=== PATIENT | male | born 1950 | race Caucasian/White ===

== ENCOUNTER 2016-09-10 09:52 | Inpatient (IN) | payer OTHER, MEDICARE ==
[~2016-09-10] VITALS: Ht 162.6 cm; Wt 51.9 kg
[~2016-09-10 09:52] MED LIST: ALBU0.086 NEB; COMBAER INH; COZA100T PO; FOLI1 PO; HYDR-2768 PO; HYDR-3580 PO; LISI-363 PO; LORA0.5T PO; MVI PO; SPIRCAP INH; SYMB160A INH; THIA100T PO
[2016-09-10 09:55] VITALS: BP 160/90; PULSE 80; RESP 16; TEMP 98.2; O2SAT 97
[2016-09-10 10:54] LABS: ANION GAP 6 MEQ/L (5-15); AST (GOT) 28 U/L (15-37); AUTOMATED NEUTROPHIL # 6.5 TH/MM3 (1.8-7.7); BASOPHIL # 0.1 TH/MM3 (0-0.2); BASOPHIL % 0.6 % (0.0-2.0); BICARBONATE 28.8 MEQ/L (21.0-32.0); BLOOD UREA NITROGEN 10 MG/DL (7-18); CHLORIDE 94 MEQ/L (98-107); EOSINOPHIL % 0.4 % (0.0-4.0); GLOMERULAR FILTRATION RATE 97 ML/MIN (>89); HEMATOCRIT 37.1 % (39.0-51.0); HEMO FLAGS DIFF FINAL; LYMPH % 19.2 % (9.0-44.0); LYMPHOCYTE # 1.8 TH/MM3 (1.0-4.8); MEAN CELL VOLUME 101.3 FL (80.0-100.0); MEAN CORPUSCULAR HEMOGLOBIN 36.3 PG (27.0-34.0); MEAN CORPUSCULAR HGB CONC 35.8 % (32.0-36.0); NEUT % 67.8 % (16.0-70.0); PLATELET COUNT 313 TH/MM3 (150-450); POTASSIUM 4.2 MEQ/L (3.5-5.1); RED BLOOD COUNT 3.66 MIL/MM3 (4.50-5.90); RED CELL DISTRIBUTION WIDTH 13.2 % (11.6-17.2); SODIUM (NA) 129 MEQ/L (136-145); WHITE BLOOD COUNT 9.6 TH/MM3 (4.0-11.0)
[2016-09-10 10:57] LABS: ALKALINE PHOSPHATASE 82 U/L (45-117); ALT (GPT) 34 U/L (12-78)
[2016-09-10 11:02] LABS: APTT (PATIENT) 27.2 SEC (24.3-30.1); PROTHROMBIN TIME - PATIENT 10.5 SEC (9.8-11.6)
--- NOTE | 2016-09-10 11:16 | RADRPT ---
EXAM DATE/TIME: 09/10/2016 10:38 [facility] COMPARISON: CT BRAIN W/O CONTRAST, December 15, 2014, 13:35. INDICATIONS : Trauma. Fell last night. Loss of consciousness. RADIATION DOSE: 39.51 CTDIvol (mGy) MEDICAL HISTORY : Cardiovascular disease. Hypertension. SURGICAL HISTORY : Lobectomy. ENCOUNTER: Initial ACUITY: 1 day PAIN SCALE: 0/10 LOCATION: cranial TECHNIQUE: Multiple contiguous axial images were obtained of the head. Using automated exposure control and adj ustment of the mA and/or kV according to patient size, radiation dose was kept as low as reasonably a chievable to obtain optimal diagnostic quality images. FINDINGS: CEREBRUM: The ventricles are normal for age. No evidence of midline shift, mass lesion, hemorrhage or acute in farction. No extra-axial fluid collections are seen. POSTERIOR FOSSA: The cerebellum and brainstem are intact. The 4th ventricle is midline. The cerebellopontine angle i s unremarkable. EXTRACRANIAL: The visualized portion of the orbits is intact. SKULL: The calvaria is intact. No evidence of skull fracture. CONCLUSION: No acute disease. Fer Mckeon MD FACR on September 10, 2016 at 11:14 Board Certified Radiologist. This report was verified electronically.
--- NOTE | 2016-09-10 11:29 | RADRPT ---
EXAM DATE/TIME: 09/10/2016 11:07 [facility] COMPARISON: No previous studies available for comparison. INDICATIONS : Fall - right hip pain. MEDICAL HISTORY : None. SURGICAL HISTORY : None. ENCOUNTER: Initial ACUITY: 2 days PAIN SCORE: 10/10 LOCATION: Right pelvis FINDINGS: 3 views of the right hip reveal acute nondisplaced subcapital femoral neck fracture on the right. Clu ster arthritis is seen involving the hips bilaterally. Osteopenia noted. Anchoring devices from prior ventral hernia repair are noted. CONCLUSION: Acute nondisplaced subcapital femoral neck fracture on the right. Henry Lopez Jr., MD on September 10, 2016 at 11:24 Board Certified Radiologist. This report was verified electronically.
[2016-09-10] MEDS ORDERED: chlordiazePOXIDE 25 MG CAP PO PRN (11:45)
[2016-09-10] MEDS ORDERED: LORazepam 2 MG TAB PO PRN ×2 (11:45→12:30)
[2016-09-10] MEDS ORDERED: LORazepam 2 MG/ML VIAL IV PUSH PRN ×8 (11:45→12:30)
[2016-09-10] MEDS ORDERED: MORPHINE SULFATE 4 MG/ML INJ IV PUSH ONE (11:45)
[2016-09-10] MEDS ORDERED: FLUMAZENIL 0.5 MG/5 ML VIAL IV PUSH PRN ×2 (11:45→12:30)
[2016-09-10] MEDS ORDERED: LORazepam 1 MG TAB PO PRN ×2 (11:45→12:30)
[2016-09-10] MEDS ORDERED: SODIUM CHLORIDE 0.9% FLUSH 5 ML FLUSH FLUSH PRN (12:30)
[2016-09-10] MEDS ORDERED: ACETAMINOPHEN 325 MG TAB PO PRN ×2 (12:30)
[2016-09-10] MEDS ORDERED: NALOXONE HCL 0.4 MG/ML AMP IV PRN (12:30)
[2016-09-10] MEDS ORDERED: ONDANSETRON HCL 4 MG/2 ML VIAL IVP PRN (12:30)
--- NOTE | 2016-09-10 12:30 | HHI.HP ---
[facility] Service [facility] Primary Care Physician Jin Pike MD Admission Diagnosis femoral neck fracture Diagnoses: (1) Fracture of femoral neck, right (2) HTN (hypertension) (3) Hyponatremia (4) Alcohol abuse (5) COPD (chronic obstructive pulmonary disease) Chief Complaint: Right hip pain Travel History International Travel<30 Days: No Contact w/Intl Traveler <30 Da: No Traveled to Known Affected Are: No History of Present Illness 65 year-old male with a history of hypertension, COPD, alcohol abuse was brought to the ED for evaluation of right hip pain status post mechanical fall after a syncopal episodes which occurred last night around 11 AM however patient did not seek immediate medical attention. Reports pain 10 out of 10 in intensity without any radiation and unable to put any weight on it. Patient denies any head trauma. There is no GI bleed Review of Systems Other 12 systems reviewed and are negative except for the ones mentioned in the history of present illness Past Family Social History Past Medical History Anxiety COPD Ongoing tobaccoism Hypertension Allergic rhinitis Previous cardiac catheterizations in 2003 2012 normal. Past Surgical History Hiatal hernia repair Cataract surgery Coronary angiograms Right lobectomy Reported Medications See EMR Allergies: Coded Allergies: Zosyn (Verified Allergy, Severe, Swelling, 12/10/15) RT EYE NOTED BLANCHING *MDRO Multi-Drug Resistant Organism (Verified Adverse Reaction, Unknown, ) MRSA Sputum 11/29/2014 and Blood 12/01/2014 Family History Father coronary artery disease age 76. Mother Alzheimer's complications at age 87. Sister with diabetes. Social History Positive prior alcohol abuse. One pack per day tobacco since age 9. Denies substance abuse. Physical Exam Vital Signs Vital Signs Date Time Temp Pulse Resp B/P Pulse Ox O2 Delivery O2 Flow Rate FiO2 09/10/16 09:58 17 97 Room Air 09/10/16 09:55 98.2 80 16 160/90 97 Physical Exam GENERAL: This is a well-nourished, well-developed patient, in no apparent distress. SKIN: No rashes, ecchymoses or lesions. Cool and dry. HEAD: Atraumatic. Normocephalic. No temporal or scalp tenderness. EYES: Pupils equal round and reactive. Extraocular motions intact. No scleral icterus. No injection or drainage. ENT: Nose without bleeding, purulent drainage or septal hematoma. Throat without erythema, tonsillar hypertrophy or exudate. Uvula midline. Airway patent. NECK: Trachea midline. No JVD or lymphadenopathy. Supple, nontender, no meningeal signs. CARDIOVASCULAR: Regular rate and rhythm without murmurs, gallops, or rubs. RESPIRATORY: Clear to auscultation. Breath sounds equal bilaterally. No wheezes , rales, or rhonchi. GASTROINTESTINAL: Abdomen soft, non-tender, nondistended. No hepato-splenomegaly , or palpable masses. No guarding. MUSCULOSKELETAL: Extremities without clubbing, cyanosis, or edema. Right lower extremity tender to palpation at the hip joint with limited range of motion NEUROLOGICAL: Awake and alert. Cranial nerves II through XII intact. Motor and sensory grossly within normal limits. Five out of 5 muscle strength in all muscle groups. Normal speech. Laboratory Laboratory Tests Test 09/10/16 10:00 White Blood Count 9.6 Red Blood Count 3.66 Hemoglobin 13.3 Hematocrit 37.1 Mean Corpuscular Volume 101.3 Mean Corpuscular Hemoglobin 36.3 Mean Corpuscular Hemoglobin 35.8 Concent Red Cell Distribution Width 13.2 Platelet Count 313 Mean Platelet Volume 7.4 Neutrophils (%) (Auto) 67.8 Lymphocytes (%) (Auto) 19.2 Monocytes (%) (Auto) 12.0 Eosinophils (%) (Auto) 0.4 Basophils (%) (Auto) 0.6 Neutrophils # (Auto) 6.5 Lymphocytes # (Auto) 1.8 Monocytes # (Auto) 1.1 Eosinophils # (Auto) 0.0 Basophils # (Auto) 0.1 CBC Comment DIFF FINAL Differential Comment Prothrombin Time 10.5 Prothromb Time International 1.0 Ratio Activated Partial 27.2 Thromboplast Time Sodium Level 129 Potassium Level 4.2 Chloride Level 94 Carbon Dioxide Level 28.8 Anion Gap 6 Blood Urea Nitrogen 10 Creatinine 0.80 Estimat Glomerular Filtration 97 Rate Random Glucose 111 Calcium Level 8.9 Total Bilirubin 1.0 Aspartate Amino Transf 28 (AST/SGOT) Alanine Aminotransferase 34 (ALT/SGPT) Alkaline Phosphatase 82 Total Protein 6.9 Albumin 3.7 Result Diagram: 09/10/16 1000 09/10/16 1000 Imaging Last Impressions Hip and Pelvis X-Ray 09/10/16 0000 Signed Impressions: Service Date/Time: Saturday, September 10, 2016 11:07 - CONCLUSION: Acute nondisplaced subcapital femoral neck fracture on the right. Henry Lopez Jr., MD Head CT 09/10/16 0000 Signed Impressions: Service Date/Time: Saturday, September 10, 2016 10:38 - CONCLUSION: No acute disease. Fer Mckeon MD FACR Assessment and Plan Problem List: (1) Fracture of femoral neck, right ICD Code: S72.001A Status: Acute (2) Hyponatremia ICD Code: E87.1 Status: Acute Assessment and Plan 65 yrs old female with Femoral right neck fracture: S/p mechanical Fall; hip and pelvic x-ray fracture noted and reviewed by me with finding of Acute nondisplaced subcapital femoral neck fracture on the right. Consult orthopedic surgery, keep nothing by mouth for possible ORIF, pain management accordingly. DVT postprocedure per orthopedic surgery, PT consult postprocedure. Place Hernandez traction. History of alcohol abuse: Chronic, start rally pack, CIWA per protocol, Librium when necessary for DTs Hypokalemia:2/2 Beer Potomania; gentle IV fluid hydration History of COPD: No current exacerbation, resume outpatient medications, DuoNeb when necessary Hypertension: Resume outpatient medications DVT prophylaxis: Per orthopedic surgery postprocedure Code Status Full code Discussed Condition With Patient, , ED physician Physician Certification 2 Midnight Certification Type: Admission for Inpatient Services Order for Inpatient Services The services are ordered in accordance with Medicare regulations or non- Medicare payer requirements, as applicable. In the case of services not specified as inpatient-only, they are appropriately provided as inpatient services in accordance with the 2-midnight benchmark. Estimated LOS (days): 2 days is the estimated time the patient will need to remain in the hospital, assuming treatment plan goals are met and no additional complications. Post-Hospital Plan: Not yet determined Luis Rice MD Sep 10, 2016 12:30
[2016-09-10] MEDS: SODIUM CHLOR 0.9% 1000 ML INJ 1,000 ML IV SCH (13:01)
--- NOTE | 2016-09-10 13:11 | PD ---
HPI Chief Complaint: Fall Time Seen by Provider: 09:59 Travel History International Travel<30 days: No Contact w/Intl Traveler<30days: No Traveled to known affect area: No History of Present Illness HPI This is a 65-year-old male who presents to the emergency department having had an episode last night where he says he passed out around midnight he says he didn't feel it coming didn't feel lightheaded or dizzy but subsequently found himself on the floor. He says he immediately woke up once he fell to the floor. He had severe right hip pain, constant, limiting his ability to walk. He's been getting around using 2 canes. He does drink alcohol on a daily basis. He is not sure if he hit his head last night. PFSH Past Medical History Autoimmune Disease: No Anxiety: No Depression: Yes (past few days due to current health status) Heart Rhythm Problems: No Cancer: No Cardiac Catheterization: Yes (2003) Cardiovascular Problems: Yes (HTN) High Cholesterol: No Chemotherapy: No Congestive Heart Failure: No COPD: Yes Diabetes: No Diminished Hearing: No Endocrine: No Genitourinary: No Hypertension: Yes Immune Disorder: No Medical other: Yes Musculoskeletal: Yes Neurologic: No Psychiatric: No Reproductive: No Respiratory: Yes (COPD) Myocardial Infarction: Yes Radiation Therapy: No Sickle Cell Disease: No Sleep Apnea: Yes (only sleeps for 20 minutes at a time each night) Past Surgical History Abdominal Surgery: Yes (double hernia done at [facility]) Cardiac Surgery: Yes (two heart catheterizations - both negative) Coronary Artery Bypass Graft: No Ear Surgery: No Endocrine Surgery: No Eye Surgery: Yes (cataracts removed from both eyes) Genitourinary Surgery: No Gynecologic Surgery: No Oral Surgery: Yes (partial plate in lower front) Thoracic Surgery: Yes (right double lobectomy 2014) Other Surgery: Yes Social History Alcohol Use: Yes (DAILY 3 BEERS) Tobacco Use: Yes (1 PPD) Substance Use: No Allergies-Medications (Allergen,Severity, Reaction): Coded Allergies: Zosyn (Verified Allergy, Severe, Swelling, 12/10/15) RT EYE NOTED BLANCHING *MDRO Multi-Drug Resistant Organism (Verified Adverse Reaction, Unknown, ) MRSA Sputum 11/29/2014 and Blood 12/01/2014 Reported Meds & Prescriptions Reported Meds & Active Scripts Active Theragran (Multivitamins) 1 Tab Tab 1 Tab PO DAILY 30 Days Folate 1 Mg Tab (Folic Acid) 1 Mg Tab 1 Mg PO DAILY 30 Days Vitamin B1 (Thiamine HCl) 100 Mg Tab 100 Mg PO DAILY 30 Days Reported Spiriva Handihaler (Tiotropium Irving) 18 Mcg Cap 1 Puff INH DAILY DO NOT SWALLOW CAPSULES Symbicort (Budesonide/Formoterol Fumarate) 160 Mcg/4.5 Mcg Aer 2 Puff INH BID * SHAKE WELL BEFORE USE * Lorazepam 0.5 Mg Tab 0.5 Mg PO BID Hydrocodone/Acetaminophen 7.5 mg/325 mg 1 Tab 1 Tab PO TID Lisinopril 20 mg (Lisinopril) 20 Mg Tab 10 Mg PO DAILY Cozaar (Losartan Potassium) 100 Mg Tab 100 Mg PO DAILY Hctz (Hydrochlorothiazide) 25 Mg Tab 25 Mg PO DAILY Proventil Ud 0.083% (2.5 Mg/3 Ml) (Albuterol Sulfate) 2.5 Mg/3 Ml Inha 1 Ampule NEB Q6 PRN Combivent (Albuterol/Ipratropium) 14.7 Gm Aer 2 Puff INH Q4HPRN FOR WHEEZING Review of Systems Except as stated in HPI: all other systems reviewed are Neg Physical Exam Narrative GENERAL:Well appearing, no acute distress SKIN: Ecchymoses on the upper and lower extremities at different stages of healing. Telangiectasias on the face and upper chest HEAD: Atraumatic. Normocephalic. EYES: Pupils equal and round. No injection or drainage. ENT: Moist mucous membranes NECK: Trachea midline. CARDIOVASCULAR: Regular rate and rhythm. No murmur appreciated. 2+ bilateral DP pulses. RESPIRATORY: Clear to auscultation. Breath sounds equal bilaterally. GASTROINTESTINAL: Abdomen soft, non-tender, nondistended. MUSCULOSKELETAL: Severe pain in the right hip with any movement. NEUROLOGICAL: Awake and alert. No obvious cranial nerve deficits. Moving all extremities. PSYCHIATRIC: Appropriate mood and affect; insight and judgment normal. Data Data Last Documented VS Vital Signs Date Time Temp Pulse Resp B/P Pulse Ox O2 Delivery O2 Flow Rate FiO2 09/10/16 09:58 17 97 Room Air 09/10/16 09:55 98.2 80 160/90 Orders Complete Blood Count With Diff (09/10/16 10:14) Comprehensive Metabolic Panel (09/10/16 10:14) ^ Insert Iv (09/10/16 10:14) Hip, Uni(Ap&Lat) W Ap Pelvis (09/10/16 ) Prothrombin Time / Inr (Pt) (09/10/16 10:22) Act Partial Throm Time (Ptt) (09/10/16 10:22) Ct Brain W/O Iv Contrast(Rout) (09/10/16 ) Electrocardiogram (09/10/16 ) Morphine Inj (Morphine Inj) (09/10/16 11:45) Alcohol Withdrawal Asmt-Ciwa ONCE (09/10/16 11:45) Flumazenil Inj (Romazicon Inj) (09/10/16 11:45) Lorazepam (Ativan) (09/10/16 11:45) Lorazepam Inj (Ativan Inj) (09/10/16 11:45) Lorazepam (Ativan) (09/10/16 11:45) Lorazepam Inj (Ativan Inj) (09/10/16 11:45) Lorazepam Inj (Ativan Inj) (09/10/16 11:45) Lorazepam Inj (Ativan Inj) (09/10/16 11:45) Chlordiazepoxide (Librium) (09/10/16 11:45) Admit Order (Ed Use Only) (09/10/16 12:02) Labs Laboratory Tests Test 09/10/16 10:00 White Blood Count 9.6 TH/MM3 Red Blood Count 3.66 MIL/MM3 Hemoglobin 13.3 GM/DL Hematocrit 37.1 % Mean Corpuscular Volume 101.3 FL Mean Corpuscular Hemoglobin 36.3 PG Mean Corpuscular Hemoglobin 35.8 % Concent Red Cell Distribution Width 13.2 % Platelet Count 313 TH/MM3 Mean Platelet Volume 7.4 FL Neutrophils (%) (Auto) 67.8 % Lymphocytes (%) (Auto) 19.2 % Monocytes (%) (Auto) 12.0 % Eosinophils (%) (Auto) 0.4 % Basophils (%) (Auto) 0.6 % Neutrophils # (Auto) 6.5 TH/MM3 Lymphocytes # (Auto) 1.8 TH/MM3 Monocytes # (Auto) 1.1 TH/MM3 Eosinophils # (Auto) 0.0 TH/MM3 Basophils # (Auto) 0.1 TH/MM3 CBC Comment DIFF FINAL Differential Comment Prothrombin Time 10.5 SEC Prothromb Time International 1.0 RATIO Ratio Activated Partial 27.2 SEC Thromboplast Time Sodium Level 129 MEQ/L Potassium Level 4.2 MEQ/L Chloride Level 94 MEQ/L Carbon Dioxide Level 28.8 MEQ/L Anion Gap 6 MEQ/L Blood Urea Nitrogen 10 MG/DL Creatinine 0.80 MG/DL Estimat Glomerular Filtration 97 ML/MIN Rate Random Glucose 111 MG/DL Calcium Level 8.9 MG/DL Total Bilirubin 1.0 MG/DL Aspartate Amino Transf 28 U/L (AST/SGOT) Alanine Aminotransferase 34 U/L (ALT/SGPT) Alkaline Phosphatase 82 U/L Total Protein 6.9 GM/DL Albumin 3.7 GM/DL [facility] Medical Decision Making Medical Screen Exam Complete: Yes Emergency Medical Condition: Yes Interpretation(s) Afebrile, no tachycardia, hypertensive Macrocytosis Mild hyponatremia Coags are normal Last 24 hours Impressions Hip and Pelvis X-Ray 09/10/16 0000 Signed Impressions: Service Date/Time: Saturday, September 10, 2016 11:07 - CONCLUSION: Acute nondisplaced subcapital femoral neck fracture on the right. Henry Lopez Jr., MD Head CT 09/10/16 0000 Signed Impressions: Service Date/Time: Saturday, September 10, 2016 10:38 - CONCLUSION: No acute disease. Fer Mckeon MD FACR Differential Diagnosis Femur fracture, pubic ramus fracture, hip sprain, contusion Narrative Course This is a 65-year-old male who presents to the emergency department having had syncope and a fall last evening. He was placed on a monitor and an IV was established. CT of the head was reassuring with no evidence of intracranial hemorrhage. Labs demonstrated some hyponatremia and a macrocytosis consistent with the patient's history of chronic alcohol use. X-ray of the hip demonstrates a subcapital femoral neck fracture. Patient will be admitted for surgical intervention. Physician Communication Physician Communication Discussed with Dr. Rice Diagnosis Primary Impression: Fracture of femoral neck, right Qualified Code: S72.001A - Closed fracture of neck of right femur, initial encounter Admitting Information Admitting Physician Requests: Admit Katrina Palomino MD Sep 10, 2016 13:11
[2016-09-10] MEDS ORDERED: ATOR10TA15 PO (13:25)
[2016-09-10] MEDS ORDERED: HYDR-3534 PO (13:25)
[2016-09-10] MEDS ORDERED: LORA-373 PO (13:25)
[2016-09-10] MEDS ORDERED: SYMB160A INH (13:25)
[2016-09-10] MEDS ORDERED: CITA20TA4 PO (13:25)
[2016-09-10] MEDS ORDERED: HYDR25TA5 PO (13:25)
[2016-09-10] MEDS ORDERED: SPIRCAP INH (13:25)
[2016-09-10 14:00] VITALS: BP 140/74; PULSE 68; RESP 18; TEMP 98.2; O2SAT 96
[2016-09-10 16:02] VITALS: BP 148/75; PULSE 74; RESP 19; TEMP 99.5; O2SAT 95
[2016-09-10] MEDS: MORPHINE SULFATE 4 MG/ML INJ IV PRN ×2 (17:36→21:44)
[2016-09-10 19:16] VITALS: BP 129/83; PULSE 75; RESP 17; TEMP 98.7; O2SAT 94
[2016-09-10] MEDS: RESP: ALBUTEROL 2.5 MG/IPRATROPIUM 0.5 MG NEB (PRN) NEB (19:33)
[2016-09-10] MEDS: LORazepam 0.5 MG TAB PO SCH (21:44)
[2016-09-10] MEDS: SODIUM CHLORIDE 0.9% FLUSH 5 ML FLUSH FLUSH SCH (21:44)
[2016-09-10] MEDS: ATORVASTATIN 10 MG TAB PO SCH (21:44)
[2016-09-10] MEDS: BUDESONIDE-FORMOTEROL 160/4.5 MCG INHALER INH SCH (22:37)
--- NOTE | 2016-09-10 23:05 | EKG ---
Date Performed: 09/10/2016 Time Performed: 14:20:45 PTAGE: 65 years EKG: Sinus rhythm POSSIBLE LEFT ATRIAL ENLARGEMENT BORDERLINE ECG PREVIOUS TRACING : 11/28/2014 09.06 Compared to the previous tracing, previously tachycardic wi th ST changes DOCTOR: Chris Santizo Interpretating Date/Time 09/10/2016 23:03:52
[2016-09-11] VITALS: BP 130/77; PULSE 79; RESP 16; TEMP 98; O2SAT 94
[2016-09-11 00:31] LABS: BLOOD, URINE NEG (NEG); GLUCOSE,URINE NEG (NEG); KETONE, URINE 10 mg/dL (NEG); MUCUS URINE FEW /lpf (OCC); NITRITE,URINE NEG (NEG); PH, URINE 6.5 (5.0-8.5); URINE COLOR YELLOW (YELLW/STRAW)
[2016-09-11 00:32] LABS: COMMENT (UR) CULT NOT INDICATED; CULTURE IF INDICATED CULT NOT INDICATED
[2016-09-11] MEDS: RESP: ALBUTEROL 2.5 MG/IPRATROPIUM 0.5 MG NEB (PRN) NEB ×2 (00:34→22:04)
[2016-09-11] MEDS: SODIUM CHLOR 0.9% 1000 ML INJ 1,000 ML IV SCH ×2 (01:26→17:06)
[2016-09-11] MEDS: MORPHINE SULFATE 4 MG/ML INJ IV PRN ×2 (02:35→07:26)
[2016-09-11] MEDS ORDERED: INSULIN HUMAN REGULAR 1,000 UNITS/10 ML VIAL SQ PRN (02:45)
[2016-09-11] MEDS: LACTATED RINGER'S 1000 ML IV SCH (02:45)
[2016-09-11] MEDS: SODIUM CHLORID 0.9% 500 ML IV SCH ×2 (02:45→19:25)
[2016-09-11] MEDS ORDERED: METOPROLOL TARTRATE 25 MG TAB PO PRN (02:45)
[2016-09-11 04:00] VITALS: BP 126/75; PULSE 72; RESP 17; TEMP 98; O2SAT 93
[2016-09-11 07:09] LABS: AUTOMATED NEUTROPHIL # 5.1 TH/MM3 (1.8-7.7); BASOPHIL # 0.1 TH/MM3 (0-0.2); EOSINOPHIL # 0.1 TH/MM3 (0-0.4); EOSINOPHIL % 1.1 % (0.0-4.0); HEMATOCRIT 33.5 % (39.0-51.0); HEMO FLAGS DIFF FINAL; LYMPH % 26.5 % (9.0-44.0); LYMPHOCYTE # 2.3 TH/MM3 (1.0-4.8); MEAN CELL VOLUME 101.4 FL (80.0-100.0); MEAN CORPUSCULAR HEMOGLOBIN 35.5 PG (27.0-34.0); NEUT % 59.4 % (16.0-70.0); PLATELET COUNT 271 TH/MM3 (150-450); RED CELL DISTRIBUTION WIDTH 13.1 % (11.6-17.2); WHITE BLOOD COUNT 8.6 TH/MM3 (4.0-11.0)
[2016-09-11] MEDS: CITALOPRAM HYDROBROMIDE 20 MG TAB PO SCH (07:25)
[2016-09-11] MEDS: HYDROCHLOROTHIAZIDE 25 MG TAB PO SCH (07:25)
[2016-09-11] MEDS: BUDESONIDE-FORMOTEROL 160/4.5 MCG INHALER INH SCH ×2 (07:25→20:46)
[2016-09-11] MEDS: LORazepam 0.5 MG TAB PO SCH ×2 (07:25→20:46)
[2016-09-11] MEDS: SODIUM CHLORIDE 0.9% FLUSH 5 ML FLUSH FLUSH SCH (07:26)
[2016-09-11] MEDS: FOLIC ACID 1 MG TAB PO SCH (07:26)
[2016-09-11] MEDS: TIOTROPIUM BROMIDE 18 MCG INH INH SCH (07:26)
[2016-09-11] MEDS: MULTIVITAMINS/MINERALS THERAPEUTIC TAB PO SCH (07:27)
[2016-09-11] MEDS: THIAMINE HCL 100 MG TAB PO SCH (07:27)
[2016-09-11 08:04] LABS: ALKALINE PHOSPHATASE 68 U/L (45-117); ALT (GPT) 26 U/L (12-78); ANION GAP 7 MEQ/L (5-15); AST (GOT) 19 U/L (15-37); BICARBONATE 29.4 MEQ/L (21.0-32.0); BLOOD UREA NITROGEN 8 MG/DL (7-18); CHLORIDE 95 MEQ/L (98-107); GLOMERULAR FILTRATION RATE 110 ML/MIN (>89); POTASSIUM 4.1 MEQ/L (3.5-5.1); SODIUM (NA) 131 MEQ/L (136-145); TOTAL BILIRUBIN ADULT 0.9 MG/DL (0.2-1.0)
[2016-09-11 08:36] VITALS: BP 125/84; PULSE 86; RESP 16; TEMP 97.8; O2SAT 95
[2016-09-11] MEDS ORDERED: ePHEDrine/NS 25 MG/5 ML SYR IV ONE (12:00)
[2016-09-11] MEDS ORDERED: ONDANSETRON HCL 4 MG/2 ML VIAL IV PUSH ONE (12:00)
[2016-09-11] MEDS ORDERED: LACTATED RINGER'S 1000 ML INJ 1,000 ML IV ONE (12:00)
[2016-09-11] MEDS ORDERED: PROPOFOL 200 MG/20 ML AMP IV ONE (12:00)
[2016-09-11 12:15] VITALS: BP 160/83; PULSE 72; RESP 16; TEMP 98.1; O2SAT 95
[2016-09-11] MEDS ORDERED: methylPREDNISolone SOD SUCC 125 MG/2 ML VIAL ONE (12:37)
[2016-09-11] MEDS ORDERED: MIDAZOLAM HCL 2 MG/2 ML VIAL ONE (12:37)
[2016-09-11] MEDS ORDERED: MORPHINE SULFATE 4 MG/ML INJ ONE (12:37)
--- NOTE | 2016-09-11 14:44 | HHI.PR ---
Subjective Remarks Follow-up Femoral right neck fracture 09/11/16-patient seen and examined, currently nothing by mouth and plan for open reduction internal fixation by orthopedic surgery Objective Vitals Vital Signs Date Time Temp Pulse Resp B/P Pulse Ox O2 Delivery O2 Flow Rate FiO2 09/11/16 12:15 98.1 72 16 160/83 95 09/11/16 08:36 97.8 86 16 125/84 95 09/11/16 07:31 16 09/11/16 04:00 98.0 72 17 126/75 93 09/11/16 00:00 98.0 79 16 130/77 94 09/10/16 19:16 98.7 75 17 129/83 94 09/10/16 16:02 99.5 74 19 148/75 95 I/O 09/10/16 09/10/16 09/10/16 09/11/16 09/11/16 09/11/16 07:00 15:00 23:00 07:00 15:00 23:00 Intake Total 240 ml 0 ml Output Total 300 ml Balance 240 ml -300 ml Intake Oral 240 ml 0 ml Output Urine Total 300 ml # Voids 1 2 # Bowel Movements 0 0 Result Diagram: 09/11/1629 09/11/16628 Objective Remarks GENERAL: NAD SKIN: Warm and dry. HEAD: Normocephalic. EYES: No scleral icterus. No injection or drainage. NECK: Supple, trachea midline. No JVD or lymphadenopathy. CARDIOVASCULAR: Regular rate and rhythm without murmurs, gallops, or rubs. RESPIRATORY: Breath sounds equal bilaterally. No accessory muscle use. GASTROINTESTINAL: Abdomen soft, non-tender, nondistended. MUSCULOSKELETAL: No cyanosis, or edema. right LLE limited ROM BACK: Nontender without obvious deformity. No CVA tenderness. A/P Problem List: (1) Fracture of femoral neck, right ICD Code: S72.001A Status: Acute (2) HTN (hypertension) ICD Code: I10 Status: Chronic (3) Hyponatremia ICD Code: E87.1 Status: Acute (4) Alcohol abuse ICD Code: F10.10 Status: Acute (5) COPD (chronic obstructive pulmonary disease) ICD Code: J44.9 Status: Acute Assessment and Plan 65 yrs old female with Femoral right neck fracture: S/p mechanical Fall; hip and pelvic x-ray fracture noted and reviewed by me with finding of Acute nondisplaced subcapital femoral neck fracture on the right. Appreciate input from Orthopedic surgery and plan for ORIF today 09/11/16, pain management accordingly. DVT postprocedure per orthopedic surgery, PT consult postprocedure. Place Hernandez traction. History of alcohol abuse: Chronic, on rally pack, CIWA per protocol, Librium when necessary for DTs Hypokalemia:2/2 Beer Potomania; continue IV fluid hydration History of COPD: No current exacerbation, continue outpatient medications, DuoNeb when necessary Hypertension: Continue outpatient medications DVT prophylaxis: Per orthopedic surgery postprocedure Problem Qualifiers (1) Fracture of femoral neck, right: Qualified Code: S72.001A - Closed fracture of neck of right femur, initial encounter Luis Rice MD Sep 11, 2016 14:44
[2016-09-11] MEDS ORDERED: GENTAMICIN SULFATE 80 MG/2 ML VIAL ONE (15:13)
[2016-09-11] MEDS ORDERED: ceFAZolin 2 GM PREMIX 50 ML ONE (15:29)
--- NOTE | 2016-09-11 16:27 | PD.OP ---
cc: Krishna Saleh MD Operative Report Date of Surgery: Sep 11, 2016 Preoperative Diagnosis: Right femoral neck fracture, subcapital, impacted Postoperative Diagnosis: Same Procedure: Open treatment internal fixation right femoral neck fracture with multiple screws Anesthesia: Gen. Surgeon: Krishna Saleh Rail Detector Car Operator(s): MARIANNE Escobar Operation and Findings: EBL: 50 cc INDICATION: Patient is a 65-year-old male who sustained the above fracture a day and a half ago. He presented to the emergency room yesterday and was found to have evidence of a subcapital femoral neck fracture. He presents for surgical treatment NOTE: Miah Escobar PA-C was present for the entire surgical procedure as my museum assistant. In my medical opinion her skill and care was necessary for proper management of this patient PROCEDURE: The patient was brought to the operating room and anesthetized in the supine position. He was placed on the fracture table with the right leg held extended. The opposite leg was in the well leg burton. The hip fracture was reduced anatomically. The hip and leg was scrubbed with alcohol followed by Hibiclens followed by ChloraPrep. A timeout was done and antibiotics were given within 1 hour time window. A longitudinal incision was made over the lateral aspect of the hip. This is carried down through skin and subcutaneous tissue. The fascia was opened longitudinally. Deep retractors allowed good visualization. Multiple guide pins were placed across the proximal femur across the neck of the femur. These were placed within the proper position in a parallel fashion into the femoral head. Overall alignment was satisfactory. Reduction was near anatomic. Each pin was measured and then the outer cortex drilled. Proper length 7.3mm Synthes screws were advanced across the cannulated device and into the femoral head. Each screw had good position. Intraoperative x-rays were obtained. Alignment was satisfactory. No complication was noted. The wound was irrigated copiously. Hemostasis was controlled. The fascia was closed with interrupted Vicryl suture, subcutaneous tissue 2-0 Vicryl suture, skin with running intradermal 3-0 Vicryl followed by Steri-Strips and benzoin. A sterile dressing was applied The patient was awakened and taken to the recovery room in satisfactory condition. FINDINGS: There was evidence of an impacted valgus femoral neck fracture. Final fixation was very satisfactory. 4 screws were utilized. Krishna Saleh MD Sep 11, 2016 16:27
[2016-09-11] MEDS ORDERED: ENOX40P SQ (16:29)
[2016-09-11] MEDS ORDERED: MISCELLANEOUS NURSING INFORMATION XX PRN (16:30)
[2016-09-11] MEDS ORDERED: Post-op Orders (for Pharmacy) MISC XX ONE (16:30)
[2016-09-11] MEDS ORDERED: ACETAMINOPHEN/HYDROcodone 325 MG/7.5 MG TAB PO PRN (16:30)
[2016-09-11] MEDS ORDERED: MISCELLANEOUS PHARMACY INFORMATION XX ONE (16:30)
[2016-09-11] MEDS ORDERED: SODIUM CHLORIDE 0.9% FLUSH 5 ML FLUSH IVF PRN (16:30)
[2016-09-11] MEDS ORDERED: ALUMINUM/MAGNESIUM/SIMETH 30 ML CUP PO PRN (16:30)
[2016-09-11] MEDS ORDERED: ONDANSETRON HCL 4 MG/2 ML VIAL IVP PRN (16:30)
[2016-09-11] MEDS ORDERED: TEMAZEPAM 15 MG CAP PO PRN (16:30)
--- NOTE | 2016-09-11 16:42 | MB ---
cc: CARIDAD PLASENCIA DATE OF CONSULTATION 09/11/16 REASON FOR CONSULTATION Fracture of the right hip. HISTORY OF PRESENT ILLNESS This patient is a 65-year-old white male. The patient has a known history of hypertension, COPD, alcohol abuse. The patient apparently fell the night before sustaining an injury to his right hip. He came in around 11 o'clock walking on a cane and having pain in the region of his right hip. X-rays showed evidence of an impacted right femoral neck fracture. I have been asked to see him in consultation regarding the same. PAST MEDICAL HISTORY 1. Anxiety, 2. COPD, 3. Tobacco abuse, 4. Hypertension, 5. Rhinitis, 6. History of cardiac catheterization in 2003 abd 2011 which apparently were normal. PAST SURGICAL HISTORY 1. Hiatal hernia, 2. Cataract surgery, 3. Coronary angiogram, 4. Right lobectomy. MEDICATIONS See EMR ALLERGIES ZOSYN FAMILY HISTORY Father and age 76 from coronary artery disease, mother without Alzheimer's disease at age 87, sister with diabetes. SOCIAL HISTORY Positive for alcohol abuse, one pack of cigarettes per day since very young age. He denies substance abuse. PHYSICAL EXAMINATION GENERAL: Alert, cooperative white male appearing at or older than his stated age. HEENT: Normocephalic, atraumatic. Pupils equal, round, reactive to light and accommodation. Extraocular motions intact. NECK: Supple. CHEST: Clear. HEART: Regular rate rhythm. ABDOMEN: Soft, nontender, normoactive bowel sounds. MUSCULOSKELETAL: Right hip pain with range of motion. Slight external rotation of the right leg is seen. Dorsalis pedis 1+. Sensation is normal. IMAGING STUDIES X-rays reviewed and radiologist reports shows evidence of an impacted right femoral neck fracture, subcapital. IMPRESSION Right femoral neck fracture. PLAN Open treatment fixation, multiple screws right hip. CONSENT The risks of surgery including infection, bleeding, loss of motion, continued pain, need for further surgery, neurologic vascular injury. The patient understands these issues and wishes to press on with surgery as outlined above. Caridad Plasencia MD [facility] [place]/ /4:25 PM /4:31 PM
[2016-09-11] MEDS ORDERED: DO NOT ADM ANY ANTICOAGULANT DRUGS XX PRN (17:00)
[2016-09-11] MEDS ORDERED: fentaNYL CITRATE 250 MCG/5 ML AMP ONE (17:03)
[2016-09-11] MEDS ORDERED: *MEPERIDINE 25 MG INJ VIAL PERIprocedural Use ONLY ONE (17:03)
--- NOTE | 2016-09-11 17:09 | RADRPT ---
EXAM DATE/TIME: 09/11/2016 16:20 [facility] COMPARISON: HIP RIGHT (AP&LAT 2/3VWS) W AP PELVIS, September 10, 2016, 11:07. INDICATIONS : ORIF Right Hip. MEDICAL HISTORY : Cardiovascular disease. Hypertension. SURGICAL HISTORY : Lobectomy. ENCOUNTER: Initial ACUITY: 1 day PAIN SCORE: Non-responsive. LOCATION: Right Hip. FINDINGS: 2 images recorded digitally in the operating room using C-arm during placement of 4 screws across the proximal femoral trochanter and head. The configuration of the femoral neck fracture is similar to prior.. CONCLUSION: Intraoperative images. Henry Hanna MD on September 11, 2016 at 17:06 Board Certified Radiologist. This report was verified electronically.
[2016-09-11] MEDS: LACTATED RINGER'S 1000 ML INJ 1,000 ML IV SCH (17:10)
[2016-09-11] MEDS ORDERED: *morphine SULFATE 8 MG/ML PERIprocedure ONLY ONE (17:11)
[2016-09-11] MEDS: ACETAMINOPHEN/HYDROcodone 325 MG/7.5 MG TAB PO PRN ×2 (18:18→22:11)
[2016-09-11 20:00] VITALS: BP 108/57; PULSE 81; RESP 20; TEMP 95.6; O2SAT 97
[2016-09-11] MEDS: SODIUM CHLORIDE 0.9% FLUSH 5 ML FLUSH IVF SCH (20:46)
[2016-09-11] MEDS: ATORVASTATIN 10 MG TAB PO SCH (20:46)
[2016-09-11] MEDS: MAGNESIUM HYDROXIDE SUSP 30 ML CUP PO SCH (20:46)
[2016-09-11] MEDS: SENNOSIDES 8.6 MG TAB PO SCH (20:47)
[2016-09-11] MEDS: MORPHINE SULFATE 8 MG/ML INJ IM PRN (21:01)
[2016-09-11 22:09] VITALS: O2SAT 94
[2016-09-12] VITALS (9 sets, daily range): BP systolic 96–142; BP diastolic 54–79; PULSE 81–95; RESP 16–20; TEMP 97.2–98.3; O2SAT 18–97
[2016-09-12] MEDS: LACTATED RINGER'S 1000 ML IV SCH ×2 (00:22→22:56)
[2016-09-12] MEDS: RESP: ALBUTEROL 2.5 MG/IPRATROPIUM 0.5 MG NEB (PRN) NEB ×2 (01:04→20:40)
[2016-09-12] MEDS: MORPHINE SULFATE 8 MG/ML INJ IM PRN (02:18)
[2016-09-12] MEDS: ACETAMINOPHEN/HYDROcodone 325 MG/7.5 MG TAB PO PRN ×5 (04:49→21:54)
[2016-09-12] MEDS: ENOXAPARIN SODIUM 30 MG/0.3 ML SYRINGE SQ SCH (04:49)
[2016-09-12] MEDS: LACTATED RINGER'S 1000 ML INJ 1,000 ML IV SCH ×3 (04:50→22:56)
[2016-09-12 05:19] LABS: HEMATOCRIT 30.7 % (39.0-51.0); REVIEW FLAG FINAL
--- NOTE | 2016-09-12 07:50 | PD.ORT.PN ---
Subjective Subjective Remarks No complaints. Lying in bed. Once to go home as soon as possible Objective Vitals Vital Signs Date Time Temp Pulse Resp B/P Pulse Ox O2 Delivery O2 Flow Rate FiO2 09/12/16 04:00 97.4 87 16 137/79 93 09/12/16 01:06 93 Nasal Cannula 2.00 09/12/16 00:00 98.0 83 18 96/54 93 09/11/16 22:09 94 Nasal Cannula 21 09/11/16 20:00 95.6 81 20 108/57 97 09/11/16 17:30 97.8 70 16 144/85 96 Nasal Cannula 2 09/11/16 17:15 68 15 145/89 95 Nasal Cannula 2 09/11/16 17:00 66 15 146/90 98 Nasal Cannula 3 09/11/16 16:45 64 15 148/82 100 Nasal Cannula 4 09/11/16 16:42 98.3 60 14 144/76 99 Nasal Cannula 4 09/11/16 12:15 98.1 72 16 160/83 95 09/11/16 08:36 97.8 86 16 125/84 95 I/O 09/11/16 09/11/16 09/11/16 09/12/16 09/12/16 09/12/16 07:00 15:00 23:00 07:00 15:00 23:00 Intake Total 0 ml 0 ml 1700 ml 480 ml Output Total 300 ml 50 ml 1000 ml Balance -300 ml 0 ml 1650 ml -520 ml Intake Oral 0 ml 0 ml 600 ml 480 ml IV Total 100 ml Other 1000 ml Output Urine Total 300 ml 1000 ml Estimated Blood Loss 50 ml # Voids 4 4 # Bowel Movements 0 0 0 Result Diagram: 09/12/16 0504 09/11/16 0629 Objective Remarks Bandages to right hip with minimal drainage. No abnormal swelling. No calf tenderness. Negative Homans sign. Neurovascular normal distally are Bandage over right elbow from abrasion Assessment & Plan Ortho Post Op Day #: 1 Problem List: Assessment and Plan Right femoral neck fracture, subcapital, impacted. ORIF right hip, multiple screws: POD #1. PLAN: Toe-touch weightbearing Xarelto for 25 days [place] as needed for pain Home versus SNF, per medical decision. No dressing change Stable to orthopedic discharge, probably Thursday or Thursday if has to go to SNF Krishna Saleh MD Sep 12, 2016 07:50
[2016-09-12] MEDS ORDERED: HYDR-3580 PO (07:53)
[2016-09-12] MEDS: MAGNESIUM HYDROXIDE SUSP 30 ML CUP PO SCH ×2 (07:57→19:55)
[2016-09-12] MEDS: THIAMINE HCL 100 MG TAB PO SCH (07:58)
[2016-09-12] MEDS: HYDROCHLOROTHIAZIDE 25 MG TAB PO SCH (07:58)
[2016-09-12] MEDS: MULTIVITAMINS/MINERALS THERAPEUTIC TAB PO SCH (07:58)
[2016-09-12] MEDS: LORazepam 0.5 MG TAB PO SCH ×2 (07:58→19:55)
[2016-09-12] MEDS: FOLIC ACID 1 MG TAB PO SCH (07:58)
[2016-09-12] MEDS: chlordiazePOXIDE 25 MG CAP PO PRN ×2 (07:58→19:55)
[2016-09-12] MEDS: CITALOPRAM HYDROBROMIDE 20 MG TAB PO SCH (07:58)
[2016-09-12] MEDS: BUDESONIDE-FORMOTEROL 160/4.5 MCG INHALER INH SCH ×2 (07:59→19:55)
[2016-09-12] MEDS: TIOTROPIUM BROMIDE 18 MCG INH INH SCH (08:00)
[2016-09-12] MEDS: SODIUM CHLOR 0.9% 1000 ML INJ 1,000 ML IV SCH ×2 (08:01→21:42)
[2016-09-12] MEDS: SODIUM CHLORIDE 0.9% FLUSH 5 ML FLUSH IVF SCH ×2 (09:00→19:56)
--- NOTE | 2016-09-12 09:40 | HHI.PR ---
Subjective Remarks Follow-up Femoral right neck fracture 09/11/16-patient seen and examined, currently nothing by mouth and plan for open reduction internal fixation by orthopedic surgery 09/12/16-patient seen and examined, has open reduction internal fixation right hip yesterday. No acute event overnight. Currently requesting more narcotics. Patient states, would like discharge to rehabilitation possible tomorrow Objective Vitals Vital Signs Date Time Temp Pulse Resp B/P Pulse Ox O2 Delivery O2 Flow Rate FiO2 09/12/16 08:10 97.4 93 18 142/79 18 09/12/16 04:00 97.4 87 16 137/79 93 09/12/16 01:06 93 Nasal Cannula 2.00 09/12/16 00:00 98.0 83 18 96/54 93 09/11/16 22:09 94 Nasal Cannula 21 09/11/16 20:00 95.6 81 20 108/57 97 09/11/16 17:30 97.8 70 16 144/85 96 Nasal Cannula 2 09/11/16 17:15 68 15 145/89 95 Nasal Cannula 2 09/11/16 17:00 66 15 146/90 98 Nasal Cannula 3 09/11/16 16:45 64 15 148/82 100 Nasal Cannula 4 09/11/16 16:42 98.3 60 14 144/76 99 Nasal Cannula 4 09/11/16 12:15 98.1 72 16 160/83 95 I/O 09/11/16 09/11/16 09/11/16 09/12/16 09/12/16 09/12/16 07:00 15:00 23:00 07:00 15:00 23:00 Intake Total 0 ml 0 ml 1700 ml 480 ml Output Total 300 ml 50 ml 1000 ml Balance -300 ml 0 ml 1650 ml -520 ml Intake Oral 0 ml 0 ml 600 ml 480 ml IV Total 100 ml Other 1000 ml Output Urine Total 300 ml 1000 ml Estimated Blood Loss 50 ml # Voids 4 4 # Bowel Movements 0 0 0 Result Diagram: 09/12/16 0504 09/11/16 0629 Objective Remarks GENERAL: NAD and sitting at the bedside SKIN: Warm and dry. HEAD: Normocephalic. EYES: No scleral icterus. No injection or drainage. NECK: Supple, trachea midline. No JVD or lymphadenopathy. CARDIOVASCULAR: Regular rate and rhythm without murmurs, gallops, or rubs. RESPIRATORY: Breath sounds equal bilaterally. No accessory muscle use. GASTROINTESTINAL: Abdomen soft, non-tender, nondistended. MUSCULOSKELETAL: No cyanosis, or edema. Right hip repair; dressing in place- neurovascular intact BACK: Nontender without obvious deformity. No CVA tenderness. Procedures Open treatment internal fixation right femoral neck fracture with multiple screws 09/11/16 A/P Problem List: (1) Fracture of femoral neck, right ICD Code: S72.001A Status: Acute (2) HTN (hypertension) ICD Code: I10 Status: Chronic (3) Hyponatremia ICD Code: E87.1 Status: Acute (4) Alcohol abuse ICD Code: F10.10 Status: Acute (5) COPD (chronic obstructive pulmonary disease) ICD Code: J44.9 Status: Acute Assessment and Plan 65 yrs old female with Femoral right neck fracture: S/p mechanical Fall; hip and pelvic x-ray fracture with finding of Acute nondisplaced subcapital femoral neck fracture on the right.s/p Open treatment internal fixation right femoral neck fracture with multiple screws 09/11/16. Appreciate input from Orthopedic surgery and continue with pain management accordingly. DVT postprocedure with Xarelto, PT to treat History of alcohol abuse: Chronic, on rally pack, CIWA per protocol, Librium when necessary for DTs Hypokalemia:2/2 Beer Potomania; continue IV fluid hydration History of COPD: No current exacerbation, continue outpatient medications, DuoNeb when necessary Hypertension: Continue outpatient medications DVT prophylaxis: Per orthopedic surgery postprocedure Problem Qualifiers (1) Fracture of femoral neck, right: Qualified Code: S72.001A - Closed fracture of neck of right femur, initial encounter Luis Rice MD Sep 12, 2016 09:40
[2016-09-12] MEDS: SENNOSIDES 8.6 MG TAB PO SCH (19:55)
[2016-09-12] MEDS: ATORVASTATIN 10 MG TAB PO SCH (19:56)
[2016-09-13] VITALS (7 sets, daily range): BP systolic 122–142; BP diastolic 70–80; PULSE 78–91; RESP 17–18; TEMP 96.2–97.4; O2SAT 90–98
[2016-09-13] MEDS: ACETAMINOPHEN/HYDROcodone 325 MG/7.5 MG TAB PO PRN ×6 (01:49→23:27)
[2016-09-13] MEDS: ENOXAPARIN SODIUM 30 MG/0.3 ML SYRINGE SQ SCH (06:06)
[2016-09-13] MEDS: RESP: ALBUTEROL 2.5 MG/IPRATROPIUM 0.5 MG NEB (PRN) NEB ×2 (06:15→21:14)
[2016-09-13] MEDS: BUDESONIDE-FORMOTEROL 160/4.5 MCG INHALER INH SCH ×2 (08:28→20:09)
[2016-09-13] MEDS: CITALOPRAM HYDROBROMIDE 20 MG TAB PO SCH (08:28)
[2016-09-13] MEDS: HYDROCHLOROTHIAZIDE 25 MG TAB PO SCH (08:28)
[2016-09-13] MEDS: FOLIC ACID 1 MG TAB PO SCH (08:28)
[2016-09-13] MEDS: LORazepam 0.5 MG TAB PO SCH ×2 (08:28→20:11)
[2016-09-13] MEDS: MULTIVITAMINS/MINERALS THERAPEUTIC TAB PO SCH (08:28)
[2016-09-13] MEDS: MAGNESIUM HYDROXIDE SUSP 30 ML CUP PO SCH ×2 (08:29→20:11)
[2016-09-13] MEDS: TIOTROPIUM BROMIDE 18 MCG INH INH SCH (08:29)
[2016-09-13] MEDS: THIAMINE HCL 100 MG TAB PO SCH (08:29)
[2016-09-13] MEDS: SODIUM CHLORIDE 0.9% FLUSH 5 ML FLUSH IVF SCH ×2 (08:35→20:09)
--- NOTE | 2016-09-13 09:25 | PD.ORT.PN ---
Subjective Subjective Remarks Patient comfortable. Pain controlled. Sitting up at the edge of bed. NAD. Objective Vitals Vital Signs Date Time Temp Pulse Resp B/P Pulse Ox O2 Delivery O2 Flow Rate FiO2 09/13/16 07:14 97.4 78 17 129/70 97 09/13/16 00:00 96.2 83 18 122/73 92 09/12/16 20:02 97.2 81 16 131/78 93 09/12/16 18:56 Room Air 09/12/16 16:46 92 Nasal Cannula 2.00 09/12/16 16:22 98.3 95 20 130/74 91 09/12/16 12:08 98.0 91 20 138/69 92 09/12/16 09:22 97 Nasal Cannula 2.00 I/O 09/12/16 09/12/16 09/12/16 09/13/16 09/13/16 09/13/16 07:00 15:00 23:00 07:00 15:00 23:00 Intake Total 480 ml 880 ml 720 ml 480 ml Output Total 1000 ml Balance -520 ml 880 ml 720 ml 480 ml Intake Oral 480 ml 880 ml 720 ml 480 ml Output Urine Total 1000 ml # Voids 6 2 1 # Bowel Movements 0 0 0 Result Diagram: 09/12/16 0504 09/11/16 0629 Objective Remarks Bandages to right hip with minimal drainage. No abnormal swelling. No calf tenderness. Negative Homans sign. Neurovascular normal distally are Bandage over right elbow from abrasion Assessment & Plan Assessment and Plan Right femoral neck fracture, subcapital, impacted. ORIF right hip, multiple screws: POD #2. PLAN: Toe-touch weightbearing Xarelto for 25 days [place] as needed for pain Anticipating Home with [facility], per medical decision. No dressing change Stable to orthopedic discharge, probably Thursday or Thursday if has to go to SNF -Dr. Herring present during patient assessment Loi Sadler Sep 13, 2016 09:25
--- NOTE | 2016-09-13 09:55 | HHI.FF ---
Face to Face Verification Diagnosis: (1) Fracture of femoral neck, right Physical Therapy Gait training Hip: Hip fracture Right LE Weight Bearing: Toe Touch WB Right LE Range of Motion: Passive ROM Left LE Weight Bearing: WB as tolerated Left LE Range of Motion: Active ROM Nursing Additional Instructions medication education I have seen patient Kenneth Hinton on 09/13/16. My clinical findings support the need for the requested home health care services because: High risk of falls I certify that my clinical findings support that this patient is homebound because: Post-op weakness Loi Sadler Sep 13, 2016 09:55
[2016-09-13] MEDS: SODIUM CHLOR 0.9% 1000 ML INJ 1,000 ML IV SCH ×2 (12:00→20:17)
--- NOTE | 2016-09-13 12:39 | HHI.PR ---
Subjective Remarks Follow-up Femoral right neck fracture 09/11/16-patient seen and examined, currently nothing by mouth and plan for open reduction internal fixation by orthopedic surgery 09/12/16-patient seen and examined, has open reduction internal fixation right hip yesterday. No acute event overnight. Currently requesting more narcotics. Patient states, would like discharge to rehabilitation possible tomorrow 09/13/16-patient seen and examined, no acute event overnight. Patient is not agreeable for discharge to rehabilitation. Objective Vitals Vital Signs Date Time Temp Pulse Resp B/P Pulse Ox O2 Delivery O2 Flow Rate FiO2 09/13/16 10:37 90 21 09/13/16 08:00 97 Nasal Cannula 2.00 09/13/16 07:14 97.4 78 17 129/70 97 09/13/16 00:00 96.2 83 18 122/73 92 09/12/16 20:02 97.2 81 16 131/78 93 09/12/16 18:56 Room Air 09/12/16 16:46 92 Nasal Cannula 2.00 09/12/16 16:22 98.3 95 20 130/74 91 I/O 09/12/16 09/12/16 09/12/16 09/13/16 09/13/16 09/13/16 07:00 15:00 23:00 07:00 15:00 23:00 Intake Total 480 ml 880 ml 720 ml 480 ml Output Total 1000 ml Balance -520 ml 880 ml 720 ml 480 ml Intake Oral 480 ml 880 ml 720 ml 480 ml Output Urine Total 1000 ml # Voids 6 2 1 # Bowel Movements 0 0 0 Result Diagram: 09/12/16 0504 09/11/16 0629 Imaging Last Impressions Hip X-Ray 09/11/16 0000 Signed Impressions: Service Date/Time: August 16:20 - CONCLUSION: Intraoperative images. Henry Hanna MD Hip and Pelvis X-Ray 09/10/16 0000 Signed Impressions: Service Date/Time: Saturday, September 10, 2016 11:07 - CONCLUSION: Acute nondisplaced subcapital femoral neck fracture on the right. Henry Lopez Jr., MD Head CT 09/10/16 0000 Signed Impressions: Service Date/Time: Saturday, September 10, 2016 10:38 - CONCLUSION: No acute disease. Fer Mckeon MD FACR Objective Remarks GENERAL: NAD and sitting at the bedside SKIN: Warm and dry. HEAD: Normocephalic. EYES: No scleral icterus. No injection or drainage. NECK: Supple, trachea midline. No JVD or lymphadenopathy. CARDIOVASCULAR: Regular rate and rhythm without murmurs, gallops, or rubs. RESPIRATORY: Breath sounds equal bilaterally. No accessory muscle use. GASTROINTESTINAL: Abdomen soft, non-tender, nondistended. MUSCULOSKELETAL: No cyanosis, or edema. Right hip repair; dressing in place- neurovascular intact BACK: Nontender without obvious deformity. No CVA tenderness. Procedures Open treatment internal fixation right femoral neck fracture with multiple screws 09/11/16 A/P Problem List: (1) Fracture of femoral neck, right ICD Code: S72.001A Status: Acute (2) HTN (hypertension) ICD Code: I10 Status: Chronic (3) Hyponatremia ICD Code: E87.1 Status: Acute (4) Alcohol abuse ICD Code: F10.10 Status: Acute (5) COPD (chronic obstructive pulmonary disease) ICD Code: J44.9 Status: Acute Assessment and Plan 65 yrs old female with Femoral right neck fracture: S/p mechanical Fall; hip and pelvic x-ray fracture with finding of Acute nondisplaced subcapital femoral neck fracture on the right.s/p Open treatment internal fixation right femoral neck fracture with multiple screws 09/11/16. Appreciate input from Orthopedic surgery and continue with pain management accordingly. DVT postprocedure with Xarelto, PT to treat History of alcohol abuse: Chronic, on rally pack, CIWA per protocol, Librium when necessary for DTs Hypokalemia:2/2 Beer Potomania; improving History of COPD: No current exacerbation, continue outpatient medications, DuoNeb when necessary Hypertension: Continue outpatient medications DVT prophylaxis: Xarelto Discharge Planning Discharged to [facility] Problem Qualifiers (1) Fracture of femoral neck, right: Qualified Code: S72.001A - Closed fracture of neck of right femur, initial encounter Luis Rice MD Sep 13, 2016 12:39
[2016-09-13] MEDS ORDERED: VITA100T2 PO (12:42)
[2016-09-13] MEDS ORDERED: LORA-392 PO (12:42)
--- NOTE | 2016-09-13 12:47 | HHI.DS ---
Discharge Summary Admission Date Sep 10, 2016 at 12:03 Discharge Date: Sep 13, 2016 Admitting Diagnosis femoral neck fracture (1) Fracture of femoral neck, right ICD Code: S72.001A (2) HTN (hypertension) ICD Code: I10 (3) Hyponatremia ICD Code: E87.1 (4) Alcohol abuse ICD Code: F10.10 (5) COPD (chronic obstructive pulmonary disease) ICD Code: J44.9 Procedures Open treatment internal fixation right femoral neck fracture with multiple screws 09/11/16 Brief History - From Admission 65 year-old male with a history of hypertension, COPD, alcohol abuse was brought to the ED for evaluation of right hip pain status post mechanical fall after a syncopal episodes which occurred last night around 11 AM however patient did not seek immediate medical attention. Reports pain 10 out of 10 in intensity without any radiation and unable to put any weight on it. Patient denies any head trauma. There is no GI bleed CBC/BMP: 09/12/16 0504 09/11/16 0629 Significant Findings Laboratory Tests Test 09/10/16 09/11/16 09/12/16 23:50 06:29 05:04 Urine Ketones 10 mg/dL (NEG) Urine Mucus FEW /lpf (OCC) Red Blood Count 3.30 MIL/MM3 (4.50-5.90) Hemoglobin 11.7 GM/DL 10.9 GM/DL (13.0-17.0) (13.0-17.0) Hematocrit 33.5 % 30.7 % (39.0-51.0) (39.0-51.0) Mean Corpuscular Volume 101.4 FL (80.0-100.0) Mean Corpuscular Hemoglobin 35.5 PG (27.0-34.0) Monocytes (%) (Auto) 12.0 % (0.0-8.0) Monocytes # (Auto) 1.0 TH/MM3 (0-0.9) Sodium Level 131 MEQ/L (136-145) Chloride Level 95 MEQ/L (98-107) Total Protein 5.9 GM/DL (6.4-8.2) Albumin 3.0 GM/DL (3.4-5.0) Imaging Last Impressions Hip X-Ray 09/11/16 0000 Signed Impressions: Service Date/Time: August 16:20 - CONCLUSION: Intraoperative images. Henry Hanna MD Hip and Pelvis X-Ray 09/10/16 0000 Signed Impressions: Service Date/Time: Saturday, September 10, 2016 11:07 - CONCLUSION: Acute nondisplaced subcapital femoral neck fracture on the right. Henry Lopez Jr., MD Head CT 09/10/16 0000 Signed Impressions: Service Date/Time: Saturday, September 10, 2016 10:38 - CONCLUSION: No acute disease. Fer Mckeon MD FACR PE at Discharge GENERAL: NAD and sitting at the bedside SKIN: Warm and dry. HEAD: Normocephalic. EYES: No scleral icterus. No injection or drainage. NECK: Supple, trachea midline. No JVD or lymphadenopathy. CARDIOVASCULAR: Regular rate and rhythm without murmurs, gallops, or rubs. RESPIRATORY: Breath sounds equal bilaterally. No accessory muscle use. GASTROINTESTINAL: Abdomen soft, non-tender, nondistended. MUSCULOSKELETAL: No cyanosis, or edema. Right hip repair; dressing in place- neurovascular intact BACK: Nontender without obvious deformity. No CVA tenderness. Hospital Course Femoral right neck fracture: Patient underwent Open treatment internal fixation right femoral neck fracture with multiple screws 09/11/16 by orthopedic surgery. Pain management was provided as well as DVT prophylaxis. PT was consulted postoperatively. Secondary to history of chronic alcohol abuse he was started on rally pack, CIWA per protocol, Librium when necessary for DTs. Breathing treatment was provided. Oral antihypertensive medications were continued. All electrolyte abnormalities were corrected accordingly. Vitals remained stable and patient condition improved. Pt Condition on Discharge: Stable Discharge Disposition: Discharge to SNF Discharge Time: > 30 minutes Discharge Instructions DIET: Follow Instructions for: Heart Healthy Diet Activities you can perform: Regular-No Restrictions Follow up Referrals: PCP Follow-up - 2-3 Days New Medications: Enoxaparin Inj (Lovenox Inj) 40 Mg/0.4 Ml Syr 40 MG SQ DAILY Blood Clot Prevention #25 Ref 0 SYRINGE Sennosides-Docusate Sodium (Jessica-Colace) 8.6-50 Mg Tab 1 TAB PO BID PRN Constipation #20 Ref 0 TAB Hydrocodone-Acetaminophen (Hydrocodone-Acetaminophen) 7.5-325 mg Tab 1 TAB PO Q4H PRN PAIN LESS THAN 5 ON SCALE #50 TAB Lorazepam (Ativan) 0.5 Mg Tab 0.5 MG PO BID Control Mood Swing #10 TAB Thiamine (Vitamin B-1) 100 Mg Tab 100 MG PO DAILY Alcohol Detox #30 TAB Continued Medications: Atorvastatin (Atorvastatin) 10 Mg Tab 10 MG PO HS Cholesterol Management #30 Ref 0 TAB Budesonide-Formoterol Inh (Symbicort Inh) 160-4.5 Mcg/Act Aero 2 PUFF INH Q12HR #1 Ref 0 INHALER Citalopram (Citalopram) 20 Mg Tab 20 MG PO DAILY Control Depression #30 Ref 0 TAB Hydrochlorothiazide (Hydrochlorothiazide) 25 Mg Tab 25 MG PO DAILY #30 Ref 0 TAB Tiotropium Inh (Spiriva Handihaler) 18 Mcg Cap 18 MCG INH DAILY 1 capsule = 18 mcg COPD #30 Ref 0 CAP Discontinued Medications: Hydrocodone-Acetaminophen (Lortab) 7.5-325 Mg Tab 1 TAB PO TID Pain Management Ref 0 TAB Lorazepam (Lorazepam) 0.5 Mg Tab 0.5 MG PO BID Anxiety Ref 0 TAB Luis Rice MD Sep 13, 2016 12:47
[2016-09-13] MEDS ORDERED: PERI8.6T PO (14:14)
[2016-09-13] MEDS ORDERED: MAGNESIUM CITRATE SOLN 300 ML BTL PO ONE (14:30)
[2016-09-13] MEDS: LACTATED RINGER'S 1000 ML INJ 1,000 ML IV SCH ×2 (18:27→23:29)
[2016-09-13] MEDS: chlordiazePOXIDE 25 MG CAP PO PRN (20:09)
[2016-09-13] MEDS: ATORVASTATIN 10 MG TAB PO SCH (20:10)
[2016-09-13] MEDS: SENNOSIDES 8.6 MG TAB PO SCH (20:11)
[2016-09-13] MEDS: LACTATED RINGER'S 1000 ML IV SCH (20:17)
[2016-09-14] VITALS: BP 138/83; PULSE 88; RESP 16; TEMP 96.5; O2SAT 100
[2016-09-14] MEDS: ACETAMINOPHEN/HYDROcodone 325 MG/7.5 MG TAB PO PRN ×4 (03:22→15:25)
[2016-09-14] MEDS: ENOXAPARIN SODIUM 30 MG/0.3 ML SYRINGE SQ SCH (05:17)
[2016-09-14 07:30] VITALS: BP 109/67; PULSE 84; RESP 16; TEMP 96.2; O2SAT 95
[2016-09-14] MEDS: BUDESONIDE-FORMOTEROL 160/4.5 MCG INHALER INH SCH (08:17)
[2016-09-14] MEDS: TIOTROPIUM BROMIDE 18 MCG INH INH SCH (08:17)
[2016-09-14] MEDS: SODIUM CHLORIDE 0.9% FLUSH 5 ML FLUSH IVF SCH (08:18)
[2016-09-14] MEDS: FOLIC ACID 1 MG TAB PO SCH (08:18)
[2016-09-14] MEDS: CITALOPRAM HYDROBROMIDE 20 MG TAB PO SCH (08:18)
[2016-09-14] MEDS: LORazepam 0.5 MG TAB PO SCH (08:18)
[2016-09-14] MEDS: MULTIVITAMINS/MINERALS THERAPEUTIC TAB PO SCH (08:18)
[2016-09-14] MEDS: THIAMINE HCL 100 MG TAB PO SCH (08:18)
[2016-09-14] MEDS: HYDROCHLOROTHIAZIDE 25 MG TAB PO SCH (08:18)
[2016-09-14] MEDS: MAGNESIUM HYDROXIDE SUSP 30 ML CUP PO SCH (08:19)
--- NOTE | 2016-09-14 10:53 | HHI.PR ---
Subjective Remarks Follow-up Femoral right neck fracture 09/11/16-patient seen and examined, currently nothing by mouth and plan for open reduction internal fixation by orthopedic surgery 09/12/16-patient seen and examined, has open reduction internal fixation right hip yesterday. No acute event overnight. Currently requesting more narcotics. Patient states, would like discharge to rehabilitation possible tomorrow 09/13/16-patient seen and examined, no acute event overnight. Patient is not agreeable for discharge to rehabilitation. 09/14/16-patient seen and examined, positive for bowel movement and no acute event overnight Objective Vitals Vital Signs Date Time Temp Pulse Resp B/P Pulse Ox O2 Delivery O2 Flow Rate FiO2 09/14/16 08:29 18 09/14/16 07:30 96.2 84 16 109/67 95 09/14/16 00:00 96.5 88 16 138/83 100 09/13/16 21:17 98 Nasal Cannula 2.00 09/13/16 20:00 97.0 86 18 137/80 92 09/13/16 19:43 Room Air 09/13/16 15:35 96.2 91 17 142/72 92 09/13/16 11:35 96.2 91 17 131/75 92 I/O 09/13/16 09/13/16 09/13/16 09/14/16 09/14/16 09/14/16 07:00 15:00 23:00 07:00 15:00 23:00 Intake Total 480 ml 480 ml 240 ml Balance 480 ml 480 ml 240 ml Intake Oral 480 ml 480 ml 240 ml # Voids 1 2 1 # Bowel Movements 0 1 1 Result Diagram: 09/12/16 0504 09/11/16 0629 Objective Remarks GENERAL: NAD and sitting at the bedside SKIN: Warm and dry. HEAD: Normocephalic. EYES: No scleral icterus. No injection or drainage. NECK: Supple, trachea midline. No JVD or lymphadenopathy. CARDIOVASCULAR: Regular rate and rhythm without murmurs, gallops, or rubs. RESPIRATORY: Breath sounds equal bilaterally. No accessory muscle use. GASTROINTESTINAL: Abdomen soft, non-tender, nondistended. MUSCULOSKELETAL: No cyanosis, or edema. Right hip repair; dressing in place- neurovascular intact BACK: Nontender without obvious deformity. No CVA tenderness. Procedures Open treatment internal fixation right femoral neck fracture with multiple screws 09/11/16 A/P Problem List: (1) Fracture of femoral neck, right ICD Code: S72.001A Status: Acute (2) HTN (hypertension) ICD Code: I10 Status: Chronic (3) Hyponatremia ICD Code: E87.1 Status: Acute (4) Alcohol abuse ICD Code: F10.10 Status: Acute (5) COPD (chronic obstructive pulmonary disease) ICD Code: J44.9 Status: Acute Assessment and Plan 65 yrs old female with Femoral right neck fracture: S/p mechanical Fall; hip and pelvic x-ray fracture with finding of Acute nondisplaced subcapital femoral neck fracture on the right.s/p Open treatment internal fixation right femoral neck fracture with multiple screws 09/11/16. Appreciate input from Orthopedic surgery and continue with pain management accordingly. DVT postprocedure with Xarelto, PT to treat History of alcohol abuse: Chronic, on rally pack, CIWA per protocol, Librium when necessary for DTs Hypokalemia:2/2 Beer Potomania; improving History of COPD: No current exacerbation, continue outpatient medications, DuoNeb when necessary Hypertension: Continue outpatient medications Constipation: Resolved DVT prophylaxis: Xarelto Discharge Planning Discharged to [facility] Problem Qualifiers (1) Fracture of femoral neck, right: Qualified Code: S72.001A - Closed fracture of neck of right femur, initial encounter Luis Rice MD Sep 14, 2016 10:52
[2016-09-14 11:41] VITALS: BP 123/71; PULSE 80; RESP 16; TEMP 96.2; O2SAT 91
[2016-09-14 12:18] VITALS: O2SAT 95
[2016-09-14] MEDS: RESP: ALBUTEROL 2.5 MG/IPRATROPIUM 0.5 MG NEB (PRN) NEB (12:18)
[2016-09-14 16:00] VITALS: BP 135/65; PULSE 87; RESP 16; TEMP 97.4; O2SAT 91
[2016-09-14 16:25] VITALS: RESP 18
[2016-09-14] MEDS: SODIUM CHLOR 0.9% 1000 ML INJ 1,000 ML IV SCH (16:36)
== END 2016-09-14 17:49 | DRG 481 ==
LOC: NEPE 09:52 → NEDA 12:03 → N06A 15:21
PROVIDERS: ADMIT Hospitalist; ATTEND Hospitalist
PROC: 0QS604Z Reposition Right Upper Femur with Internal Fixation Device, Open Approach (ICD-10-PCS; principal; 2016-09-11 15:24)
DX: S72.011A Unspecified intracapsular fracture of right femur, initial encounter for closed fracture (principal); E87.1 Hypo-osmolality and hyponatremia; I10 Essential (primary) hypertension; F32.9 Major depressive disorder, single episode, unspecified; W18.30XA Fall on same level, unspecified, initial encounter; Y93.9 Activity, unspecified; Y92.099 Unspecified place in other non-institutional residence as the place of occurrence of the external cause; J44.9 Chronic obstructive pulmonary disease, unspecified; I25.2 Old myocardial infarction; G47.30 Sleep apnea, unspecified; Z86.14 Personal history of Methicillin resistant Staphylococcus aureus infection; Z88.0 Allergy status to penicillin; F17.210 Nicotine dependence, cigarettes, uncomplicated; D75.89 Other specified diseases of blood and blood-forming organs; F10.10 Alcohol abuse, uncomplicated; R55 Syncope and collapse; F41.9 Anxiety disorder, unspecified; J30.9 Allergic rhinitis, unspecified; E87.6 Hypokalemia; Z82.49 Family history of ischemic heart disease and other diseases of the circulatory system; Z83.3 Family history of diabetes mellitus; K59.00 Constipation, unspecified
CPT/HCPCS: 70450; 73502; 76000; 80053; 81001; 85014; 85018; 85025; 85610; 85730; 93005; 94150; 94640; 94664; C1713; C1769; J0690; J1580; J1650; J2175; J2250; J2270; J2405; J2930; J3010; J7030; J7120

== ENCOUNTER 2017-02-19 13:58 | Inpatient (IN) | payer OTHER, MEDICARE ==
[2017-02-19] VITALS (11 sets, daily range): BP systolic 95–153; BP diastolic 57–87; PULSE 102–164; RESP 18–32; TEMP 98.4; O2SAT 97–100
[~2017-02-19] VITALS: Ht 165.1 cm; Wt 51.0 kg
[~2017-02-19 13:58] MED LIST changes: -ALBU0.086 NEB; +ATOR10TA15 PO; +CITA20TA4 PO; -COMBAER INH; -COZA100T PO; +ENOX40P SQ; -FOLI1 PO; -HYDR-2768 PO; +HYDR25TA5 PO; -LISI-363 PO; +LORA-392 PO; -LORA0.5T PO; -MVI PO; +NEOSTIGMINE 3 MG/3 ML SYR IV ONE; +ONDANSETRON HCL 4 MG/2 ML VIAL IV PUSH ONE; +PERI8.6T PO; +PROPOFOL 200 MG/20 ML AMP IV ONE; -THIA100T PO; +VITA100T2 PO
[2017-02-19] MEDS ORDERED: RESP: ALBUTEROL 2.5 MG/IPRATROPIUM 0.5 MG NEB (SCH) ONE (14:05)
[2017-02-19] MEDS ORDERED: LISI10TA3 PO (14:11)
[2017-02-19] MEDS ORDERED: SODIUM CHLORIDE 0.9% FLUSH 10 ML FLUSH IVF PRN (14:15)
[2017-02-19 14:19] LABS: BLOOD GAS BASE EXCESS -0.3 mmol/L (-2-2); BLOOD GAS CARBOXYHEMOGLOBIN 3.1 % (0-4); BLOOD GAS HCO3 25 mmol/L (22-26); BLOOD GAS METHEMOGLOBIN 0.7 % (0-2); BLOOD GAS O2 HGB SATURATION 96 % (90-100); BLOOD GAS PCO2 47 mmHg (38-42); BLOOD GAS PO2 268 mmHG (61-120); BLOOD GAS TOTAL HGB 11.4 G/DL (12.0-16.0); CRITICAL VALUE NO; DRAW SITE LT RADIAL; LITER FLOW 8 L/M; NUMBER OF ARTERIAL PUNCTURES 1; OXYGEN DEVICE MASK; STAT YES; TEMP CORR TO 98.6; ULNAR PULSE PRESENT
[2017-02-19 14:28] LABS: AUTOMATED NEUTROPHIL # 10.1 TH/MM3 (1.8-7.7); BASOPHIL # 0.1 TH/MM3 (0-0.2); BASOPHIL % 0.4 % (0.0-2.0); EOSINOPHIL % 0.2 % (0.0-4.0); HEMATOCRIT 34.1 % (39.0-51.0); HEMO FLAGS DIFF FINAL; LYMPH % 11.5 % (9.0-44.0); LYMPHOCYTE # 1.5 TH/MM3 (1.0-4.8); MEAN CELL VOLUME 100.2 FL (80.0-100.0); MEAN CORPUSCULAR HEMOGLOBIN 35.5 PG (27.0-34.0); MEAN CORPUSCULAR HGB CONC 35.4 % (32.0-36.0); MONO % 12.1 % (0.0-8.0); NEUT % 75.8 % (16.0-70.0); PLATELET COUNT 589 TH/MM3 (150-450); RED CELL DISTRIBUTION WIDTH 12.6 % (11.6-17.2); WHITE BLOOD COUNT 13.3 TH/MM3 (4.0-11.0)
[2017-02-19] MEDS: RESP: ALBUTEROL 2.5 MG/IPRATROPIUM 0.5 MG NEB (SCH) INH ×2 (14:32→14:33)
[2017-02-19 14:36] LABS: PROTHROMBIN TIME - PATIENT 11.1 SEC (9.8-11.6)
[2017-02-19] MEDS ORDERED: LORazepam 2 MG/ML VIAL IV PUSH ONE (14:45)
[2017-02-19 14:47] LABS: ANION GAP 15 MEQ/L (5-15); BICARBONATE 24.3 MEQ/L (21.0-32.0); BLOOD UREA NITROGEN 13 MG/DL (7-18); CHLORIDE 93 MEQ/L (98-107); GLOMERULAR FILTRATION RATE 184 ML/MIN (>89); POTASSIUM 4.2 MEQ/L (3.5-5.1); SODIUM (NA) 132 MEQ/L (136-145)
--- NOTE | 2017-02-19 15:01 | RADRPT ---
EXAM DATE/TIME: 02/19/2017 14:30 [facility] COMPARISON: CHEST SINGLE AP, December 10, 2015, 21:22. INDICATIONS : Shortness of breath. MEDICAL HISTORY : Hypertension. Chronic obstructive pulmonary disease. Emphysema. SURGICAL HISTORY : Double right lobectomy. Cardiac cath. ENCOUNTER: Initial ACUITY: 2 weeks PAIN SCORE: 0/10 LOCATION: Bilateral chest FINDINGS: A single view of the chest demonstrates small right pleural effusion. Minimal basal atelectasis. No p neumothorax. Cardiomegaly. Tortuous aorta. CONCLUSION: 1. Small right pleural effusion. Minimal basilar atelectasis. Mild cardiomegaly. Milton Tena MD on February 19, 2017 at 14:57 Board Certified Radiologist. This report was verified electronically.
[2017-02-19] MEDS ORDERED: ADENOSINE IV SOLN 3 MG/ML 2 ML VIAL ONE ×3 (15:47→16:07)
[2017-02-19] MEDS ORDERED: DILTIAZEM HCL 25 MG/5 ML VIAL ONE ×2 (15:48→19:20)
[2017-02-19] MEDS ORDERED: MIDAZOLAM HCL 2 MG/2 ML VIAL IV PUSH ONE (16:15)
[2017-02-19] MEDS ORDERED: ETOMIDATE 20 MG/10 ML VIAL ONE (16:22)
[2017-02-19] MEDS ORDERED: BUPIVACAINE HCL PF 0.5% 30 ML VIAL ONE (17:18)
[2017-02-19] MEDS ORDERED: ceFAZolin 2 GM PREMIX 50 ML ONE (17:19)
[2017-02-19] MEDS ORDERED: KETAMINE HCL 500 MG/5 ML VIAL ONE (17:20)
--- NOTE | 2017-02-19 17:27 | PD ---
HPI Chief Complaint: Respiratory Symptoms Time Seen by Provider: 14:06 Travel History International Travel<30 days: No Contact w/Intl Traveler<30days: No Traveled to known affect area: No History of Present Illness HPI 66-year-old male came to the emergency room brought by EMS for history of shortness of breath by EMS. Patient received [address] However upon arrival he still looked distressed and anxious. Oxygen saturation was 98% with 4 L of oxygen. Patient was having difficulty talking and could only speak one word per breath. Before I understood he has been sick for 2 weeks but has been resistant to come to the emergency room. However today he really got worse and his called 911. Patient smokes half a pack of cigarettes every day and also drinks alcohol. However he said for past 2 weeks he has not been drinking much since he doesn't want to because of his sickness. Patient was tachycardic upon arrival. Patient denies of any chest pain. He denies of any fever or chills. He has had dry cough. But patient has cough and a chronic basis. He said he lost weight recently but has not been eating too well either. [facility] Past Medical History Narrative Medical List of his past medical, surgical, social and family history was reviewed from the nursing note Autoimmune Disease: No Anxiety: No Depression: Yes (past few days due to current health status) Heart Rhythm Problems: No Cancer: No Cardiac Catheterization: Yes (2003) Cardiovascular Problems: Yes (HTN) High Cholesterol: No Chemotherapy: No Congestive Heart Failure: No COPD: Yes Diabetes: No Diminished Hearing: No Endocrine: No Genitourinary: No Hypertension: Yes Immune Disorder: No Musculoskeletal: Yes Neurologic: No Psychiatric: No Reproductive: No Respiratory: Yes (COPD) Myocardial Infarction: Yes Radiation Therapy: No Sickle Cell Disease: No Sleep Apnea: Yes (only sleeps for 20 minutes at a time each night) Influenza Vaccination: Yes Past Surgical History Abdominal Surgery: Yes (double hernia done at [place]) Cardiac Surgery: Yes (two heart catheterizations - both negative) Coronary Artery Bypass Graft: No Ear Surgery: No Endocrine Surgery: No Eye Surgery: Yes (cataracts removed from both eyes) Genitourinary Surgery: No Gynecologic Surgery: No Oral Surgery: Yes (partial plate in lower front) Thoracic Surgery: Yes (right double lobectomy 2014) Other Surgery: Yes Social History Alcohol Use: Yes (DAILY 3 BEERS) Tobacco Use: Yes (<1 PPD) Substance Use: No Allergies-Medications (Allergen,Severity, Reaction): Coded Allergies: Zosyn (Verified Allergy, Severe, Swelling, 02/19/17) RT EYE NOTED BLANCHING *MDRO Multi-Drug Resistant Organism (Verified Adverse Reaction, Unknown, ) MRSA Sputum 11/29/2014 and Blood 12/01/2014 Comments List of his allergies reviewed from the nursing note. Reported Meds & Prescriptions Reported Meds & Active Scripts Active Ativan (Lorazepam) 0.5 Mg Tab 0.5 Mg PO BID Hydrocodone-Acetaminophen 7.5-325 mg Tab 1 Tab PO Q4H PRN Reported Lisinopril 10 Mg Tab 10 Mg PO DAILY Atorvastatin (Atorvastatin Calcium) 10 Mg Tab 10 Mg PO HS Spiriva Handihaler (Tiotropium Inh) 18 Mcg Cap 18 Mcg INH DAILY 1 capsule = 18 mcg Symbicort Inh (Budesonide/Formoterol Fumarate) 160-4.5 Mcg/Act Aero 2 Puff INH Q12HR Narrative Medication List of his home medications reviewed from the nursing note. Review of Systems Except as stated in HPI: all other systems reviewed are Neg Physical Exam Narrative GENERAL: Awake, alert, anxious, moderate to significant respiratory distress, emaciated SKIN: Focused skin assessment warm/dry. HEAD: Atraumatic. Normocephalic. EYES: Pupils equal and round. No scleral icterus. No injection or drainage. ENT: No nasal bleeding or discharge. Mucous membranes pink and moist. NECK: Trachea midline. JVD. CARDIOVASCULAR: Regular rate and rhythm. Tachycardia. No murmur appreciated. RESPIRATORY: Tachypnea, accessory muscles of respirations use, equal air entry bilaterally GASTROINTESTINAL: Abdomen soft, non-tender, nondistended. Hepatic and splenic margins not palpable. MUSCULOSKELETAL: No obvious deformities. No clubbing. No cyanosis. No edema. NEUROLOGICAL: Awake and alert. No obvious cranial nerve deficits. Motor grossly within normal limits. Normal speech. PSYCHIATRIC: Extremely anxious; insight and judgment normal. Data Data Last Documented VS Vital Signs Date Time Temp Pulse Resp B/P Pulse Ox O2 Delivery O2 Flow Rate FiO2 02/19/17 17:25 108 18 153/87 99 Nasal Cannula 3 Orders Albuterol-Ipratropium Neb (Duoneb Neb) (02/19/17 14:05) Complete Blood Count With Diff (02/19/17 14:14) Basic Metabolic Panel (Bmp) (02/19/17 14:14) B-Type Natriuretic Peptide (02/19/17 14:14) Prothrombin Time / Inr (Pt) (02/19/17 14:14) Troponin I (02/19/17 14:14) Arterial Blood Gas (Abg) (02/19/17 14:14) Iv Access Insert/Monitor (02/19/17 14:14) Electrocardiogram (02/19/17 14:14) Ecg Monitoring (02/19/17 14:14) Oximetry (02/19/17 14:14) Oxygen Administration (02/19/17 14:14) Chest, Single Ap (02/19/17 14:14) Sodium Chloride 0.9% Flush (Ns Flush) (02/19/17 14:15) Albuterol-Ipratropium Neb (Duoneb Neb) (02/19/17 14:15) Lorazepam Inj (Ativan Inj) (02/19/17 14:45) Adenosine Inj (Adenocard Inj) (02/19/17 15:47) Diltiazem Inj (Cardizem Inj) (02/19/17 15:48) Adenosine Inj (Adenocard Inj) (02/19/17 16:06) Adenosine Inj (Adenocard Inj) (02/19/17 16:07) Midazolam Inj (Versed Inj) (02/19/17 16:15) Fentanyl Inj (Fentanyl Inj) (02/19/17 16:15) Etomidate Inj (Amidate Inj) (02/19/17 16:22) Echo 2d Comp With Doppler (02/19/17 ) Ed Poc Ultrasound (02/19/17 ) Fluid Culture And Gram Stain (02/19/17 16:51) Glucose, Pericardial Fluid (02/19/17 16:51) Ldh, Pericardial Fluid (02/19/17 16:51) Pericardial Fluid Ph (02/19/17 16:51) Pericardial Fluid Sp [place] (02/19/17 16:51) Bupivacaine Pf 0.5% Inj (Marcaine Pf 0.5 (02/19/17 17:18) Cefazolin 2 Gm Premix (Ancef 2 Gm Premix (02/19/17 17:19) Ketamine Inj (Ketalar Inj) (02/19/17 17:20) Admit Order (Ed Use Only) (02/19/17 17:27) Labs Laboratory Tests Test 02/19/17 02/19/17 02/19/17 14:10 14:12 17:00 Blood Gas Puncture Site LT RADIAL Blood Gas Patient Temperature 98.6 Blood Gas HCO3 25 mmol/L Blood Gas Base Excess -0.3 mmol/L Blood Gas Oxygen Saturation 96 % Arterial Blood pH 7.34 Arterial Blood Partial 47 mmHg Pressure CO2 Arterial Blood Partial 268 mmHG Pressure O2 Arterial Blood Oxygen Content 16.0 Vol % Arterial Blood 3.1 % Carboxyhemoglobin Arterial Blood Methemoglobin 0.7 % Blood Gas Hemoglobin 11.4 G/DL Oxygen Delivery Device MASK Blood Gas Liter Flow 8 L/M White Blood Count 13.3 TH/MM3 Red Blood Count 3.40 MIL/MM3 Hemoglobin 12.1 GM/DL Hematocrit 34.1 % Mean Corpuscular Volume 100.2 FL Mean Corpuscular Hemoglobin 35.5 PG Mean Corpuscular Hemoglobin 35.4 % Concent Red Cell Distribution Width 12.6 % Platelet Count 589 TH/MM3 Mean Platelet Volume 6.6 FL Neutrophils (%) (Auto) 75.8 % Lymphocytes (%) (Auto) 11.5 % Monocytes (%) (Auto) 12.1 % Eosinophils (%) (Auto) 0.2 % Basophils (%) (Auto) 0.4 % Neutrophils # (Auto) 10.1 TH/MM3 Lymphocytes # (Auto) 1.5 TH/MM3 Monocytes # (Auto) 1.6 TH/MM3 Eosinophils # (Auto) 0.0 TH/MM3 Basophils # (Auto) 0.1 TH/MM3 CBC Comment DIFF FINAL Differential Comment Prothrombin Time 11.1 SEC Prothromb Time International 1.0 RATIO Ratio Sodium Level 132 MEQ/L Potassium Level 4.2 MEQ/L Chloride Level 93 MEQ/L Carbon Dioxide Level 24.3 MEQ/L Anion Gap 15 MEQ/L Blood Urea Nitrogen 13 MG/DL Creatinine 0.46 MG/DL Estimat Glomerular Filtration 184 ML/MIN Rate Random Glucose 82 MG/DL Calcium Level 9.0 MG/DL Troponin I LESS THAN 0.02 NG/ML B-Type Natriuretic Peptide 197 PG/ML Pericardial Fluid pH 8.0 Pericardial Fluid Specific 1.033 [place] Pericardial Fluid WBC 1733 /MM3 Pericardial Fluid RBC 829243 /MM3 Pericardial Fluid Neutrophils 93 % Pericardial Fluid Lymphocytes 3 % Pericardial Fluid Monocytes 4 % Pericardial Fluid Comment Pericardial Fluid LDH 714 U/L Pericardial Fluid Glucose 75 MG/DL MDM Medical Decision Making Medical Screen Exam Complete: Yes Emergency Medical Condition: Yes Medical Record Reviewed: Yes Interpretation(s) Twelve-lead EKG was reviewed by me. Normal sinus rhythm, tachycardia, normal axis, motion artifact, nonspecific ST-T wave changes. Heart rate of 113 bpm. Differential Diagnosis COPD exacerbation, pleural effusion, pneumonia, congestive heart failure Narrative Course 5:30 PM after I saw the patient initially he was given 3 vials of DuoNeb. Patient has history of COPD and is a half a pack per day smoker. I ordered a blood gas as well. I went back and reassessed him and he still looked tachypneic. Blood gas was within normal limits. Chest x-ray came back and showed a small pleural effusion but otherwise negative. Based on this patient was given 40 mg of IV Lasix. Rest of the blood test results came back and they were within normal limits as well. Patient let me know that he was feeling extremely anxious. He takes Ativan at home daily. I gave him 1 mg of IV Ativan which seemed to have relaxed him but he continued to be tachypneic and tachycardic. The nurse pointed out to me at approximately 4 PM that his pulse was 170-180. A 12-lead EKG was done at this point upon my request which showed atrial fibrillation with RVR. Patient was given IV Cardizem 20 mg to slow down with no change in the heart rate. I decided to give him adenosine initially 6 mg which made him break for 2 seconds followed by resumption of the tachycardia. He was given 12 mg of adenosine which caused him again temporarily going to bradycardia followed by tachycardia. His blood pressure was in the 90s at this point along with the persistent tachypnea and I decided to cardiovert him. This was done under conscious sedation. Please refer to my procedure note. Patient cardioverted at 100 J of synchronized energy. Heart rate came down to 1 teens to 100s. However he still seemed to be tachypnea. Respiratory rate was close to 40/m. His JVD seemed worse at this point. I decided to do a bedside ultrasound of his heart considering pericardial effusion /tamponade. Please refer to my procedure note. Patient indeed had a large pericardial effusion with a pericardial tamponade shown by right ventricular collapse. My ultrasound pictures and the video has been recorded and should be in the medical record. Based on the this bedside diagnosis of pericardial tamponade I decided to do an emergent pericardiocentesis at this point. Once again please refer to my procedure note. 50 mL of hematogenous fluid was drained out. I spoke with cardiothoracic surgeon Dr. Dsouza who came down and saw the patient and agreed to take him to the OR for a pericardial window. Patient understands and has consented to that. He says his symptoms are feeling little better after the procedure. Patient actually tolerated all these procedures very well considering his critical condition. His blood pressure after the procedure came up to 159 systolic. I spoke with the torch shearer Dr. Prater who has accepted the patient to be admitted to the ICU under his service postoperatively. He is being prepared to go to the OR emergently. Critical Care Narrative Aggregate critical care time was 120 minutes. Time to perform other separately billable procedures was not included in the critical care time. My time did not include minutes spent treating any other patients simultaneously or on activities that did not directly contribute to the patient's treatment. The services I provided to this patient were to treat and/or prevent clinically significant deterioration that could result in: Respiratory distress, rapid A. fib with RVR, electrical cardioversion, pericardial tamponade, pericardiocentesis I provided critical care services requiring my management, as noted below: Chart data review, documentation time, medication orders and management, vital sign assessments/reviewing monitor data, ordering and reviewing lab tests, ordering and interpreting/reviewing x-rays and diagnostic studies, care of the patient and discussion of the patient with the admitting physicians. Procedures Procedure Narrative After the risks and benefits were discussed the following procedure was performed: MODERATE SEDATION: The patient was placed on a athletic monitor and pulse oximetry. An ambu bag and suction was immediately available at bedside. The patient was monitored by the nurse. Oxygen saturation , heart rate and blood pressure were monitored. Procedural sedation was acheived using 4 mg of Versed IV, 50 g of fentanyl IV and 10 mg of etomidate IV. The patient was observed until awake and alert. Procedural Sedation time in attendance was 40 minutes. Electrical cardioversion: The cardioversion pads were applied. After the procedural sedation of patient the equipment was selected to a synchronized mode. 50 J of energy was selected. Once all was clear patient was shocked. This did not result in to cardioversion. Soon after that 100 J of electricity was selected and once again all was cleared and shock delivered. At this point patient converted to a heart rate of 101 bpm which was sinus. Patient tolerated the procedure well. Emergency department cardiac ultrasound was performed with patient consent. Small curvilinear probe was used in the epigastric, parasternal long/short access, four-chamber apical revealing large pericardial effusion. Patient's overall cardiac squeeze was hyper dynamic. There was large pericardial effusion with right ventricular collapse. Pericardial tamponade was diagnosed. Pericardiocentesis: Under ultrasound guidance 20-gauge spinal needle was introduced into the subxiphoid space with the needle pointed to the left shoulder with 20 cc of syringe attached to the other end. Needle was seen to be entering the pericardial sac under ultrasound guidance. Hematogenous fluid was aspirated. Total of 50 mL off hematogenous fluid was aspirated. When no more fluid could be aspirated the needle was taken out. The ultrasound still showed large pericardial effusion with echogenic material inside. The fluid looked heterogeneous at this point. Patient tolerated the procedure well. EKG Prior to Arrival: No Physician Communication Physician Communication Dr. Dsouza, Dr. Prater Diagnosis Primary Impression: Pericardial tamponade Additional Impressions: Atrial fibrillation with RVR Respiratory distress Admitting Information Admitting Physician Requests: it Tim Duong MD Feb 19, 2017 17:27
--- NOTE | 2017-02-19 18:12 | ECHRPT ---
Indication: Pericardial effusion (noninflammatory) CONCLUSIONS Normal left ventricular size. Wall thickness is normal. The left ventricular systolic function is low normal with an estimated ejection fraction in the rang e of 50- 55%. Atrial septal aneurysm is present (benign finding). There is mild tricuspid valve regurgitation. There is estimated mild pulmonary hypertension present (43 mmHg). The pulmonary valve is not well visualized. There is a moderate pericardial effusion present. The pericardial effusion is partially loculated with fibrinous strands. The inferior vena cava was mildly dilated with less than 50% respiratory change in dimension of the inferior vena cava (abnormal). There appeared to be mild right atrial systolic collapse. There was > 25% respirophasic change in transvalvular flow velocities observed across the tricuspid valve. The possibility of hemodynamic compromise (pre-tamponade physiology) may be suggested. Clinical correlation is recommended.. BP: / HR: Rhythm: MEASUREMENTS (Male / Female) Normal Values Technical Quality:Good 2D ECHO LV Diastolic Diameter PLAX 4.4 cm 4.2 - 5.9 / 3.9 - 5.3 cm LV Systolic Diameter PLAX 3.4 cm IVS Diastolic Thickness 1.0 cm 0.6 - 1.0 / 0.6 - 0.9 cm LVPW Diastolic Thickness 0.7 cm 0.6 - 1.0 / 0.6 - 0.9 cm LV Relative Wall Thickness 0.4 RV Internal Dim ED PLAX 1.8 cm LA Systolic Diameter LX 3.5 cm 3.0 - 4.0 / 2.7 - 3.8 cm M-MODE Aortic Root Diameter MM 2.7 cm AV Cusp Separation MM 1.9 cm DOPPLER Mitral E Point Velocity 72.1 cm/s Mitral A Point Velocity 74.5 cm/s Mitral E to A Ratio 1.0 TR Peak Velocity 326.0 cm/s TR Peak Gradient 42.5 mmHg FINDINGS LEFT VENTRICLE Normal left ventricular size. Wall thickness is normal. The left ventricular systolic function is low normal with an estimated ejection fraction in the rang e of 50- 55%. RIGHT VENTRICLE Normal right ventricular size and systolic function. LEFT ATRIUM The left atrial size is normal. RIGHT ATRIUM The right atrial size is normal. ATRIAL SEPTUM Atrial septal aneurysm is present (benign finding). AORTA The aortic root and proximal ascending aorta are normal in size on limited imaging. MITRAL VALVE Structurally normal mitral valve. No mitral valve stenosis or regurgitation. AORTIC VALVE Trileaflet aortic valve. No aortic valve stenosis or regurgitation. TRICUSPID VALVE There is mild tricuspid valve regurgitation. There is estimated mild pulmonary hypertension present (43 mmHg). PULMONARY VALVE The pulmonary valve is not well visualized. VESSELS PERICARDIUM There is a moderate pericardial effusion present. The pericardial effusion is partially loculated with fibrinous strands. The inferior vena cava was mildly dilated with less than 50% respiratory change in dimension of the inferior vena cava (abnormal). There appeared to be mild right atrial systolic collapse. There was > 25% respirophasic change in transvalvular flow velocities observed across the tricuspid valve. The possibility of hemodynamic compromise (pre-tamponade physiology) may be suggested. Clinical correlation is recommended.. Ellis Landeros MD, FACC (Electronically Signed) Final Date:19 February 2017 18:10
[2017-02-19] MEDS ORDERED: ETOMIDATE 20 MG/10 ML VIAL IV PUSH ONE (18:30)
[2017-02-19] MEDS ORDERED: ADENOSINE IV SOLN 3 MG/ML 2 ML VIAL IV PUSH ONE ×2 (18:30)
[2017-02-19] MEDS ORDERED: LACTATED RINGER'S 1000 ML INJ 500 ML IV PRN (18:59)
[2017-02-19] MEDS ORDERED: ACETAMINOPHEN 650 MG SUPP RECTAL PRN (19:00)
[2017-02-19] MEDS ORDERED: ONDANSETRON HCL 4 MG/2 ML VIAL IV PUSH PRN (19:00)
[2017-02-19] MEDS ORDERED: ACETAMINOPHEN 325 MG TAB PO PRN (19:00)
[2017-02-19] MEDS ORDERED: RESP: ALBUTEROL 2.5 MG/IPRATROPIUM 0.5 MG NEB (PRN) NEB (19:00)
[2017-02-19] MEDS ORDERED: KETOROLAC TROMETHAMINE 30 MG/ML (IVP) VIAL IV PUSH PRN (19:00)
[2017-02-19] MEDS ORDERED: ALBUMIN HUMAN 5% 12.5 GM/250 ML BOTTLE IV PRN (19:00)
[2017-02-19] MEDS ORDERED: RESP: RACEPINEPHRINE 2.25% 0.5 ML NEB NEB PRN (19:00)
[2017-02-19] MEDS ORDERED: Post-op Orders (for Pharmacy) MISC OTHER ONE (19:00)
[2017-02-19] MEDS ORDERED: SODIUM CHLORIDE 0.9% FLUSH 10 ML FLUSH IV FLUSH PRN (19:00)
[2017-02-19 19:14] LABS: PERICARDIAL FLUID SP GRAVITY 1.033
--- NOTE | 2017-02-19 19:14 | PD.OP ---
cc: Farideh Dsouza MD Operative Report Date of Surgery: Feb 19, 2017 Preoperative Diagnosis: Postoperative Diagnosis: Procedure: 1. Emergent Subxiphoid Pericardial Window. 2. Drainage of Pericardial Effusion. 3. Pericardial Biopsy Surgeon: Farideh Dsouza Director Financial Systems(s): Nanda Head Operation and Findings: PREOPERATIVE DIAGNOSES 1. Loculated Pericardial Effusion . 2. Pericardial Tamponade 3. COPD 4. Atrial Fibrillation POSTOPERATIVE DIAGNOSES Same PROCEDURE 1. Emergent Subxiphoid Pericardial Window. 2. Drainage of Pericardial Effusion. 3. Pericardial Biopsy SOLID FIBER PASTER OPERATOR CARISA Martinez ANESTHESIA General endotracheal. ANESTHETISTS STEFAN Lopez MD PREPARATION ChloraPrep. NEEDLE, SPONGE, AND INSTRUMENT COUNTS Correct. DRAINS One 28-Dominican pericardial tube. COMPLICATIONS None. INDICATIONS The patient is a 66 year-old with enlarging pericardial effusion. ECHO has revealed a large pericardial effusion with tamponade. The patient is being brought to the operating room for emergent drainage procedure. DESCRIPTION OF PROCEDURE The patient was brought to the operating room and placed supine on the OR table. Following the induction of adequate general endotracheal anesthesia and placement of appropriate monitoring devices, the chest and abdomen were then prepped and draped in a standard sterile fashion. Through an approximately 3 cm subxiphoid incision, the incision was carried down to the level of the endothoracic fascia which was divided, and the xiphoid process lifted off the pericardium. The prepericardial fat was dissected free, and the anterior surface of the pericardium identified. A longitudinal pericardiotomy was performed and enlarged horizontally to create a big hole. 350 mL of bloody effusion was evacuated and sent for microbiologic and cytologic analysis. There appeared to be loculated fluid pockets which were drained circumferentially. A pericardial biopsy was also obtained and sent for histologic analysis. Echocardiographic confirmation of complete evacuation of all pericardial effusion was made.Strict hemostasis was assured. A 28-Dominican chest tube was then placed into the pericardial space and exited through a separate stab wound. Incision was anesthetized with 0.25% Marcaine and the incision closed in 3 layers. Dermabond and sterile dressing were applied. The patient was transferred to PACU in stable condition. Farideh Dsouza MD Feb 19, 2017 19:14
[2017-02-19] MEDS: DILTIAZEM 125 MG/NS 100 ML IV SCH ×2 (19:29)
[2017-02-19 19:43] LABS: PERICARDIAL LYMPHS 3 %; PERICARDIAL MONOS 4 %; PERICARDIAL POLYS(SEGS) 93 %; PERICARDIAL RBC 210284 /MM3 (0-0); PERICARDIAL WBC 1733 /MM3 (0-10)
--- NOTE | 2017-02-19 20:22 | RADRPT ---
EXAM DATE/TIME: 02/19/2017 19:41 [facility] COMPARISON: CHEST SINGLE AP, February 19, 2017, 14:30. INDICATIONS : Post pericardial window procedure. MEDICAL HISTORY : Hypertension. Chronic obstructive pulmonary disease. Emphysema. SURGICAL HISTORY : Double right lobectomy. Cardiac cath. ENCOUNTER: Subsequent ACUITY: 2 weeks PAIN SCORE: Non-responsive. LOCATION: chest FINDINGS: Mild elevation right hemidiaphragm. No blunting of the costophrenic angles. Lungs are clear. No ev idence of pneumothorax. The heart is normal in size. Mediastinal tube in place. CONCLUSION: Mild elevation right hemidiaphragm. No infiltrates or pneumothorax seen. Henry Hanna MD on February 19, 2017 at 20:19 Board Certified Radiologist. This report was verified electronically.
[2017-02-19] MEDS ORDERED: DO NOT ADM ANY ANTICOAGULANT DRUGS PRN (20:45)
--- NOTE | 2017-02-19 21:04 | HHI.HP ---
HPI Service Critical Care Medicine Primary Care Physician Jin Pike MD Admission Diagnosis pericardial tamponade, respiratory distress, A. fib with RVR Diagnosis: Travel History International Travel<30 Days: No Contact w/Intl Traveler <30 Da: No Traveled to Known Affected Are: No History of Present Illness 66-year-old male came to the emergency room brought by EMS for history of shortness of breath by EMS. Patient received [address] Upon arrival he still looked distressed and anxious. Oxygen saturation was 98% with 4 L of oxygen. Patient was having difficulty talking and could only speak one word per breath. He has been sick for 2 weeks but has been resistant to come to the emergency room. However today he really got worse and his called 911. Patient smokes half a pack of cigarettes every week and also drinks alcohol. Patient was tachycardic upon arrival. The bedside echocardiogram revealed large pericardial effusion and was emergently drained by ED attending. Shortly after he was transferred to operating room for pericardial window placement. Review of Systems Constitutional: COMPLAINS OF: Fatigue, Weight loss, Dizziness, Change in appetite, DENIES: Diaphoretic episodes, Fever, Weight gain, Chills, Night Sweats Endocrine: DENIES: Heat/cold intolerance, Polydipsia, Polyuria, Polyphagia Eyes: DENIES: Blurred vision, Diplopia, Eye inflammation, Eye pain, Vision loss , Photosensitivity, Double Vision Ears, nose, mouth, throat: DENIES: Tinnitus, Hearing loss, Vertigo, Nasal discharge, Oral lesions, Throat pain, Hoarseness, Ear Pain, Running Nose, Epistaxis, Sinus Pain, Toothache, Odynophagia Respiratory: COMPLAINS OF: Cough, Shortness of breath, DENIES: Apneas, Snoring , Wheezing, Hemoptysis, Sputum production Cardiovascular: DENIES: Chest pain, Palpitations, Syncope, Dyspnea on Exertion , PND, Lower Extremity Edema, Orthopnea, Claudication Gastrointestinal: DENIES: Abdominal pain, Black stools, Bloody stools, Constipation, Diarrhea, Nausea, Vomiting, Difficulty Swallowing, Anorexia Genitourinary: DENIES: Sexual dysfunction, Urinary frequency, Urinary incontinence, Urgency, Hematuria, Dysuria, Nocturia, Penile Discharge, Testicular Pain, Testicular Swelling Musculoskeletal: DENIES: Joint pain, Muscle aches, Stiffness, Joint Swelling, Back pain, Neck pain Integumentary: DENIES: Abnormal pigmentation, Nail changes, Pruritus, Rash Hematologic/lymphatic: DENIES: Bruising, Lymphadenopathy Immunologic/allergic: DENIES: Eczema, Urticaria Neurologic: DENIES: Abnormal gait, Headache, Localized weakness, Paresthesias, Seizures, Speech Problems, Tremor, Poor Balance Psychiatric: DENIES: Anxiety, Confusion, Mood changes, Depression, Hallucinations, Agitation, Suicidal Ideation, Homicidal Ideation, Delusions Past Family Social History Allergies: Coded Allergies: Zosyn (Verified Allergy, Severe, Swelling, 02/19/17) RT EYE NOTED BLANCHING *MDRO Multi-Drug Resistant Organism (Verified Adverse Reaction, Unknown, ) MRSA Sputum 11/29/2014 and Blood 12/01/2014 Past Medical History Anxiety COPD Ongoing tobaccoism Hypertension Allergic rhinitis Previous cardiac catheterizations in 2003 2012 normal. Past Surgical History Hiatal hernia repair Cataract surgery Coronary angiograms Right lobectomy Reported Medications Reported Meds & Active Scripts Active Ativan (Lorazepam) 0.5 Mg Tab 0.5 Mg PO BID Hydrocodone-Acetaminophen 7.5-325 mg Tab 1 Tab PO Q4H PRN Reported Lisinopril 10 Mg Tab 10 Mg PO DAILY Atorvastatin (Atorvastatin Calcium) 10 Mg Tab 10 Mg PO HS Spiriva Handihaler (Tiotropium Inh) 18 Mcg Cap 18 Mcg INH DAILY 1 capsule = 18 mcg Symbicort Inh (Budesonide/Formoterol Fumarate) 160-4.5 Mcg/Act Aero 2 Puff INH Q12HR Active Ordered Medications Current Medications Medications (Trade) Dose Ordered Sig/Nabila Route PRN Reason Start Time Stop Time Status Last Admin Dose Admin Sodium Chloride (NS Flush) 2 ml BID IV FLUSH 02/19/17 21:00 Sodium Chloride (NS Flush) 2 ml UNSCH PRN IV FLUSH FLUSH AFTER USING IV ACCESS 02/19/17 19:00 Albumin Human 12.5 gm 12.5 gm UNSCH PRN IV SEE LABEL COMMENTS 02/19/17 19:00 Lactated Ringer's 500 ml @ 500 mls/hr Q1H PRN IV SEE LABEL COMMENTS 02/19/17 18:59 Cefazolin Sodium/ Sodium Chloride (Ancef Inj/NS Inj) 100 ml @ 200 mls/hr Q8H IV 02/20/17 02:00 02/21/17 10:29 Pantoprazole Sodium (Protonix) 40 mg DAILY@06 PO 02/20/17 06:00 Acetaminophen (Tylenol) 650 mg Q4H PRN PO TEMPERATURE > 101 F 02/19/17 19:00 Acetaminophen (Tylenol Supp) 650 mg Q4H PRN RECTAL TEMPERATURE > 101 F 02/19/17 19:00 Acetaminophen (Ofirmev Inj) 1,000 mg Q6H IV 02/19/17 22:00 02/20/17 16:01 Morphine Sulfate (Morphine Inj) 1 mg Q10M PRN IV PAIN SCALE 1 TO 5 02/19/17 19:00 Oxycodone/ Acetaminophen (Percocet 5-325 Mg) 1 tab Q3H PRN PO PAIN SCALE 1 TO 5 02/19/17 19:00 Ketorolac Tromethamine (Toradol Inj) 15 mg Q6H PRN IV PUSH SEE LABEL COMMENTS 02/19/17 19:00 02/21/17 18:59 Ondansetron HCl 4 mg 4 mg Q6H PRN IV PUSH NAUSEA OR VOMITING 02/19/17 19:00 Diltiazem HCl/ Sodium Chloride (Cardizem Inj/NS Inj) 125 ml @ 0 mls/hr TITRATE IV 02/19/17 19:15 02/19/17 19:29 Miscellaneous Information ALL NURSING DEPARTME... UNSCH PRN .XX SEE LABEL COMMENTS 02/19/17 20:45 02/20/17 20:44 Amiodarone HCl/ Dextrose (Cordarone Inj/ D5W ([place]) Inj) 250 ml @ 0 mls/hr CONTINUOUS IV 02/19/17 21:15 Miscellaneous Information Patient in critical care unit? Ass... [id number] .XX 02/19/17 22:15 Chlorhexidine Gluconate (Chlorhexidine 2% Cloth) 3 pack DAILY@04 TOPICAL 02/20/17 04:00 02/24/17 04:01 Chlorhexidine Gluconate (Chlorhexidine 2% Cloth) 3 pack UNSCH PRN TOPICAL HYGIENIC CARE 02/19/17 22:15 02/24/17 22:01 Family History Father of coronary artery disease at 76, mother Alzheimer disease at 87, sister has diabetes Social History Smokes half pack per week, drinks alcohol socially may be a little excessively, denies illicit drug abuse Physical Exam Vital Signs Vital Signs Date Time Temp Pulse Resp B/P Pulse Ox O2 Delivery O2 Flow Rate FiO2 02/19/17 20:00 133 28 116/79 95 Nasal Cannula 4 02/19/17 19:45 130 30 112/60 99 Nasal Cannula 4 02/19/17 19:30 128 33 99/62 99 Nasal Cannula 4 02/19/17 19:15 122 28 97/56 95 Nasal Cannula 4 02/19/17 19:14 97.3 124 30 102/66 95 Nasal Cannula 4 02/19/17 17:50 102 18 117/78 100 Nasal Cannula 3 02/19/17 17:25 108 18 153/87 99 Nasal Cannula 3 02/19/17 17:00 99 4.00 02/19/17 16:55 132 24 104/57 98 Nasal Cannula 3 02/19/17 16:20 152 24 109/65 98 Nasal Cannula 3 02/19/17 15:50 164 26 95/65 97 Nasal Cannula 3 02/19/17 14:23 30 100 Aerosol Mask 02/19/17 14:23 100 Aerosol Mask 02/19/17 14:06 100 Aerosol Mask 02/19/17 14:03 120 32 134/85 100 Physical Exam GENERAL: Well-nourished, well-developed patient. SKIN: Warm and dry. HEAD: Normocephalic. EYES: No scleral icterus. No injection or drainage. NECK: Supple, trachea midline. No JVD or lymphadenopathy. CARDIOVASCULAR: Regular rate and rhythm without murmurs, gallops, or rubs. RESPIRATORY: Breath sounds equal bilaterally. No accessory muscle use. GASTROINTESTINAL: Abdomen soft, non-tender, nondistended. MUSCULOSKELETAL: No cyanosis, or edema. BACK: Nontender without obvious deformity. NEURO EXAM: GCS: M V E Mental Status: The patient is alert and oriented to person, place, and time with normal speech. Cranial Nerves: Visual acuity intact bilaterally. Visual anthony normal in all quadrants. Pupils are round, reactive to light. Extraocular movements are intact without ptosis. Hearing is normal bilaterally. Voice is normal. Tongue protrudes midline and moves symmetrically. Reflexes: Biceps, patellar, and Achilles are 2/4 bilaterally. No clonus. Sensation: Sensation is intact bilaterally to pain and light touch. Two-point discrimination is intact. Motor: Good muscle tone. Strength is 5/5 bilaterally. Cerebellar: [id number] and [id number]-[id number] test normal bilaterally. Laboratory Laboratory Tests Test 02/19/17 02/19/17 02/19/17 02/19/17 14:10 14:12 17:00 18:15 Blood Gas Puncture Site LT RADIAL Blood Gas Patient Temperature 98.6 Blood Gas HCO3 25 Blood Gas Base Excess -0.3 Blood Gas Oxygen Saturation 96 Arterial Blood pH 7.34 Arterial Blood Partial 47 Pressure CO2 Arterial Blood Partial 268 Pressure O2 Arterial Blood Oxygen Content 16.0 Arterial Blood 3.1 Carboxyhemoglobin Arterial Blood Methemoglobin 0.7 Blood Gas Hemoglobin 11.4 Oxygen Delivery Device MASK Blood Gas Liter Flow 8 White Blood Count 13.3 Red Blood Count 3.40 Hemoglobin 12.1 Hematocrit 34.1 Mean Corpuscular Volume 100.2 Mean Corpuscular Hemoglobin 35.5 Mean Corpuscular Hemoglobin 35.4 Concent Red Cell Distribution Width 12.6 Platelet Count 589 Mean Platelet Volume 6.6 Neutrophils (%) (Auto) 75.8 Lymphocytes (%) (Auto) 11.5 Monocytes (%) (Auto) 12.1 Eosinophils (%) (Auto) 0.2 Basophils (%) (Auto) 0.4 Neutrophils # (Auto) 10.1 Lymphocytes # (Auto) 1.5 Monocytes # (Auto) 1.6 Eosinophils # (Auto) 0.0 Basophils # (Auto) 0.1 CBC Comment DIFF FINAL Differential Comment Prothrombin Time 11.1 Prothromb Time International 1.0 Ratio Sodium Level 132 Potassium Level 4.2 Chloride Level 93 Carbon Dioxide Level 24.3 Anion Gap 15 Blood Urea Nitrogen 13 Creatinine 0.46 Estimat Glomerular Filtration 184 Rate Random Glucose 82 Calcium Level 9.0 Troponin I LESS THAN 0.02 B-Type Natriuretic Peptide 197 Pericardial Fluid pH 8.0 Pericardial Fluid Specific 1.033 [place] Pericardial Fluid WBC 1733 Pericardial Fluid RBC 032850 Pericardial Fluid Neutrophils 93 Pericardial Fluid Lymphocytes 3 Pericardial Fluid Monocytes 4 Pericardial Fluid Comment Pericardial Fluid LDH 714 Pericardial Fluid Glucose 75 Blood Type O NEGATIVE Antibody Screen NEGATIVE Crossmatch Leukocyte-Reduced Red Blood Cells Blood Bank Comment Date/Time Procedure Status Source Growth 02/19/17 18:30 Gram Stain Received Fluid Pericardial Fluid Pending 02/19/17 18:30 Body Fluid Culture Received Fluid Pericardial Fluid Pending 02/19/17 18:30 Fungal Smear Received Fluid Pericardial Fluid Pending 02/19/17 18:30 Fungal Culture Received Fluid Pericardial Fluid Pending 02/19/17 18:30 Acid Fast Stain Received Fluid Pericardial Fluid Pending 02/19/17 18:30 Mycobacterial Culture Received Fluid Pericardial Fluid Pending Result Diagram: 02/19/17 1412 02/19/17 1412 Imaging Last 24 hours Impressions Chest X-Ray 02/19/17 1414 Signed Impressions: Service Date/Time: February 14:30 - CONCLUSION: 1. Small right pleural effusion. Minimal basilar atelectasis. Mild cardiomegaly. Milton Tena MD Chest X-Ray 02/19/17 0000 Signed Impressions: Service Date/Time: February 19:41 - CONCLUSION: Mild elevation right hemidiaphragm. No infiltrates or pneumothorax seen. Henry Hanna MD Assessment and Plan Assessment and Plan Pericardial effusion - Status post emergent pericardiocentesis in the ED - Fluid analysis pending - Status post pericardial window by CT surgeon - Management per CT surgery and cardiology COPD - No exacerbation - DuoNeb scheduled and when necessary - No steroids indicated Atrial fibrillation - Amiodarone drip - Diltiazem Hypertension - When necessary meds to keep SBP less than 150 Tobacco use disorder - Monitor for withdrawal - Nicotine patch when necessary Questionable history of alcohol abuse - Thiamine folate multivitamins - Monitor withdrawal symptoms if and DVT GI prophylaxis - Teds SCDs - Pharmacological DVT prophylaxis per cardiothoracic surgery - Pantoprazole Critical Care: The total critical care time was 35 minutes. Time to perform other separately billable procedures was not included in the critical care time. Elroy Jolly MD Feb 19, 2017 21:04
[2017-02-19] MEDS ORDERED: AMIODARONE INJ 450 MG in D5W (EXCEL BAG) 241 ML IV SCH (21:15)
[2017-02-19] MEDS ORDERED: AMIODARONE 150 MG/D5W 97 ML BOLUS 10 MINUTES IV ONE ×4 (21:15→23:00)
[2017-02-19] MEDS: RESP: ALBUTEROL 2.5 MG/IPRATROPIUM 0.5 MG NEB (SCH) NEB (22:05)
[2017-02-19] MEDS ORDERED: CHLORHEXIDINE GLUCONATE 2 % 1 PACK (2 CLOTHS)(extra cloths) TOPICAL PRN (22:15)
[2017-02-19] MEDS: ACETAMINOPHEN 1000 MG/100 ML VIAL IV SCH (23:42)
[2017-02-19] MEDS: SODIUM CHLORIDE 0.9% FLUSH 10 ML FLUSH IV FLUSH SCH (23:43)
[2017-02-20] VITALS (23 sets, daily range): BP systolic 88–130; BP diastolic 45–72; PULSE 69–132; RESP 20–48; TEMP 97.7–98; O2SAT 97–100
[2017-02-20] MEDS: MORPHINE SULFATE 4 MG/ML INJ IV PRN ×6 (00:37→20:42)
[2017-02-20] MEDS ORDERED: MULTIVITAMIN INJ 10 ML, THIAMINE INJ 100 MG, FOLIC ACID INJ 1 MG in DEXT 5%-NACL 0.45% ... IV ONE (00:45)
[2017-02-20] MEDS: CHLORHEXIDINE GLUCONATE 2 % 1 PACK (2 CLOTHS)(taper/protocol) TOPICAL SCH (02:40)
[2017-02-20] MEDS: RESP: ALBUTEROL 2.5 MG/IPRATROPIUM 0.5 MG NEB (SCH) NEB ×4 (04:44→19:48)
[2017-02-20] MEDS: PANTOPRAZOLE SOD 40 MG DELAYED RELEASE TAB PO SCH (04:50)
[2017-02-20] MEDS: ACETAMINOPHEN 1000 MG/100 ML VIAL IV SCH ×3 (04:51→15:27)
--- NOTE | 2017-02-20 05:26 | RADRPT ---
EXAM DATE/TIME: 02/20/2017 04:05 [facility] COMPARISON: CHEST SINGLE AP, February 19, 2017, 19:41. INDICATIONS : Status post CABG. MEDICAL HISTORY : Hypertension. Chronic obstructive pulmonary disease. Emphysema. SURGICAL HISTORY : Double right lobectomy. Cardiac cath. ENCOUNTER: Subsequent ACUITY: 2 days PAIN SCORE: Non-responsive. LOCATION: chest FINDINGS: The cardiac silhouette is normal in transverse diameter. There is prominence of the aortic knob is wi th calcification characteristic of atherosclerotic vascular disease. There is subsegmental atelectasi s in the left base. The right lung is free of acute parenchymal opacity. CONCLUSION: 1. Subsegmental atelectasis left base. There has been no significant change when compared to the prio r exam. Diego Diaz MD on February 20, 2017 at 5:24 Board Certified Radiologist. This report was verified electronically.
[2017-02-20] MEDS: DILTIAZEM 125 MG/NS 100 ML IV SCH ×2 (07:20)
[2017-02-20] MEDS: SODIUM CHLORIDE 0.9% FLUSH 10 ML FLUSH IV FLUSH SCH ×2 (08:48→20:42)
--- NOTE | 2017-02-20 10:18 | EKG ---
Date Performed: 02/19/2017 Time Performed: 16:23:18 PTAGE: 66 years EKG: ATRIAL FIBRILLATION WITH RAPID VENTRICULAR RESPONSE MODERATE ST DEPRESSION ABNORMAL ECG Sin ce PREVIOUS TRACING , no significant change noted PREVIOUS TRACIN02/19/2017 16.21 DOCTOR: Diego Kaplan Interpretating Date/Time 02/20/2017 10:17:35
[2017-02-20] MEDS: METOPROLOL TARTRATE 50 MG TAB PO SCH (11:09)
--- NOTE | 2017-02-20 12:12 | EKG ---
Date Performed: 02/19/2017 Time Performed: 15:48:41 PTAGE: 66 years EKG: ATRIAL FIBRILLATION WITH RAPID VENTRICULAR RESPONSE MODERATE ST DEPRESSION ABNORMAL ECG INT ERPRETATION BASED ON A DEFAULT AGE OF 40 YEARS PREVIOUS TRACING 02/19/2017 Compared to the prior study, atrial fibrillation with rapid response has replaced Sinus rhythm . DOCTOR: Diego Kaplan Interpretating Date/Time 02/20/2017 12:12:16
--- NOTE | 2017-02-20 12:12 | EKG ---
Date Performed: 02/19/2017 Time Performed: 14:12:31 PTAGE: 66 years EKG: SINUS TACHYCARDIA WITH SHORT [place] INTERVAL POSSIBLE LEFT ATRIAL ENLARGEMENT SEPTAL MYOCARDIAL INFARCTION ST ELEVATION, CONSIDER INFERIOR INJURY PREVIOUS TRACING : 09/10/2016 14.20 Compared to the prior study, ST elevation is noted in leads V2,V3, and aVF; although, this is a poor quality tracing, and that may be artifactual. Clinica l correlation is recommended. DOCTOR: Diego Kaplan Interpretating Date/Time 02/20/2017 12:11:38
--- NOTE | 2017-02-20 12:13 | EKG ---
Date Performed: 02/19/2017 Time Performed: 16:52:10 PTAGE: 66 years EKG: SINUS TACHYCARDIA WITH SHORT VT INTERVAL ABNORMAL RHYTHM ECG PREVIOUS TRACING : 02/19/[address] segment elevation in the inferior leads [facility] DOCTOR: Diego Kaplan Interpretating Date/Time 02/20/2017 12:12:45
[2017-02-20 12:16] LABS: AUTOMATED NEUTROPHIL # 9.6 TH/MM3 (1.8-7.7); BASOPHIL % 0.2 % (0.0-2.0); HEMATOCRIT 31.3 % (39.0-51.0); HEMO FLAGS DIFF FINAL; LYMPH % 5.7 % (9.0-44.0); LYMPHOCYTE # 0.6 TH/MM3 (1.0-4.8); MEAN CELL VOLUME 99.9 FL (80.0-100.0); MONO % 5.8 % (0.0-8.0); NEUT % 88.3 % (16.0-70.0); PLATELET COUNT 604 TH/MM3 (150-450); RED BLOOD COUNT 3.13 MIL/MM3 (4.50-5.90); WHITE BLOOD COUNT 10.9 TH/MM3 (4.0-11.0)
[2017-02-20 12:41] LABS: ALT (GPT) 42 U/L (12-78); ANION GAP 11 MEQ/L (5-15); AST (GOT) 25 U/L (15-37); BICARBONATE 25.7 MEQ/L (21.0-32.0); BLOOD UREA NITROGEN 10 MG/DL (7-18); CHLORIDE 98 MEQ/L (98-107); GLOMERULAR FILTRATION RATE 130 ML/MIN (>89); MAGNESIUM 2.1 MG/DL (1.5-2.5); POTASSIUM 3.5 MEQ/L (3.5-5.1); SODIUM (NA) 135 MEQ/L (136-145)
[2017-02-20 12:43] LABS: ALKALINE PHOSPHATASE 108 U/L (45-117); TOTAL BILIRUBIN ADULT 0.4 MG/DL (0.2-1.0)
--- NOTE | 2017-02-20 14:55 | MB ---
cc: ANTHONY NUÑEZ MD DATE OF CONSULTATION: 02/19/2017 HISTORY: A 66-year-old male patient of Dr. Jin Pike, presented to the emergency room with shortness of breath by EMS. He received two albuterol treatments prior to arrival was very distressed and anxious. O2 sat was 98 on four liters had apparently difficulty speaking. He said he had been sick for a couple weeks and felt like he was also having a hard time taking in a deep breath. After a thorough work up was completed, an initial chest x-ray showed mild elevation of the right hemidiaphragm no infiltrates or pneumothorax. Echocardiogram showed moderate pericardial effusion partially loculated with fibrinous bands, ejection fraction approximately 50-55%. Mild tricuspid regurgitation, anterior atrial septal aneurysm present, benign findings mild pulmonary hypertension with PA pressures of 43 mmHg. Hemodynamic possible of compromise was maybe a suggested. The patient underwent bedside pericardial centesis approximately 50 mls of bloody fluid was aspirated. The patient apparently they then notify Dr. Nuñez about the pericardial effusion. The patient was also in atrial fibrillation and required cardioversion. The patient was then immediately taken to the to the operating room for pericardial emergent xiphoid window drainage of pericardial effusion and pericardial biopsy. 350 mls of bloody fluid was evacuated, at current the micro was showing no growth in the cultures, AFB mycobacterial cultures are pending. No fungal elements seen. The fungal culture still pending, pathology report is pending. Chest x-ray this morning shows some atelectasis left base, otherwise unremarkable. Patient is feeling the slightly improved, however, he is somewhat anxious. Still remains in atrial fibrillation. He is on amiodarone drip and Cardizem drip. PAST MEDICAL HISTORY: His past medical history significant for anxiety severe chronic obstructive pulmonary disease, he has been on long-term steroids in the past, ongoing tobacco abuse, hypertension, allergic rhinitis. PAST SURGICAL HISTORY: 1. The surgeries include two previous heart catheterizations 2003 and 2011 which were apparently normal. 2. Hiatal hernia repaired. 3. Cataract surgery. 4. Right lobectomy. ALLERGIES ZOSYN MEDICATIONS Home meds include; 1. Ativan b.i.d. 2. Lortab p.r.n. 3. Lisinopril 10. 4. Atorvastatin 5. Spiriva 6. Symbicort. FAMILY HISTORY Father for coronary disease at 76. Mother at 87 from Alzheimer's SOCIAL HISTORY: The patient has been smoking for approximately 40 years. He had smoked up to three packs per day, now is down to half pack per week. Drinks alcohol socially. No illicit drugs. REVIEW OF SYSTEMS IN GENERAL: Review of systems in general no night sweats, fever, heat and cold intolerance. SKIN: No psoriasis, itching or hives. He does bruise very easily has some multiple areas of some ecchymotic areas. HEAD, EYES, EARS, NOSE, AND THROAT: No blurred vision, hearing loss. RESPIRATORY: Positive for shortness of breath, chronic cough. CARDIOVASCULAR SYSTEM: No current chest pain. No paroxysmal nocturnal dyspnea. He does have some occasional palpitations. GASTROINTESTINAL: No diarrhea, vomiting. GENITOURINARY: No burning, frequency, urgency CENTRAL NERVOUS SYSTEM: No history of TIA, CVA, seizure disorder, ENDOCRINOLOGY: No history of diabetes and/or hypothyroidism. PHYSICAL EXAMINATION: VITAL SIGNS: On exam; blood pressure 116/70, heart rate of 101, O2 sat 100% on 4 liters. IN GENERAL: The patient is awake, alert, somewhat anxious. HEAD, EYES, EARS, NOSE, AND THROAT: Head is normocephalic, atraumatic. Pupils are equal and reactive. Oral mucosa pink, moist. NECK: Supple. No JVD. HEART: The heart sounds irregular rate and rhythm. No audible rubs or gallops. LUNGS: Diminished bilaterally with faint expiratory wheeze. He does have a midsternal with chest tube in place that has drained approximately 50 cc since it was placed. ABDOMEN: Soft, nontender. No masses or organomegaly. Ex EXTREMITIES: No cyanosis, clubbing or edema. LABORATORY FINDINGS Shows hemoglobin of 11, hematocrit 31, white cell count 10.9, platelet count of 604, sodium 135, potassium 3.5, BUN of 10, creatinine 0.62, glucose 145, calcium 8.3, phos is 1.9. INR 1.0 pleural fluid did show 1700 WBCs, large amount of RBCs. Glucose 75. IMPRESSION 1. At this is a 66-year-old male with recent upper respiratory infection per the patient with [id number] pericardial effusion. Status post emergent pericardial centesis in the emergency department, status post pericardial window by Dr. Nuñez, fluid analysis still not complete, and still pending. To leave chest tube in to suction at this time. Evaluate for removal in 24-48 hours from today. 2. Chronic obstructive pulmonary disease. He is currently on nebulizers. 3. Atrial fibrillation. Amiodarone and diltiazem. He may need his electrolytes replaced. 4. Tobacco abuse. He needs smoking cessation. 5. Questionable EtOH abuse. He is on thiamine, folate, multivitamin. 6. We will continue to follow. Dictated by LAMAR Cotton Anthony Galeano /1:32 PM /7:41 AM
[2017-02-20] MEDS ORDERED: SODIUM PHOSPHATE INJ 30 MMOL in SODIUM CHLOR 0.9% 250 ML INJ 240 ML IV PRN (15:15)
[2017-02-20] MEDS ORDERED: MAGNESIUM SULFATE INJ 4 GM in SODIUM CHLORIDE 0.9% INJ 92 ML IV PRN (15:15)
[2017-02-20] MEDS ORDERED: POTASSIUM CHLOR 20 MEQ PREMIX 100 ML IV PRN ×2 (15:15)
[2017-02-20] MEDS ORDERED: POTASSIUM PHOSPHATE MONOBASIC 500 MG TAB PO PRN (15:15)
[2017-02-20] MEDS ORDERED: guaiFENesin SOLUTION 200 MG/10 ML CUP PO PRN (15:15)
[2017-02-20] MEDS ORDERED: MAGNESIUM OXIDE 400 MG TAB PO PRN (15:15)
[2017-02-20] MEDS ORDERED: MAGNESIUM SULFATE INJ 2 GM in SODIUM CHLORIDE 0.9% INJ 96 ML IV PRN (15:15)
[2017-02-20] MEDS ORDERED: POTASSIUM CHLORIDE 25 MEQ EFFERVESCENT TAB PO PRN (15:15)
[2017-02-20] MEDS ORDERED: POTASSIUM PHOSPHATE INJ 30 MMOL in SODIUM CHLOR 0.9% 250 ML INJ 250 ML IV PRN (15:15)
[2017-02-20] MEDS ORDERED: POTASSIUM CHLOR 40 MEQ PREMIX 100 ML IV PRN ×2 (15:15)
[2017-02-20] MEDS ORDERED: POTASSIUM PHOSPHATE MONOBASIC 500 MG TAB PO/TUBE PRN (15:15)
--- NOTE | 2017-02-20 16:56 | HHI.CCPN ---
Subjective Remarks/Hospital Course 66-year-old male came to the emergency room brought by EMS for history of shortness of breath by EMS. Patient received [address] Upon arrival he still looked distressed and anxious. Oxygen saturation was 98% with 4 L of oxygen. Patient was having difficulty talking and could only speak one word per breath. He has been sick for 2 weeks but has been resistant to come to the emergency room. However today he really got worse and his called 911. Patient smokes half a pack of cigarettes every week and also drinks alcohol. Patient was tachycardic upon arrival. The bedside echocardiogram revealed large pericardial effusion and was emergently drained by ED attending. Shortly after he was transferred to operating room for pericardial window placement. 02/20: The patient continued to have A. fib RVR with a heart rate in the 120's this a.m.. The patient was noted to be on both Cardizem and amiodarone infusion. The patient received metoprolol 50 mg PO, Cardizem now discontinued. Heart rate in the 70s. Planned metoprolol 50 mg daily. The patient's diet was advanced, the patient's home bronchodilators were resumed. Objective Vital Signs Date Time Temp Pulse Resp B/P Pulse Ox O2 Delivery O2 Flow Rate FiO2 02/20/17 15:30 80 38 100/69 98 109/57 02/20/17 12:00 98.0 02/20/17 07:30 Nasal Cannula 4.50 Intake and Output 02/19/17 02/19/17 02/20/17 08:00 16:00 00:00 Intake Total 1557 ml Output Total 250 ml Balance 1307 ml Result Diagram: 02/20/17 1048 02/20/17 1048 Imaging Last 24 hours Impressions Chest X-Ray 02/19/17 1414 Signed Impressions: Service Date/Time: February 14:30 - CONCLUSION: 1. Small right pleural effusion. Minimal basilar atelectasis. Mild cardiomegaly. Milton Tena MD Chest X-Ray 02/19/17 0000 Signed Impressions: Service Date/Time: February 19:41 - CONCLUSION: Mild elevation right hemidiaphragm. No infiltrates or pneumothorax seen. Henry Hanna MD Objective Remarks GENERAL: Well-nourished, well-developed patient. SKIN: Warm and dry. HEAD: Normocephalic. EYES: No scleral icterus. No injection or drainage. NECK: Supple, trachea midline. No JVD or lymphadenopathy. CARDIOVASCULAR: Regular rate and rhythm without murmurs, gallops, or rubs. Chest tube 20 cm of water suction, serosanguineous fluid RESPIRATORY: Breath sounds equal bilaterally. No accessory muscle use. GASTROINTESTINAL: Abdomen soft, non-tender, nondistended. MUSCULOSKELETAL: No cyanosis, or edema. BACK: Nontender without obvious deformity. NEURO EXAM: GCS: M V E Mental Status: The patient is alert and oriented to person, place, and time with normal speech. Cranial Nerves: Visual acuity intact bilaterally. Visual anthony normal in all quadrants. Pupils are round, reactive to light. Extraocular movements are intact without ptosis. Hearing is normal bilaterally. Voice is normal. Tongue protrudes midline and moves symmetrically. Reflexes: Biceps, patellar, and Achilles are 2/4 bilaterally. No clonus. Sensation: Sensation is intact bilaterally to pain and light touch. Two-point discrimination is intact. Motor: Good muscle tone. Strength is 5/5 bilaterally. Cerebellar: [id number] and [id number] test normal bilaterally. A/P Assessment and Plan Pericardial effusion - Status post emergent pericardiocentesis in the ED - Fluid analysis pending - Status post pericardial window by CT surgeon - Management per CT surgery and cardiology COPD - No exacerbation - DuoNeb scheduled and when necessary - No steroids indicated -Resume Spiriva and Symbicort Atrial fibrillation - Amiodarone drip - Diltiazem infusion - Metoprolol 50 mg q day initiated -Cardiology consulted Hypertension - When necessary meds to keep SBP less than 150 Tobacco use disorder - Monitor for withdrawal - Nicotine patch when necessary Questionable history of alcohol abuse - Thiamine folate multivitamins - Monitor withdrawal symptoms if and DVT GI prophylaxis - Teds SCDs - Pharmacological DVT prophylaxis per cardiothoracic surgery - Pantoprazole Critical Care: my billing statement This patient remains critically ill with one or more organ systems which are or may become a threat to life. I have spent in excess of 30 minutes discontinuously in the care and management of this patient. This time is exclusive of procedures, and includes, but is not limited to, evaluation of the patient, review of the medical record, discussions with family, consultants, nursing staff, or respiratory therapy, and documentation in the medical record. Physician Rhonda Tavares MD Feb 20, 2017 16:56
[2017-02-20] MEDS: BUDESONIDE-FORMOTEROL 160/4.5 MCG INHALER INH SCH (20:41)
[2017-02-20] MEDS: ATORVASTATIN 10 MG TAB PO SCH (20:42)
[2017-02-21] VITALS (31 sets, daily range): BP systolic 107–141; BP diastolic 59–79; PULSE 62–85; RESP 20–44; TEMP 97.8–98.5; O2SAT 94–100
[2017-02-21] MEDS: MORPHINE SULFATE 4 MG/ML INJ IV PRN ×6 (00:13→21:00)
[2017-02-21] MEDS: CHLORHEXIDINE GLUCONATE 2 % 1 PACK (2 CLOTHS)(taper/protocol) TOPICAL SCH (04:00)
[2017-02-21] MEDS: RESP: ALBUTEROL 2.5 MG/IPRATROPIUM 0.5 MG NEB (SCH) NEB ×4 (04:00→21:40)
[2017-02-21 05:32] LABS: HEMATOCRIT 28.7 % (39.0-51.0); MEAN CELL VOLUME 100.3 FL (80.0-100.0); MEAN CORPUSCULAR HEMOGLOBIN 34.8 PG (27.0-34.0); MEAN CORPUSCULAR HGB CONC 34.8 % (32.0-36.0); PLATELET COUNT 527 TH/MM3 (150-450); RED BLOOD COUNT 2.86 MIL/MM3 (4.50-5.90); RED CELL DISTRIBUTION WIDTH 13.1 % (11.6-17.2); REVIEW FLAG FINAL; WHITE BLOOD COUNT 13.2 TH/MM3 (4.0-11.0)
[2017-02-21] MEDS: PANTOPRAZOLE SOD 40 MG DELAYED RELEASE TAB PO SCH (06:00)
[2017-02-21] MEDS: DILTIAZEM 125 MG/NS 100 ML IV SCH ×2 (06:05)
[2017-02-21 07:15] LABS: BICARBONATE 25.8 MEQ/L (21.0-32.0); MAGNESIUM 2.2 MG/DL (1.5-2.5); POTASSIUM 4.6 MEQ/L (3.5-5.1)
[2017-02-21] MEDS: METOPROLOL TARTRATE 50 MG TAB PO SCH (09:08)
[2017-02-21] MEDS: SODIUM CHLORIDE 0.9% FLUSH 10 ML FLUSH IV FLUSH SCH ×2 (09:09→20:59)
[2017-02-21] MEDS: BUDESONIDE-FORMOTEROL 160/4.5 MCG INHALER INH SCH ×2 (09:09→20:59)
[2017-02-21] MEDS: TIOTROPIUM BROMIDE 18 MCG INH INH SCH (09:09)
--- NOTE | 2017-02-21 09:38 | PD.CAR.PN ---
CVT Progress Note Subjective/Hospital Course: Minimal drainage from mediastinal CT Maintain in place for total of 72 hrs. Likely D/C CT tomorrow Cytology pending Objective: Vital Signs Date Time Temp Pulse Resp B/P Pulse Ox O2 Delivery O2 Flow Rate FiO2 02/21/17 07:55 98 Nasal Cannula 2.00 02/21/17 06:00 63 02/21/17 04:00 97.9 66 26 111/67 98 02/21/17 04:00 66 02/21/17 02:00 66 02/21/17 00:00 85 02/21/17 00:00 98.0 85 44 111/69 98 02/20/17 22:00 78 02/20/17 20:00 80 02/20/17 20:00 97.9 81 25 107/67 98 Arterial Line 02/20/17 19:49 99 Nasal Cannula 2.00 02/20/17 15:30 80 38 100/69 98 109/57 02/20/17 15:00 71 43 97/61 99 102/50 02/20/17 14:57 69 34 89/59 99 94/51 02/20/17 14:30 75 44 98/62 98 99/48 02/20/17 14:00 78 48 88/52 99 93/45 02/20/17 13:30 89 40 95/71 99 96/49 02/20/17 13:00 119 33 101/55 97 127/67 02/20/17 12:30 98 20 90/57 100 101/46 02/20/17 12:00 98.0 129 38 108/69 100 111/46 02/20/17 11:30 132 30 109/62 99 125/58 02/20/17 11:00 124 32 93/66 99 130/63 02/20/17 10:00 115 23 124/72 100 125/61 Labs: Laboratory Tests Test 02/21/17 04:30 White Blood Count 13.2 TH/MM3 (4.0-11.0) Red Blood Count 2.86 MIL/MM3 (4.50-5.90) Hemoglobin 10.0 GM/DL (13.0-17.0) Hematocrit 28.7 % (39.0-51.0) Mean Corpuscular Volume 100.3 FL (80.0-100.0) Mean Corpuscular Hemoglobin 34.8 PG (27.0-34.0) Mean Corpuscular Hemoglobin 34.8 % Concent (32.0-36.0) Red Cell Distribution Width 13.1 % (11.6-17.2) Platelet Count 527 TH/MM3 (150-450) Mean Platelet Volume 7.1 FL (7.0-11.0) Sodium Level 136 MEQ/L (136-145) Potassium Level 4.6 MEQ/L (3.5-5.1) Chloride Level 101 MEQ/L (98-107) Carbon Dioxide Level 25.8 MEQ/L (21.0-32.0) Anion Gap 9 MEQ/L (5-15) Blood Urea Nitrogen 16 MG/DL (7-18) Creatinine 0.52 MG/DL (0.60-1.30) Estimat Glomerular Filtration 159 ML/MIN Rate (>89) Random Glucose 138 MG/DL (74-106) Calcium Level 8.3 MG/DL (8.5-10.1) Phosphorus Level 1.5 MG/DL (2.5-4.9) Magnesium Level 2.2 MG/DL (1.5-2.5) Result Diagram: 02/21/17 0430 02/21/17 0430 Farideh Dsouza MD Feb 21, 2017 09:38
--- NOTE | 2017-02-21 13:37 | MB ---
cc: PRANAV SMITH MD DATE OF CONSULTATION: 02/21/2017. REASON FOR CONSULTATION: Cardiac tamponade and new onset atrial fibrillation. HISTORY OF PRESENT ILLNESS: The patient is a very pleasant 66-year-old gentleman with history of severe COPD with a partial lobectomy as well as ongoing tobacco abuse. The patient has some chronic dyspnea on exertion, however, this became particularly worse prior to admission and he presented in respiratory distress and was found to have a large pericardial effusion and this was drained emergently in the operating room. The effusion is reported as being bloody in appearance. The patient is feeling quite a bit better now that the effusion is drained but a pericardial drain remains in place and it is still draining. He denies chest pain. His shortness of breath is essentially back to baseline. No current lightheadedness or dizziness though he has a remote history of syncope but more than five years ago. PAST MEDICAL HISTORY: 1. Severe COPD with ongoing tobacco abuse. 2. New onset atrial fibrillation. 3. Anxiety. 4. Hypertension. CURRENT MEDICATIONS: 1. Spiriva. 2. Lipitor 10 milligrams at bedtime. 3. IV amiodarone. ALLERGIES: ZOSYN. PHYSICAL EXAMINATION: VITAL SIGNS: Afebrile, pulse 63, respiratory rate 26, blood pressure 111/67, satting 90 on two liters. GENERAL: In general, a pleasant thin gentleman with COPD type breathing in no distress. NECK: No jugular venous distention. LUNGS: Diminished breath sounds in all anthony. CARDIOVASCULAR: Distant heart sounds. No murmurs appreciated. ABDOMEN: Benign. EXTREMITIES: No edema. LABORATORY DATA: White count 13.2, hematocrit 28.7, platelets 527,000. Sodium 136, potassium 4.6, chloride 101, bicarb 25.8, BUN 16, creatinine 0.58, glucose 138. Pericardial effusion testing is pending. EKG initially showed a very rapid atrial fibrillation in the 180 beats per minute range. Current telemetry shows normal sinus rhythm. There were nonspecific S-T changes but no acute S-T or T-wave changes. IMPRESSION: 1. Pericardial effusion. The patient had the pericardial effusion drained, which was bloody in appearance and given his severe ongoing tobacco abuse and COPD, malignant effusion has to be considered. Cytology is pending. He still is draining and once his draining ceases, his pericardial drain can be removed. At that point, he will also have a follow up echocardiogram. 2. New-onset atrial fibrillation. The atrial fibrillation may be caused by his large effusion, though he certainly does have risk factors. For the moment, he is in sinus rhythm and I would not anticoagulate given the ongoing bloody effusion drainage but this may need to be re-evaluated in the future, perhaps with some sort of long-term monitor. Further recommendations based on his lab testing. I will stop his amiodarone given his resumption of sinus rhythm. Thank you again for the opportunity to participate in this patient's care. MD IRINA Harris/MIKE /10:27 AM /1:22 PM
--- NOTE | 2017-02-21 19:22 | HHI.CCPN ---
Subjective Remarks/Hospital Course 66-year-old male came to the emergency room brought by EMS for history of shortness of breath by EMS. Patient received [address] Upon arrival he still looked distressed and anxious. Oxygen saturation was 98% with 4 L of oxygen. Patient was having difficulty talking and could only speak one word per breath. He has been sick for 2 weeks but has been resistant to come to the emergency room. However today he really got worse and his called 911. Patient smokes half a pack of cigarettes every week and also drinks alcohol. Patient was tachycardic upon arrival. The bedside echocardiogram revealed large pericardial effusion and was emergently drained by ED attending. Shortly after he was transferred to operating room for pericardial window placement. 02/20: The patient continued to have A. fib RVR with a heart rate in the 120's this a.m.. The patient was noted to be on both Cardizem and amiodarone infusion. The patient received metoprolol 50 mg PO, Cardizem now discontinued. Heart rate in the 70s. Planned metoprolol 50 mg daily. The patient's diet was advanced, the patient's home bronchodilators were resumed. 02/21: Patient continues a normal sinus rhythm this evening. Cardizem infusion has been weaned off for approximately 3 hours. The patient continues on beta blockers. The patient has been advanced out of bed to chair tolerating diet. Objective Vital Signs Date Time Temp Pulse Resp B/P Pulse Ox O2 Delivery O2 Flow Rate FiO2 02/21/17 18:00 80 02/21/17 17:00 28 122/68 98 02/21/17 16:00 98.3 02/21/17 07:55 Nasal Cannula 2.00 Intake and Output 02/20/17 02/20/17 02/21/17 08:00 16:00 00:00 Intake Total 2310 ml 580 ml 705 ml Output Total 812 ml 830 ml 406 ml Balance 1498 ml -250 ml 299 ml Result Diagram: 02/21/17 0430 02/21/17 0430 Imaging Last 24 hours Impressions Chest X-Ray 02/19/17 1414 Signed Impressions: Service Date/Time: February 14:30 - CONCLUSION: 1. Small right pleural effusion. Minimal basilar atelectasis. Mild cardiomegaly. Milton Tena MD Chest X-Ray 02/19/17 0000 Signed Impressions: Service Date/Time: February 19:41 - CONCLUSION: Mild elevation right hemidiaphragm. No infiltrates or pneumothorax seen. Henry Hanna MD Objective Remarks GENERAL: Well-nourished, well-developed patient. SKIN: Warm and dry. HEAD: Normocephalic. EYES: No scleral icterus. No injection or drainage. NECK: Supple, trachea midline. No JVD or lymphadenopathy. CARDIOVASCULAR: Regular rate and rhythm without murmurs, gallops, or rubs. Chest tube 20 cm of water suction, serosanguineous fluid RESPIRATORY: Breath sounds equal bilaterally. No accessory muscle use. GASTROINTESTINAL: Abdomen soft, non-tender, nondistended. MUSCULOSKELETAL: No cyanosis, or edema. BACK: Nontender without obvious deformity. NEURO EXAM: GCS: M V E Mental Status: The patient is alert and oriented to person, place, and time with normal speech. Cranial Nerves: Visual acuity intact bilaterally. Visual anthony normal in all quadrants. Pupils are round, reactive to light. Extraocular movements are intact without ptosis. Hearing is normal bilaterally. Voice is normal. Tongue protrudes midline and moves symmetrically. Reflexes: Biceps, patellar, and Achilles are 2/4 bilaterally. No clonus. Sensation: Sensation is intact bilaterally to pain and light touch. Two-point discrimination is intact. Motor: Good muscle tone. Strength is 5/5 bilaterally. Cerebellar: [id number] and [id number]-[id number] test normal bilaterally. A/P Assessment and Plan Pericardial effusion - Status post emergent pericardiocentesis in the ED - Fluid analysis pending - Status post pericardial window by CT surgeon - Management per CT surgery and cardiology COPD - No exacerbation - DuoNeb scheduled and when necessary - No steroids indicated -Continue Spiriva and Symbicort Atrial fibrillation - Amiodarone drip discontinued 02/20 - Diltiazem infusion - Metoprolol 50 mg q day initiated -Cardiology consulted-Dr. Mancini Hypertension - When necessary meds to keep SBP less than 150 Tobacco use disorder - Monitor for withdrawal - Nicotine patch when necessary Questionable history of alcohol abuse - Thiamine folate multivitamins - Monitor withdrawal symptoms DVT GI prophylaxis - Teds SCDs - Pharmacological DVT prophylaxis per cardiothoracic surgery - Pantoprazole Critical Care: Level 3 Physician Rhonda Tavares MD Feb 21, 2017 19:22
[2017-02-21] MEDS: ATORVASTATIN 10 MG TAB PO SCH (20:59)
[2017-02-22] VITALS (29 sets, daily range): BP systolic 109–189; BP diastolic 61–90; PULSE 60–87; RESP 17–48; TEMP 98–98.8; O2SAT 90–98
[2017-02-22] MEDS: MORPHINE SULFATE 4 MG/ML INJ IV PRN ×8 (00:06→23:41)
[2017-02-22] MEDS: RESP: ALBUTEROL 2.5 MG/IPRATROPIUM 0.5 MG NEB (SCH) NEB ×4 (03:40→22:00)
[2017-02-22] MEDS: CHLORHEXIDINE GLUCONATE 2 % 1 PACK (2 CLOTHS)(taper/protocol) TOPICAL SCH (04:00)
[2017-02-22] MEDS: PANTOPRAZOLE SOD 40 MG DELAYED RELEASE TAB PO SCH (04:16)
[2017-02-22] MEDS: SODIUM CHLORIDE 0.9% FLUSH 10 ML FLUSH IV FLUSH SCH ×2 (09:17→21:44)
[2017-02-22] MEDS: BUDESONIDE-FORMOTEROL 160/4.5 MCG INHALER INH SCH ×2 (09:17→21:39)
[2017-02-22] MEDS: TIOTROPIUM BROMIDE 18 MCG INH INH SCH (09:17)
[2017-02-22] MEDS: METOPROLOL TARTRATE 50 MG TAB PO SCH (09:17)
--- NOTE | 2017-02-22 12:01 | PD.CARD.PN ---
Subjective Subjective Remarks Feels well, chest tube still draining; still NSR except for one short atrial run. Objective Medications Administered Medications Medications (Trade) Dose Ordered Sig/Nabila Route PRN Reason Start Time Stop Time Status Last Admin Dose Admin Sodium Chloride (NS Flush) 2 ml BID IV FLUSH 02/19/17 21:00 02/22/17 09:17 Albumin Human (Albumin 5% Inj) 12.5 gm UNSCH PRN IV SEE LABEL COMMENTS 02/19/17 19:00 02/20/17 01:35 Pantoprazole Sodium (Protonix) 40 mg DAILY@06 PO 02/20/17 06:00 02/20/17 04:50 Morphine Sulfate 1 mg 1 mg Q10M PRN IV PAIN SCALE 1 TO 5 02/19/17 19:00 02/22/17 09:18 Diltiazem HCl/ Sodium Chloride (Cardizem Inj/NS Inj) 125 ml @ 0 mls/hr TITRATE IV 02/19/17 19:15 02/21/17 06:05 Chlorhexidine Gluconate (Chlorhexidine 2% Cloth) 3 pack DAILY@04 TOPICAL 02/20/17 04:00 02/24/17 04:01 02/20/17 02:40 Metoprolol Tartrate (Lopressor) 50 mg DAILY PO 02/20/17 11:15 02/22/17 09:17 Guaifenesin (Robitussin Liq) 200 mg Q4H PRN PO CHEST CONGESTION AND/OR COUGH 02/20/17 15:15 02/20/17 15:27 Potassium Bicarb/ Potassium Chloride (K-Lyte Cl Eff) 50 meq UNSCH PRN PO For Potassium 3.3 - 3.5 mEq/L 02/20/17 15:15 02/20/17 17:41 Potassium Phosphate (K-Phos) 2,000 mg Q4H PRN PO For Phosphorus < 2.5 mg/dL 02/20/17 15:15 02/20/17 17:41 Budesonide/ Formoterol Fumarate (Symbicort 160-4.5 Inh) 2 puff Q12HR INH 02/20/17 21:00 02/22/17 09:17 Tiotropium Elma (Spiriva Inh) 18 mcg DAILY INH 02/21/17 09:00 02/22/17 09:17 Vital Signs / I&O Vital Signs Date Time Temp Pulse Resp B/P Pulse Ox O2 Delivery O2 Flow Rate FiO2 02/22/17 11:00 63 27 134/81 96 02/22/17 10:00 74 25 135/77 96 02/22/17 10:00 74 02/22/17 09:15 92 02/22/17 09:00 87 28 145/77 95 02/22/17 08:00 98.1 73 26 155/86 94 02/22/17 08:00 73 02/22/17 07:00 69 26 160/90 94 02/22/17 06:00 62 02/22/17 04:00 98.1 64 19 159/89 94 02/22/17 04:00 64 02/22/17 02:00 68 02/22/17 00:00 74 02/22/17 00:00 98.0 74 37 140/72 95 02/21/17 22:00 72 02/21/17 21:10 97 21 02/21/17 20:00 75 02/21/17 20:00 98.5 82 27 125/74 94 02/21/17 18:00 80 02/21/17 17:00 73 28 122/68 98 02/21/17 16:30 65 25 107/65 97 02/21/17 16:00 98.3 70 34 115/72 99 02/21/17 16:00 70 02/21/17 15:30 65 27 110/69 98 02/21/17 15:00 64 22 112/67 99 02/21/17 14:30 67 23 113/68 100 02/21/17 14:00 69 02/21/17 14:00 69 34 115/67 99 02/21/17 13:30 72 26 109/64 98 02/21/17 13:00 76 30 135/66 99 02/21/17 12:30 63 20 129/71 99 02/21/17 12:00 62 02/21/17 12:00 97.8 62 20 118/64 99 I/O 02/21/17 02/21/17 02/21/17 02/22/17 02/22/17 02/22/17 07:00 15:00 23:00 07:00 15:00 23:00 Intake Total 278 ml 706 ml 480 ml 480 ml Output Total 390 ml 387 ml 1115 ml 1160 ml Balance -112 ml 319 ml -635 ml -680 ml Intake Oral 480 ml 480 ml 480 ml IV Total 278 ml 226 ml Output Urine Total 380 ml 375 ml 1105 ml 1160 ml Chest Tube Drainage Total 10 ml 12 ml 10 ml 0 ml Physical Exam GENERAL: This is a well-nourished, well-developed patient, in no apparent distress. CARDIOVASCULAR: Regular rate and rhythm without murmurs, gallops, or rubs. RESPIRATORY: Clear to auscultation. Breath sounds equal bilaterally. No wheezes , rales, or rhonchi. GASTROINTESTINAL: Abdomen soft, non-tender, nondistended. Normal active bowel sounds MUSCULOSKELETAL: Extremities without clubbing, cyanosis, or edema. NEURO: Alert & Oriented x4 to person, place, time, situation. Moves all ext x4 Imaging Last Impressions Chest X-Ray 02/20/17 0500 Signed Impressions: Service Date/Time: Thursday, February 20, 2017 04:05 - CONCLUSION: 1. Subsegmental atelectasis left base. There has been no significant change when compared to the prior exam. Diego Diaz MD Assessment and Plan Problem List: (1) Pericardial tamponade Assessment and Plan: pericardial drain in place, studies pending (2) Atrial fibrillation with RVR Assessment and Plan: in nsr currently; unclear if isolated event related to his tamponade or if he 2will have recurrent afib; will need long-term outpatient monitor/loop recorder. (3) COPD (chronic obstructive pulmonary disease) Dov Terrell MD Feb 22, 2017 12:01
--- NOTE | 2017-02-22 15:19 | HHI.CCPN ---
Subjective Remarks/Hospital Course 66-year-old male came to the emergency room brought by EMS for history of shortness of breath by EMS. Patient received [address] Upon arrival he still looked distressed and anxious. Oxygen saturation was 98% with 4 L of oxygen. Patient was having difficulty talking and could only speak one word per breath. He has been sick for 2 weeks but has been resistant to come to the emergency room. However today he really got worse and his called 911. Patient smokes half a pack of cigarettes every week and also drinks alcohol. Patient was tachycardic upon arrival. The bedside echocardiogram revealed large pericardial effusion and was emergently drained by ED attending. Shortly after he was transferred to operating room for pericardial window placement. 02/20: The patient continued to have A. fib RVR with a heart rate in the 120's this a.m.. The patient was noted to be on both Cardizem and amiodarone infusion. The patient received metoprolol 50 mg PO, Cardizem now discontinued. Heart rate in the 70s. Planned metoprolol 50 mg daily. The patient's diet was advanced, the patient's home bronchodilators were resumed. 02/21: Patient continues a normal sinus rhythm this evening. Cardizem infusion has been weaned off for approximately 3 hours. The patient continues on beta blockers. The patient has been advanced out of bed to chair tolerating diet. 02/22: No acute events overnight. No chest tube output as it continues on 20 cm of water suction. Patient tolerating diet up out of bed without assistance. Patient remains in normal sinus rhythm. Objective Vital Signs Date Time Temp Pulse Resp B/P Pulse Ox O2 Delivery O2 Flow Rate FiO2 02/22/17 12:30 71 33 93 02/22/17 12:01 98.8 143/73 02/21/17 21:10 21 02/21/17 07:55 Nasal Cannula 2.00 Intake and Output 02/21/17 02/21/17 02/22/17 08:00 16:00 00:00 Intake Total 278 ml 706 ml 480 ml Output Total 390 ml 387 ml 1115 ml Balance -112 ml 319 ml -635 ml Result Diagram: 02/21/17 0430 02/21/17 0430 Other Results Microbiology Date/Time Procedure Status Source Growth 02/19/17 17:00 Gram Stain - Final Complete Fluid Pericardial Fluid 02/19/17 17:00 Body Fluid Culture - Final Complete Fluid Pericardial Fluid NO GROWTH IN 72 HRS.--AEROBICALLY OR ... 02/19/17 18:30 Gram Stain - Final Complete Fluid Pericardial Fluid 02/19/17 18:30 Body Fluid Culture - Final Complete Fluid Pericardial Fluid NO GROWTH IN 72 HRS.--AEROBICALLY OR ... Imaging Last 24 hours Impressions Chest X-Ray 02/19/17 1414 Signed Impressions: Service Date/Time: February 14:30 - CONCLUSION: 1. Small right pleural effusion. Minimal basilar atelectasis. Mild cardiomegaly. Milton Tena MD Chest X-Ray 02/19/17 0000 Signed Impressions: Service Date/Time: February 19:41 - CONCLUSION: Mild elevation right hemidiaphragm. No infiltrates or pneumothorax seen. Henry Hanna MD Objective Remarks GENERAL: Well-nourished, well-developed patient. SKIN: Warm and dry. HEAD: Normocephalic. EYES: No scleral icterus. No injection or drainage. NECK: Supple, trachea midline. No JVD or lymphadenopathy. CARDIOVASCULAR: Regular rate and rhythm without murmurs, gallops, or rubs. Chest tube 20 cm of water suction, serosanguineous fluid RESPIRATORY: Breath sounds equal bilaterally. No accessory muscle use. GASTROINTESTINAL: Abdomen soft, non-tender, nondistended. MUSCULOSKELETAL: No cyanosis, or edema. BACK: Nontender without obvious deformity. NEURO EXAM: GCS: M6 V5 E4 Mental Status: The patient is alert and oriented to person, place, and time with normal speech. Cranial Nerves: Visual acuity intact bilaterally. Visual anthony normal in all quadrants. Pupils are round, reactive to light. Extraocular movements are intact without ptosis. Hearing is normal bilaterally. Voice is normal. Tongue protrudes midline and moves symmetrically. Reflexes: Biceps, patellar, and Achilles are 2/4 bilaterally. No clonus. Sensation: Sensation is intact bilaterally to pain and light touch. Two-point discrimination is intact. Motor: Good muscle tone. Strength is 5/5 bilaterally. Cerebellar: [id number] and [id number] test normal bilaterally. A/P Assessment and Plan Pericardial effusion - Status post emergent pericardiocentesis in the ED - Fluid analysis pending - Status post pericardial window by CT surgeon - Management per CT surgery and cardiology -Chest tube output- 0 COPD - No exacerbation - DuoNeb scheduled and when necessary - No steroids indicated -Continue Spiriva and Symbicort Atrial fibrillation - Amiodarone drip discontinued 02/20 - Diltiazem infusion - Metoprolol 50 mg q day initiated -Cardiology following-Dr. Terrell Hypertension - When necessary meds to keep SBP less than 150 Tobacco use disorder - Monitor for withdrawal - Nicotine patch when necessary Questionable history of alcohol abuse - Thiamine folate multivitamins - Monitor withdrawal symptoms DVT GI prophylaxis - Teds SCDs - Pharmacological DVT prophylaxis per cardiothoracic surgery - Pantoprazole Critical Care: Dispo: Patient progressing well. His remained in normal sinus rhythm for approximately 24 hours, no chest tube output. Discussed with Dr. Nelson plan for transfer to [facility] in the a.m. and transfer to floor on telemetry. Level 2. Physician Rhonda Tavares MD Feb 22, 2017 15:19
[2017-02-22 16:19] LABS: BICARBONATE 29.3 MEQ/L (21.0-32.0); MAGNESIUM 1.9 MG/DL (1.5-2.5); POTASSIUM 3.8 MEQ/L (3.5-5.1)
[2017-02-22] MEDS: ATORVASTATIN 10 MG TAB PO SCH (21:00)
[2017-02-23] VITALS (26 sets, daily range): BP systolic 99–153; BP diastolic 56–94; PULSE 56–92; RESP 20; TEMP 97.9–98.8; O2SAT 94–98
[2017-02-23] MEDS: oxyCODONE/ACETAMINOPHEN 5 MG/325 MG TAB PO PRN ×2 (01:04→10:53)
[2017-02-23] MEDS: RESP: ALBUTEROL 2.5 MG/IPRATROPIUM 0.5 MG NEB (SCH) NEB ×3 (04:00→15:36)
[2017-02-23] MEDS: CHLORHEXIDINE GLUCONATE 2 % 1 PACK (2 CLOTHS)(taper/protocol) TOPICAL SCH (04:00)
[2017-02-23] MEDS: MORPHINE SULFATE 4 MG/ML INJ IV PRN ×3 (04:19→09:24)
[2017-02-23 06:52] LABS: HEMATOCRIT 35.6 % (39.0-51.0); MEAN CELL VOLUME 101.2 FL (80.0-100.0); MEAN CORPUSCULAR HEMOGLOBIN 34.9 PG (27.0-34.0); MEAN CORPUSCULAR HGB CONC 34.5 % (32.0-36.0); PLATELET COUNT 656 TH/MM3 (150-450); RED BLOOD COUNT 3.52 MIL/MM3 (4.50-5.90); RED CELL DISTRIBUTION WIDTH 12.8 % (11.6-17.2); REVIEW FLAG FINAL; WHITE BLOOD COUNT 10.3 TH/MM3 (4.0-11.0)
[2017-02-23 07:26] LABS: BICARBONATE 32.1 MEQ/L (21.0-32.0); MAGNESIUM 1.9 MG/DL (1.5-2.5); POTASSIUM 4.2 MEQ/L (3.5-5.1)
[2017-02-23] MEDS: PANTOPRAZOLE SOD 40 MG DELAYED RELEASE TAB PO SCH (07:34)
[2017-02-23] MEDS: TIOTROPIUM BROMIDE 18 MCG INH INH SCH (09:17)
[2017-02-23] MEDS: METOPROLOL TARTRATE 50 MG TAB PO SCH (09:17)
[2017-02-23] MEDS: SODIUM CHLORIDE 0.9% FLUSH 10 ML FLUSH IV FLUSH SCH ×2 (09:18→21:00)
[2017-02-23] MEDS: BUDESONIDE-FORMOTEROL 160/4.5 MCG INHALER INH SCH ×2 (09:18→22:04)
--- NOTE | 2017-02-23 09:38 | HHI.PR ---
Subjective Remarks Pt tells me that his SOB is much improved. Denies any nausea or vomiting. Ate some of his breakfast but doesn't want any more. Complains of pain on his left upper extremity and swelling. Thinks it is due to blood draws Objective Vitals Vital Signs Date Time Temp Pulse Resp B/P Pulse Ox O2 Delivery O2 Flow Rate FiO2 02/23/17 09:00 82 02/23/17 08:00 72 02/23/17 07:00 97.9 69 20 153/94 96 02/23/17 07:00 56 02/23/17 06:00 56 02/23/17 05:00 60 02/23/17 04:00 64 02/23/17 04:00 98.3 70 20 146/87 94 02/23/17 03:00 68 02/23/17 02:00 66 02/23/17 01:00 64 02/23/17 00:00 72 02/23/17 00:00 98.6 74 20 137/80 96 02/22/17 23:29 65 02/22/17 22:05 21 02/22/17 22:00 82 02/22/17 21:00 68 02/22/17 20:00 74 02/22/17 20:00 98.5 80 24 117/69 97 02/22/17 19:31 68 02/22/17 18:30 98.6 79 20 133/83 98 02/22/17 18:00 81 02/22/17 17:00 75 21 109/61 95 02/22/17 16:00 75 02/22/17 16:00 98.4 75 23 113/65 94 02/22/17 15:00 77 23 114/68 95 02/22/17 14:01 81 26 157/77 91 02/22/17 14:00 80 02/22/17 14:00 80 48 95 02/22/17 13:20 60 17 119/71 93 02/22/17 13:01 64 20 189/82 95 02/22/17 13:00 66 28 95 02/22/17 12:30 71 33 93 02/22/17 12:15 72 30 93 02/22/17 12:01 98.8 73 40 143/73 92 02/22/17 12:00 74 43 90 02/22/17 12:00 74 02/22/17 11:00 63 27 134/81 96 02/22/17 10:00 74 25 135/77 96 02/22/17 10:00 74 I/O 02/22/17 02/22/17 02/22/17 02/23/17 02/23/17 02/23/17 06:59 14:59 22:59 06:59 14:59 22:59 Intake Total 480 ml 640 ml 480 ml Output Total 1160 ml 1885 ml 10 ml 1595 ml Balance -680 ml -1245 ml -10 ml -1115 ml Intake Oral 480 ml 640 ml 480 ml IV Total 0 ml Output Urine Total 1160 ml 1875 ml 1575 ml Chest Tube Drainage Total 0 ml 10 ml 10 ml 20 ml Result Diagram: 02/23/17 0502/23/17 05 Imaging Last Impressions Chest X-Ray 02/20/17 0500 Signed Impressions: Service Date/Time: Monday, February 20, 2017 04:05 - CONCLUSION: 1. Subsegmental atelectasis left base. There has been no significant change when compared to the prior exam. Diego Diaz MD Objective Remarks GENERAL: Well-nourished, well-developed patient. HEAD: Normocephalic. EYES: EOMI NECK: trachea midline. CARDIOVASCULAR: Regular rate and rhythm without murmurs. Chest tube 20 cm of water suction, serosanguineous fluid RESPIRATORY: Breath sounds equal bilaterally. No accessory muscle use. GASTROINTESTINAL: Abdomen soft, non-tender, nondistended. MUSCULOSKELETAL: left upper extremity noted to have are of erythema w swelling above the antecubital fossa. No fluctuance noted. NEURO: alert and oriented, answers questions appropriately. moves extremities. A/P Assessment and Plan Pericardial effusion - Status post emergent pericardiocentesis in the ED - Fluid analysis pending. gram stain neg x 72 hrs. - Status post pericardial window by CT surgeon. They are managing chest tube. appreciate assistance. - Continue management per CT surgery and cardiology - Chest tube output- 20cc per RN COPD - No exacerbation - DuoNeb scheduled and when necessary - No steroids indicated -Continue Spiriva and Symbicort Atrial fibrillation - Amiodarone drip discontinued 02/20 - s/p Diltiazem infusion - now on Metoprolol 50 mg daily - Cardiology following-Dr. Terrell. Per cards, will need long-term outpatient monitor/loop recorder Hypertension - When necessary meds to keep SBP less than 150 Tobacco use disorder - Monitor for withdrawal - Nicotine patch when necessary Questionable history of alcohol abuse - Thiamine folate multivitamins - Monitor withdrawal symptoms DVT GI prophylaxis - Teds SCDs - Pharmacological DVT prophylaxis per cardiothoracic surgery - Pantoprazole Discharge Planning continue to monitor in [facility]. still has chest tube. management per CT sx. awaiting final recs from cards and CT sx Abiola Jeong MD Feb 23, 2017 09:38
--- NOTE | 2017-02-23 10:00 | PD.CARD.PN ---
Subjective Subjective Remarks Feels very well, pericardial drain out Objective Medications Administered Medications Medications (Trade) Dose Ordered Sig/Nabila Route PRN Reason Start Time Stop Time Status Last Admin Dose Admin Sodium Chloride (NS Flush) 2 ml BID IV FLUSH 02/19/17 21:00 02/23/17 09:18 Albumin Human (Albumin 5% Inj) 12.5 gm UNSCH PRN IV SEE LABEL COMMENTS 02/19/17 19:00 02/20/17 01:35 Pantoprazole Sodium (Protonix) 40 mg DAILY@06 PO 02/20/17 06:00 02/23/17 07:34 Acetaminophen (Tylenol) 650 mg Q4H PRN PO TEMPERATURE > 101 F 02/19/17 19:00 02/22/17 23:42 Morphine Sulfate (Morphine Inj) 1 mg Q10M PRN IV PAIN SCALE 1 TO 5 02/19/17 19:00 02/23/17 09:24 Oxycodone/ Acetaminophen (Percocet 5-325 Mg) 1 tab Q3H PRN PO PAIN SCALE 1 TO 5 02/19/17 19:00 02/23/17 01:04 Chlorhexidine Gluconate (Chlorhexidine 2% Cloth) 3 pack DAILY@04 TOPICAL 02/20/17 04:00 02/24/17 04:01 02/20/17 02:40 Metoprolol Tartrate (Lopressor) 50 mg DAILY PO 02/20/17 11:15 02/23/17 09:17 Guaifenesin (Robitussin Liq) 200 mg Q4H PRN PO CHEST CONGESTION AND/OR COUGH 02/20/17 15:15 02/20/17 15:27 Potassium Bicarb/ Potassium Chloride (K-Lyte Cl Eff) 50 meq UNSCH PRN PO For Potassium 3.3 - 3.5 mEq/L 02/20/17 15:15 02/20/17 17:41 Potassium Phosphate (K-Phos) 2,000 mg Q4H PRN PO For Phosphorus < 2.5 mg/dL 02/20/17 15:15 02/20/17 17:41 Budesonide/ Formoterol Fumarate (Symbicort 160-4.5 Inh) 2 puff Q12HR INH 02/20/17 21:00 02/23/17 09:18 Tiotropium [place] (Spiriva Inh) 18 mcg DAILY INH 02/21/17 09:00 02/23/17 09:17 Vital Signs / I&O Vital Signs Date Time Temp Pulse Resp B/P Pulse Ox O2 Delivery O2 Flow Rate FiO2 02/23/17 09:00 82 02/23/17 08:00 72 02/23/17 07:00 97.9 69 20 153/94 96 02/23/17 07:00 56 02/23/17 06:00 56 02/23/17 05:00 60 02/23/17 04:00 64 02/23/17 04:00 98.3 70 20 146/87 94 02/23/17 03:00 68 02/23/17 02:00 66 02/23/17 01:00 64 02/23/17 00:00 72 02/23/17 00:00 98.6 74 20 137/80 96 02/22/17 23:29 65 02/22/17 22:05 21 02/22/17 22:00 82 02/22/17 21:00 68 02/22/17 20:00 74 02/22/17 20:00 98.5 80 24 117/69 97 02/22/17 19:31 68 02/22/17 18:30 98.6 79 20 133/83 98 02/22/17 18:00 81 02/22/17 17:00 75 21 109/61 95 02/22/17 16:00 75 02/22/17 16:00 98.4 75 23 113/65 94 02/22/17 15:00 77 23 114/68 95 02/22/17 14:01 81 26 157/77 91 02/22/17 14:00 80 02/22/17 14:00 80 48 95 02/22/17 13:20 60 17 119/71 93 02/22/17 13:01 64 20 189/82 95 02/22/17 13:00 66 28 95 02/22/17 12:30 71 33 93 02/22/17 12:15 72 30 93 02/22/17 12:01 98.8 73 40 143/73 92 02/22/17 12:00 74 43 90 02/22/17 12:00 74 02/22/17 11:00 63 27 134/81 96 02/22/17 10:00 74 25 135/77 96 02/22/17 10:00 74 I/O 02/22/17 02/22/17 02/22/17 02/23/17 02/23/17 02/23/17 07:00 15:00 23:00 07:00 15:00 23:00 Intake Total 480 ml 640 ml 480 ml Output Total 1160 ml 1885 ml 10 ml 1595 ml Balance -680 ml -1245 ml -10 ml -1115 ml Intake Oral 480 ml 640 ml 480 ml IV Total 0 ml Output Urine Total 1160 ml 1875 ml 1575 ml Chest Tube Drainage Total 0 ml 10 ml 10 ml 20 ml Physical Exam GENERAL: This is a well-nourished, well-developed patient, in no apparent distress. CARDIOVASCULAR: Regular rate and rhythm without murmurs, gallops, or rubs. RESPIRATORY: Clear to auscultation. Breath sounds equal bilaterally. No wheezes , rales, or rhonchi. GASTROINTESTINAL: Abdomen soft, non-tender, nondistended. Normal active bowel sounds MUSCULOSKELETAL: Extremities without clubbing, cyanosis, or edema. NEURO: Alert & Oriented x4 to person, place, time, situation. Moves all ext x4 Laboratory Laboratory Tests Test 02/22/17 02/23/17 14:59 05:19 Sodium Level 133 MEQ/L 135 MEQ/L Potassium Level 3.8 MEQ/L 4.2 MEQ/L Chloride Level 96 MEQ/L 95 MEQ/L Carbon Dioxide Level 29.3 MEQ/L 32.1 MEQ/L Anion Gap 8 MEQ/L 8 MEQ/L Blood Urea Nitrogen 14 MG/DL 13 MG/DL Creatinine 0.63 MG/DL 0.51 MG/DL Estimat Glomerular Filtration 128 ML/MIN 163 ML/MIN Rate Random Glucose 118 MG/DL 80 MG/DL Calcium Level 8.7 MG/DL 9.0 MG/DL Phosphorus Level 1.9 MG/DL 3.1 MG/DL Magnesium Level 1.9 MG/DL 1.9 MG/DL White Blood Count 10.3 TH/MM3 Red Blood Count 3.52 MIL/MM3 Hemoglobin 12.3 GM/DL Hematocrit 35.6 % Mean Corpuscular Volume 101.2 FL Mean Corpuscular Hemoglobin 34.9 PG Mean Corpuscular Hemoglobin 34.5 % Concent Red Cell Distribution Width 12.8 % Platelet Count 656 TH/MM3 Mean Platelet Volume 6.5 FL Imaging Last Impressions Chest X-Ray 02/20/17 0500 Signed Impressions: Service Date/Time: Monday, February 20, 2017 04:05 - CONCLUSION: 1. Subsegmental atelectasis left base. There has been no significant change when compared to the prior exam. Diego Diaz MD Assessment and Plan Problem List: (1) Pericardial tamponade Assessment and Plan: pericardial drain now removed, will get an echo tomorrow; studies pending (2) Atrial fibrillation with RVR Assessment and Plan: in nsr currently; unclear if isolated event related to his tamponade or if he 2will have recurrent afib; will need long-term outpatient monitor/loop recorder. (3) COPD (chronic obstructive pulmonary disease) Dov Terrell MD Feb 23, 2017 10:00
[2017-02-23] MEDS ORDERED: DOCUSATE SODIUM 50 MG/SENNA 8.6 MG TAB PO PRN (11:00)
--- NOTE | 2017-02-23 11:50 | PD.CAR.PN ---
CVT Progress Note Subjective/Hospital Course: Minimal drainage from mediastinal CT Maintain in place for total of 72 hrs. Likely D/C CT tomorrow Cytology pending 02/23/17 minimal drainage in chest tube removed without difficulty path pending no growth in cultures to date mycobacterial and final fungal culture pending Objective: Vital Signs Date Time Temp Pulse Resp B/P Pulse Ox O2 Delivery O2 Flow Rate FiO2 02/23/17 11:00 66 02/23/17 11:00 98.1 64 20 123/73 98 02/23/17 10:31 98 21 02/23/17 10:00 62 02/23/17 09:00 82 02/23/17 08:00 72 02/23/17 07:00 97.9 69 20 153/94 96 02/23/17 07:00 56 02/23/17 06:00 56 02/23/17 05:00 60 02/23/17 04:00 64 02/23/17 04:00 98.3 70 20 146/87 94 02/23/17 03:00 68 02/23/17 02:00 66 02/23/17 01:00 64 02/23/17 00:00 72 02/23/17 00:00 98.6 74 20 137/80 96 02/22/17 23:29 65 02/22/17 22:05 21 02/22/17 22:00 82 02/22/17 21:00 68 02/22/17 20:00 74 02/22/17 20:00 98.5 80 24 117/69 97 02/22/17 19:31 68 02/22/17 18:30 98.6 79 20 133/83 98 02/22/17 18:00 81 02/22/17 17:00 75 21 109/61 95 02/22/17 16:00 75 02/22/17 16:00 98.4 75 23 113/65 94 02/22/17 15:00 77 23 114/68 95 02/22/17 14:01 81 26 157/77 91 02/22/17 14:00 80 02/22/17 14:00 80 48 95 02/22/17 13:20 60 17 119/71 93 02/22/17 13:01 64 20 189/82 95 02/22/17 13:00 66 28 95 02/22/17 12:30 71 33 93 02/22/17 12:15 72 30 93 02/22/17 12:01 98.8 73 40 143/73 92 02/22/17 12:00 74 43 90 02/22/17 12:00 74 Labs: Laboratory Tests Test 02/23/17 05:19 White Blood Count 10.3 TH/MM3 (4.0-11.0) Red Blood Count 3.52 MIL/MM3 (4.50-5.90) Hemoglobin 12.3 GM/DL (13.0-17.0) Hematocrit 35.6 % (39.0-51.0) Mean Corpuscular Volume 101.2 FL (80.0-100.0) Mean Corpuscular Hemoglobin 34.9 PG (27.0-34.0) Mean Corpuscular Hemoglobin 34.5 % Concent (32.0-36.0) Red Cell Distribution Width 12.8 % (11.6-17.2) Platelet Count 656 TH/MM3 (150-450) Mean Platelet Volume 6.5 FL (7.0-11.0) Sodium Level 135 MEQ/L (136-145) Potassium Level 4.2 MEQ/L (3.5-5.1) Chloride Level 95 MEQ/L (98-107) Carbon Dioxide Level 32.1 MEQ/L (21.0-32.0) Anion Gap 8 MEQ/L (5-15) Blood Urea Nitrogen 13 MG/DL (7-18) Creatinine 0.51 MG/DL (0.60-1.30) Estimat Glomerular Filtration 163 ML/MIN Rate (>89) Random Glucose 80 MG/DL (74-106) Calcium Level 9.0 MG/DL (8.5-10.1) Phosphorus Level 3.1 MG/DL (2.5-4.9) Magnesium Level 1.9 MG/DL (1.5-2.5) Result Diagram: 02/23/1751802/23/17518 (1) Pericardial tamponade Plan: pericardial drain now removed, limited echo pending in am path studies pending (2) Atrial fibrillation with RVR Plan: back in NSR, unclear if isolated event related to his tamponade or if he will have recurrent afib; will need long-term outpatient monitor/loop recorder. (3) COPD (chronic obstructive pulmonary disease) Plan: followed by PCP Janeth Perales Feb 23, 2017 11:50
--- NOTE | 2017-02-23 12:35 | RADRPT ---
EXAM DATE/TIME: 02/23/2017 11:03 [place] COMPARISON: No previous studies available for comparison. INDICATIONS : Left arm edema. MEDICAL HISTORY : HTN. COPD. Sleep apnea. Dyspnea.PTSD. Substance use. MRSA. SURGICAL HISTORY : Bilateral cataracts. Oral surgery, partial plate in lower front. Cardiac cath x2. Right double lobect gail. Double hernia repairs. ENCOUNTER: Initial ACUITY: 4 - 6 days PAIN SCORE: 3/10 LOCATION: Left arm. FINDINGS: There is spontaneous flow documented in the brachial, basilic, axillary, and subclavian veins. The v essels are compressible and augmentation response is documented. No filling defects are seen. The f low is phasic with respiration. Direction of flow in the jugular vein is caudal. The cephalic vein is noncompressible in the region of the forearm. There is some regional soft tissue edema. CONCLUSION: 1. Thrombus within the cephalic vein of the left forearm. Regional soft tissue swelling. 2. No DVT. Jayme Ngo MD on February 23, 2017 at 12:28 Board Certified Radiologist. This report was verified electronically.
[2017-02-23] MEDS: oxyCODONE/ACETAMINOPHEN 7.5 MG/325 MG TAB PO PRN (18:47)
[2017-02-23] MEDS: ATORVASTATIN 10 MG TAB PO SCH (21:00)
[2017-02-23] MEDS: MORPHINE SULFATE 4 MG/ML INJ IV PUSH PRN (23:08)
[2017-02-24] VITALS (16 sets, daily range): BP systolic 98–123; BP diastolic 64–85; PULSE 60–96; RESP 18–20; TEMP 98.3–98.5; O2SAT 96–98
[2017-02-24] MEDS: oxyCODONE/ACETAMINOPHEN 7.5 MG/325 MG TAB PO PRN ×3 (01:27→13:17)
[2017-02-24] MEDS: CHLORHEXIDINE GLUCONATE 2 % 1 PACK (2 CLOTHS)(taper/protocol) TOPICAL SCH (04:00)
[2017-02-24] MEDS: PANTOPRAZOLE SOD 40 MG DELAYED RELEASE TAB PO SCH (06:11)
[2017-02-24] MEDS: MORPHINE SULFATE 4 MG/ML INJ IV PUSH PRN (06:12)
[2017-02-24 06:41] LABS: MEAN CELL VOLUME 99.6 FL (80.0-100.0); MEAN CORPUSCULAR HEMOGLOBIN 35.2 PG (27.0-34.0); MEAN CORPUSCULAR HGB CONC 35.3 % (32.0-36.0); PLATELET COUNT 623 TH/MM3 (150-450); RED BLOOD COUNT 3.42 MIL/MM3 (4.50-5.90); RED CELL DISTRIBUTION WIDTH 12.9 % (11.6-17.2); WHITE BLOOD COUNT 10.7 TH/MM3 (4.0-11.0)
[2017-02-24 06:57] LABS: HEMO FLAGS AUTO DIFF
[2017-02-24 07:23] LABS: BICARBONATE 30.6 MEQ/L (21.0-32.0)
[2017-02-24 07:43] LABS: BANDS 1 % (0-6); EOSINOPHILS 4 % (0-4); NEUTROPHIL # MANUAL DIFF 7.1 TH/MM3 (1.8-7.7); POLYS (SEG NEUTROPHILS) 65 % (16-70); WBC DIFF SAMPLE 100
[2017-02-24 07:44] LABS: PLATELET ESTIMATE SMEAR HIGH (NORMAL); PLATELET MORPHOLOGY NORMAL (NORMAL); SCAN/DIFF FINAL DIFF MANUAL
[2017-02-24 07:45] LABS: TOXIC VACUOLATION PRESENT (NONE SEEN)
[2017-02-24] MEDS: METOPROLOL TARTRATE 50 MG TAB PO SCH (08:59)
[2017-02-24] MEDS: SODIUM CHLORIDE 0.9% FLUSH 10 ML FLUSH IV FLUSH SCH (09:00)
[2017-02-24] MEDS: TIOTROPIUM BROMIDE 18 MCG INH INH SCH (09:01)
[2017-02-24] MEDS: BUDESONIDE-FORMOTEROL 160/4.5 MCG INHALER INH SCH (09:01)
[2017-02-24] MEDS ORDERED: METO-309 PO (11:16)
--- NOTE | 2017-02-24 12:39 | PD.CARD.PN ---
Subjective Subjective Remarks pt feels well, f/u echo pending, fluid pathology pending Objective Medications Administered Medications Medications (Trade) Dose Ordered Sig/Nabila Route PRN Reason Start Time Stop Time Status Last Admin Dose Admin Sodium Chloride (NS Flush) 2 ml BID IV FLUSH 02/19/17 21:00 02/24/17 09:00 Albumin Human (Albumin 5% Inj) 12.5 gm UNSCH PRN IV SEE LABEL COMMENTS 02/19/17 19:00 02/20/17 01:35 Pantoprazole Sodium (Protonix) 40 mg DAILY@06 PO 02/20/17 06:00 02/24/17 06:11 Acetaminophen (Tylenol) 650 mg Q4H PRN PO TEMPERATURE > 101 F 02/19/17 19:00 02/22/17 23:42 Oxycodone/ Acetaminophen (Percocet 5-325 Mg) 1 tab Q3H PRN PO PAIN SCALE 1 TO 5 02/19/17 19:00 02/23/17 10:53 Metoprolol Tartrate (Lopressor) 50 mg DAILY PO 02/20/17 11:15 02/24/17 08:59 Guaifenesin (Robitussin Liq) 200 mg Q4H PRN PO CHEST CONGESTION AND/OR COUGH 02/20/17 15:15 02/20/17 15:27 Potassium Bicarb/ Potassium Chloride (K-Lyte Cl Eff) 50 meq UNSCH PRN PO For Potassium 3.3 - 3.5 mEq/L 02/20/17 15:15 02/20/17 17:41 Potassium Phosphate (K-Phos) 2,000 mg Q4H PRN PO For Phosphorus < 2.5 mg/dL 02/20/17 15:15 02/20/17 17:41 Budesonide/ Formoterol Fumarate (Symbicort 160-4.5 Inh) 2 puff Q12HR INH 02/20/17 21:00 02/24/17 09:01 Tiotropium [place] (Spiriva Inh) 18 mcg DAILY INH 02/21/17 09:00 02/24/17 09:01 Senna/Docusate Sodium (Jessica-Colace) 1 tab BID PRN PO CONSTIPATION 02/23/17 11:00 02/23/17 11:16 Oxycodone/ Acetaminophen (Percocet 7.5-325 Mg) 1 tab Q6H PRN PO PAIN SCALE 6 TO 10 02/23/17 11:00 02/24/17 07:36 Morphine Sulfate (Morphine Inj) 1 mg Q6HR PRN IV PUSH BREAKTHROUGH PAIN 02/23/17 13:15 02/24/17 06:12 Vital Signs / I&O Vital Signs Date Time Temp Pulse Resp B/P Pulse Ox O2 Delivery O2 Flow Rate FiO2 02/24/17 12:00 69 02/24/17 11:00 71 02/24/17 11:00 98.3 60 18 114/72 98 02/24/17 10:00 63 02/24/17 09:50 97 02/24/17 09:00 96 02/24/17 08:00 77 02/24/17 07:00 79 02/24/17 07:00 98.3 74 18 123/85 96 02/24/17 06:00 86 02/24/17 05:00 72 02/24/17 04:00 64 02/24/17 03:08 76 02/24/17 03:00 98.5 75 20 98/64 98 02/24/17 02:00 88 02/24/17 01:00 68 02/24/17 00:00 66 02/23/17 23:00 98.6 76 20 99/56 98 02/23/17 23:00 73 02/23/17 22:00 66 02/23/17 21:06 21 02/23/17 21:00 92 02/23/17 20:00 84 02/23/17 19:17 71 02/23/17 19:00 98.8 71 20 130/86 98 02/23/17 18:00 73 02/23/17 17:00 61 02/23/17 16:00 60 02/23/17 15:00 62 02/23/17 15:00 98.0 62 20 115/71 98 02/23/17 14:00 74 02/23/17 13:00 59 I/O 02/23/17 02/23/17 02/23/17 02/24/17 02/24/17 02/24/17 07:00 15:00 23:00 07:00 15:00 23:00 Intake Total 480 ml 701 ml Output Total 1595 ml 1050 ml 800 ml Balance -1115 ml -1050 ml -99 ml Intake Oral 480 ml 701 ml Output Urine Total 1575 ml 1050 ml 800 ml Chest Tube Drainage Total 20 ml Physical Exam GENERAL: This is a well-nourished, well-developed patient, in no apparent distress. CARDIOVASCULAR: Regular rate and rhythm without murmurs, gallops, or rubs. RESPIRATORY: Clear to auscultation. Breath sounds equal bilaterally. No wheezes , rales, or rhonchi. GASTROINTESTINAL: Abdomen soft, non-tender, nondistended. Normal active bowel sounds MUSCULOSKELETAL: Extremities without clubbing, cyanosis, or edema. NEURO: Alert & Oriented x4 to person, place, time, situation. Moves all ext x4 Laboratory Laboratory Tests Test 02/24/17 05:55 White Blood Count 10.7 TH/MM3 Red Blood Count 3.42 MIL/MM3 Hemoglobin 12.0 GM/DL Hematocrit 34.0 % Mean Corpuscular Volume 99.6 FL Mean Corpuscular Hemoglobin 35.2 PG Mean Corpuscular Hemoglobin 35.3 % Concent Red Cell Distribution Width 12.9 % Platelet Count 623 TH/MM3 Mean Platelet Volume 6.6 FL Neutrophils (%) (Auto) % Lymphocytes (%) (Auto) % Monocytes (%) (Auto) % Eosinophils (%) (Auto) % Basophils (%) (Auto) % Neutrophils # (Auto) TH/MM3 Lymphocytes # (Auto) TH/MM3 Monocytes # (Auto) TH/MM3 Eosinophils # (Auto) TH/MM3 Basophils # (Auto) TH/MM3 CBC Comment AUTO DIFF Differential Total Cells 100 Counted Neutrophils % (Manual) 65 % Band Neutrophils % 1 % Lymphocytes % 18 % Monocytes % 12 % Eosinophils % 4 % Neutrophils # (Manual) 7.1 TH/MM3 Differential Comment FINAL DIFF MANUAL Toxic Vacuolation PRESENT Platelet Estimate HIGH Platelet Morphology Comment NORMAL Sodium Level 132 MEQ/L Potassium Level 4.0 MEQ/L Chloride Level 96 MEQ/L Carbon Dioxide Level 30.6 MEQ/L Anion Gap 5 MEQ/L Blood Urea Nitrogen 15 MG/DL Creatinine 0.58 MG/DL Estimat Glomerular Filtration 141 ML/MIN Rate Random Glucose 111 MG/DL Calcium Level 8.3 MG/DL Imaging Last Impressions Upper Extremity Ultrasound 02/23/17 0000 Signed Impressions: Service Date/Time: Thursday, February 23, 2017 11:03 - CONCLUSION: 1. Thrombus within the cephalic vein of the left forearm. Regional soft tissue swelling. 2. No DVT. Jayme Ngo MD Chest X-Ray 02/20/17 0500 Signed Impressions: Service Date/Time: Monday, February 20, 2017 04:05 - CONCLUSION: 1. Subsegmental atelectasis left base. There has been no significant change when compared to the prior exam. Diego Diaz MD Assessment and Plan Problem List: (1) Pericardial tamponade Assessment and Plan: pericardial drain now removed, limited echo pending path studies pending (2) Atrial fibrillation with RVR (3) COPD (chronic obstructive pulmonary disease) Assessment and Plan If echo shows no re-accumulation of fluid, ok to d/c home from cardiac standpoint, he can f/u in my office in 1-2 weeks. Dov Terrell MD Feb 24, 2017 12:39
--- NOTE | 2017-02-24 12:46 | ECHRPT ---
Indication: ?PERICARDIAL EFFUSION CONCLUSIONS The left ventricular systolic function is moderately reduced with an estimated ejection fraction in the range of 40-45%. No right ventricular collapse.No right atrial collapse.No significant pericardial effusion. BP: / HR: Rhythm: Sinus MEASUREMENTS (Male / Female) Normal Values Technical Quality:Fair 2D ECHO LV Diastolic Diameter PLAX 4.7 cm 4.2 - 5.9 / 3.9 - 5.3 cm LV Systolic Diameter PLAX 3.9 cm IVS Diastolic Thickness 0.6 cm 0.6 - 1.0 / 0.6 - 0.9 cm LVPW Diastolic Thickness 0.6 cm 0.6 - 1.0 / 0.6 - 0.9 cm LV Relative Wall Thickness 0.3 LVOT Diameter 2.0 cm Aortic Root Diameter 3.0 cm LA Systolic Diameter LX 2.2 cm 3.0 - 4.0 / 2.7 - 3.8 cm M-MODE AV Cusp Separation MM 2.0 cm FINDINGS LEFT VENTRICLE The left ventricular systolic function is moderately reduced with an estimated ejection fraction in the range of 40-45%. RIGHT VENTRICLE No right ventricular collapse. LEFT ATRIUM The left atrial size is normal. RIGHT ATRIUM No right atrial collapse. ATRIAL SEPTUM Normal atrial septal thickness without atrial level shunting by limited color doppler interrogation. AORTA The aortic root and proximal ascending aorta are normal in size on limited imaging. MITRAL VALVE Structurally normal mitral valve. No mitral valve stenosis or regurgitation. AORTIC VALVE Trileaflet aortic valve. No aortic valve stenosis or regurgitation. TRICUSPID VALVE Structurally normal tricuspid valve. No tricuspid valve stenosis or regurgitation. PULMONARY VALVE The pulmonary valve is not well visualized. VESSELS The inferior vena cava is normal in size. PERICARDIUM No significant pericardial effusion. Ellis Landeros MD, FACC (Electronically Signed) Final Date:24 February 2017 12:46
--- NOTE | 2017-02-24 13:31 | HHI.DCPOC ---
Discharge Care Plan Diagnosis: (1) Atrial fibrillation with RVR (2) Pericardial tamponade Goals to Promote Your Health * To prevent worsening of your condition and complications * To maintain your health at the optimal level Directions to Meet Your Goals Take your medications as prescribed Follow your dietary instruction Follow activity as directed Keep your appointments as scheduled Take your immunizations and boosters as scheduled If your symptoms worsen call your PCP, if no PCP go to Urgent Care Center or Emergency Room Smoking is Dangerous to Your Health. Avoid second hand smoke Call the 24-hour hour crisis hotline for domestic abuse at Lorraine Lazo MD Feb 24, 2017 13:31
--- NOTE | 2017-02-24 13:31 | HHI.DS ---
Discharge Summary Admission Date Feb 19, 2017 at 17:28 Discharge Date: Feb 24, 2017 Admitting Diagnosis pericardial tamponade, respiratory distress, A. fib with RVR (1) Pericardial tamponade ICD Code: I31.4 Diagnosis: Principal (2) Atrial fibrillation with RVR ICD Code: I48.91 Diagnosis: Principal (3) HTN (hypertension) ICD Code: I10 Diagnosis: Secondary (4) COPD (chronic obstructive pulmonary disease) ICD Code: J44.9 Diagnosis: Secondary Procedures see hospital course Brief History - From Admission 66-year-old male came to the emergency room brought by EMS for history of shortness of breath by EMS. Patient received [address] Upon arrival he still looked distressed and anxious. Oxygen saturation was 98% with 4 L of oxygen. Patient was having difficulty talking and could only speak one word per breath. He has been sick for 2 weeks but has been resistant to come to the emergency room. However today he really got worse and his called 911. Patient smokes half a pack of cigarettes every week and also drinks alcohol. Patient was tachycardic upon arrival. The bedside echocardiogram revealed large pericardial effusion and was emergently drained by ED attending. Shortly after he was transferred to operating room for pericardial window placement. CBC/BMP: 02/24/17 0555 02/24/17 0555 Significant Findings Laboratory Tests Test 02/22/17 02/23/17 02/24/17 14:59 05:19 05:55 Sodium Level 133 MEQ/L 135 MEQ/L 132 MEQ/L (136-145) (136-145) (136-145) Chloride Level 96 MEQ/L 95 MEQ/L 96 MEQ/L (98-107) (98-107) (98-107) Random Glucose 118 MG/DL 111 MG/DL (74-106) (74-106) Phosphorus Level 1.9 MG/DL (2.5-4.9) Red Blood Count 3.52 MIL/MM3 3.42 MIL/MM3 (4.50-5.90) (4.50-5.90) Hemoglobin 12.3 GM/DL 12.0 GM/DL (13.0-17.0) (13.0-17.0) Hematocrit 35.6 % 34.0 % (39.0-51.0) (39.0-51.0) Mean Corpuscular Volume 101.2 FL (80.0-100.0) Mean Corpuscular Hemoglobin 34.9 PG 35.2 PG (27.0-34.0) (27.0-34.0) Platelet Count 656 TH/MM3 623 TH/MM3 (150-450) (150-450) Mean Platelet Volume 6.5 FL 6.6 FL (7.0-11.0) (7.0-11.0) Carbon Dioxide Level 32.1 MEQ/L (21.0-32.0) Creatinine 0.51 MG/DL 0.58 MG/DL (0.60-1.30) (0.60-1.30) Monocytes % 12 % (0-8) Toxic Vacuolation PRESENT (NONE SEEN) Platelet Estimate HIGH (NORMAL) Calcium Level 8.3 MG/DL (8.5-10.1) Imaging Last Impressions Upper Extremity Ultrasound 02/23/17 0000 Signed Impressions: Service Date/Time: Thursday, February 23, 2017 11:03 - CONCLUSION: 1. Thrombus within the cephalic vein of the left forearm. Regional soft tissue swelling. 2. No DVT. Jayme Ngo MD Chest X-Ray 02/20/17 0500 Signed Impressions: Service Date/Time: Monday, February 20, 2017 04:05 - CONCLUSION: 1. Subsegmental atelectasis left base. There has been no significant change when compared to the prior exam. Diego Diaz MD PE at Discharge GENERAL: Well-nourished, well-developed patient. CARDIOVASCULAR: Regular rate and rhythm without murmurs. RESPIRATORY: Breath sounds equal bilaterally. No accessory muscle use. GASTROINTESTINAL: Abdomen soft, non-tender, nondistended. MUSCULOSKELETAL: left upper extremity no swelling or erythema noted anymore. NEURO: alert and oriented, answers questions appropriately. moves extremities. Pt update on day of discharge Follow-up for cardiac tamponade Patient denies any chest pain, SOB, palpitation, lightheadedness or dizziness. Patient had drains removed yesterday and continues to do well. Dealt with patient's nurse. Patient is ambulating on his own with no difficulty. Hospital Course Pericardial effusion - Patient had emergent pericardiocentesis in the ED then was initially taken to the OR for her car window by CT surgeon. - Fluid analysis was obtained and was negative. -Drains were taken out of medication. Echo was repeated which showed no pericardial effusion. -During the hospital course technical training manager and prevascular surgeon were following. COPD - No exacerbation - DuoNeb scheduled and when necessary - No steroids indicated -Continue Spiriva and Symbicort Atrial fibrillation - Amiodarone drip discontinued 02/20 - s/p Diltiazem infusion - Patient was then put on metoprolol with good rate control. - Cardiology following Dr. Mancini and stated that may need long-term outpatient monitor/loop recorder. Patient To follow-up with him in 1-2 weeks. Hypertension - Lisinopril was held due to low blood pressure. Then patient was put on metoprolol. Patient to follow-up with a technical training manager to see if lisinopril can be restarted. Tobacco use disorder - Monitor for withdrawal - Nicotine patch when necessary Questionable history of alcohol abuse - Thiamine folate multivitamins -No episodes withdrawal during his hospitalization. Pt Condition on Discharge: Good Discharge Disposition: Discharge Home Discharge Time: <= 30 minutes Discharge Instructions DIET: Follow Instructions for: Heart Healthy Diet Activities you can perform: Regular-No Restrictions Follow up Referrals: Cardiology - 1 Week with Dov Terrell MD PCP Follow-up - 1 Week Surgical - 2 Weeks with Farideh Dsouza MD New Medications: Metoprolol Tartrate (Lopressor) 50 Mg Tab 50 MG PO DAILY hypertension #30 Ref 0 TAB Continued Medications: Atorvastatin (Atorvastatin) 10 Mg Tab 10 MG PO HS Cholesterol Management #30 Ref 0 TAB Budesonide-Formoterol Inh (Symbicort Inh) 160-4.5 Mcg/Act Aero 2 PUFF INH Q12HR #1 Ref 0 INHALER Hydrocodone-Acetaminophen (Hydrocodone-Acetaminophen) 7.5-325 mg Tab 1 TAB PO Q4H PRN PAIN LESS THAN 5 ON SCALE #50 TAB Lorazepam (Ativan) 0.5 Mg Tab 0.5 MG PO BID Control Mood Swing #10 TAB Tiotropium Inh (Spiriva Handihaler) 18 Mcg Cap 18 MCG INH DAILY 1 capsule = 18 mcg COPD #30 Ref 0 CAP Discontinued Medications: Lisinopril (Lisinopril) 10 Mg Tab 10 MG PO DAILY #30 Ref 0 TAB Lorraine Lazo MD Feb 24, 2017 13:31
== END 2017-02-24 14:56 | disposition home or self-care (01) | DRG 271 ==
LOC: NEPC 13:58 → NEDA 17:28 → HIME 20:55 → HCIS 02-22 18:41
PROVIDERS: ADMIT Family Medicine; ATTEND Family Medicine
PROC: 02BN0ZX Excision of Pericardium, Open Approach, Diagnostic (ICD-10-PCS; 2017-02-19)
PROC: 0W9D0ZZ Drainage of Pericardial Cavity, Open Approach (ICD-10-PCS; principal; 2017-02-19 18:00)
DX: I31.3 Pericardial effusion (noninflammatory) (principal); I25.3 Aneurysm of heart; I31.4 Cardiac tamponade; J90 Pleural effusion, not elsewhere classified; J98.11 Atelectasis; I48.91 Unspecified atrial fibrillation; J44.9 Chronic obstructive pulmonary disease, unspecified; G47.30 Sleep apnea, unspecified; I07.1 Rheumatic tricuspid insufficiency; I10 Essential (primary) hypertension; I25.2 Old myocardial infarction; I27.2 Other secondary pulmonary hypertension; F17.210 Nicotine dependence, cigarettes, uncomplicated; Z79.52 Long term (current) use of systemic steroids; Z79.899 Other long term (current) drug therapy; F32.9 Major depressive disorder, single episode, unspecified
CPT/HCPCS: 36600; 71010; 80048; 80053; 82805; 82945; 83615; 83735; 83880; 83986; 84100; 84315; 84484; 85007; 85025; 85027; 85610; 86850; 86900; 86901; 86920; 87015; 87070; 87102; 87116; 87205; 87206; 87641; 88112; 88305; 89051; 93005; 93306; 93308; 93971; 94150; 94640; 94664; J0131; J0153; J0282; J0690; J2060; J2250; J2270; J2405; J2710; J3010; J3411; J7060; J7120; P9045

== ENCOUNTER 2017-03-20 13:03 | Inpatient (IN) | payer OTHER, MEDICARE ==
[~2017-03-20] VITALS: Ht 165.1 cm; Wt 50.2 kg
[~2017-03-20 13:03] MED LIST changes: -CITA20TA4 PO; -ENOX40P SQ; -HYDR25TA5 PO; +METO-309 PO; -NEOSTIGMINE 3 MG/3 ML SYR IV ONE; -ONDANSETRON HCL 4 MG/2 ML VIAL IV PUSH ONE; -PERI8.6T PO; -PROPOFOL 200 MG/20 ML AMP IV ONE; -VITA100T2 PO
[2017-03-20 13:42] VITALS: BP 151/100; PULSE 106; RESP 22; TEMP 98.1; O2SAT 97
[2017-03-20] MEDS ORDERED: SODIUM CHLORIDE 0.9% FLUSH 10 ML FLUSH IVF PRN (13:45)
--- NOTE | 2017-03-20 13:47 | PD ---
HPI Chief Complaint: COPD exacerbation Time Seen by Provider: 13:34 Travel History International Travel<30 days: No Contact w/Intl Traveler<30days: No History of Present Illness HPI Patient comes emergency Department via EMS complaining of COPD exacerbation. Patient states has history COPD he feels similar to his previous COPD exacerbations. Patient states that he tried using his inhaler with no improvement of symptoms. Patient states he was driving his car does not have any air-conditioning when his symptoms began. Patient states that after receiving 2 nebulizer treatments and Solu-Medrol by EMS his symptoms improved and he feels 100% better currently. Patient denies any chest pain with this. States he felt tightness throughout his chest. Denies any pain currently. Denies any fevers, headaches, numbness or tingling anywhere, abdominal pain, nausea, vomiting, back pain, or diaphoresis. PFSH Past Medical History Atrial Fibrillation: Yes Autoimmune Disease: No Anxiety: No Depression: Yes (past few days due to current health status) Heart Rhythm Problems: No Cancer: No Cardiac Catheterization: Yes (2003) Cardiovascular Problems: Yes (HTN) High Cholesterol: No Chemotherapy: No Congestive Heart Failure: No COPD: Yes Diabetes: No Diminished Hearing: No Endocrine: No Genitourinary: No Hypertension: Yes Immune Disorder: No Musculoskeletal: Yes Neurologic: No Psychiatric: Yes Reproductive: No Respiratory: Yes (COPD) Myocardial Infarction: Yes Radiation Therapy: No Sickle Cell Disease: No Sleep Apnea: Yes (only sleeps for 20 minutes at a time each night) Past Surgical History Abdominal Surgery: Yes (double hernia done at [place]) Cardiac Surgery: Yes (two heart catheterizations - both negative) Coronary Artery Bypass Graft: No Ear Surgery: No Endocrine Surgery: No Eye Surgery: Yes (cataracts removed from both eyes) Genitourinary Surgery: No Gynecologic Surgery: No Oral Surgery: Yes (partial plate in lower front) Thoracic Surgery: Yes (right double lobectomy 2014) Other Surgery: Yes Social History Alcohol Use: Yes (DAILY 3 BEERS) Tobacco Use: Yes (<1 PPD) Substance Use: Yes (when younger) Allergies-Medications (Allergen,Severity, Reaction): Coded Allergies: piperacillin (Unverified Allergy, Severe, Swelling, 03/03/17) RT EYE NOTED BLANCHING tazobactam (Unverified Allergy, Severe, Swelling, 03/03/17) RT EYE NOTED BLANCHING *MDRO Multi-Drug Resistant Organism (Verified Adverse Reaction, Unknown, ) MRSA Sputum 11/29/2014 and Blood 12/01/2014 Reported Meds & Prescriptions Reported Meds & Active Scripts Active Lopressor (Metoprolol Tartrate) 50 Mg Tab 50 Mg PO DAILY Ativan (Lorazepam) 0.5 Mg Tab 0.5 Mg PO BID Hydrocodone-Acetaminophen 7.5-325 mg Tab 1 Tab PO Q4H PRN Reported Atorvastatin (Atorvastatin Calcium) 10 Mg Tab 10 Mg PO HS Spiriva Handihaler (Tiotropium Inh) 18 Mcg Cap 18 Mcg INH DAILY 1 capsule = 18 mcg Symbicort Inh (Budesonide/Formoterol Fumarate) 160-4.5 Mcg/Act Aero 2 Puff INH Q12HR Review of Systems Except as stated in HPI: all other systems reviewed are Neg Physical Exam Narrative GENERAL: Well-developed, under nourished, in no acute distress, and non-ill appearing. Patient sleeping comfortably in no acute distress. Noted to be pulse 88 and O2 saturation of 97% on oxygen. SKIN: Focused skin assessment warm and dry. HEAD: Atraumatic. Normocephalic. EYES: Pupils equal and round. EOMI. No scleral icterus. No injection or drainage. ENT: No nasal bleeding or discharge. Mucous membranes pink and moist. NECK: Trachea midline. Supple. No nuclear rigidity. CARDIOVASCULAR: Regular rate and rhythm. No murmur appreciated. RESPIRATORY: No accessory muscle use. No respiratory distress. Scant wheezing noted throughout. Breath sounds equal bilaterally. Patient speaking in full sentences without difficulty. No coughing on exam. MUSCULOSKELETAL: No obvious deformities. No clubbing. No cyanosis. No edema. Full range of motion. NEUROLOGICAL: Awake and alert. No obvious cranial nerve deficits. Motor grossly within normal limits. Normal speech. PSYCHIATRIC: Appropriate mood and affect; insight and judgment normal. Data Data Last Documented VS Vital Signs Date Time Temp Pulse Resp B/P (MAP) Pulse Ox O2 Delivery O2 Flow Rate FiO2 03/20/17 15:38 103 24 137/79 (98) 98 Room Air 3.00 03/20/17 13:42 98.1 Orders Orders Complete Blood Count With Diff (03/20/17 13:39) Basic Metabolic Panel (Bmp) (03/20/17 13:39) Act Partial Throm Time (Ptt) (03/20/17 13:39) Prothrombin Time / Inr (Pt) (03/20/17 13:39) Magnesium (Mg) (03/20/17 13:39) Iv Access Insert/Monitor (03/20/17 13:39) Electrocardiogram (03/20/17 13:39) Ecg Monitoring (03/20/17 13:39) Oximetry (03/20/17 13:39) Oxygen Administration (03/20/17 13:39) Chest, Single Ap (03/20/17 13:39) Sodium Chloride 0.9% Flush (Ns Flush) (03/20/17 13:45) Ct Pulmonary Angiogram (03/20/17 ) Albuterol-Ipratropium Neb (Duoneb Neb) (03/20/17 15:45) Iohexol 350 Inj (Omnipaque 350 Inj) (03/20/17 16:08) Albuterol-Ipratropium Neb (Duoneb Neb) (03/20/17 16:45) Arterial Blood Gas (Abg) (03/20/17 16:47) Admit Order (Ed Use Only) (03/20/17 17:20) Consult Hematology (03/20/17 ) Labs Laboratory Tests Test 03/20/17 14:30 03/20/17 17:20 White Blood Count 10.3 TH/MM3 Red Blood Count 3.46 MIL/MM3 Hemoglobin 11.3 GM/DL Hematocrit 33.8 % Mean Corpuscular Volume 97.6 FL Mean Corpuscular Hemoglobin 32.7 PG Mean Corpuscular Hemoglobin Concent 33.5 % Red Cell Distribution Width 14.4 % Platelet Count 929 TH/MM3 Mean Platelet Volume 5.9 FL Neutrophils (%) (Auto) 88.1 % Lymphocytes (%) (Auto) 6.4 % Monocytes (%) (Auto) 3.6 % Eosinophils (%) (Auto) 0.9 % Basophils (%) (Auto) 1.0 % Neutrophils # (Auto) 9.1 TH/MM3 Lymphocytes # (Auto) 0.7 TH/MM3 Monocytes # (Auto) 0.4 TH/MM3 Eosinophils # (Auto) 0.1 TH/MM3 Basophils # (Auto) 0.1 TH/MM3 CBC Comment DIFF FINAL Differential Comment Prothrombin Time 11.6 SEC Prothromb Time International Ratio 1.0 RATIO Activated Partial Thromboplast Time 31.7 SEC Blood Urea Nitrogen 8 MG/DL Creatinine 0.42 MG/DL Random Glucose 108 MG/DL Calcium Level 8.7 MG/DL Magnesium Level 1.9 MG/DL Sodium Level 136 MEQ/L Potassium Level 3.6 MEQ/L Chloride Level 96 MEQ/L Carbon Dioxide Level 27.7 MEQ/L Anion Gap 12 MEQ/L Estimat Glomerular Filtration Rate 204 ML/MIN Blood Gas Puncture Site LT BRACHIAL Blood Gas Patient Temperature 98.6 Blood Gas HCO3 27 mmol/L Blood Gas Base Excess 2.6 mmol/L Blood Gas Oxygen Saturation 92 % Arterial Blood pH 7.42 Arterial Blood Partial Pressure CO2 42 mmHg Arterial Blood Partial Pressure O2 74 mmHG Arterial Blood Oxygen Content 15.2 Vol % Arterial Blood Carboxyhemoglobin 3.1 % Arterial Blood Methemoglobin 0.6 % Blood Gas Hemoglobin 11.8 G/DL Oxygen Delivery Device NASAL CANNULA Blood Gas Liter Flow 3 L/M MDM Medical Decision Making Medical Screen Exam Complete: Yes Emergency Medical Condition: Yes Medical Record Reviewed: Yes Interpretation(s) EKG reviewed by Dr. Arana shows sinus tachycardia with a ventricular rate of 105. No STEMI. Chest x-ray read by the radiologist shows: Stable chest. CT of the chest by the radiologist shows: 1. No evidence of pulmonary embolism. 2. Severe emphysema Differential Diagnosis COPD exacerbation, pneumonia, electrolyte abnormality, arrhythmia, PE, pneumothorax, tension pneumothorax, other Narrative Course 1500 patient was reassessed found to be sleeping comfortably in bed in no acute distress. 1535 patient now awake. Feels his breathing is getting harder again requesting a breathing treatment. 1645 patient reassess. Omer get breathing treatments it was previously ordered. Patient is using accessory muscles and is tachypnea to breathe reports his breathing has got worse. Discussed all findings and plan care of patient who is agreeable for admission. Discussed patient with hospitalist who is agreeable to admit the patient. Physician Communication Physician Communication [address] Muse, who states that if the patient is admitted he will consult otherwise patient follow-up outpatient regarding his elevated platelets. [address] Gray, who is agreeable to admit the patient. Diagnosis Primary Impression: COPD exacerbation Additional Impression: Elevated platelet count Admitting Information Admitting Physician Requests: Admit Condition: Stable Puneet Ureña Mar 20, 2017 13:47
--- NOTE | 2017-03-20 14:32 | RADRPT ---
EXAM DATE/TIME: 03/20/2017 14:05 [facility] COMPARISON: CHEST SINGLE AP, February 20, 2017, 4:05. INDICATIONS : Shortness of breath. MEDICAL HISTORY : Chronic obstructive pulmonary disease. HTN. COPD. Sleep apnea. Dyspnea.PTSD. Substance use. MRS A. SURGICAL HISTORY : Bilateral cataracts. Oral surgery, partial plate in lower front. Cardiac cath x2. Right double lobect gail. Double hernia repairs. ENCOUNTER: Initial ACUITY: 2 days PAIN SCORE: 0/10 LOCATION: Bilateral chest FINDINGS: Stable chronic blunting right posterior sulcus. Left lung is clear. The heart and pulmonary vascular ity are normal. The portion of the bony skeleton visualized is unremarkable. CONCLUSION: Stable chest. Fer Mckeon MD FACR on March 20, 2017 at 14:30 Board Certified Radiologist. This report was verified electronically.
[2017-03-20 14:45] LABS: AUTOMATED NEUTROPHIL # 9.1 TH/MM3 (1.8-7.7); BASOPHIL # 0.1 TH/MM3 (0-0.2); EOSINOPHIL # 0.1 TH/MM3 (0-0.4); EOSINOPHIL % 0.9 % (0.0-4.0); HEMATOCRIT 33.8 % (39.0-51.0); HEMO FLAGS DIFF FINAL; LYMPH % 6.4 % (9.0-44.0); LYMPHOCYTE # 0.7 TH/MM3 (1.0-4.8); MEAN CELL VOLUME 97.6 FL (80.0-100.0); MEAN CORPUSCULAR HEMOGLOBIN 32.7 PG (27.0-34.0); MEAN CORPUSCULAR HGB CONC 33.5 % (32.0-36.0); MONO % 3.6 % (0.0-8.0); NEUT % 88.1 % (16.0-70.0); PLATELET COUNT 929 TH/MM3 (150-450); RED BLOOD COUNT 3.46 MIL/MM3 (4.50-5.90); RED CELL DISTRIBUTION WIDTH 14.4 % (11.6-17.2); WHITE BLOOD COUNT 10.3 TH/MM3 (4.0-11.0)
[2017-03-20 14:52] LABS: APTT (PATIENT) 31.7 SEC (24.3-30.1); PROTHROMBIN TIME - PATIENT 11.6 SEC (9.8-11.6)
[2017-03-20 15:14] LABS: BICARBONATE 27.7 MEQ/L (21.0-32.0); MAGNESIUM 1.9 MG/DL (1.5-2.5); POTASSIUM 3.6 MEQ/L (3.5-5.1)
[2017-03-20 15:38] VITALS: BP 137/79; PULSE 103; RESP 24; O2SAT 98
[2017-03-20] MEDS ORDERED: RESP: ALBUTEROL 2.5 MG/IPRATROPIUM 0.5 MG NEB (SCH) INH ONE (15:45)
[2017-03-20] MEDS ORDERED: IOHEXOL 350 MG/ML 10 ML VIAL (for RAD DIAG) IVCONTRAST ONE (16:08)
--- NOTE | 2017-03-20 16:11 | RADRPT ---
EXAM DATE/TIME: 03/20/2017 15:59 [facility] COMPARISON: CT PULMONARY ANGIOGRAM, February 01, 2015, 1:28. INDICATIONS : Sudden onset of shortness of breath. IV CONTRAST: 70 cc Omnipaque 350 (iohexol) IV RADIATION DOSE: 6.10 CTDIvol (mGy) MEDICAL HISTORY : Cardiovascular disease. Hypertension. afib, mrsa SURGICAL HISTORY : None. ENCOUNTER: Initial ACUITY: 1 day PAIN SCALE: 0/10 LOCATION: chest TECHNIQUE: Volumetric scanning of the chest was performed using a pulmonary embolism protocol MIP images were re constructed. Using automated exposure control and adjustment of the mA and/or kV according to patien t size, radiation dose was kept as low as reasonably achievable to obtain optimal diagnostic quality images. DICOM format image data is available electronically for review and comparison. Follow-up recommendations for detected pulmonary nodules are based at a minimum on nodule size and pa tient risk factors according to Fleischner Society Guidelines. FINDINGS: Examination of the pulmonary vasculature demonstrates good filling of the main, lobar and segmental b ranches. There are no filling defects to suggest pulmonary embolism. Multiplanar reconstructions are also unremarkable. There are centrilobular emphysematous changes throughout both lungs. No pulmonary nodules are identif ied. No pleural effusions are identified. Examination of the mediastinum demonstrates no abnormally e nlarged lymph nodes by CT criteria. No axillary or hilar abnormalities are identified. Coronary arter y calcifications are present. The visualized upper abdomen demonstrates no abnormality. CONCLUSION: 1. No evidence of pulmonary embolism. 2. Severe emphysema Diego Diaz MD on March 20, 2017 at 16:07 Board Certified Radiologist. This report was verified electronically.
[2017-03-20] MEDS: RESP: ALBUTEROL 2.5 MG/IPRATROPIUM 0.5 MG NEB (SCH) INH ×2 (16:48→19:26)
[2017-03-20 17:36] LABS: BLOOD GAS BASE EXCESS 2.6 mmol/L (-2-2); BLOOD GAS CARBOXYHEMOGLOBIN 3.1 % (0-4); BLOOD GAS HCO3 27 mmol/L (22-26); BLOOD GAS METHEMOGLOBIN 0.6 % (0-2); BLOOD GAS O2 HGB SATURATION 92 % (90-100); BLOOD GAS OXYGEN CONTENT 15.2 Vol % (12.0-20.0); BLOOD GAS PCO2 42 mmHg (38-42); BLOOD GAS PO2 74 mmHG (61-120); BLOOD GAS TOTAL HGB 11.8 G/DL (12.0-16.0); CRITICAL VALUE NO; DRAW SITE LT BRACHIAL; LITER FLOW 3 L/M; NUMBER OF ARTERIAL PUNCTURES 1; OXYGEN DEVICE NASAL CANNULA; STAT YES; TEMP CORR TO 98.6; ULNAR PULSE PRESENT
[2017-03-20] MEDS ORDERED: ONDANSETRON HCL 4 MG/2 ML VIAL IVP PRN (18:00)
[2017-03-20] MEDS ORDERED: ZOLPIDEM TARTRATE 5 MG TAB PO PRN (18:00)
[2017-03-20] MEDS ORDERED: SODIUM CHLORIDE 0.9% FLUSH 10 ML FLUSH IV FLUSH PRN (18:00)
[2017-03-20] MEDS ORDERED: BISACODYL 10 MG SUPP RECTAL PRN (18:00)
[2017-03-20] MEDS ORDERED: LACTULOSE SYRUP 20 GM/30 ML CUP PO PRN (18:00)
[2017-03-20] MEDS ORDERED: SENNOSIDES 8.6 MG TAB PO PRN (18:00)
[2017-03-20] MEDS ORDERED: MAGNESIUM HYDROXIDE SUSP 30 ML CUP PO PRN (18:00)
[2017-03-20] MEDS ORDERED: NALOXONE HCL 0.4 MG/ML AMP IV PRN (18:00)
[2017-03-20] MEDS ORDERED: MORPHINE SULFATE 4 MG/ML INJ IV PRN ×2 (18:00)
[2017-03-20] MEDS ORDERED: PROCHLORPERAZINE 25 MG SUPP RECTAL PRN (18:00)
[2017-03-20] MEDS ORDERED: RESP: ALBUTEROL 2.5 MG/3 ML NEB (PRN) INH (18:00)
[2017-03-20] MEDS ORDERED: oxyCODONE/ACETAMINOPHEN 5 MG/325 MG TAB PO PRN (18:00)
[2017-03-20] MEDS ORDERED: ACETAMINOPHEN 325 MG TAB PO PRN ×2 (18:00)
--- NOTE | 2017-03-20 18:23 | HHI.HP ---
[facility] Service [facility] Primary Care Physician Jin Pike MD Admission Diagnosis COPD exacerbation, elevated platelets Diagnoses: Chief Complaint: Shortness of breath Travel History International Travel<30 Days: No Contact w/Intl Traveler <30 Da: No Traveled to Known Affected Are: No History of Present Illness 66-year-old male with past medical history of COPD, HTN, A. fib, anxiety, chronic neck pain, recent pericardial effusion who presented with shortness of breath. The patient had recent hospitalization for pericardial effusion where he underwent a pericardial window. He states his baseline dyspnea has not returned since his previous hospitalization. He states that prior history his last hospitalization he was able to walk about a mile a day. He states that his current dyspnea has been more or less constant since his discharge 3 weeks ago until today whenever he was driving and felt more short of breath. Otherwise he's been feeling well lately. He has a cough that is difficult to produce sputum. He denies any fevers, chills, chest pain, constipation. He was previously on oxygen 4 years ago. He does not follow up with a electrical laboratory technician because he cannot afford the co-pay. He does continue to smoke about 5 cigarettes daily. Review of Systems Constitutional: COMPLAINS OF: Fatigue, DENIES: Fever, Weight gain, Chills, Dizziness, Change in appetite Endocrine: DENIES: Heat/cold intolerance, Polydipsia, Polyuria Eyes: DENIES: Blurred vision, Diplopia, Eye inflammation, Eye pain Ears, nose, mouth, throat: DENIES: Tinnitus, Hearing loss, Vertigo, Nasal discharge Respiratory: COMPLAINS OF: Cough, Wheezing, Sputum production, Shortness of breath, DENIES: Apneas, Hemoptysis Cardiovascular: DENIES: Chest pain, Palpitations, Syncope, Dyspnea on Exertion Gastrointestinal: DENIES: Abdominal pain, Black stools, Bloody stools Genitourinary: DENIES: Sexual dysfunction, Urinary frequency Musculoskeletal: DENIES: Joint pain, Muscle aches, Stiffness, Joint Swelling Integumentary: DENIES: Abnormal pigmentation, Nail changes Hematologic/lymphatic: DENIES: Bruising, Lymphadenopathy Immunologic/allergic: DENIES: Eczema, Urticaria Neurologic: DENIES: Abnormal gait, Headache, Localized weakness, Paresthesias, Seizures Psychiatric: COMPLAINS OF: Anxiety, Depression, DENIES: Confusion, Mood changes Except as stated in HPI: all other systems reviewed are Neg Past Family Social History Past Medical History COPD Hypertension Atrial fibrillation Anxiety Chronic neck pain Recent pericardial effusion Past Surgical History Pericardial window ORIF right femur Hiatal hernia repair Cataract surgery Cardiac catheterization 2 Right partial lobectomy Reported Medications Reported Meds & Active Scripts Active Lopressor (Metoprolol Tartrate) 50 Mg Tab 50 Mg PO DAILY Ativan (Lorazepam) 0.5 Mg Tab 0.5 Mg PO BID Hydrocodone-Acetaminophen 7.5-325 mg Tab 1 Tab PO Q4H PRN Reported Atorvastatin (Atorvastatin Calcium) 10 Mg Tab 10 Mg PO HS Spiriva Handihaler (Tiotropium Inh) 18 Mcg Cap 18 Mcg INH DAILY 1 capsule = 18 mcg Symbicort Inh (Budesonide/Formoterol Fumarate) 160-4.5 Mcg/Act Aero 2 Puff INH Q12HR Allergies: Coded Allergies: piperacillin (Unverified Allergy, Severe, Swelling, 03/03/17) RT EYE NOTED BLANCHING tazobactam (Unverified Allergy, Severe, Swelling, 03/03/17) RT EYE NOTED BLANCHING *MDRO Multi-Drug Resistant Organism (Verified Adverse Reaction, Unknown, ) MRSA Sputum 11/29/2014 and Blood 12/01/2014 Active Ordered Medications Current Medications Medications (Trade) Dose Ordered Sig/Nabila Route Start Time Stop Time Status Last Admin (NS Flush) 2 ml UNSCH PRN IVF 03/20/17 13:45 (Lipitor) 10 mg HS PO 03/20/17 21:00 (Symbicort 160-4.5 Inh) 2 puff Q12HR INH 03/20/17 21:00 ([place] 7.5-325 Mg) 1 tab Q4H PRN PO 03/20/17 18:00 (Ativan) 0.5 mg BID PO 03/20/17 21:00 (Lopressor) 50 mg DAILY PO 03/21/17 09:00 (Spiriva Inh) 18 mcg DAILY INH 03/21/17 09:00 Sodium Chloride 1,000 ml @ 100 mls/hr Q10H IV 03/20/17 17:47 UNV (NS Flush) 2 ml UNSCH PRN IV FLUSH 03/20/17 18:00 UNV (NS Flush) 2 ml BID IV FLUSH 03/20/17 21:00 UNV (Tylenol) 650 mg Q4H PRN PO 03/20/17 18:00 UNV (Zofran Inj) 4 mg Q6H PRN IVP 03/20/17 18:00 UNV (Compazine Supp) 25 mg Q12H PRN ID 03/20/17 18:00 UNV (Ambien) 5 mg HS PRN PO 03/20/17 18:00 UNV (Lovenox Inj) 40 mg Q24H SQ 03/20/17 18:00 UNV (Tylenol) 650 mg Q6H PRN PO 03/20/17 18:00 UNV (Percocet 5-325 Mg) 1 tab Q6H PRN PO 03/20/17 18:00 UNV (Percocet 10-325 Mg) 1 tab Q6H PRN PO 03/20/17 18:00 UNV (Morphine Inj) 2 mg Q3H PRN IV 03/20/17 18:00 UNV (Morphine Inj) 4 mg Q3H PRN IV 03/20/17 18:00 UNV (Narcan Inj) 0.4 mg UNSCH PRN IV 03/20/17 18:00 UNV (Jessica-Colace) 1 tab BID PO 03/20/17 21:00 UNV (Milk Of Magnesia Liq) 30 ml Q12H PRN PO 03/20/17 18:00 UNV (Senokot) 17.2 mg Q12H PRN PO 03/20/17 18:00 UNV (Dulcolax Supp) 10 mg DAILY PRN RECTAL 03/20/17 18:00 UNV (Lactulose Liq) 30 ml DAILY PRN PO 03/20/17 18:00 UNV (NS Flush) 2 ml BID IV FLUSH 03/20/17 21:00 UNV (NS Flush) 2 ml UNSCH PRN IV FLUSH 03/20/17 18:00 UNV (Duoneb Neb) 1 ampule Q4HR NEB INH 03/20/17 20:00 UNV (Albuterol Neb) 2.5 mg Q2HR NEB PRN INH 03/20/17 18:00 UNV (SoluMEDROL INJ) 60 mg Q6H IVP 03/20/17 18:00 UNV Ceftriaxone Sodium 1000 mg/ Sodium Chloride 100 ml @ 200 mls/hr Q24H IV 03/20/17 18:00 UNV (Habitrol 21 Mg Patch.24 Hr) 1 patch DAILY TD 03/20/17 18:00 UNV Azithromycin 500 mg/Sodium Chloride 250 ml @ 250 mls/hr Q24H IV 03/20/17 18:00 UNV (Mucinex Er) 600 mg BID PO 03/20/17 21:00 UNV (Lactinex) 1 tab TID PO 03/20/17 18:00 UNV Family History Father had heart disease Mother had Alzheimer's Sr. had diabetes Social History Smokes 5 cigarettes daily Drinks 2-3 beers daily Not any current drug use, previous marijuana use Physical Exam Vital Signs Vital Signs Date Time Temp Pulse Resp B/P (MAP) Pulse Ox O2 Delivery O2 Flow Rate FiO2 03/20/17 15:38 103 24 137/79 (98) 98 Room Air 3.00 03/20/17 13:55 24 97 Nasal Cannula 3.00 03/20/17 13:54 97 3.00 03/20/17 13:42 98.1 106 22 151/100 (117) 97 Physical Exam GENERAL: Well-developed fair-nourished thin chronically ill appearing male. In no acute distress. Comfortable on nasal cannula. SKIN: Warm and dry. No lesions noted. HEENT: Normocephalic. Pupils equal and round. Mucous membranes pink and moist. Extraocular muscles grossly intact CARDIOVASCULAR: Regular rate and rhythm. No murmur appreciated. S1 and S2 no S3 or S4 RESPIRATORY: No accessory muscle use. Poor air movement with scattered wheezing and rales. And rhonchi bilaterally GASTROINTESTINAL: Abdomen soft, non-tender, nondistended. Bowel sounds x4. MUSCULOSKELETAL: No obvious deformities. No clubbing or cyanosis. No edema. NEUROLOGICAL: Awake and alert. No focal neurological deficits. Moves upper and lower extremities spontaneously. Normal speech. PSYCHIATRIC: Appropriate mood and affect; insight and judgment normal. Laboratory Laboratory Tests Test 03/20/17 14:30 03/20/17 17:20 White Blood Count 10.3 Red Blood Count 3.46 Hemoglobin 11.3 Hematocrit 33.8 Mean Corpuscular Volume 97.6 Mean Corpuscular Hemoglobin 32.7 Mean Corpuscular Hemoglobin Concent 33.5 Red Cell Distribution Width 14.4 Platelet Count 929 Mean Platelet Volume 5.9 Neutrophils (%) (Auto) 88.1 Lymphocytes (%) (Auto) 6.4 Monocytes (%) (Auto) 3.6 Eosinophils (%) (Auto) 0.9 Basophils (%) (Auto) 1.0 Neutrophils # (Auto) 9.1 Lymphocytes # (Auto) 0.7 Monocytes # (Auto) 0.4 Eosinophils # (Auto) 0.1 Basophils # (Auto) 0.1 CBC Comment DIFF FINAL Differential Comment Prothrombin Time 11.6 Prothromb Time International Ratio 1.0 Activated Partial Thromboplast Time 31.7 Blood Urea Nitrogen 8 Creatinine 0.42 Random Glucose 108 Calcium Level 8.7 Magnesium Level 1.9 Sodium Level 136 Potassium Level 3.6 Chloride Level 96 Carbon Dioxide Level 27.7 Anion Gap 12 Estimat Glomerular Filtration Rate 204 Blood Gas Puncture Site LT BRACHIAL Blood Gas Patient Temperature 98.6 Blood Gas HCO3 27 Blood Gas Base Excess 2.6 Blood Gas Oxygen Saturation 92 Arterial Blood pH 7.42 Arterial Blood Partial Pressure CO2 42 Arterial Blood Partial Pressure O2 74 Arterial Blood Oxygen Content 15.2 Arterial Blood Carboxyhemoglobin 3.1 Arterial Blood Methemoglobin 0.6 Blood Gas Hemoglobin 11.8 Oxygen Delivery Device NASAL CANNULA Blood Gas Liter Flow 3 Result Diagram: 03/20/17 1430 03/20/17 1430 Imaging Last Impressions Chest X-Ray 03/20/17 1339 Signed Impressions: Service Date/Time: Monday, March 20, 2017 14:05 - CONCLUSION: Stable chest. Fer Mckeon MD FACR CT Angiography 03/20/17 0000 Signed Impressions: Service Date/Time: Monday, March 20, 2017 15:59 - CONCLUSION: 1. No evidence of pulmonary embolism. 2. Severe emphysema Diego Diaz MD Capseferinoi VTE Risk Assessment Caprini VTE Risk Assessment: Mod/High Risk (score >= 2) Caprini Risk Assessment Model Point Value = 1 Point Value = 2 Point Value = 3 Point Value = 5 Age 41-60 Minor surgery BMI > 25 kg/m2 Swollen legs Varicose veins or History of unexplained or recurrent spontaneous Oral contraceptives or hormone replacement Sepsis (< 1 month) Serious lung disease, including pneumonia (< 1 month) Abnormal pulmonary function Acute myocardial infarction Congestive heart failure (< 1 month) History of inflammatory bowel disease Medical patient at bed rest Age 61-74 Arthroscopic surgery Major open surgery (> 45 min) Laparoscopic surgery (> 45 min) Malignancy Confined to bed (> 72 hours) Immobilizing plaster cast Central venous access Age >= 75 History of VTE Family history of VTE Factor V Leiden Prothrombin [id number] Lupus anticoagulant Anticardiolipin antibodies Elevated serum homocysteine Heparin-induced thrombocytopenia Other congenital or acquired thrombophilia Stroke (< 1 month) Elective arthroplasty Hip, pelvis, or leg fracture Acute spinal cord injury (< 1 month) Prophylaxis Regimen Total Risk Factor Score Risk Level Prophylaxis Regimen 0-1 Low Early ambulation 2 Moderate Order ONE of the following: *Sequential Compression Device (SCD) *Heparin 5000 units SQ BID 3-4 Higher Order ONE of the following medications: *Heparin 5000 units SQ TID *Enoxaparin/Lovenox 40 mg SQ daily (WT < 150 kg, CrCl > 30 mL/min) *Enoxaparin/Lovenox 30 mg SQ daily (WT < 150 kg, CrCl > 10-29 mL/min) *Enoxaparin/Lovenox 30 mg SQ BID (WT < 150 kg, CrCl > 30 mL/min) AND/OR *Sequential Compression Device (SCD) 5 or more Highest Order ONE of the following medications: *Heparin 5000 units SQ TID (Preferred with Epidurals) *Enoxaparin/Lovenox 40 mg SQ daily (WT < 150 kg, CrCl > 30 mL/min) *Enoxaparin/Lovenox 30 mg SQ daily (WT < 150 kg, CrCl > 10-29 mL/min) *Enoxaparin/Lovenox 30 mg SQ BID (WT < 150 kg, CrCl > 30 mL/min) AND *Sequential Compression Device (SCD) Assessment and Plan Assessment and Plan 66-year-old male with past medical history of COPD, HTN, A. fib, anxiety, chronic neck pain, recent pericardial effusion who presented with shortness of breath Acute exacerbation of chronic COPD: Patient continues to smoke. Reviewed: ABG noted. Chest x-ray stable from previous. Pulmonary angiogram showed no PE and severe emphysema. -Scheduled and as needed nebs -IV steroids -Spiriva. Symbicort. -Guaifenesin. Acapella. -IV ceftriaxone and azithromycin -Supplemental oxygen as needed. Consider walk test. Thrombocytosis: Platelets 929, previously 623 on 02/24/17. -Hematology was consulted by the ED -Follow up CBC Atrial fibrillation/HTN: Paroxysmal. Previous recommendation by cardiology on last admission was to follow-up for loop recorder. -Continue metoprolol Alcohol abuse: -[facility] protocol -Thiamine, folate, multivitamins Severe protein calorie malnutrition: -Add ensure to meals Continue Lovenox may need an aspirin as an outpatient Discussed with patient and RN Code Status Full code Discussed Condition With Janee with RN discussed with patient discussed with PA and discussed with emergency room Attending Statement The exam, history, and the medical decision-making described in the above note were completed with the assistance of the mid-level provider. I reviewed and agree with the findings presented. I attest that I had a [id number] encounter with the patient on the same day, and personally performed and documented my assessment and findings in the medical record. 3 days is the estimated time the patient will need to remain in the hospital, assuming treatment plan goals are met and no additional complications. The services are ordered in accordance with Medicare regulations or non- Medicare payer requirements, as applicable. In the case of services not specified as inpatient-only, they are appropriately provided as inpatient services in accordance with the 2-midnight benchmark. Justin Mccrary Mar 20, 2017 18:23 Fer Gray DO Mar 20, 2017 18:32
[2017-03-20] MEDS ORDERED: LORazepam 2 MG TAB PO PRN (18:30)
[2017-03-20] MEDS ORDERED: LORazepam 1 MG TAB PO PRN (18:30)
[2017-03-20] MEDS ORDERED: cloNIDine HCL 0.1 MG TAB PO PRN (18:30)
[2017-03-20] MEDS ORDERED: LORazepam 2 MG/ML VIAL IV PUSH PRN ×2 (18:30)
[2017-03-20] MEDS ORDERED: FLUMAZENIL 0.5 MG/5 ML VIAL IV PUSH PRN (18:30)
[2017-03-20 19:30] VITALS: O2SAT 99
[2017-03-20 20:00] VITALS: BP 102/83; PULSE 102; RESP 20; TEMP 97.6; O2SAT 99
[2017-03-20] MEDS ORDERED: ENOXAPARIN SODIUM 40 MG/0.4 ML SYRINGE SQ SCH (20:00)
[2017-03-20] MEDS: guaiFENesin E.R. 600 MG TAB PO SCH (20:35)
[2017-03-20] MEDS: ATORVASTATIN 10 MG TAB PO SCH (20:36)
[2017-03-20] MEDS: DOCUSATE SODIUM 50 MG/SENNA 8.6 MG TAB PO SCH (20:37)
[2017-03-20] MEDS: oxyCODONE/ACETAMINOPHEN 10 MG/325 MG TAB PO PRN (20:38)
[2017-03-20] MEDS: SODIUM CHLORIDE 0.9% FLUSH 10 ML FLUSH IV FLUSH SCH (20:39)
[2017-03-20] MEDS: SODIUM CHLOR 0.9% 1000 ML INJ 1,000 ML IV SCH (20:39)
[2017-03-20] MEDS: LORazepam 0.5 MG TAB PO SCH (20:39)
[2017-03-20] MEDS: cefTRIAXone INJ 1,000 MG in SODIUM CHLORIDE 0.9% INJ 100 ML IV SCH (20:40)
[2017-03-20] MEDS: AZITHROMYCIN INJ 500 MG in SODIUM CHLOR 0.9% 250 ML INJ 250 ML IV SCH (20:41)
[2017-03-20 20:50] VITALS: PULSE 101
[2017-03-20] MEDS: methylPREDNISolone SOD SUCC 125 MG/2 ML VIAL IVP SCH (20:53)
[2017-03-20] MEDS: LACTOBACILLUS ACIDOPHILUS TAB PO SCH (20:53)
[2017-03-20] MEDS ORDERED: SODIUM CHLORIDE 0.9% FLUSH 10 ML FLUSH IV FLUSH SCH (21:00)
[2017-03-20] MEDS: BUDESONIDE-FORMOTEROL 160/4.5 MCG INHALER INH SCH (21:00)
[2017-03-21] VITALS (10 sets, daily range): BP systolic 102–141; BP diastolic 64–86; PULSE 78–106; RESP 18–20; TEMP 97.4–98.1; O2SAT 95–100
[2017-03-21] MEDS: RESP: ALBUTEROL 2.5 MG/IPRATROPIUM 0.5 MG NEB (SCH) INH ×7 (00:42→20:16)
[2017-03-21] MEDS: SODIUM CHLOR 0.9% 1000 ML INJ 1,000 ML IV SCH ×3 (02:07→21:16)
[2017-03-21] MEDS: methylPREDNISolone SOD SUCC 125 MG/2 ML VIAL IVP SCH ×3 (02:07→12:59)
[2017-03-21] MEDS: SODIUM CHLORIDE 0.9% FLUSH 10 ML FLUSH IV FLUSH PRN (02:09)
[2017-03-21] MEDS: oxyCODONE/ACETAMINOPHEN 10 MG/325 MG TAB PO PRN (02:21)
[2017-03-21] MEDS: SODIUM CHLORIDE 0.9% FLUSH 10 ML FLUSH IV FLUSH SCH ×2 (07:24→21:08)
[2017-03-21 07:40] LABS: ALT (GPT) 30 U/L (12-78)
[2017-03-21 07:54] LABS: ALKALINE PHOSPHATASE 92 U/L (45-117); ANION GAP 9 MEQ/L (5-15); AST (GOT) 25 U/L (15-37); BICARBONATE 28.2 MEQ/L (21.0-32.0); BLOOD UREA NITROGEN 14 MG/DL (7-18); CHLORIDE 98 MEQ/L (98-107); CREATINE KINASE 90 U/L (39-308); FREE T4 1.45 NG/DL (0.76-1.46); GLOMERULAR FILTRATION RATE 121 ML/MIN (>89); MAGNESIUM 1.9 MG/DL (1.5-2.5); SODIUM (NA) 135 MEQ/L (136-145); TOTAL BILIRUBIN ADULT 0.1 MG/DL (0.2-1.0)
[2017-03-21] MEDS: ACETAMINOPHEN/HYDROcodone 325 MG/7.5 MG TAB PO PRN ×4 (08:26→21:07)
[2017-03-21] MEDS: FOLIC ACID 1 MG TAB PO SCH (08:27)
[2017-03-21] MEDS: DOCUSATE SODIUM 50 MG/SENNA 8.6 MG TAB PO SCH ×2 (08:27→21:00)
[2017-03-21] MEDS: LORazepam 0.5 MG TAB PO SCH ×2 (08:27→21:06)
[2017-03-21] MEDS: MULTIVITAMINS/MINERALS THERAPEUTIC TAB PO SCH (08:27)
[2017-03-21] MEDS: LACTOBACILLUS ACIDOPHILUS TAB PO SCH ×3 (08:27→17:00)
[2017-03-21] MEDS: THIAMINE HCL 100 MG TAB PO SCH (08:27)
[2017-03-21] MEDS: METOPROLOL TARTRATE 50 MG TAB PO SCH (08:27)
[2017-03-21] MEDS: ENOXAPARIN SODIUM 40 MG/0.4 ML SYRINGE SQ SCH ×2 (08:27→08:31)
[2017-03-21] MEDS: guaiFENesin E.R. 600 MG TAB PO SCH ×2 (08:28→21:06)
[2017-03-21] MEDS: NICOTINE 21 MG/24 HR PATCH TD SCH (08:28)
[2017-03-21] MEDS: BUDESONIDE-FORMOTEROL 160/4.5 MCG INHALER INH SCH ×2 (08:32→21:10)
[2017-03-21] MEDS: TIOTROPIUM BROMIDE 18 MCG INH INH SCH (08:37)
--- NOTE | 2017-03-21 09:58 | EKG ---
Date Performed: 03/20/2017 Time Performed: 13:49:35 PTAGE: 66 years EKG: SINUS TACHYCARDIA POSSIBLE LEFT ATRIAL ENLARGEMENT NONSPECIFIC T-WAVE ABNORMALITY ABNORMAL RHYTHM ECG PREVIOUS TRACING : 02/19/2017 16.52 DOCTOR: Ellis Landeros Interpretating Date/Time 03/21/2017 09:56:32
[2017-03-21 10:08] LABS: HEMOGLOBIN A1a 1.3 %; HEMOGLOBIN A1b 1.6 %; HEMOGLOBIN Ao 83.5 %; HEMOGLOBIN F 0.2 %; HEMOGLOBIN LA1C 2.6 %; HEMOGLOBIN P3 5.8 %
[2017-03-21] MEDS: ASPIRIN EC 81 MG TABEC PO SCH (12:51)
--- NOTE | 2017-03-21 14:36 | HHI.PR ---
Subjective Remarks Patient says his breathing is somewhat better since admission, but has very obvious conversive dyspnea which she says is not normal for him even after the pericardial window that he had last month. Says that prior to this admission, his home oxygen levels with a home pulse oximeter was above 90%, currently he is at 3 L and very winded Objective Vital Signs Date Time Temp Pulse Resp B/P (MAP) Pulse Ox O2 Delivery O2 Flow Rate FiO2 03/21/17 12:00 97.4 79 20 122/73 (89) 98 03/21/17 09:11 99 Nasal Cannula 3.00 03/21/17 08:00 98.0 95 20 132/86 (101) 96 03/21/17 04:00 97.6 95 20 106/64 (78) 96 03/21/17 00:18 97.9 100 20 102/83 (89) 99 03/20/17 20:50 101 03/20/17 20:00 97.6 102 20 102/83 (89) 99 03/20/17 19:30 99 Nasal Cannula 3.00 03/20/17 15:38 103 24 137/79 (98) 98 Room Air 3.00 I/O 03/20/17 03/20/17 03/20/17 03/21/17 03/21/17 03/21/17 07:00 15:00 23:00 07:00 15:00 23:00 Intake Total 350 ml 1500 ml Balance 350 ml 1500 ml Intake Oral 1180 ml IV Total 350 ml 320 ml # Voids 2 # Bowel Movements 1 Result Diagram: 03/20/17 1430 03/21/17 0655 Imaging Last Impressions Chest X-Ray 03/20/17 1339 Signed Impressions: Service Date/Time: Monday, March 20, 2017 14:05 - CONCLUSION: Stable chest. Fer Mckeon MD FACR CT Angiography 03/20/17 0000 Signed Impressions: Service Date/Time: Monday, March 20, 2017 15:59 - CONCLUSION: 1. No evidence of pulmonary embolism. 2. Severe emphysema Diego Diaz MD Objective Remarks GENERAL: Moderate distress secondary conversive dyspnea CARDIOVASCULAR: Regular rate and rhythm without murmurs, gallops, or rubs. RESPIRATORY: Substantially decreased breath sounds bilaterally w/ prominent expiratory wheezing, abdominal breathing MUSCULOSKELETAL: No cyanosis, or edema. A/P Assessment and Plan 66-year-old male with past medical history of COPD, HTN, A. fib, anxiety, chronic neck pain, recent pericardial effusion who presented with shortness of breath Shortness of breath - acute COPD exacerbation with possible cardiac component given recent history of pericardial window. Acute exacerbation of chronic COPD: Patient continues to smoke. Reviewed: ABG noted. I independently reviewed the chest x-ray and a CT scan which shows no acute infiltrates, but rather states hyperinflated lung anthony on the chest x-ray. CT pulmonary angiogram is negative for pulmonary embolism -Scheduled and as needed nebs -Due to persistent severity, will increase steroids to 125 mg every 8 hours of Solu-Medrol -Spiriva. Symbicort. -Guaifenesin. -IV ceftriaxone and azithromycin -Supplemental oxygen as needed. We'll attempt to do an aggressive weaning but if symptoms improve while still hypoxic, we'll consider walk test. If symptoms also still persists, we'll consider echocardiogram. Thrombocytosis: Platelets 929, previously 623 on 02/24/17. -Hematology following, appreciate recommendations and orders, no labs drawn today for cell count, repeating today and tomorrow in a.m. Afibrillation/HTN: Paroxysmal. Previous recommendation by cardiology on last admission was to follow-up for loop recorder. -Continue metoprolol Alcohol abuse: -[facility] protocol -Thiamine, folate, multivitamins Severe protein calorie malnutrition: -ensure to meals Continue Lovenox, may need an aspirin as an outpatient Discussed with patient and RN Code Status David Hunt MD Mar 21, 2017 14:36
[2017-03-21] MEDS: methylPREDNISolone SOD SUCC 125 MG/2 ML VIAL IV PUSH SCH ×2 (16:06→21:08)
--- NOTE | 2017-03-21 16:58 | MB ---
cc: JIN HAILE MD, ZAFAR MD DATE OF CONSULTATION: 03/21/2017. HEMATOLOGY/ONCOLOGY CONSULTATION NOTE PRIMARY CARE PHYSICIAN: Dr. Jin Haile. REASON FOR CONSULTATION Thrombocytosis. CHIEF COMPLAINT: Mr. Hinton reports increasing difficulty breathing associated with a cough. He also tells me he is increasingly weak. From a hematologic standpoint, his only complaint is that of easy bruising on his arms and legs. HISTORY OF PRESENT ILLNESS: Mr. Hinton is very pleasant 66-year-old male of the [facility] Familiar , he is also a current smoker and has smoked up to two to three packs a day for much of the past 35 years. He presently smokes about four or five cigarettes a day. Mr. Hinton reports having been able to ambulate without any major restrictions up until early February of 2015. He at that time began to develop increasing difficulty breathing and presented to [facility] for further workup and evaluation. He was noted on imaging to have a large pericardial effusion and on 02/19/2017 underwent a pericardial window creation; final pathology from the pericardial biopsy indicated mild chronic inflammation with reactive mesothelial cells. There was no evidence of malignancy. The patient was discharged home but reports his pre-surgical endurance never recovered and he has essentially been bed-bound or chair-bound ever since. He came into the hospital last night with complaints of increasing difficulty breathing and was assessed to have a COPD exacerbation. Routine blood work performed in the lab indicated a platelet count of 929, this was a significant increase over previous platelet counts which have ranged between 520 and 650,000 over the past month and a half. The hematology service has been asked to see the patient for further workup and management of a suspected myeloproliferative neoplasm. Also worthy of note at this point is the patient's recent history of a superficial venous thrombosis involving the left upper extremity diagnosed on 02/23/2017; this was a peripheral IV associated superficial venous thrombosis. He has no other history of arterial or venous thromboses. PAST MEDICAL HISTORY: 1. Severe COPD. 2. Extensive history of tobaccoism. 3. Hypertension. 4. 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 5. Protein-calorie malnutrition. PAST SURGICAL HISTORY: 1. Status post right upper and right middle lobectomy with mediastinal lymph node sampling. 2. Hernia surgery. 3. Cardiac catheterization. 4. Pericardiocentesis with pericardial window creation done in February of 2017. FAMILY HISTORY: The father of coronary artery disease. The mom of Alzheimer's disease. SOCIAL HISTORY: The patient lives at home with his . He has one daughter who is an adult. He is a current smoker, smoking four to five cigarettes a day. Prior to that, he smoked up to three packs a day for thirty plus years. 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 He is also a [employer] but did not serve overseas or in active combat. ALLERGIES: NO KNOWN DRUG ALLERGIES. REVIEW OF SYSTEMS: A thirteen-point patient-completed review of systems indicates: CONSTITUTIONAL: Fatigue, weakness, loss of appetite. Denies fevers or chills. HEAD, EYES, EARS, NOSE, THROAT: Denies headaches, blurry vision, difficulty swallowing or soreness of the throat. RESPIRATORY: Reports chronic difficulty breathing with rest or with minimal exertion, reports chronic cough. Denies hemoptysis or pleuritic chest pain. CARDIOVASCULAR: Denies angina-like chest pain, PND, orthopnea, he does have lower extremity edema. GENITOURINARY: Denies dysuria, hematuria, urinary incontinence. DESIGN MANAGER: Denies any focal sensory or motor deficits but reports being generally weak. MUSCULOSKELETAL: Does report muscle mass loss, he reports chronic neck pain with radicular pain radiating down his left arm and right arm. He also reports loss of muscle mass. SKIN: Easy bruising. PHYSICAL EXAMINATION: VITAL SIGNS: Temperature 98 degrees Fahrenheit, heart rate 95 beats minute, respiratory rate 20, blood pressure 132/86, O2 sats 99% on 3 liters nasal cannula. GENERAL PHYSICAL APPEARANCE: Mr. Hinton is an elderly male, he is near cachectic-appearing and chronically ill. He is essentially tripoding over the bedside table. He has to take breaks in-between sentences to complete a sentence due to dyspnea. HEAD, EYES, EARS, NOSE, THROAT: Head is atraumatic and normocephalic. Conjunctivae are mildly pale. The sclerae are anicteric. ORAL EXAM: No pharyngeal erythema. He does have temporal muscle wasting. RESPIRATORY EXAM: Distant-sounding breath sounds with prolonged expiratory phase. CARDIOVASCULAR EXAM: Regular rate and rhythm. S1, S2 without any obvious murmurs, rubs or gallops. CHEST: On examination of the chest, he does have a substernal 3 cm vertical incision which is well-healing. ABDOMEN: Thin belly. Soft and nontender. No obvious organ enlargement; specifically, hepatosplenomegaly. LOWER EXTREMITIES: Trace pretibial edema. No calf tenderness. MUSCULOSKELETAL: Generally decreased muscle mass, tone and strength especially of the upper extremities. He has atrophy of the muscles of the hand, particularly on the right side which correspond to a weak grasp on both sides. SKIN: Generalized bruising, especially on the arms. LABORATORY FINDINGS: Blood work dated 03/20/2017: White blood cell count 10.3, hemoglobin 11.3 grams/dL, hematocrit 33.8%, MCV 97.6, platelet count 929,000, absolute neutrophil count is 9.1. Chemistries: Sodium is 135, potassium 4, chloride 98, bicarbonate 28.2, BUN 14, creatinine 0.66, eGFR is 120, random glucose 113, calcium 8.5, phosphorus 2.6, magnesium 1.9, total bilirubin 0.1, AST 25, ALT 30, alkaline phosphatase 92. Troponin I 1.05. Albumin 2.6. T4 1.45. IMAGING STUDIES: CT of the thorax dated 03/20/2017; CT angiogram indicate severe emphysematous changes. No evidence of pulmonary embolus. No evidence of pathologically enlarged lymphadenopathy. ASSESSMENT: Mr. Hinton is a 66-year-old man with advanced COPD, he has what appears to be cachexia of advanced COPD as well. He comes in the hospital with complaints of progressive difficulty breathing and was assessed to have a COPD exacerbation. Recent medical issues include a pericardial effusion for which he underwent pericardial window creation performed in early February of 2017. Additionally, he was found to have new-onset progressive thrombocytosis with platelet counts approaching the 1,000,000 rio. He denies any previous knowledge of elevated platelets, though upon review of the electronic medical records his platelet counts were elevated back in the early part of February of 2017. The hematology service has been asked to see him to rule out a primary hematologic disorder such as myeloproliferative neoplasm, essential thrombocythemia. RECOMMENDATIONS: 1. Elevated platelet counts: I have requested serum iron studies to rule out iron deficiency, which oftentimes results in a reactive platelet elevation. I have also ordered peripheral blood JOANNA-2 mutation. This may take several days to be resulted so this patient will require outpatient follow up with me. From a hematologic standpoint, this man may be discharged home. I would however recommend he be started on a low dose oral aspirin a5 81 mg once daily as primary prophylaxis for venous thromboembolism or arterial thromboembolism. At this point, I would hold off of putting him on cytoreductive therapy with hydroxyurea given the ongoing workup. If he is JOANNA-2 mutation-positive, a bone marrow biopsy will be needed to definitively diagnose the myeloproliferative disorder and also to rule out additional underlying conditions such as CML, which oftentimes can be concurrently present with essential thrombocythemia. MD HERMES Foreman/MIKE /11:51 AM /4:31 PM
[2017-03-21 17:33] LABS: BASOPHIL % 0.1 % (0.0-2.0); HEMATOCRIT 31.6 % (39.0-51.0); HEMO FLAGS DIFF FINAL; LYMPH % 6.7 % (9.0-44.0); LYMPHOCYTE # 0.9 TH/MM3 (1.0-4.8); MEAN CELL VOLUME 96.9 FL (80.0-100.0); MONO % 1.4 % (0.0-8.0); NEUT % 91.8 % (16.0-70.0); PLATELET COUNT 891 TH/MM3 (150-450); RED BLOOD COUNT 3.26 MIL/MM3 (4.50-5.90); RED CELL DISTRIBUTION WIDTH 14.1 % (11.6-17.2); WHITE BLOOD COUNT 13.1 TH/MM3 (4.0-11.0)
[2017-03-21 17:54] LABS: TRANSFERRIN IRON PROFILE 177 MG/DL (200-360)
[2017-03-21 17:57] LABS: FERRITIN 499 NG/ML (26-388)
--- NOTE | 2017-03-21 18:07 | MB ---
cc: MARYCRUZ SUGGS MD DATE OF CONSULTATION 03/21/17 HISTORY OF PRESENT ILLNESS Mr. Garcia is a 66-year-old gentleman with COPD, high blood pressure, atrial fibrillation, hospitalization two pericardial effusions. Pericardiocentesis was done. The patient was doing well until, a couple of days ago when he began with shortness of breath. He was admitted. Possible pneumonia suspected. He is back in sinus rhythm. I was consulted for further evaluation and management. The chart was reviewed. The patient was evaluated. ALLERGIES PENICILLIN PIPERACILLIN/TAZOBACTAM SOCIAL HISTORY The patient smokes five cigarettes a day and drinks at least three beers a day. FAMILY HISTORY Noncontributory to his current medical condition. MEDICATIONS Currently 1. Lovenox subcu. 2. Aspirin. 3. Metoprolol 50 mg a day. 4. Spiriva 5. Folic acid and thiamine. 6. Lipitor 10 mg a day. 7. Ativan p.r.n. 8. Clonidine. 9. Lorazepam p.r.n. REVIEW OF SYSTEMS Currently, he referred no chest pain or chest discomfort. Some shortness of breath but no fever. PHYSICAL EXAMINATION GENERAL: Alert, fully oriented. VITAL SIGNS: Blood pressure 122/73, pulse 79, respiratory rate 20 LUNGS: Ventilated CARDIOVASCULAR: S1-S2 regular. No gallop. No murmur. No rub. ABDOMEN: Soft. No mass. No bruit. EXTREMITIES: No edema. CARDIOLOGY STUDIES Electrocardiogram - sinus rhythm, diffuse ST changes. LABORATORY DATA Hemoglobin 11.3, white blood cell 10.3, potassium 4.0, creatinine 0.66. Troponin is 1.05 coming down. INR 1.0. ASSESSMENT AND RECOMMENDATIONS Mr. Hinton currently is stable. No chest pain or chest discomfort. Shortness of breath significantly improved. He has a previous echocardiogram that was done during previous hospitalization. His ejection fraction on February 24 was 40-45%. Troponin during that hospitalization was 0.02. At this point, my recommendation is continue with current medical management. No chest pain. Troponin is trending down. This is not apparent rhabdomyolysis. At this point, echo needs to be repeated and possible left heart catheterization may be considered. Case discussed with the patient. I will closely monitor him during hospitalization. I agree with current management. MD CONSUELO Chavarria /3:11 PM /5:52 PM
[2017-03-21] MEDS: ATORVASTATIN 10 MG TAB PO SCH (21:06)
[2017-03-21] MEDS: cefTRIAXone INJ 1,000 MG in SODIUM CHLORIDE 0.9% INJ 100 ML IV SCH (21:09)
[2017-03-21] MEDS: AZITHROMYCIN INJ 500 MG in SODIUM CHLOR 0.9% 250 ML INJ 250 ML IV SCH (21:09)
[2017-03-22] VITALS (11 sets, daily range): BP systolic 115–140; BP diastolic 64–78; PULSE 84–112; RESP 18–20; TEMP 97.5–98.2; O2SAT 93–100
[2017-03-22] MEDS: ACETAMINOPHEN/HYDROcodone 325 MG/7.5 MG TAB PO PRN ×6 (01:08→21:38)
[2017-03-22] MEDS: RESP: ALBUTEROL 2.5 MG/IPRATROPIUM 0.5 MG NEB (SCH) INH ×6 (02:49→19:45)
[2017-03-22] MEDS: methylPREDNISolone SOD SUCC 125 MG/2 ML VIAL IV PUSH SCH ×3 (05:27→21:27)
[2017-03-22] MEDS: SODIUM CHLORIDE 0.9% FLUSH 10 ML FLUSH IV FLUSH PRN (05:27)
[2017-03-22] MEDS: SODIUM CHLORIDE 0.9% FLUSH 10 ML FLUSH IV FLUSH SCH ×2 (08:18→22:06)
[2017-03-22] MEDS: TIOTROPIUM BROMIDE 18 MCG INH INH SCH (08:18)
[2017-03-22] MEDS: THIAMINE HCL 100 MG TAB PO SCH (08:18)
[2017-03-22] MEDS: BUDESONIDE-FORMOTEROL 160/4.5 MCG INHALER INH SCH ×2 (08:18→22:05)
[2017-03-22] MEDS: DOCUSATE SODIUM 50 MG/SENNA 8.6 MG TAB PO SCH ×2 (08:19→21:00)
[2017-03-22] MEDS: FOLIC ACID 1 MG TAB PO SCH (08:19)
[2017-03-22] MEDS: METOPROLOL TARTRATE 50 MG TAB PO SCH (08:19)
[2017-03-22] MEDS: LACTOBACILLUS ACIDOPHILUS TAB PO SCH ×3 (08:19→17:23)
[2017-03-22] MEDS: MULTIVITAMINS/MINERALS THERAPEUTIC TAB PO SCH (08:19)
[2017-03-22] MEDS: LORazepam 0.5 MG TAB PO SCH ×2 (08:19→21:27)
[2017-03-22] MEDS: ASPIRIN EC 81 MG TABEC PO SCH (08:19)
[2017-03-22] MEDS: guaiFENesin E.R. 600 MG TAB PO SCH ×2 (08:19→21:26)
[2017-03-22] MEDS: ENOXAPARIN SODIUM 40 MG/0.4 ML SYRINGE SQ SCH (08:20)
[2017-03-22] MEDS: NICOTINE 21 MG/24 HR PATCH TD SCH (08:20)
[2017-03-22] MEDS: REMOVE OLD PATCH T-DERMAL SCH (08:20)
[2017-03-22 10:47] LABS: AUTOMATED NEUTROPHIL # 10.4 TH/MM3 (1.8-7.7); BASOPHIL % 0.1 % (0.0-2.0); HEMATOCRIT 35.1 % (39.0-51.0); HEMO FLAGS DIFF FINAL; LYMPH % 5.1 % (9.0-44.0); LYMPHOCYTE # 0.6 TH/MM3 (1.0-4.8); MEAN CELL VOLUME 100.3 FL (80.0-100.0); MEAN CORPUSCULAR HEMOGLOBIN 32.2 PG (27.0-34.0); MEAN CORPUSCULAR HGB CONC 32.1 % (32.0-36.0); MONO % 2.8 % (0.0-8.0); PLATELET COUNT 825 TH/MM3 (150-450); RED CELL DISTRIBUTION WIDTH 14.6 % (11.6-17.2); WHITE BLOOD COUNT 11.3 TH/MM3 (4.0-11.0)
[2017-03-22] MEDS ORDERED: IRON SUCROSE INJ 100 MG in SODIUM CHLORIDE 0.9% INJ 100 ML IV ONE (12:00)
--- NOTE | 2017-03-22 15:34 | HHI.PR ---
Subjective Remarks Feeling ok No chest pain Objective Vital Signs Date Time Temp Pulse Resp B/P (MAP) Pulse Ox O2 Delivery O2 Flow Rate FiO2 03/22/17 15:26 99 Nasal Cannula 2.00 03/22/17 12:28 98.2 84 18 129/67 (87) 100 03/22/17 12:00 100 Nasal Cannula 2.00 03/22/17 09:30 97 Nasal Cannula 2.00 03/22/17 08:05 97.5 87 18 136/78 (97) 97 03/22/17 07:32 99 Nasal Cannula 2.00 03/22/17 06:52 88 03/22/17 04:00 97.6 91 18 125/69 (87) 93 03/22/17 02:51 98 Nasal Cannula 2.00 03/22/17 00:00 97.6 100 20 115/64 (81) 98 03/22/17 00:00 Nasal Cannula 2.00 03/21/17 20:20 95 Nasal Cannula 2.00 03/21/17 20:09 106 03/21/17 20:00 97.5 100 18 127/70 (89) 100 03/21/17 20:00 Nasal Cannula 2.00 03/21/17 16:00 98.1 102 20 141/73 (95) 98 I/O 03/21/17 03/21/17 03/21/17 03/22/17 03/22/17 03/22/17 06:59 14:59 22:59 06:59 14:59 22:59 Intake Total 1500 ml 2060 ml 1160 ml 441 ml Output Total 650 ml Balance 1500 ml 2060 ml 510 ml 441 ml Intake Oral 1180 ml 960 ml 360 ml IV Total 320 ml 1100 ml 800 ml 441 ml Output Urine Total 650 ml # Voids 2 3 # Bowel Movements 1 1 0 Result Diagram: 03/22/17 1030 03/21/17 0655 Imaging Alert, fully oriented Lungs: ventilated Heart: S1, S2 regular abdomen: soft, no mass Ext: no edema Last Impressions Chest X-Ray 03/20/17 1339 Signed Impressions: Service Date/Time: Monday, March 20, 2017 14:05 - CONCLUSION: Stable chest. Fer Mckeon MD FACR CT Angiography 03/20/17 0000 Signed Impressions: Service Date/Time: Monday, March 20, 2017 15:59 - CONCLUSION: 1. No evidence of pulmonary embolism. 2. Severe emphysema Diego Diaz MD Current Medications Medications (Trade) Dose Ordered Sig/Nabila Route Start Time Stop Time Status Last Admin (Lipitor) 10 mg HS PO 03/20/17 21:00 03/21/17 21:06 (Symbicort 160-4.5 Inh) 2 puff Q12HR INH 03/20/17 21:00 03/22/17 08:18 ([place] 7.5-325 Mg) 1 tab Q4H PRN PO 03/20/17 18:00 03/22/17 13:27 (Ativan) 0.5 mg BID PO 03/20/17 21:00 03/22/17 08:19 (Lopressor) 50 mg DAILY PO 03/21/17 09:00 03/22/17 08:19 (Spiriva Inh) 18 mcg DAILY INH 03/21/17 09:00 03/22/17 08:18 (NS Flush) 2 ml UNSCH PRN IV FLUSH 03/20/17 18:00 03/22/17 05:27 (NS Flush) 2 ml BID IV FLUSH 03/20/17 21:00 03/22/17 08:18 (Tylenol) 650 mg Q4H PRN PO 03/20/17 18:00 (Zofran Inj) 4 mg Q6H PRN IVP 03/20/17 18:00 (Compazine Supp) 25 mg Q12H PRN RECTAL 03/20/17 18:00 (Ambien) 5 mg HS PRN PO 03/20/17 18:00 (Tylenol) 650 mg Q6H PRN PO 03/20/17 18:00 (Narcan Inj) 0.4 mg UNSCH PRN IV 03/20/17 18:00 (Jessica-Colace) 1 tab BID PO 03/20/17 21:00 03/22/17 08:19 (Milk Of Magnesia Liq) 30 ml Q12H PRN PO 03/20/17 18:00 (Senokot) 17.2 mg Q12H PRN PO 03/20/17 18:00 (Dulcolax Supp) 10 mg DAILY PRN RECTAL 03/20/17 18:00 (Lactulose Liq) 30 ml DAILY PRN PO 03/20/17 18:00 (Duoneb Neb) 1 ampule Q4HR NEB INH 03/20/17 20:00 03/22/17 15:23 (Albuterol Neb) 2.5 mg Q2HR NEB PRN INH 03/20/17 18:00 Ceftriaxone Sodium 1000 mg/ Sodium Chloride 100 ml @ 200 mls/hr Q24H IV 03/20/17 21:00 03/21/17 21:09 (Habitrol 21 Mg Patch.24 Hr) 1 patch DAILY TD 03/21/17 09:00 03/22/17 08:20 Azithromycin 500 mg/Sodium Chloride 250 ml @ 250 mls/hr Q24H IV 03/20/17 20:00 03/21/17 21:09 (Mucinex Er) 600 mg BID PO 03/20/17 21:00 03/22/17 08:19 (Lactinex) 1 tab TID PO 03/20/17 20:00 03/22/17 12:23 (Folate) 1 mg DAILY PO 03/21/17 09:00 03/26/17 08:59 03/22/17 08:19 (Vitamin B1) 100 mg DAILY PO 03/21/17 09:00 03/22/17 08:18 (Theragran M Tab) 1 tab DAILY PO 03/21/17 09:00 03/26/17 08:59 03/22/17 08:19 (Catapres) 0.1 mg Q6H PRN PO 03/20/17 18:30 (Romazicon Inj) 0.2 mg Q1M PRN IV PUSH 03/20/17 18:30 (Ativan) 1 mg Q4H PRN PO 03/20/17 18:30 (Ativan) 2 mg Q2H PRN PO 03/20/17 18:30 (Ativan Inj) 2 mg Q1H PRN IV PUSH 03/20/17 18:30 (Ativan Inj) 2 mg Q15M PRN IV PUSH 03/20/17 18:30 Miscellaneous Information 1 DAILY T-DERMAL 03/22/17 09:00 03/22/17 08:20 (Ecotrin Ec) 81 mg DAILY PO 03/21/17 12:15 03/22/17 08:19 (Lovenox Inj) 40 mg Q24H SQ 03/22/17 09:00 03/22/17 08:20 (SoluMEDROL INJ) 125 mg Q8HR IV PUSH 03/21/17 14:30 03/22/17 13:27 Assessment and Plan Problem List: (1) NSTEMI (non-ST elevated myocardial infarction) ICD Codes: I21.4 - Non-ST elevation (NSTEMI) myocardial infarction Plan: Possible NSTEMI Troponin coming down Nuclear stress study requested (2) COPD exacerbation ICD Codes: J44.1 - COPD exacerbation Status: Acute Plan: UCOPD Improving Breathing better Continue with current management (3) HTN (hypertension) ICD Codes: I10 - HTN (hypertension) Status: Chronic Plan: SBP 129 Kaitlyn Chou MD Mar 22, 2017 15:34
[2017-03-22] MEDS: ATORVASTATIN 10 MG TAB PO SCH (21:26)
[2017-03-22] MEDS: AZITHROMYCIN INJ 500 MG in SODIUM CHLOR 0.9% 250 ML INJ 250 ML IV SCH (21:28)
[2017-03-22] MEDS: cefTRIAXone INJ 1,000 MG in SODIUM CHLORIDE 0.9% INJ 100 ML IV SCH (21:28)
[2017-03-23] VITALS (10 sets, daily range): BP systolic 105–130; BP diastolic 59–78; PULSE 88–104; RESP 20–26; TEMP 97.3–97.7; O2SAT 96–100
[2017-03-23] MEDS: RESP: ALBUTEROL 2.5 MG/IPRATROPIUM 0.5 MG NEB (SCH) INH ×6 (00:39→20:00)
[2017-03-23] MEDS: ACETAMINOPHEN/HYDROcodone 325 MG/7.5 MG TAB PO PRN ×5 (02:53→21:50)
[2017-03-23] MEDS: methylPREDNISolone SOD SUCC 125 MG/2 ML VIAL IV PUSH SCH ×3 (04:46→21:10)
[2017-03-23] MEDS: FOLIC ACID 1 MG TAB PO SCH (08:50)
[2017-03-23] MEDS: METOPROLOL TARTRATE 50 MG TAB PO SCH (08:51)
[2017-03-23] MEDS: LACTOBACILLUS ACIDOPHILUS TAB PO SCH ×3 (08:51→17:34)
[2017-03-23] MEDS: LORazepam 0.5 MG TAB PO SCH ×2 (08:51→21:09)
[2017-03-23] MEDS: MULTIVITAMINS/MINERALS THERAPEUTIC TAB PO SCH (08:51)
[2017-03-23] MEDS: DOCUSATE SODIUM 50 MG/SENNA 8.6 MG TAB PO SCH ×2 (08:51→21:00)
[2017-03-23] MEDS: guaiFENesin E.R. 600 MG TAB PO SCH ×2 (08:51→21:10)
[2017-03-23] MEDS: ASPIRIN EC 81 MG TABEC PO SCH (08:51)
[2017-03-23] MEDS: THIAMINE HCL 100 MG TAB PO SCH (08:51)
[2017-03-23] MEDS: TIOTROPIUM BROMIDE 18 MCG INH INH SCH (08:55)
[2017-03-23] MEDS: BUDESONIDE-FORMOTEROL 160/4.5 MCG INHALER INH SCH ×2 (08:55→21:12)
[2017-03-23] MEDS: SODIUM CHLORIDE 0.9% FLUSH 10 ML FLUSH IV FLUSH SCH ×2 (08:57→21:10)
[2017-03-23] MEDS: REMOVE OLD PATCH T-DERMAL SCH (09:00)
[2017-03-23] MEDS ORDERED: REGADENOSON INJ 0.4 MG/5 ML SYR ONE (11:20)
[2017-03-23] MEDS ORDERED: GLUCAGON 1 MG/ML VIAL OTHER PRN (11:45)
[2017-03-23] MEDS ORDERED: DEXTROSE 50% IN WATER 50 ML VIAL(D50) IV PRN (11:45)
--- NOTE | 2017-03-23 13:09 | RADRPT ---
EXAM DATE/TIME: 03/23/2017 10:53 [place] COMPARISON: No previous studies available for comparison. INDICATIONS : Dyspnea with elevated troponins. Abnormal EKG. DOSE: 25.7 mCi Tc99m Myoview at stress. 8.5 mCi Tc99m Myoview at rest. 0.4 mg Lexiscan STRESS SYMPTOMS: Short of breath. EJECTION FRACTION: 47% MEDICAL HISTORY : Chronic obstructive pulmonary disease. Hypertension. SURGICAL HISTORY : Lobectomy. Hernia repair. ENCOUNTER: Initial ACUITY: 2 days PAIN SCALE: 0/10 LOCATION: chest TECHNIQUE: The patient underwent pharmacologic stress with infusion of prescribed dose. Continuous ECG tracing was monitored during stress. Gated SPECT imaging was performed after stress and conventional SPECT i maging was performed at rest. The examination was performed on a SPECT/CT scanner, both attenuation and non-corrected datasets were reviewed. FINDINGS: Moderate gut activity does obscure the inferior wall. At stress the best perfused myocardium is the lateral wall followed by the inferior wall. There is m ild dilatation of ventricular cavity. There is affixed defect in the anterior wall extending to base . There is no redistribution to suggest ischemia. The ejection fraction is 47% with inferior wall and septal hypokinesis. CONCLUSION: Depressed ejection fraction. I don't see evidence for significant ischemia during stress. RISK CATEGORY: Intermediate (1-3% Annual Mortality Rate) Fer Mckeon MD FACR on March 23, 2017 at 13:05 Board Certified Radiologist. This report was verified electronically.
[2017-03-23] MEDS: NICOTINE 21 MG/24 HR PATCH TD SCH (13:10)
[2017-03-23] MEDS: ENOXAPARIN SODIUM 40 MG/0.4 ML SYRINGE SQ SCH (13:13)
[2017-03-23] MEDS: INSULIN NovoLIN REGULAR SUPPLEMENTAL SCALE SQ SCH ×2 (16:00→21:00)
--- NOTE | 2017-03-23 16:03 | HHI.PR ---
Subjective Remarks Doing ok Less SOB Objective Vital Signs Date Time Temp Pulse Resp B/P (MAP) Pulse Ox O2 Delivery O2 Flow Rate FiO2 03/23/17 08:00 97.5 101 26 130/73 (92) 100 03/23/17 08:00 97 03/23/17 07:39 98 Nasal Cannula 2.00 03/23/17 07:15 Nasal Cannula 2.00 Humidified 03/23/17 04:00 Nasal Cannula 2.00 Humidified 03/23/17 04:00 97.7 88 20 113/73 (86) 99 03/23/17 00:41 99 Nasal Cannula 2.00 03/23/17 00:00 97.3 104 20 105/59 (74) 100 03/22/17 23:59 Nasal Cannula 2.00 03/22/17 20:11 112 03/22/17 20:00 98.1 101 20 140/75 (96) 100 03/22/17 19:58 Nasal Cannula 2.00 Humidified 03/22/17 16:31 98.2 95 19 129/72 (91) 99 I/O 03/22/17 03/22/17 03/22/17 03/23/17 03/23/17 03/23/17 07:00 15:00 23:00 07:00 15:00 23:00 Intake Total 1160 ml 441 ml 720 ml 640 ml Output Total 650 ml 600 ml Balance 510 ml 441 ml 120 ml 640 ml Intake Oral 360 ml 720 ml 290 ml IV Total 800 ml 441 ml 350 ml Output Urine Total 650 ml 600 ml # Voids 2 # Bowel Movements 0 0 2 Result Diagram: 03/22/17 1030 03/21/17 0655 Imaging Alert, fully oriented Lungs: left side wheezing Heart: S1, S2 regular, no gallop Abdomen: soft, no mass Ext: no edema Last Impressions Myocardial Perfusion Scan Nuc Med 03/23/17 0600 Signed Impressions: Service Date/Time: Thursday, March 23, 2017 10:53 - CONCLUSION: Depressed ejection fraction. I don't see evidence for significant ischemia during stress. RISK CATEGORY: Intermediate (1-3%% Annual Mortality Rate) Fer Mckeon MD FACR Chest X-Ray 03/20/17 9654 Signed Impressions: Service Date/Time: Monday, March 20, 2017 14:05 - CONCLUSION: Stable chest. Fer Mckeon MD FACR CT Angiography 03/20/17 0000 Signed Impressions: Service Date/Time: Monday, March 20, 2017 15:59 - CONCLUSION: 1. No evidence of pulmonary embolism. 2. Severe emphysema Diego Diaz MD Current Medications Medications (Trade) Dose Ordered Sig/Nabila Route Start Time Stop Time Status Last Admin (Lipitor) 10 mg HS PO 03/20/17 21:00 03/22/17 21:26 (Symbicort 160-4.5 Inh) 2 puff Q12HR INH 03/20/17 21:00 03/23/17 08:55 ([place] 7.5-325 Mg) 1 tab Q4H PRN PO 03/20/17 18:00 03/23/17 13:08 (Ativan) 0.5 mg BID PO 03/20/17 21:00 03/23/17 08:51 (Lopressor) 50 mg DAILY PO 03/21/17 09:00 03/23/17 08:51 (Spiriva Inh) 18 mcg DAILY INH 03/21/17 09:00 03/23/17 08:55 (NS Flush) 2 ml UNSCH PRN IV FLUSH 03/20/17 18:00 03/22/17 05:27 (NS Flush) 2 ml BID IV FLUSH 03/20/17 21:00 03/23/17 08:57 (Tylenol) 650 mg Q4H PRN PO 03/20/17 18:00 (Zofran Inj) 4 mg Q6H PRN IVP 03/20/17 18:00 (Compazine Supp) 25 mg Q12H PRN RECTAL 03/20/17 18:00 (Ambien) 5 mg HS PRN PO 03/20/17 18:00 (Tylenol) 650 mg Q6H PRN PO 03/20/17 18:00 (Narcan Inj) 0.4 mg UNSCH PRN IV 03/20/17 18:00 (Jesscia-Colace) 1 tab BID PO 03/20/17 21:00 03/22/17 08:19 (Milk Of Magnesia Liq) 30 ml Q12H PRN PO 03/20/17 18:00 (Senokot) 17.2 mg Q12H PRN PO 03/20/17 18:00 (Dulcolax Supp) 10 mg DAILY PRN RECTAL 03/20/17 18:00 (Lactulose Liq) 30 ml DAILY PRN PO 03/20/17 18:00 (Duoneb Neb) 1 ampule Q4HR NEB INH 03/20/17 20:00 03/23/17 07:38 (Albuterol Neb) 2.5 mg Q2HR NEB PRN INH 03/20/17 18:00 Ceftriaxone Sodium 1000 mg/ Sodium Chloride 100 ml @ 200 mls/hr Q24H IV 03/20/17 21:00 03/22/17 21:28 (Habitrol 21 Mg Patch.24 Hr) 1 patch DAILY TD 03/21/17 09:00 03/23/17 13:10 Azithromycin 500 mg/Sodium Chloride 250 ml @ 250 mls/hr Q24H IV 03/20/17 20:00 03/22/17 21:28 (Mucinex Er) 600 mg BID PO 03/20/17 21:00 03/23/17 08:51 (Lactinex) 1 tab TID PO 03/20/17 20:00 03/23/17 13:08 (Folate) 1 mg DAILY PO 03/21/17 09:00 03/26/17 08:59 03/23/17 08:50 (Vitamin B1) 100 mg DAILY PO 03/21/17 09:00 03/23/17 08:51 (Theragran M Tab) 1 tab DAILY PO 03/21/17 09:00 03/26/17 08:59 03/23/17 08:51 (Catapres) 0.1 mg Q6H PRN PO 03/20/17 18:30 (Romazicon Inj) 0.2 mg Q1M PRN IV PUSH 03/20/17 18:30 (Ativan) 1 mg Q4H PRN PO 03/20/17 18:30 (Ativan) 2 mg Q2H PRN PO 03/20/17 18:30 (Ativan Inj) 2 mg Q1H PRN IV PUSH 03/20/17 18:30 (Ativan Inj) 2 mg Q15M PRN IV PUSH 03/20/17 18:30 Miscellaneous Information 1 DAILY T-DERMAL 03/22/17 09:00 03/23/17 09:00 (Ecotrin Ec) 81 mg DAILY PO 03/21/17 12:15 03/23/17 08:51 (Lovenox Inj) 40 mg Q24H SQ 03/22/17 09:00 03/23/17 13:13 (SoluMEDROL INJ) 125 mg Q8HR IV PUSH 03/21/17 14:30 03/23/17 13:09 (D50w (Vial) Inj) 50 ml UNSCH PRN IV 03/23/17 11:45 (Glucagon Inj) 1 mg UNSCH PRN OTHER 03/23/17 11:45 (NovoLIN R SUPPLEMENTAL SCALE) 1 ACHS SLIDING SCALE SQ 03/23/17 16:00 Assessment and Plan Problem List: (1) NSTEMI (non-ST elevated myocardial infarction) ICD Codes: I21.4 - Non-ST elevation (NSTEMI) myocardial infarction Plan: Nuclear stress study negative for ischemia Doing better EF around 45% Continue with current management Follow up as OP by his coordinator volunteer services I will be available on a PRN basis (2) COPD exacerbation ICD Codes: J44.1 - COPD exacerbation Status: Acute Plan: SOB improving (3) HTN (hypertension) ICD Codes: I10 - HTN (hypertension) Status: Chronic Plan: SBP 130 Kaitlyn Chou MD Mar 23, 2017 16:03
--- NOTE | 2017-03-23 16:50 | HHI.PR ---
Subjective Remarks Patient says his breathing is better with the increased steroid dosing. Nursing reports no acute events otherwise. Objective Vital Signs Date Time Temp Pulse Resp B/P (MAP) Pulse Ox O2 Delivery O2 Flow Rate FiO2 03/23/17 16:00 97.7 99 22 128/66 (86) 98 03/23/17 08:00 97.5 101 26 130/73 (92) 100 03/23/17 08:00 97 03/23/17 07:39 98 Nasal Cannula 2.00 03/23/17 07:15 Nasal Cannula 2.00 Humidified 03/23/17 04:00 Nasal Cannula 2.00 Humidified 03/23/17 04:00 97.7 88 20 113/73 (86) 99 03/23/17 00:41 99 Nasal Cannula 2.00 03/23/17 00:00 97.3 104 20 105/59 (74) 100 03/22/17 23:59 Nasal Cannula 2.00 03/22/17 20:11 112 03/22/17 20:00 98.1 101 20 140/75 (96) 100 03/22/17 19:58 Nasal Cannula 2.00 Humidified I/O 03/22/17 03/22/17 03/22/17 03/23/17 03/23/17 03/23/17 07:00 15:00 23:00 07:00 15:00 23:00 Intake Total 1160 ml 441 ml 720 ml 640 ml Output Total 650 ml 600 ml Balance 510 ml 441 ml 120 ml 640 ml Intake Oral 360 ml 720 ml 290 ml IV Total 800 ml 441 ml 350 ml Output Urine Total 650 ml 600 ml # Voids 2 # Bowel Movements 0 0 2 Result Diagram: 03/22/17 1030 03/21/17 0655 Objective Remarks GENERAL: Very minimal conversive dyspnea noted today CARDIOVASCULAR: Regular rate and rhythm without murmurs, gallops, or rubs. RESPIRATORY: Improved breath sounds bilaterally with persistent prominent expiratory wheezing, milder belly breathing today a. A/P Assessment and Plan Plan for 03/22/17 66-year-old male with past medical history of COPD, HTN, A. fib, anxiety, chronic neck pain, recent pericardial effusion who presented with shortness of breath Shortness of breath - acute COPD exacerbation with possible cardiac component given recent history of pericardial window - improving with increased dosing of steroids to 125 mg. -Scheduled and as needed nebs -Spiriva. Symbicort. -Guaifenesin. -IV ceftriaxone and azithromycin -Supplemental oxygen as needed. We'll attempt to do an aggressive weaning but if symptoms improve while still hypoxic, we'll consider walk test. Echocardiogram is pending. Communicate with cardiology, will schedule for nuclear stress test on 03/23. Thrombocytosis: Platelets 929, - Likely due to iron deficiency anemia has hematology has ordered these labs, will supplement with Venofer infusion. Platelets improving to the 800s, Yohan 2 mutation test pending, to be followed up outpatient Afibrillation/HTN: Paroxysmal. Previous recommendation by cardiology on last admission was to follow-up for loop recorder. -Continue metoprolol Alcohol abuse: -[facility] protocol -Thiamine, folate, multivitamins Severe protein calorie malnutrition: -ensure to meals Continue Lovenox, may need an aspirin as an outpatient Discussed with patient and RN David Hunt MD Mar 23, 2017 16:50
--- NOTE | 2017-03-23 16:53 | HHI.PR ---
Subjective Remarks Patient says his breathing is even better than yesterday, says he is able to go to the bathroom with minimal worsening dyspnea. Patient himself claims that he was saturating above 90% on room air today. Just came back from stress test Objective Vital Signs Date Time Temp Pulse Resp B/P (MAP) Pulse Ox O2 Delivery O2 Flow Rate FiO2 03/23/17 16:00 97.7 99 22 128/66 (86) 98 03/23/17 08:00 97.5 101 26 130/73 (92) 100 03/23/17 08:00 97 03/23/17 07:39 98 Nasal Cannula 2.00 03/23/17 07:15 Nasal Cannula 2.00 Humidified 03/23/17 04:00 Nasal Cannula 2.00 Humidified 03/23/17 04:00 97.7 88 20 113/73 (86) 99 03/23/17 00:41 99 Nasal Cannula 2.00 03/23/17 00:00 97.3 104 20 105/59 (74) 100 03/22/17 23:59 Nasal Cannula 2.00 03/22/17 20:11 112 03/22/17 20:00 98.1 101 20 140/75 (96) 100 03/22/17 19:58 Nasal Cannula 2.00 Humidified I/O 03/22/17 03/22/17 03/22/17 03/23/17 03/23/17 03/23/17 07:00 15:00 23:00 07:00 15:00 23:00 Intake Total 1160 ml 441 ml 720 ml 640 ml Output Total 650 ml 600 ml Balance 510 ml 441 ml 120 ml 640 ml Intake Oral 360 ml 720 ml 290 ml IV Total 800 ml 441 ml 350 ml Output Urine Total 650 ml 600 ml # Voids 2 # Bowel Movements 0 0 2 Result Diagram: 03/22/17 1030 03/21/17 0655 Objective Remarks GENERAL: Subtle conversive dyspnea today CARDIOVASCULAR: Regular rate and rhythm without murmurs, gallops, or rubs. RESPIRATORY: Slightly suboptimal breath sounds bilaterally with prominent expiratory wheezing a. A/P Assessment and Plan 66-year-old male with past medical history of COPD, HTN, A. fib, anxiety, chronic neck pain, recent pericardial effusion who presented with shortness of breath Shortness of breath - acute COPD exacerbation with possible cardiac component given recent history of pericardial window - improving, weaning down steroids to 60 mg IV every 8 hours Solu-Medrol, will need a slow taper, anticipate transitioning to orals tomorrow night. -Scheduled and as needed nebs -Spiriva. Symbicort. -Guaifenesin. -IV ceftriaxone and azithromycin -Supplemental oxygen as needed. We'll attempt to do an aggressive weaning but if symptoms improve while still hypoxic, we'll consider walk test. Stress test is negative for reversible ischemia. Thrombocytosis: Platelets 929, -Likely secondary to iron deficiency, status post infusion of iron sucrose, follow-up JOANNA mutation outpatient Iron deficiency anemia - Suspect poor nutritional intake, but will obtain stool occult to rule out GI bleed afib?/htn - continue metoprolol. Severe protein calorie malnutrition: -ensure to meals Continue Lovenox, may need an aspirin as an outpatient David Hutn MD Mar 23, 2017 16:53
--- NOTE | 2017-03-23 20:28 | ECHRPT ---
Indication: ELEVATED TROPONIN CONCLUSIONS Normal left ventricular size. Wall thickness is normal. The left ventricular systolic function is mildly reduced with an estimated ejection fraction in the range of 45- 50%. Distinct regional wall motion abnormalities. severe hypokinesis ofanterior apical segment The left atrial size is moderately dilated. The right atrial size is ngko-dx-vdcyejtulr dilated. No atrial level shunt is demonstrated by color flow Doppler interrogation. No mitral valve stenosis. Mild mitral valve regurgitation. Mild thickening of the mitral valve leaflets. No aortic valve regurgitation. No aortic valve stenosis. There is estimated mild pulmonary hypertension present (range 40-50 mmHg). There is mild tricuspid valve regurgitation. The inferior vena cava (IVC) is normal in size. BP: 140 / 75 HR: 112 Rhythm: Sinus MEASUREMENTS (Male / Female) Normal Values Technical Quality:Fair 2D ECHO LV Diastolic Diameter PLAX 5.0 cm 4.2 - 5.9 / 3.9 - 5.3 cm LV Systolic Diameter PLAX 3.6 cm IVS Diastolic Thickness 0.8 cm 0.6 - 1.0 / 0.6 - 0.9 cm LVPW Diastolic Thickness 0.8 cm 0.6 - 1.0 / 0.6 - 0.9 cm LV Relative Wall Thickness 0.3 LVOT Diameter 2.1 cm Aortic Root Diameter 2.9 cm LA Systolic Diameter LX 4.0 cm 3.0 - 4.0 / 2.7 - 3.8 cm M-MODE AV Cusp Separation MM 1.9 cm DOPPLER AV Peak Velocity 101.0 cm/s AV Peak Gradient 4.1 mmHg AV Mean Gradient 2.0 mmHg AV Velocity Time Integral 16.7 cm LVOT Peak Velocity 75.2 cm/s LVOT Peak Gradient 2.3 mmHg LVOT Velocity Time Integral 13.0 cm LVOT Cardiac Index 3473.3 cm/minm AV Area Cont Eq vti 2.7 cm AV Area Cont Eq pk 2.6 cm Mitral E Point Velocity 79.0 cm/s Mitral A Point Velocity 42.0 cm/s Mitral E to A Ratio 1.9 LV E' Lateral Velocity 16.5 cm/s Mitral E to LV E' Lateral Ratio 4.8 LV E' Septal Velocity 6.6 cm/s Mitral E to LV E' Septal Ratio 11.9 TR Peak Velocity 315.0 cm/s TR Peak Gradient 39.7 mmHg PV Peak Velocity 47.4 cm/s PV Peak Gradient 0.9 mmHg FINDINGS LEFT VENTRICLE Normal left ventricular size. Wall thickness is normal. The left ventricular systolic function is mildly reduced with an estimated ejection fraction in the range of 45- 50%. Distinct regional wall motion abnormalities. RIGHT VENTRICLE Normal right ventricular size and systolic function. LEFT ATRIUM The left atrial size is moderately dilated. RIGHT ATRIUM The right atrial size is fsfc-hb-gldihpftua dilated. ATRIAL SEPTUM No atrial level shunt is demonstrated by color flow Doppler interrogation. AORTA The aortic root and proximal ascending aorta are normal in size on limited imaging. MITRAL VALVE No mitral valve stenosis. Mild mitral valve regurgitation. Mild thickening of the mitral valve leaflets. AORTIC VALVE Trileaflet aortic valve. No aortic valve regurgitation. No aortic valve stenosis. TRICUSPID VALVE There is estimated mild pulmonary hypertension present (range 40-50 mmHg). Structurally normal tricuspid valve. There is mild tricuspid valve regurgitation. PULMONARY VALVE No pulmonary valve regurgitation or stenosis. VESSELS The inferior vena cava (IVC) is normal in size. PERICARDIUM No pericardial effusion. Ronan Yung MD, FACC, FSCAI (Electronically Signed) Final Date:23 March 2017 20:27
[2017-03-23] MEDS: ATORVASTATIN 10 MG TAB PO SCH (21:10)
[2017-03-23] MEDS: AZITHROMYCIN INJ 500 MG in SODIUM CHLOR 0.9% 250 ML INJ 250 ML IV SCH (21:11)
[2017-03-23] MEDS: cefTRIAXone INJ 1,000 MG in SODIUM CHLORIDE 0.9% INJ 100 ML IV SCH (21:11)
[2017-03-24] VITALS (13 sets, daily range): BP systolic 114–141; BP diastolic 64–81; PULSE 87–110; RESP 18–22; TEMP 97.2–98.5; O2SAT 93–98
[2017-03-24] MEDS: ACETAMINOPHEN/HYDROcodone 325 MG/7.5 MG TAB PO PRN ×6 (01:30→21:41)
[2017-03-24] MEDS: RESP: ALBUTEROL 2.5 MG/IPRATROPIUM 0.5 MG NEB (SCH) INH ×6 (04:13→19:55)
[2017-03-24] MEDS: methylPREDNISolone SOD SUCC 125 MG/2 ML VIAL IV PUSH SCH (05:51)
[2017-03-24] MEDS: INSULIN NovoLIN REGULAR SUPPLEMENTAL SCALE SQ SCH ×4 (05:52→20:42)
[2017-03-24] MEDS: DOCUSATE SODIUM 50 MG/SENNA 8.6 MG TAB PO SCH ×2 (08:58→20:29)
[2017-03-24] MEDS: METOPROLOL TARTRATE 50 MG TAB PO SCH (08:59)
[2017-03-24] MEDS: LORazepam 0.5 MG TAB PO SCH ×2 (08:59→20:35)
[2017-03-24] MEDS: ASPIRIN EC 81 MG TABEC PO SCH (08:59)
[2017-03-24] MEDS: REMOVE OLD PATCH T-DERMAL SCH (09:00)
[2017-03-24] MEDS: LACTOBACILLUS ACIDOPHILUS TAB PO SCH ×3 (09:00→17:22)
[2017-03-24] MEDS: FOLIC ACID 1 MG TAB PO SCH (09:00)
[2017-03-24] MEDS: BUDESONIDE-FORMOTEROL 160/4.5 MCG INHALER INH SCH ×2 (09:00→20:30)
[2017-03-24] MEDS: guaiFENesin E.R. 600 MG TAB PO SCH ×2 (09:00→20:29)
[2017-03-24] MEDS: MULTIVITAMINS/MINERALS THERAPEUTIC TAB PO SCH (09:00)
[2017-03-24] MEDS: ENOXAPARIN SODIUM 40 MG/0.4 ML SYRINGE SQ SCH (09:00)
[2017-03-24] MEDS: THIAMINE HCL 100 MG TAB PO SCH (09:00)
[2017-03-24] MEDS: NICOTINE 21 MG/24 HR PATCH TD SCH (09:01)
[2017-03-24] MEDS: TIOTROPIUM BROMIDE 18 MCG INH INH SCH (09:07)
[2017-03-24] MEDS: SODIUM CHLORIDE 0.9% FLUSH 10 ML FLUSH IV FLUSH SCH ×2 (09:08→20:29)
--- NOTE | 2017-03-24 15:05 | HHI.PR ---
Subjective Remarks Patient says his breathing is only as good as it was yesterday, he says he is still short of breath but it is not any worse than yesterday. He agrees that he thinks he has reached his peak respiratory status at this time. Upon looking at his legs and noted he had lower extremity edema, he says particularly that it got worse last night and it has been there all week. He himself also says that there is some trouble urinating at night, where he feels that he has incomplete voids, denies any dysuria. Nursing reports no other symptoms, says he just got his midday dose of Solu-Medrol. Nursing states that he walked and did not have any desaturations below 90% while ambulating on room air. Objective Vital Signs Date Time Temp Pulse Resp B/P (MAP) Pulse Ox O2 Delivery O2 Flow Rate FiO2 03/24/17 13:04 95 03/24/17 12:00 98.5 87 18 125/72 (89) 94 03/24/17 11:44 95 03/24/17 08:00 98.4 105 22 141/70 (93) 95 03/24/17 07:33 98.2 95 19 128/78 (95) 98 03/24/17 07:30 98 03/24/17 07:15 Room Air 03/24/17 04:00 Room Air 03/24/17 04:00 97.4 95 22 117/64 (81) 93 03/24/17 04:00 97.4 95 20 117/64 (81) 93 03/24/17 00:00 Room Air 03/24/17 00:00 97.6 96 22 114/65 (81) 96 03/23/17 19:59 95 03/23/17 19:56 Room Air 03/23/17 19:55 97.7 92 20 121/78 (92) 96 03/23/17 19:46 96 03/23/17 18:40 Room Air 03/23/17 16:51 99 Nasal Cannula 2.00 03/23/17 16:00 97.7 99 22 128/66 (86) 98 I/O 03/23/17 03/23/17 03/23/17 03/24/17 03/24/17 03/24/17 07:00 15:00 23:00 07:00 15:00 23:00 Intake Total 640 ml 710 ml 720 ml Output Total 200 ml 650 ml Balance 640 ml 510 ml 70 ml Intake Oral 290 ml 360 ml 720 ml IV Total 350 ml 350 ml Output Urine Total 200 ml 650 ml # Voids 2 2 # Bowel Movements 2 2 0 Result Diagram: 03/22/17 1030 03/21/17 0655 Objective Remarks GENERAL: Subtle conversive dyspnea today CARDIOVASCULAR: Regular rate and rhythm without murmurs, gallops, or rubs. RESPIRATORY: Slightly diminished breath sounds bilaterally with prominent expiratory wheezing a. A/P Assessment and Plan 66-year-old male with past medical history of COPD, HTN, A. fib, anxiety, chronic neck pain, recent pericardial effusion who presented with shortness of breath Shortness of breath - acute COPD exacerbation with possible cardiac component given recent history of pericardial window -at this point his exacerbation has stabilized, starting by mouth steroids tonight. -Scheduled and as needed nebs -Spiriva. Symbicort. -Guaifenesin. -IV ceftriaxone and azithromycin (1 more day of azithromycin) -Supplemental oxygen as needed. We'll attempt to do an aggressive weaning but if symptoms improve while still hypoxic, walk test ordered today. Stress test is negative for reversible ischemia. - Patient will benefit from pulmonary rehabilitation outpatient. Thrombocytosis: Platelets 929, 800s now -Likely secondary to iron deficiency, status post infusion of iron sucrose, follow-up JOANNA mutation outpatient w/ heme/onc Iron deficiency anemia - Suspect poor nutritional intake, neg stool hemoccult reviewed today afib?/htn - continue metoprolol. Severe protein calorie malnutrition: -ensure to meals Continue Lovenox, may need an aspirin as an outpatient David Hunt MD Mar 24, 2017 15:05
[2017-03-24] MEDS ORDERED: FUROSEMIDE 40 MG/4 ML VIAL IV PUSH ONE (17:00)
[2017-03-24] MEDS ORDERED: OXYGENDME NAS.CANULA (17:09)
[2017-03-24] MEDS ORDERED: OXYGENTANK NAS.CANULA (17:09)
[2017-03-24] MEDS: predniSONE 50 MG TAB PO SCH (17:22)
[2017-03-24] MEDS: ATORVASTATIN 10 MG TAB PO SCH (20:29)
[2017-03-24] MEDS: cefTRIAXone INJ 1,000 MG in SODIUM CHLORIDE 0.9% INJ 100 ML IV SCH (20:36)
[2017-03-24] MEDS: SODIUM CHLORIDE 0.9% FLUSH 10 ML FLUSH IV FLUSH PRN (20:39)
[2017-03-24] MEDS ORDERED: TAMSULOSIN HCL 0.4 MG CAP PO SCH (21:00)
[2017-03-24] MEDS: AZITHROMYCIN INJ 500 MG in SODIUM CHLOR 0.9% 250 ML INJ 250 ML IV SCH (21:40)
[2017-03-25] VITALS: BP 122/73; PULSE 102; RESP 16; TEMP 98.2; O2SAT 97
[2017-03-25] MEDS: ACETAMINOPHEN/HYDROcodone 325 MG/7.5 MG TAB PO PRN ×4 (01:32→14:00)
[2017-03-25 04:00] VITALS: BP 116/71; PULSE 108; RESP 16; TEMP 97.4; O2SAT 96
[2017-03-25] MEDS: INSULIN NovoLIN REGULAR SUPPLEMENTAL SCALE SQ SCH ×2 (05:34→10:56)
[2017-03-25 08:00] VITALS: BP 138/72; PULSE 105; RESP 24; TEMP 98.2; O2SAT 94
[2017-03-25] MEDS: LORazepam 0.5 MG TAB PO SCH (08:40)
[2017-03-25] MEDS: guaiFENesin E.R. 600 MG TAB PO SCH (08:40)
[2017-03-25] MEDS: MULTIVITAMINS/MINERALS THERAPEUTIC TAB PO SCH (08:40)
[2017-03-25] MEDS: FOLIC ACID 1 MG TAB PO SCH (08:40)
[2017-03-25] MEDS: predniSONE 50 MG TAB PO SCH (08:40)
[2017-03-25] MEDS: THIAMINE HCL 100 MG TAB PO SCH (08:40)
[2017-03-25] MEDS: METOPROLOL TARTRATE 50 MG TAB PO SCH (08:40)
[2017-03-25] MEDS: ENOXAPARIN SODIUM 40 MG/0.4 ML SYRINGE SQ SCH (08:41)
[2017-03-25] MEDS: NICOTINE 21 MG/24 HR PATCH TD SCH (08:41)
[2017-03-25] MEDS: LACTOBACILLUS ACIDOPHILUS TAB PO SCH ×2 (08:41→14:00)
[2017-03-25] MEDS: REMOVE OLD PATCH T-DERMAL SCH (08:41)
[2017-03-25] MEDS: DOCUSATE SODIUM 50 MG/SENNA 8.6 MG TAB PO SCH (08:41)
[2017-03-25] MEDS: ASPIRIN EC 81 MG TABEC PO SCH (08:41)
[2017-03-25] MEDS: SODIUM CHLORIDE 0.9% FLUSH 10 ML FLUSH IV FLUSH SCH (08:42)
[2017-03-25] MEDS: BUDESONIDE-FORMOTEROL 160/4.5 MCG INHALER INH SCH (08:44)
[2017-03-25] MEDS: TIOTROPIUM BROMIDE 18 MCG INH INH SCH (08:44)
[2017-03-25 09:00] VITALS: PULSE 105
[2017-03-25] MEDS ORDERED: POTASSIUM CHLORIDE 10 MEQ CONTROLLED RELEASE TAB PO ONE (10:15)
[2017-03-25] MEDS ORDERED: FUROSEMIDE 40 MG/4 ML VIAL IV PUSH ONE (10:15)
[2017-03-25 12:00] VITALS: BP 129/80; PULSE 82; RESP 22; TEMP 98; O2SAT 96
[2017-03-25 13:40] VITALS: O2SAT 98
[2017-03-25] MEDS ORDERED: ALBU6.7H INH (14:03)
--- NOTE | 2017-03-25 14:05 | HHI.DCPOC ---
Discharge Care Plan Your Health Problems Are: Fluid/Lung Overload Shortness of Breath Goals to Promote Your Health * To prevent worsening of your condition and complications * To maintain your health at the optimal level Directions to Meet Your Goals Take your medications as prescribed Follow your dietary instruction Follow activity as directed Keep your appointments as scheduled Take your immunizations and boosters as scheduled If your symptoms worsen call your PCP, if no PCP go to Urgent Care Center or Emergency Room Smoking is Dangerous to Your Health. Avoid second hand smoke Call the 24-hour hour crisis hotline for domestic abuse at David Hunt MD Mar 25, 2017 14:05
[2017-03-25] MEDS ORDERED: POTA-163 PO (14:08)
[2017-03-25] MEDS ORDERED: FURO1TAB60 PO (14:08)
[2017-03-25] MEDS ORDERED: PRED10 PO (14:35)
--- NOTE | 2017-03-25 14:35 | HHI.DS ---
Discharge Summary Admission Date Mar 20, 2017 at 17:23 Discharge Date: Mar 25, 2017 Admitting Diagnosis COPD exacerbation, elevated platelets (1) COPD exacerbation ICD Code: J44.1 - Chronic obstructive pulmonary disease with (acute) exacerbation Status: Acute (2) End stage chronic obstructive pulmonary disease ICD Code: J44.9 - Chronic obstructive pulmonary disease, unspecified Procedures none Brief History - From Admission 66-year-old male with past medical history of COPD, HTN, A. fib, anxiety, chronic neck pain, recent pericardial effusion who presented with shortness of breath. The patient had recent hospitalization for pericardial effusion where he underwent a pericardial window. He states his baseline dyspnea has not returned since his previous hospitalization. He states that prior history his last hospitalization he was able to walk about a mile a day. He states that his current dyspnea has been more or less constant since his discharge 3 weeks ago until today whenever he was driving and felt more short of breath. Otherwise he's been feeling well lately. He has a cough that is difficult to produce sputum. He denies any fevers, chills, chest pain, constipation. He was previously on oxygen 4 years ago. 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 He does continue to smoke about 5 cigarettes daily. CBC/BMP: 03/22/17 1030 03/21/17 0655 PE at Discharge Unlabored breathing, good expansive breath sounds bilaterally, no crackles rales Hospital Course Patient was admitted, started on treatment for COPD exacerbation. Was requiring high-dose steroids for prolonged period of time and eventually his respiratory status stabilized. Hematology oncology was consulted for persistent thrombocytopenia which was mostly suspected to be due to his iron deficiency anemia. Patient received iron infusion. Patient also underwent nuclear stress test given his elevated troponins, which ended up being negative. Patient was transitioned to oral steroids and underwent a final home oxygen walk test which he passed. He did develop some lower extremity edema but this is likely thought to be due to cor pulmonale, did respond to low-dose Lasix. Patient has met maximum benefit from hospitalization is clinically stable for discharge. Pt Condition on Discharge: Stable Discharge Disposition: Discharge Home Discharge Time: > 30 minutes Discharge Instructions DIET: Follow Instructions for: Heart Healthy Diet Activities you can perform: Regular-No Restrictions Follow up Referrals: Appointment for Follow Up Cardiology Oncology/Hematology - 3 Weeks with Guilherme Muse MD PCP Follow-up - 1 Week Pulmonology - 4 Weeks New Medications: Albuterol 6.7 GM Inh (Proventil Hfa 6.7 GM Inh) 90 Mcg/Act Aer 2 PUFF INH Q6H PRN for SHORTNESS OF BREATH, #1 INHALER 0 Refills Furosemide (Lasix) 40 Mg Tab 40 MG PO DAILY PRN for leg swelling, #30 TAB 0 Refills Potassium Chloride ER (Potassium Chloride ER) 20 Meq Tab 20 MEQ PO DAILY for Electrolyte Replacement, #30 TAB 0 Refills Prednisone (Prednisone) 10 Mg Tab 10 MG PO DAILY for copd, #15 TAB 0 Refills 5 tabs/day for 4 d, 4 tabs/day for 4d, 3 tabs/day for 4d, 2 tabs/day for 2d, then 1 tab on last day Continued Medications: Atorvastatin (Atorvastatin) 10 Mg Tab 10 MG PO HS for Cholesterol Management, #30 TAB 0 Refills Budesonide-Formoterol Inh (Symbicort Inh) 160-4.5 Mcg/Act Aero 2 PUFF INH Q12HR, #1 INHALER 0 Refills Hydrocodone-Acetaminophen (Hydrocodone-Acetaminophen) 7.5-325 mg Tab 1 TAB PO Q4H PRN for PAIN LESS THAN 5 ON SCALE, #50 TAB Lorazepam (Ativan) 0.5 Mg Tab 0.5 MG PO BID for Control Mood Swing, #10 TAB Metoprolol Tartrate (Lopressor) 50 Mg Tab 50 MG PO DAILY for hypertension, #30 TAB 0 Refills Tiotropium Inh (Spiriva Handihaler) 18 Mcg Cap 18 MCG INH DAILY for COPD, #30 CAP 0 Refills 1 capsule = 18 mcg David Hunt MD Mar 25, 2017 14:35
== END 2017-03-25 14:58 | disposition home or self-care (01) | DRG 190 ==
LOC: NEPE 13:03 → NEDA 17:23 → N04A 19:18
PROVIDERS: ADMIT Hospitalist; ATTEND Hospitalist
DX: J44.1 Chronic obstructive pulmonary disease with (acute) exacerbation (principal); E43 Unspecified severe protein-calorie malnutrition; I27.81 Cor pulmonale (chronic); I10 Essential (primary) hypertension; F10.10 Alcohol abuse, uncomplicated; D50.9 Iron deficiency anemia, unspecified; Z68.1 Body mass index [BMI] 19.9 or less, adult; D75.89 Other specified diseases of blood and blood-forming organs; I48.91 Unspecified atrial fibrillation; F17.210 Nicotine dependence, cigarettes, uncomplicated; M54.2 Cervicalgia; G89.29 Other chronic pain; F41.9 Anxiety disorder, unspecified
CPT/HCPCS: 36600; 71010; 71275; 76937; 78452; 80048; 80053; 81270; 82272; 82550; 82728; 82805; 82948; 83036; 83540; 83550; 83735; 84100; 84439; 84443; 84484; 85025; 85610; 85730; 93005; 93017; 93306; 94620; 94640; 94664; 94667; A9502; J0456; J0696; J1650; J1756; J1940; J2785; J2930; J7030; J7050; J7512; Q9967

== ENCOUNTER 2017-06-07 07:36 | Inpatient (IN) | payer OTHER, MEDICARE ==
[~2017-06-07] VITALS: Ht 165.1 cm; Wt 48.6 kg
[2017-06-07] VITALS (12 sets, daily range): BP systolic 123–167; BP diastolic 63–82; PULSE 93–128; RESP 20–28; TEMP 97.5–100.2; O2SAT 85–100
[~2017-06-07 07:36] MED LIST changes: +ALBU6.7H INH; +FURO1TAB60 PO; +POTA-163 PO; +PRED10 PO
[2017-06-07] MEDS ORDERED: SODIUM CHLORIDE 0.9% FLUSH 10 ML FLUSH IVF PRN (07:45)
--- NOTE | 2017-06-07 07:48 | PD ---
HPI Chief Complaint: Respiratory Distress Time Seen by Provider: 07:38 Travel History International Travel<30 days: No Contact w/Intl Traveler<30days: No Traveled to known affect area: No History of Present Illness HPI 66-year-old male complains of shortness of breath and wheezing. Patient has history of COPD. Patient is a smoker. Patient states that the shortness of breath started yesterday and got worse today. Patient denies any fever chills. Patient states that he has mild productive cough. Patient denies any chest pain. Patient denies any headache. Patient denies abdominal pain. Patient denies any focal weakness or numbness of the extremity. Patient has history of hypertension and hyperlipidemia. Patient denies history of diabetes. Patient takes prednisone 10 mg by mouth daily. Patient has inhaler and albuterol nebulizer at home. Patient states that he does not use his inhaler or nebulizer often. PFSH Past Medical History Asthma: No Atrial Fibrillation: Yes Autoimmune Disease: No Anxiety: No Depression: Yes Heart Rhythm Problems: Yes () Cancer: No Cardiac Catheterization: Yes (2003) Cardiovascular Problems: Yes High Cholesterol: No Chemotherapy: No Congestive Heart Failure: No COPD: Yes Diabetes: No Diminished Hearing: No Endocrine: No Genitourinary: No Hypertension: Yes Immune Disorder: No Implanted Vascular Access Dvce: No Musculoskeletal: Yes Neurologic: No Psychiatric: Yes Reproductive: No Respiratory: Yes Myocardial Infarction: Yes Radiation Therapy: No Sickle Cell Disease: No Sleep Apnea: Yes (only sleeps for 20 minutes at a time each night) Past Surgical History Abdominal Surgery: Yes (double hernia done at [facility]) Body Medical Devices: screws in the right hip Cardiac Surgery: Yes (two heart catheterizations - both negative) Coronary Artery Bypass Graft: No Ear Surgery: No Endocrine Surgery: No Eye Surgery: Yes (cataracts removed from both eyes) Genitourinary Surgery: No Gynecologic Surgery: No Oral Surgery: Yes (partial plate in lower front) Thoracic Surgery: Yes (right double lobectomy 2014) Other Surgery: Yes Social History Alcohol Use: Yes (DAILY 3 BEERS) Tobacco Use: Yes (<1 PPD) Substance Use: No Allergies-Medications (Allergen,Severity, Reaction): Coded Allergies: piperacillin (Unverified Allergy, Severe, Swelling, 06/07/17) RT EYE NOTED BLANCHING tazobactam (Unverified Allergy, Severe, Swelling, 06/07/17) RT EYE NOTED BLANCHING Reported Meds & Prescriptions Reported Meds & Active Scripts Active Prednisone 10 Mg Tab 10 Mg PO DAILY 5 tabs/day for 4 d, 4 tabs/day for 4d, 3 tabs/day for 4d, 2 tabs/day for 2d, then 1 tab on last day Potassium Chloride ER (Potassium Chloride) 20 Meq Tab 20 Meq PO DAILY Lasix (Furosemide) 40 Mg Tab 40 Mg PO DAILY PRN Lopressor (Metoprolol Tartrate) 50 Mg Tab 50 Mg PO DAILY Ativan (Lorazepam) 0.5 Mg Tab 0.5 Mg PO BID Hydrocodone-Acetaminophen 7.5-325 mg Tab 1 Tab PO Q4H PRN Reported Albuterol Neb (Albuterol Sulfate) 2.5 Mg/3 Ml Neb 2.5 Mg NEB Q4HR PRN Combivent Respimat Inh (Ipratropium-Albuterol Inh) 20-100 Care Home/Act Aero 1 Puff INH DIRECTED PRN Sertraline (Sertraline HCl) 50 Mg Tab 50 Mg PO DAILY Lisinopril 20 Mg Tab 10 Mg PO DAILY Atorvastatin (Atorvastatin Calcium) 10 Mg Tab 10 Mg PO HS Spiriva Handihaler (Tiotropium Inh) 18 Mcg Cap 18 Mcg INH DAILY 1 capsule = 18 mcg Symbicort Inh (Budesonide/Formoterol Fumarate) 160-4.5 Mcg/Act Aero 2 Puff INH Q12HR Review of Systems General / Constitutional: No: Fever Eyes: No: Visual changes HENT: No: Headaches Cardiovascular: No: Chest Pain or Discomfort Respiratory: Positive: Cough, Shortness of Breath, Wheezing Gastrointestinal: No: Abdominal Pain Genitourinary: No: Dysuria Musculoskeletal: No: Pain Skin: No Rash Neurologic: No: Weakness Psychiatric: No: Depression Endocrine: No: Polydipsia Hematologic/Lymphatic: No: Easy Bruising Physical Exam Narrative GENERAL: Well-nourished, well-developed patient. SKIN: Focused skin assessment warm/dry. HEAD: Normocephalic. EYES: No scleral icterus. No injection or drainage. NECK: Supple, trachea midline. No JVD or lymphadenopathy. CARDIOVASCULAR: Regular rate and rhythm without murmurs, gallops, or rubs. RESPIRATORY: Patient has moderate expiratory wheezes bilaterally. Few rhonchi at the bases. GASTROINTESTINAL: Abdomen soft, non-tender, nondistended. MUSCULOSKELETAL: No cyanosis, or edema. BACK: Nontender without obvious deformity. No CVA tenderness. Neurologic exam normal. Data Data Last Documented VS Vital Signs Date Time Temp Pulse Resp B/P (MAP) Pulse Ox O2 Delivery O2 Flow Rate FiO2 06/07/17 08:50 85 Room Air 06/07/17 07:55 2.00 06/07/17 07:42 28 06/07/17 07:39 105 167/80 (109) Orders Orders Electrocardiogram (06/07/17 ) Complete Blood Count With Diff (06/07/17 07:41) Comprehensive Metabolic Panel (06/07/17 07:41) B-Type Natriuretic Peptide (06/07/17 07:41) Influenzae A/B Antigen (06/07/17 07:41) Blood Culture (06/07/17 07:41) Iv Access Insert/Monitor (06/07/17 07:41) Electrocardiogram (06/07/17 07:41) Ecg Monitoring (06/07/17 07:41) Oximetry (06/07/17 07:41) Oxygen Administration (06/07/17 07:41) Chest, Single Ap (06/07/17 07:41) Sodium Chloride 0.9% Flush (Ns Flush) (06/07/17 07:45) Albuterol-Ipratropium Neb (Duoneb Neb) (06/07/17 07:45) Lactic Acid (06/07/17 07:49) Labs Laboratory Tests Test 06/07/17 07:30 06/07/17 07:45 White Blood Count 12.9 TH/MM3 Red Blood Count 4.03 MIL/MM3 Hemoglobin 13.7 GM/DL Hematocrit 39.7 % Mean Corpuscular Volume 98.5 FL Mean Corpuscular Hemoglobin 34.0 PG Mean Corpuscular Hemoglobin Concent 34.6 % Red Cell Distribution Width 18.0 % Platelet Count 267 TH/MM3 Mean Platelet Volume 7.5 FL Neutrophils (%) (Auto) 59.7 % Lymphocytes (%) (Auto) 29.5 % Monocytes (%) (Auto) 9.6 % Eosinophils (%) (Auto) 0.7 % Basophils (%) (Auto) 0.5 % Neutrophils # (Auto) 7.7 TH/MM3 Lymphocytes # (Auto) 3.8 TH/MM3 Monocytes # (Auto) 1.2 TH/MM3 Eosinophils # (Auto) 0.1 TH/MM3 Basophils # (Auto) 0.1 TH/MM3 CBC Comment AUTO DIFF Differential Total Cells Counted 100 Neutrophils % (Manual) 71 % Lymphocytes % 21 % Monocytes % 7 % Basophils % 1 % Neutrophils # (Manual) 9.2 TH/MM3 Differential Comment FINAL DIFF MANUAL Platelet Estimate NORMAL Platelet Morphology Comment NORMAL Blood Urea Nitrogen 9 MG/DL Creatinine 0.58 MG/DL Random Glucose 116 MG/DL Total Protein 7.1 GM/DL Albumin 3.8 GM/DL Calcium Level 8.9 MG/DL Alkaline Phosphatase 88 U/L Aspartate Amino Transf (AST/SGOT) 31 U/L Alanine Aminotransferase (ALT/SGPT) 33 U/L Total Bilirubin 0.8 MG/DL Sodium Level 135 MEQ/L Potassium Level 4.6 MEQ/L Chloride Level 101 MEQ/L Carbon Dioxide Level 25.2 MEQ/L Anion Gap 9 MEQ/L Estimat Glomerular Filtration Rate 141 ML/MIN B-Type Natriuretic Peptide 83 PG/ML Lactic Acid Level 1.5 mmol/L MDM Medical Decision Making Medical Screen Exam Complete: Yes Emergency Medical Condition: Yes Interpretation(s) Last Impressions Chest X-Ray 06/07/17 0741 Signed Impressions: Service Date/Time: Wednesday, June 07, 2017 07:47 - CONCLUSION: 1. Emphysema and scarring. 2. No acute cardiopulmonary disease demonstrated. Oli Campbell MD Differential Diagnosis Differential diagnosis including acute exacerbation of COPD, bronchitis, pneumonia, PE, pneumothorax. Narrative Course 66-year-old male with wheezing and shortness of breath. History of COPD and is a smoker. EMS was called. Patient was given albuterol treatment 2 and Solu- Medrol 125 mg IV. Patient arriving to the ED moderate amount of wheezes and shortness of breath. Albuterol with Atrovent unit dose treatment 3. O2 saturation 85% post treatment. Patient was put back on O2 2 L nasal cannula. Diagnosis Primary Impression: COPD with acute exacerbation Admitting Information Admitting Physician Requests: Admit Stanley Kimball MD Jun 07, 2017 07:48
[2017-06-07] MEDS: RESP: ALBUTEROL 2.5 MG/IPRATROPIUM 0.5 MG NEB (SCH) INH ×4 (07:54→21:54)
[2017-06-07 08:01] LABS: AUTOMATED NEUTROPHIL # 7.7 TH/MM3 (1.8-7.7); BASOPHIL # 0.1 TH/MM3 (0-0.2); BASOPHIL % 0.5 % (0.0-2.0); EOSINOPHIL # 0.1 TH/MM3 (0-0.4); EOSINOPHIL % 0.7 % (0.0-4.0); HEMATOCRIT 39.7 % (39.0-51.0); LYMPH % 29.5 % (9.0-44.0); LYMPHOCYTE # 3.8 TH/MM3 (1.0-4.8); MEAN CELL VOLUME 98.5 FL (80.0-100.0); MEAN CORPUSCULAR HGB CONC 34.6 % (32.0-36.0); MONO % 9.6 % (0.0-8.0); NEUT % 59.7 % (16.0-70.0); PLATELET COUNT 267 TH/MM3 (150-450); RED BLOOD COUNT 4.03 MIL/MM3 (4.50-5.90); WHITE BLOOD COUNT 12.9 TH/MM3 (4.0-11.0)
--- NOTE | 2017-06-07 08:02 | RADRPT ---
EXAM DATE/TIME: 06/07/2017 07:47 [facility] COMPARISON: CT PULMONARY ANGIOGRAM, March 20, 2017, 15:59. CHEST SINGLE AP, March 20, 2017, 14:05. INDICATIONS : Short of breath MEDICAL HISTORY : Chronic obstructive pulmonary disease. HTN. COPD. Sleep apnea. SURGICAL HISTORY : Bilateral cataracts. Oral surgery, partial plate in lower front. Cardiac cath x2. ENCOUNTER: Subsequent ACUITY: 1 day PAIN SCORE: 2/10 LOCATION: Bilateral chest FINDINGS: No infiltrate, effusion or pneumothorax demonstrated. Right base, right apex and left upper lobe scar ring again noted. There is emphysema. Heart size stable, upper limits of normal. CONCLUSION: 1. Emphysema and scarring. 2. No acute cardiopulmonary disease demonstrated. Oli Campbell MD on June 07, 2017 at 8:00 Board Certified Radiologist. This report was verified electronically.
[2017-06-07] MEDS ORDERED: IPRAAER INH (08:05)
[2017-06-07] MEDS ORDERED: ALBU0.08 NEB (08:05)
[2017-06-07] MEDS ORDERED: LISI-515 PO (08:05)
[2017-06-07] MEDS ORDERED: SERT-132 PO (08:05)
[2017-06-07 08:06] LABS: HEMO FLAGS AUTO DIFF
[2017-06-07 08:31] LABS: ALKALINE PHOSPHATASE 88 U/L (45-117); TOTAL BILIRUBIN ADULT 0.8 MG/DL (0.2-1.0)
[2017-06-07 08:33] LABS: ALT (GPT) 33 U/L (12-78); ANION GAP 9 MEQ/L (5-15); AST (GOT) 31 U/L (15-37); BICARBONATE 25.2 MEQ/L (21.0-32.0); BLOOD UREA NITROGEN 9 MG/DL (7-18); CHLORIDE 101 MEQ/L (98-107); GLOMERULAR FILTRATION RATE 141 ML/MIN (>89); POTASSIUM 4.6 MEQ/L (3.5-5.1); SODIUM (NA) 135 MEQ/L (136-145)
[2017-06-07 08:34] LABS: BASOPHILS 1 % (0-2); NEUTROPHIL # MANUAL DIFF 9.2 TH/MM3 (1.8-7.7); POLYS (SEG NEUTROPHILS) 71 % (16-70); WBC DIFF SAMPLE 100
[2017-06-07 08:35] LABS: PLATELET ESTIMATE SMEAR NORMAL (NORMAL); PLATELET MORPHOLOGY NORMAL (NORMAL); SCAN/DIFF FINAL DIFF MANUAL
[2017-06-07] MEDS ORDERED: FUROSEMIDE 40 MG TAB PO PRN (09:15)
[2017-06-07] MEDS: methylPREDNISolone SOD SUCC 125 MG/2 ML VIAL IV PUSH SCH ×3 (09:15→21:26)
[2017-06-07] MEDS: HEPARIN SODIUM - SQ 10,000 UNITS/ML VIAL SQ SCH ×2 (09:15→15:52)
--- NOTE | 2017-06-07 11:58 | EKG ---
Date Performed: 06/07/2017 Time Performed: 07:46:20 PTAGE: 66 years EKG: Sinus rhythm WITH SINUS ARRHYTHMIA WITH SHORT VT INTERVAL LEFT ATRIAL ENLARGEMENT MODERATE ST DEPRESSION ABNORMAL ECG PREVIOUS TRACING 03/20/17 Compared to the prior study, nonspecific ST segment changes are now pr esent. DOCTOR: Diego Kaplan Interpretating Date/Time 06/07/2017 11:57:38
--- NOTE | 2017-06-07 13:51 | HHI.HP ---
HPI Service [facility]ists Primary Care Physician Jin Pike MD Admission Diagnosis acute exacerbation COPD Diagnoses: Chief Complaint: Dyspnea Cough Wheezing Travel History International Travel<30 Days: No Contact w/Intl Traveler <30 Da: No Traveled to Known Affected Are: No Sepsis Criteria SIRS Criteria (2 or more): Heart rate over 90, RR > 20 or PaCO2 < 32, WBC > 27932, < 4000 or > 10% bands Criteria Outcome: Meets SIRS criteria History of Present Illness Written by Maddie Martinez, acting as scribe for Dr. Valdivia on 06/07/17 at 13: 29. 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 He endorses cough with yellowish sputum production. He denies any fever or chills. He reports chest pressure. He has oxygen at home but has not used it for the past 2 years. He had quit smoking for a year and a half but resumed due to life stressors. He was previously on Lasix up until one month ago. He denies any lower extremity edema. He denies knowing he has a history of CHF and does not adhere to any heart healthy diet. Patient was brought in via ambulance and treated with Bipap followed by steroids and multiple nebulizer treatments while in the ED. He is now on 2L NC and satting 92-93%. He states he has lost significant weight over the past 2 years dropping from 135 to 103. He states he is breathing better now. 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 and opiate dependence Anxiety Past Surgical History s/p pericardial window 02/2017 Double hernia repair ORIF right femur Hiatal hernia repair Cardiac catheterization x 2 Bilateral cataract surgery Right double lobectomy 2014 Reported Medications Prednisone 10 Mg Tab 10 Mg PO DAILY 5 tabs/day for 4 d, 4 tabs/day for 4d, 3 tabs/day for 4d, 2 tabs/day for 2d, then 1 tab on last day Potassium Chloride ER (Potassium Chloride) 20 Meq Tab 20 Meq PO DAILY Lasix (Furosemide) 40 Mg Tab 40 Mg PO DAILY PRN Lopressor (Metoprolol Tartrate) 50 Mg Tab 50 Mg PO DAILY Ativan (Lorazepam) 0.5 Mg Tab 0.5 Mg PO BID Hydrocodone-Acetaminophen 7.5-325 mg Tab 1 Tab PO Q4H PRN Albuterol Neb (Albuterol Sulfate) 2.5 Mg/3 Ml Neb 2.5 Mg NEB Q4HR PRN Combivent Respimat Inh (Ipratropium-Albuterol Inh) 20-100 Nursing Home/Act Aero 1 Puff INH DIRECTED PRN Sertraline (Sertraline HCl) 50 Mg Tab 50 Mg PO DAILY Lisinopril 20 Mg Tab 10 Mg PO DAILY Atorvastatin (Atorvastatin Calcium) 10 Mg Tab 10 Mg PO HS Spiriva Handihaler (Tiotropium Inh) 18 Mcg Cap 18 Mcg INH DAILY 1 capsule = 18 mcg Symbicort Inh (Budesonide/Formoterol Fumarate) 160-4.5 Mcg/Act Aero 2 Puff INH Q12HR Allergies: Coded Allergies: piperacillin (Unverified Allergy, Severe, Swelling, 06/07/17) RT EYE NOTED BLANCHING tazobactam (Unverified Allergy, Severe, Swelling, 06/07/17) RT EYE NOTED BLANCHING Active Ordered Medications Current Medications Medications (Trade) Dose Ordered Sig/Nabila Route Start Time Stop Time Status Last Admin (NS Flush) 2 ml UNSCH PRN IVF 06/07/17 07:45 (Duoneb Neb) 1 ampule Q6HR NEB INH 06/07/17 10:00 06/07/17 10:08 (Albuterol Neb) 2.5 mg Q2HR NEB PRN INH 06/07/17 09:15 (SoluMEDROL INJ) 60 mg Q6H IV PUSH 06/07/17 09:15 (Zithromax) 500 mg Taper DAILY PO 06/07/17 09:15 06/12/17 09:14 (Heparin Inj) 5,000 units Q8H SQ 06/07/17 09:15 (Lipitor) 10 mg HS PO 06/07/17 21:00 (Symbicort 160-4.5 Inh) 2 puff Q12HR INH 06/07/17 21:00 (Lasix) 40 mg DAILY PRN PO 06/07/17 09:15 (Prinivil) 10 mg DAILY PO 06/08/17 09:00 (Ativan) 0.5 mg BID PO 06/07/17 21:00 (Lopressor) 50 mg DAILY PO 06/08/17 09:00 (KCl) 20 meq DAILY PO 06/08/17 09:00 (Zoloft) 50 mg DAILY PO 06/08/17 09:00 (Spiriva Inh) 18 mcg DAILY INH 06/08/17 09:00 Social History Patient has a history of smoking up to 3 packs per day for 35+ years. He continue to smoke 3-4 cigarettes daily. He reports EtOH consumption of 3 beers daily. Physical Exam Vital Signs Vital Signs Date Time Temp Pulse Resp B/P (MAP) Pulse Ox O2 Delivery O2 Flow Rate FiO2 06/07/17 12:00 100.2 128 22 164/80 (108) 96 06/07/17 10:00 96 26 123/69 (87) 96 Nasal Cannula 2.00 06/07/17 09:00 94 28 125/63 (83) 94 Nasal Cannula 2.00 06/07/17 08:50 85 Room Air 06/07/17 08:15 112 25 165/82 (109) 94 Nasal Cannula 2.00 06/07/17 07:55 94 Nasal Cannula 2.00 06/07/17 07:44 94 Nasal Cannula 4.00 06/07/17 07:44 Nasal Cannula 4.00 06/07/17 07:42 28 94 Nasal Cannula 4.00 06/07/17 07:39 105 28 167/80 (109) 94 Physical Exam GENERAL: This is a thin ill appearing male patient, in mild distress secondary to dyspnea. Awake and alert. SKIN: No rashes, ecchymoses or lesions. Cool and dry. HEAD: Atraumatic. Normocephalic. No temporal or scalp tenderness. EYES: Pupils equal round and reactive. Extraocular motions intact. No scleral icterus. No injection or drainage. ENT: Nose without bleeding or purulent drainage. Throat without erythema, tonsillar hypertrophy or exudate. Uvula midline. Airway patent. NECK: Trachea midline. No lymphadenopathy. Supple, nontender, no meningeal signs. CARDIOVASCULAR: Tachycardic without murmurs, gallops, or rubs. RESPIRATORY: Diminished air entry with diffuse inspiratory and expiratory wheezing noted throughout all lung anthony. (+) Accessory muscle use. GASTROINTESTINAL: Abdomen soft, non-tender, nondistended. No hepato-splenomegaly , or palpable masses. No guarding. MUSCULOSKELETAL: Extremities without clubbing, cyanosis, or edema. No joint tenderness, effusion, or edema noted. No calf tenderness. NEUROLOGICAL: Awake and alert. Able to move all extremities spontaneously. No focal neurologic finding appreciated. Normal speech but noted to be mildly dyspneic with speaking sentences. Laboratory Laboratory Tests Test 06/07/17 07:30 06/07/17 07:45 White Blood Count 12.9 Red Blood Count 4.03 Hemoglobin 13.7 Hematocrit 39.7 Mean Corpuscular Volume 98.5 Mean Corpuscular Hemoglobin 34.0 Mean Corpuscular Hemoglobin Concent 34.6 Red Cell Distribution Width 18.0 Platelet Count 267 Mean Platelet Volume 7.5 Neutrophils (%) (Auto) 59.7 Lymphocytes (%) (Auto) 29.5 Monocytes (%) (Auto) 9.6 Eosinophils (%) (Auto) 0.7 Basophils (%) (Auto) 0.5 Neutrophils # (Auto) 7.7 Lymphocytes # (Auto) 3.8 Monocytes # (Auto) 1.2 Eosinophils # (Auto) 0.1 Basophils # (Auto) 0.1 CBC Comment AUTO DIFF Differential Total Cells Counted 100 Neutrophils % (Manual) 71 Lymphocytes % 21 Monocytes % 7 Basophils % 1 Neutrophils # (Manual) 9.2 Differential Comment FINAL DIFF MANUAL Platelet Estimate NORMAL Platelet Morphology Comment NORMAL Blood Urea Nitrogen 9 Creatinine 0.58 Random Glucose 116 Total Protein 7.1 Albumin 3.8 Calcium Level 8.9 Alkaline Phosphatase 88 Aspartate Amino Transf (AST/SGOT) 31 Alanine Aminotransferase (ALT/SGPT) 33 Total Bilirubin 0.8 Sodium Level 135 Potassium Level 4.6 Chloride Level 101 Carbon Dioxide Level 25.2 Anion Gap 9 Estimat Glomerular Filtration Rate 141 B-Type Natriuretic Peptide 83 Lactic Acid Level 1.5 Date/Time Source Procedure Growth Status 06/07/17 07:45 Blood Peripheral Aerobic Blood Culture Pending Received 06/07/17 07:45 Blood Peripheral Anaerobic Blood Culture Pending Received 06/07/17 08:15 Nasal Washing Influenza Types A,B Antigen (ANI) - Final NEGATIVE FOR FLU A AND B ANTIGEN.... Complete Result Diagram: 06/07/1772906/07/17729 Imaging Last Impressions Chest X-Ray 06/07/17740 Signed Impressions: Service Date/Time: Wednesday, June 07, 2017 07:47 - CONCLUSION: 1. Emphysema and scarring. 2. No acute cardiopulmonary disease demonstrated. MD Kortney Gill VTE Risk Assessment Caprini VTE Risk Assessment: Mod/High Risk (score >= 2) Caprini Risk Assessment Model Point Value = 1 Point Value = 2 Point Value = 3 Point Value = 5 Age 41-60 Minor surgery BMI > 25 kg/m2 Swollen legs Varicose veins or History of unexplained or recurrent spontaneous Oral contraceptives or hormone replacement Sepsis (< 1 month) Serious lung disease, including pneumonia (< 1 month) Abnormal pulmonary function Acute myocardial infarction Congestive heart failure (< 1 month) History of inflammatory bowel disease Medical patient at bed rest Age 61-74 Arthroscopic surgery Major open surgery (> 45 min) Laparoscopic surgery (> 45 min) Malignancy Confined to bed (> 72 hours) Immobilizing plaster cast Central venous access Age >= 75 History of VTE Family history of VTE Factor V Leiden Prothrombin [id number] Lupus anticoagulant Anticardiolipin antibodies Elevated serum homocysteine Heparin-induced thrombocytopenia Other congenital or acquired thrombophilia Stroke (< 1 month) Elective arthroplasty Hip, pelvis, or leg fracture Acute spinal cord injury (< 1 month) Prophylaxis Regimen Total Risk Factor Score Risk Level Prophylaxis Regimen 0-1 Low Early ambulation 2 Moderate Order ONE of the following: *Sequential Compression Device (SCD) *Heparin 5000 units SQ BID 3-4 Higher Order ONE of the following medications: *Heparin 5000 units SQ TID *Enoxaparin/Lovenox 40 mg SQ daily (WT < 150 kg, CrCl > 30 mL/min) *Enoxaparin/Lovenox 30 mg SQ daily (WT < 150 kg, CrCl > 10-29 mL/min) *Enoxaparin/Lovenox 30 mg SQ BID (WT < 150 kg, CrCl > 30 mL/min) AND/OR *Sequential Compression Device (SCD) 5 or more Highest Order ONE of the following medications: *Heparin 5000 units SQ TID (Preferred with Epidurals) *Enoxaparin/Lovenox 40 mg SQ daily (WT < 150 kg, CrCl > 30 mL/min) *Enoxaparin/Lovenox 30 mg SQ daily (WT < 150 kg, CrCl > 10-29 mL/min) *Enoxaparin/Lovenox 30 mg SQ BID (WT < 150 kg, CrCl > 30 mL/min) AND *Sequential Compression Device (SCD) Assessment and Plan Assessment and Plan 66yo male with a PMHX significant for COPD/emphysema with continued tobacco use , HTN, CHF, atrial fibrillation, anxiety, 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 SIRS, patient is tachypneic and tachycardiac with elevated white count COPD in acute exacerbation Acute on chronic respiratory failure Ongoing tobaccoism - CXR reviewed by me showing emphysema and scarring, no acute cardiopulmonary process identified. - continue on supplemental oxygen to maintain O2 sats above 92% - Discussed with patient importance of smoking cessation - Scheduled and as needed nebs - IV steroids - Azithromycin daily - Resume home bronchodilators - Consult COPD educator CHF, not decompensated - Echocardiogram 03/23/17 EF 45-50%, mild pulmonary HTN - discussed at length diagnosis with patient to include fluid/salt restriction, dietary changes, etc - No evidence of fluid overload at this time. Continue to monitor. - BNP 83 - patient has not been on Lasix for the past month - CHF educator DDD cervical spine Chronic neck pain Narcotic dependence - Discussed with patient at length association between narcotic use and [employer] depressant/suppression of respiratory drive - will resume narcotics but at lower dose Leukocytosis - suspect reactive, no left shift - CXR shows no e/o acute infectious process - continue to monitor as indicated HTN Atrial fibrillation, paroxysmal - BP elevated at ED presentation, likely situational - concern for medication noncompliance - [id number] score 3, patient not on any anticoagulation - Consult cardiology - Resume home dose of lisinopril 10 mg daily and Lopressor 50 mg daily - monitor HR and BP Daily EtOH consumption - [facility] protocol - monitor for s/sxs of EtOH withdrawal - seizure precautions - Thiamine/folic acid/MVI daily Dyslipidemia - Resume home dose of Lipitor 10 mg daily DVT prophylaxis - Heparin sq Discussed Condition With Patient, nursing staff, ED physician This note was transcribed by ernie Martinez. I, Dr. Courtney Valdivia personally performed the history, physical exam, and medical decision making; and confirmed the accuracy of the information in the transcribed note. Authenticated by Dr. Courtney Valdivia on 06/07/17 at 13:45 Maddie Martinez Jun 07, 2017 13:51 Courtney Valdivia MD Jun 07, 2017 14:42
[2017-06-07] MEDS: RESP: ALBUTEROL 2.5 MG/3 ML NEB (PRN) INH (13:59)
[2017-06-07] MEDS ORDERED: LORazepam 2 MG TAB PO PRN (15:00)
[2017-06-07] MEDS ORDERED: LORazepam 1 MG TAB PO PRN (15:00)
[2017-06-07] MEDS ORDERED: THIAMINE HCL 100 MG TAB PO ONE (15:00)
[2017-06-07] MEDS ORDERED: LORazepam 2 MG/ML VIAL IV PUSH PRN ×3 (15:00)
[2017-06-07] MEDS ORDERED: FLUMAZENIL 0.5 MG/5 ML VIAL IV PUSH PRN (15:00)
[2017-06-07] MEDS ORDERED: FOLIC ACID 1 MG TAB PO ONE (15:00)
[2017-06-07] MEDS ORDERED: MULTIVITAMIN TAB PO ONE (15:00)
[2017-06-07] MEDS: ACETAMINOPHEN/HYDROcodone 325 MG/5 MG TAB PO PRN ×2 (15:37→23:23)
[2017-06-07] MEDS: LORazepam 2 MG/ML VIAL IV PUSH PRN ×2 (15:45→18:53)
--- NOTE | 2017-06-07 16:11 | MB ---
cc: PRANAV SMITH MD DATE OF CONSULTATION: 06/07/2017. REASON FOR CONSULTATION: Atrial fibrillation. HISTORY OF PRESENT ILLNESS: The patient is a pleasant 66-year gentleman with several admissions over the last couple of months for COPD, shortness breath and pericardial effusion. His pericardial effusion has been drained during a prior hospitalization. He presents with several days of worsening shortness of breath. Currently he says he is quite short of breath when he sits up but feels better when he lies down. He also has felt some fluttering over the last several days. No chest pain, lightheadedness, dizziness or syncope. PAST MEDICAL HISTORY: 1. COPD with ongoing tobacco use. 2. Atrial fibrillation (previously not on anticoagulation due to hemorrhagic pericardial effusion). 3. Hypertension. 4. Pericardial window. MEDICATIONS: His current medications include: 1. Lisinopril 10 milligrams daily. 2. Lopressor 50 milligrams daily. 3. Zoloft 50 milligrams daily. 4. Spiriva. 5. Thiamine. 6. Folate. 7. A multivitamin. 8. Lipitor 10 milligrams at bedtime. 9. Ativan. ALLERGIES: PIPERACILLIN / TAZOBACTAM. PHYSICAL EXAMINATION: VITAL SIGNS: Temperature 100.2, pulse 120, respiratory rate 22, blood pressure 164/80 satting 96 on two liters. GENERAL: In general, a thin/cachectic gentleman who appears tremulous and in no distress breathing with classic COPD features. NECK: No jugular venous distention. LUNGS: Very decreased breath sounds in all anthony. CARDIOVASCULAR: Distant heart sounds. No murmurs appreciated. ABDOMEN: Benign. EXTREMITIES: No edema. LABORATORY DATA: INR is 1.0. Sodium is 135, potassium 4.6, chloride 101, bicarb 25.2, BUN 9, creatinine 0.58. White count 12.9, hematocrit 39.7, platelets 267,000. IMAGING STUDIES: Chest x-ray shows emphysema but no acute cardiopulmonary disease. Nuclear stress test from March showed no evidence of ischemia. EKGS: EKG was read as sinus arrhythmia. Current telemetry shows a mildly rapid atrial fibrillation. IMPRESSION: 1. Paroxysmal atrial fibrillation. The patient has known paroxysmal atrial fibrillation and likely could now tolerate anticoagulation. He wants the cheapest possible so I will initiate warfarin. His rates are somewhat high, but so is his blood pressure and so I will start him on oral Cardizem. 2. Pericardial effusion. Since he had a window, I doubt that this is a current player in his presentation but I will have him undergo a limited echocardiogram. 3. Tobacco abuse. I counselled at length. The patient admits to still smoking despite his severe COPD requiring oxygen. He says he will try to quit. Further recommendations will be based on the clinical course. Thank you again for the opportunity to participate in this patient's care. MD IRINA Harris/MIKE /3:40 PM /4:06 PM
[2017-06-07] MEDS: DILTIAZEM HCL 60 MG TAB PO SCH ×2 (18:33→21:26)
[2017-06-07 19:16] LABS: INTERNATIONAL NORMALIZED RATIO 0.9 RATIO; PROTHROMBIN TIME - PATIENT 10.1 SEC (9.8-11.6)
[2017-06-07] MEDS: ATORVASTATIN 10 MG TAB PO SCH (21:26)
[2017-06-07] MEDS: LORazepam 0.5 MG TAB PO SCH (21:26)
[2017-06-07] MEDS ORDERED: WARFARIN SOD 5 MG TAB PO ONE (22:15)
[2017-06-07] MEDS: BUDESONIDE-FORMOTEROL 160/4.5 MCG INHALER INH SCH (22:24)
[2017-06-08] VITALS (8 sets, daily range): BP systolic 109–177; BP diastolic 55–84; PULSE 68–95; RESP 18–24; TEMP 97.3–98.5; O2SAT 97–99
[2017-06-08] MEDS: methylPREDNISolone SOD SUCC 125 MG/2 ML VIAL IV PUSH SCH ×4 (03:48→21:54)
[2017-06-08] MEDS: HEPARIN SODIUM - SQ 10,000 UNITS/ML VIAL SQ SCH ×4 (03:48→23:49)
[2017-06-08] MEDS: RESP: ALBUTEROL 2.5 MG/IPRATROPIUM 0.5 MG NEB (SCH) INH ×4 (04:52→19:58)
[2017-06-08] MEDS: ACETAMINOPHEN/HYDROcodone 325 MG/5 MG TAB PO PRN ×3 (07:12→23:49)
[2017-06-08 07:51] LABS: INTERNATIONAL NORMALIZED RATIO 0.9 RATIO; PROTHROMBIN TIME - PATIENT 9.4 SEC (9.8-11.6)
[2017-06-08 08:03] LABS: BICARBONATE 26.4 MEQ/L (21.0-32.0); POTASSIUM 3.8 MEQ/L (3.5-5.1)
--- NOTE | 2017-06-08 08:46 | PD.CARD.PN ---
Subjective Subjective Remarks Pt feels somewhat better, rates improved. Objective Medications Current Medications Medications (Trade) Dose Ordered Sig/Nabila Route Start Time Stop Time Status Last Admin (NS Flush) 2 ml UNSCH PRN IVF 06/07/17 07:45 (Duoneb Neb) 1 ampule Q6HR NEB INH 06/07/17 10:00 06/08/17 04:52 (Albuterol Neb) 2.5 mg Q2HR NEB PRN INH 06/07/17 09:15 06/07/17 13:59 (SoluMEDROL INJ) 60 mg Q6H IV PUSH 06/07/17 09:15 06/08/17 03:48 (Zithromax) 500 mg Taper DAILY PO 06/07/17 09:15 06/12/17 09:14 (Heparin Inj) 5,000 units Q8H SQ 06/07/17 09:15 06/08/17 03:48 (Lipitor) 10 mg HS PO 06/07/17 21:00 06/07/17 21:26 (Symbicort 160-4.5 Inh) 2 puff Q12HR INH 06/07/17 21:00 06/07/17 22:24 (Prinivil) 10 mg DAILY PO 06/08/17 09:00 (Ativan) 0.5 mg BID PO 06/07/17 21:00 06/07/17 21:26 (Lopressor) 50 mg DAILY PO 06/08/17 09:00 (Zoloft) 50 mg DAILY PO 06/08/17 09:00 (Spiriva Inh) 18 mcg DAILY INH 06/08/17 09:00 ([place] 5-325 Mg) 1 tab Q8H PRN PO 06/07/17 14:45 06/08/17 07:12 (Romazicon Inj) 0.2 mg Q1M PRN IV PUSH 06/07/17 15:00 (Ativan) 1 mg Q4H PRN PO 06/07/17 15:00 06/07/17 23:30 (Ativan Inj) 1 mg Q4H PRN IV PUSH 06/07/17 15:00 06/07/17 18:53 (Ativan) 2 mg Q2H PRN PO 06/07/17 15:00 (Ativan Inj) 2 mg Q2H PRN IV PUSH 06/07/17 15:00 (Ativan Inj) 2 mg Q1H PRN IV PUSH 06/07/17 15:00 (Ativan Inj) 2 mg Q15M PRN IV PUSH 06/07/17 15:00 (Vitamin B1) 100 mg DAILY PO 06/08/17 09:00 (Folate) 1 mg DAILY PO 06/08/17 09:00 (Theragran) 1 tab DAILY PO 06/08/17 09:00 Pharmacy Profile Note 0 ml @ 0 mls/hr UNSCH OTHER 06/07/17 17:00 (Cardizem) 60 mg QID PO 06/07/17 18:00 06/07/17 21:26 Vital Signs / I&O Vital Signs Date Time Temp Pulse Resp B/P (MAP) Pulse Ox O2 Delivery O2 Flow Rate FiO2 06/08/17 04:00 97.3 91 22 155/72 (99) 98 06/08/17 00:00 97.3 89 20 109/73 (85) 99 06/07/17 21:56 99 Nasal Cannula 2.00 06/07/17 21:36 Nasal Cannula 2.00 06/07/17 20:09 93 06/07/17 20:00 97.5 97 20 137/80 (99) 100 06/07/17 16:00 97.9 122 20 123/75 (91) 100 06/07/17 12:00 100.2 128 22 164/80 (108) 96 06/07/17 10:00 96 26 123/69 (87) 96 Nasal Cannula 2.00 06/07/17 09:00 94 28 125/63 (83) 94 Nasal Cannula 2.00 06/07/17 08:50 85 Room Air I/O 06/07/17 06/07/17 06/07/17 06/08/17 06/08/17 06/08/17 07:00 15:00 23:00 07:00 15:00 23:00 Intake Total 480 ml 480 ml Output Total 600 ml Balance 480 ml -120 ml Intake Oral 480 ml 480 ml Output Urine Total 600 ml # Voids 2 # Bowel Movements 1 1 Physical Exam GENERAL: This is a well-nourished, well-developed patient, in no apparent distress. CARDIOVASCULAR: Regular rate and irregular rhythm without murmurs, gallops, or rubs. RESPIRATORY: Clear to auscultation. Breath sounds equal bilaterally. No wheezes , rales, or rhonchi. GASTROINTESTINAL: Abdomen soft, non-tender, nondistended. Normal, active bowel sounds MUSCULOSKELETAL: Extremities without clubbing, cyanosis, or edema. NEURO: Alert & Oriented x4 to person, place, time, situation. Moves all ext x4 Laboratory Laboratory Tests Test 06/07/17 18:11 06/08/17 05:30 06/08/17 07:10 Prothrombin Time 10.1 SEC 9.4 SEC Prothromb Time International Ratio 0.9 RATIO 0.9 RATIO Blood Urea Nitrogen 16 MG/DL Creatinine 0.60 MG/DL Random Glucose 216 MG/DL Calcium Level 9.0 MG/DL Sodium Level 133 MEQ/L Potassium Level 3.8 MEQ/L Chloride Level 97 MEQ/L Carbon Dioxide Level 26.4 MEQ/L Anion Gap 10 MEQ/L Estimat Glomerular Filtration Rate 135 ML/MIN Imaging Last Impressions Chest X-Ray 06/07/17 0741 Signed Impressions: Service Date/Time: Wednesday, June 07, 2017 07:47 - CONCLUSION: 1. Emphysema and scarring. 2. No acute cardiopulmonary disease demonstrated. Oli Campbell MD Assessment and Plan Problem List: (1) Atrial fibrillation with RVR ICD Codes: I48.91 - Unspecified atrial fibrillation Status: Acute Plan: rates improved, will change to long acting diltiazem; on warfarin (2) COPD with acute exacerbation ICD Codes: J44.1 - Chronic obstructive pulmonary disease with (acute) exacerbation Status: Acute (3) Hypoxia ICD Codes: R09.02 - Hypoxemia Assessment and Plan Ok to d/c home from cardiac standpoint; would be happy to see him in my office. Dov Terrell MD Jun 08, 2017 08:46
[2017-06-08] MEDS ORDERED: POTASSIUM CHLORIDE 20 MEQ CONTROLLED RELEASE TAB PO SCH (09:00)
[2017-06-08] MEDS ORDERED: TIOTROPIUM BROMIDE 18 MCG INH INH SCH (09:00)
[2017-06-08] MEDS: DILTIAZEM-CD 240 MG CAP ER PO SCH (09:06)
[2017-06-08] MEDS: SERTRALINE HCL 50 MG TAB PO SCH (09:06)
[2017-06-08] MEDS: AZITHROMYCIN 250 MG TAB PO SCH (09:06)
[2017-06-08] MEDS: MULTIVITAMIN TAB PO SCH (09:07)
[2017-06-08] MEDS: THIAMINE HCL 100 MG TAB PO SCH (09:07)
[2017-06-08] MEDS: FOLIC ACID 1 MG TAB PO SCH (09:07)
[2017-06-08] MEDS: METOPROLOL TARTRATE 50 MG TAB PO SCH (09:07)
[2017-06-08] MEDS: LISINOPRIL 20 MG TAB PO SCH (09:07)
[2017-06-08] MEDS: LORazepam 0.5 MG TAB PO SCH ×2 (09:07→21:54)
[2017-06-08] MEDS: BUDESONIDE-FORMOTEROL 160/4.5 MCG INHALER INH SCH ×2 (09:08→21:51)
--- NOTE | 2017-06-08 12:33 | HHI.PR ---
Subjective Remarks The patient said he had a lot of congestion and sometimes when he can't cough up mucus he gets nervous and anxious. He says he would like a walker so he could ambulate more readily. He was concerned about being on a blood thinner because he bruises easily. Discussed with nursing. Objective Vitals Vital Signs Date Time Temp Pulse Resp B/P (MAP) Pulse Ox O2 Delivery O2 Flow Rate FiO2 06/08/17 12:00 97.6 78 24 177/84 (115) 97 06/08/17 11:08 97 Nasal Cannula 2.00 06/08/17 08:00 Nasal Cannula 2.00 06/08/17 08:00 97.7 95 24 164/72 (102) 99 06/08/17 04:00 97.3 91 22 155/72 (99) 98 06/08/17 00:00 97.3 89 20 109/73 (85) 99 06/07/17 21:56 99 Nasal Cannula 2.00 06/07/17 21:36 Nasal Cannula 2.00 06/07/17 20:09 93 06/07/17 20:00 97.5 97 20 137/80 (99) 100 06/07/17 16:00 97.9 122 20 123/75 (91) 100 I/O 06/07/17 06/07/17 06/07/17 06/08/17 06/08/17 06/08/17 07:00 15:00 23:00 07:00 15:00 23:00 Intake Total 480 ml 480 ml Output Total 600 ml Balance 480 ml -120 ml Intake Oral 480 ml 480 ml Output Urine Total 600 ml # Voids 2 # Bowel Movements 1 1 Result Diagram: 06/07/1730 06/08/17 0530 Imaging Last Impressions Chest X-Ray 06/07/17 0741 Signed Impressions: Service Date/Time: Wednesday, June 07, 2017 07:47 - CONCLUSION: 1. Emphysema and scarring. 2. No acute cardiopulmonary disease demonstrated. Oli Campbell MD Objective Remarks GENERAL: This is a thin male patient, in mild distress secondary to dyspnea. SKIN: No rashes, ecchymoses or lesions. Cool and dry. HEAD: Atraumatic. Normocephalic. No temporal or scalp tenderness. EYES: Pupils equal round and reactive. Extraocular motions intact. No scleral icterus. No injection or drainage. ENT: Nose without bleeding or purulent drainage. Throat without erythema, tonsillar hypertrophy or exudate. Uvula midline. Airway patent. NECK: Trachea midline. No lymphadenopathy. Supple, nontender, no meningeal signs. CARDIOVASCULAR: Tachycardic without murmurs, gallops, or rubs. RESPIRATORY: Diminished air entry with diffuse inspiratory and expiratory wheezing noted throughout all lung anthony. (+) Accessory muscle use. GASTROINTESTINAL: Abdomen soft, non-tender, nondistended. No hepato-splenomegaly , or palpable masses. No guarding. MUSCULOSKELETAL: Extremities without clubbing, cyanosis, or edema. No joint tenderness, effusion, or edema noted. No calf tenderness. NEUROLOGICAL: Awake and alert. Able to move all extremities spontaneously. No focal neurologic finding appreciated. Normal speech but noted to be mildly dyspneic with speaking sentences. Medications and IVs Current Medications Medications (Trade) Dose Ordered Sig/Nabila Route Start Time Stop Time Status Last Admin (NS Flush) 2 ml UNSCH PRN IVF 06/07/17 07:45 (Duoneb Neb) 1 ampule Q6HR NEB INH 06/07/17 10:00 06/08/17 11:08 (Albuterol Neb) 2.5 mg Q2HR NEB PRN INH 06/07/17 09:15 06/07/17 13:59 (SoluMEDROL INJ) 60 mg Q6H IV PUSH 06/07/17 09:15 06/08/17 09:08 (Zithromax) 250 mg Taper DAILY PO 06/07/17 09:15 06/12/17 09:14 06/08/17 09:06 (Heparin Inj) 5,000 units Q8H SQ 06/07/17 09:15 06/08/17 09:08 (Lipitor) 10 mg HS PO 06/07/17 21:00 06/07/17 21:26 (Symbicort 160-4.5 Inh) 2 puff Q12HR INH 06/07/17 21:00 06/08/17 09:08 (Prinivil) 10 mg DAILY PO 06/08/17 09:00 06/08/17 09:07 (Ativan) 0.5 mg BID PO 06/07/17 21:00 06/08/17 09:07 (Lopressor) 50 mg DAILY PO 06/08/17 09:00 06/08/17 09:07 (Zoloft) 50 mg DAILY PO 06/08/17 09:00 06/08/17 09:06 (Spiriva Inh) 18 mcg DAILY INH 06/08/17 09:00 06/08/17 09:00 ([place] 5-325 Mg) 1 tab Q8H PRN PO 06/07/17 14:45 06/08/17 07:12 (Romazicon Inj) 0.2 mg Q1M PRN IV PUSH 06/07/17 15:00 (Ativan) 1 mg Q4H PRN PO 06/07/17 15:00 06/07/17 23:30 (Ativan Inj) 1 mg Q4H PRN IV PUSH 06/07/17 15:00 06/07/17 18:53 (Ativan) 2 mg Q2H PRN PO 06/07/17 15:00 (Ativan Inj) 2 mg Q2H PRN IV PUSH 06/07/17 15:00 (Ativan Inj) 2 mg Q1H PRN IV PUSH 06/07/17 15:00 (Ativan Inj) 2 mg Q15M PRN IV PUSH 06/07/17 15:00 (Vitamin B1) 100 mg DAILY PO 06/08/17 09:00 06/08/17 09:07 (Folate) 1 mg DAILY PO 06/08/17 09:00 06/08/17 09:07 (Theragran) 1 tab DAILY PO 06/08/17 09:00 06/08/17 09:07 Pharmacy Profile Note 0 ml @ 0 mls/hr UNSCH OTHER 06/07/17 17:00 (Cardizem Cd) 240 mg DAILY PO 06/08/17 09:00 06/08/17 09:06 A/P Assessment and Plan 66yo male with a PMHX significant for COPD/emphysema with continued tobacco use , HTN, CHF, atrial fibrillation, anxiety, DDD cervical spine with chronic neck pain and opiate dependence and recent pericardial effusion who presents to [facility] ED with complaints of progressive dyspnea. SIRS, patient is tachypneic and tachycardiac with elevated white count COPD in acute exacerbation Acute on chronic respiratory failure Ongoing tobaccoism - CXR reviewed, showing emphysema and scarring, no acute cardiopulmonary process identified. - continue on supplemental oxygen to maintain O2 sats above 92% - Discussed with patient importance of smoking cessation - Scheduled and as needed nebs - IV steroids - Azithromycin daily - Consult COPD educator - Incentive spirometry - Franciscosin-AC CHF, not decompensated - Echocardiogram 03/23/17 EF 45-50%, mild pulmonary HTN - discussed at length diagnosis with patient to include fluid/salt restriction, dietary changes, etc - No evidence of fluid overload at this time. Continue to monitor. - BNP 83 - patient has not been on Lasix for the past month - CHF educator DDD cervical spine Chronic neck pain Narcotic dependence - Discussed with patient at length association between narcotic use and [employer] depressant/suppression of respiratory drive - will resume narcotics but at lower dose Leukocytosis - suspect reactive, no left shift - CXR shows no e/o acute infectious process - continue to monitor as indicated HTN Atrial fibrillation, paroxysmal - BP elevated at ED presentation, likely situational - concern for medication noncompliance - [id number] score 3, patient not on any anticoagulation - Consult cardiology. Coumadin started. - Resume home dose of lisinopril 10 mg daily and Lopressor 50 mg daily. Cardizem added by cardiology. - monitor HR and BP Daily EtOH consumption - [facility] protocol - monitor for s/sxs of EtOH withdrawal - seizure precautions - Thiamine/folic acid/MVI daily DVT prophylaxis - Heparin sq Discharge Planning Awaiting improvement in respiratory status. Anticipate 1-2 days Zak Dennis DO Jun 08, 2017 12:33
[2017-06-08] MEDS ORDERED: guaiFENesin/CODEINE SYRUP 200 MG/20 MG/10 ML CUP PO ONE (12:45)
[2017-06-08] MEDS: WARFARIN SOD 5 MG TAB PO SCH (16:00)
--- NOTE | 2017-06-08 16:13 | ECHRPT ---
Indication: rubin eff CONCLUSIONS Normal left ventricular size. The left ventricular systolic function is normal with an estimated ejection fraction in the range of 55-60%. Wall thickness is normal. Trace mitral valve regurgitation. No aortic valve regurgitation. No aortic valve stenosis. There is mild tricuspid valve regurgitation. The estimated pulmonary arterial pressure is 53.6 mmHg. BP: / HR: Rhythm: MEASUREMENTS (Male / Female) Normal Values Technical Quality:Good 2D ECHO LV Diastolic Diameter PLAX 4.3 cm 4.2 - 5.9 / 3.9 - 5.3 cm LV Systolic Diameter PLAX 3.2 cm IVS Diastolic Thickness 0.9 cm 0.6 - 1.0 / 0.6 - 0.9 cm LVPW Diastolic Thickness 0.8 cm 0.6 - 1.0 / 0.6 - 0.9 cm LV Relative Wall Thickness 0.4 RV Internal Dim ED PLAX 3.3 cm DOPPLER TR Peak Velocity 330.0 cm/s TR Peak Gradient 43.6 mmHg Right Atrial Pressure 10.0 mmHg Pulmonary Artery Systolic Pressu 53.6 mmHg Right Ventricular Systolic Press 53.6 mmHg FINDINGS LEFT VENTRICLE Normal left ventricular size. The left ventricular systolic function is normal with an estimated ejection fraction in the range of 55-60%. Wall thickness is normal. RIGHT VENTRICLE Normal right ventricular size and systolic function. LEFT ATRIUM The left atrial size is normal. RIGHT ATRIUM The right atrial size is normal. ATRIAL SEPTUM Normal atrial septal thickness without atrial level shunting by limited color doppler interrogation. AORTA The aortic root and proximal ascending aorta are normal in size on limited imaging. MITRAL VALVE Structurally normal mitral valve. Trace mitral valve regurgitation. AORTIC VALVE Trileaflet aortic valve. No aortic valve regurgitation. No aortic valve stenosis. TRICUSPID VALVE Structurally normal tricuspid valve. There is mild tricuspid valve regurgitation. The estimated pulmonary arterial pressure is 53.6 mmHg. PULMONARY VALVE No pulmonary valve regurgitation or stenosis. VESSELS The inferior vena cava is normal in size. PERICARDIUM No pericardial effusion. Santos Clement MD (Electronically Signed) Final Date:08 June 2017 16:12
[2017-06-08] MEDS: RESP: ALBUTEROL 2.5 MG/3 ML NEB (PRN) INH (16:28)
[2017-06-08] MEDS: guaiFENesin/CODEINE SYRUP 200 MG/20 MG/10 ML CUP PO PRN ×2 (16:48→23:50)
[2017-06-08] MEDS: ATORVASTATIN 10 MG TAB PO SCH (21:54)
[2017-06-09] VITALS (10 sets, daily range): BP systolic 122–154; BP diastolic 65–80; PULSE 64–93; RESP 18–24; TEMP 97.7–98.4; O2SAT 94–98
[2017-06-09] MEDS: methylPREDNISolone SOD SUCC 125 MG/2 ML VIAL IV PUSH SCH ×2 (04:28→09:23)
[2017-06-09] MEDS: RESP: ALBUTEROL 2.5 MG/IPRATROPIUM 0.5 MG NEB (SCH) INH ×4 (05:06→21:42)
[2017-06-09 07:10] LABS: INTERNATIONAL NORMALIZED RATIO 1.2 RATIO; PROTHROMBIN TIME - PATIENT 12.8 SEC (9.8-11.6)
[2017-06-09] MEDS: guaiFENesin/CODEINE SYRUP 200 MG/20 MG/10 ML CUP PO PRN ×3 (09:21→21:51)
[2017-06-09] MEDS: HEPARIN SODIUM - SQ 10,000 UNITS/ML VIAL SQ SCH ×2 (09:23→17:21)
[2017-06-09] MEDS: SERTRALINE HCL 50 MG TAB PO SCH (09:23)
[2017-06-09] MEDS: LISINOPRIL 20 MG TAB PO SCH (09:24)
[2017-06-09] MEDS: ACETAMINOPHEN/HYDROcodone 325 MG/5 MG TAB PO PRN ×2 (09:24→17:22)
[2017-06-09] MEDS: DILTIAZEM-CD 240 MG CAP ER PO SCH (09:24)
[2017-06-09] MEDS: METOPROLOL TARTRATE 50 MG TAB PO SCH (09:24)
[2017-06-09] MEDS: FOLIC ACID 1 MG TAB PO SCH (09:24)
[2017-06-09] MEDS: LORazepam 0.5 MG TAB PO SCH ×2 (09:24→20:23)
[2017-06-09] MEDS: THIAMINE HCL 100 MG TAB PO SCH (09:24)
[2017-06-09] MEDS: MULTIVITAMIN TAB PO SCH (09:25)
[2017-06-09] MEDS: AZITHROMYCIN 250 MG TAB PO SCH (09:25)
[2017-06-09] MEDS: BUDESONIDE-FORMOTEROL 160/4.5 MCG INHALER INH SCH ×2 (09:35→20:23)
[2017-06-09] MEDS: RESP: ALBUTEROL 2.5 MG/3 ML NEB (PRN) INH ×2 (11:54→21:56)
--- NOTE | 2017-06-09 12:13 | HHI.PR ---
Subjective Remarks The patient was receiving nebulizer treatments. He requested saline capsules to help decongest him. He is looking forward to going home tomorrow if feeling better. Discussed with nursing and respiratory therapy. Objective Vitals Vital Signs Date Time Temp Pulse Resp B/P (MAP) Pulse Ox O2 Delivery O2 Flow Rate FiO2 06/09/17 08:15 Nasal Cannula 2.00 06/09/17 08:00 97.9 93 22 150/80 (103) 96 06/09/17 07:52 98 Nasal Cannula 2.00 06/09/17 04:00 98.0 92 20 154/77 (102) 94 06/09/17 00:00 97.8 87 22 146/66 (92) 97 06/09/17 00:00 18 06/08/17 20:00 98 Nasal Cannula 2.00 06/08/17 20:00 98.0 76 18 115/55 (75) 99 06/08/17 19:00 Nasal Cannula 2.00 06/08/17 16:24 99 Nasal Cannula 2.00 06/08/17 16:00 98.5 68 22 115/70 (85) 99 I/O 06/08/17 06/08/17 06/08/17 06/09/17 06/09/17 06/09/17 07:00 15:00 23:00 07:00 15:00 23:00 Intake Total 480 ml 720 ml 480 ml Output Total 600 ml 275 ml 300 ml 750 ml Balance -120 ml -275 ml 420 ml -270 ml Intake Oral 480 ml 720 ml 480 ml Output Urine Total 600 ml 275 ml 300 ml 750 ml # Voids 1 # Bowel Movements 1 0 1 Result Diagram: 06/07/1730 06/08/17 0530 Imaging Last Impressions Chest X-Ray 06/07/17 0741 Signed Impressions: Service Date/Time: Wednesday, June 07, 2017 07:47 - CONCLUSION: 1. Emphysema and scarring. 2. No acute cardiopulmonary disease demonstrated. Oli Campbell MD Objective Remarks GENERAL: This is a thin male patient, in mild distress secondary to dyspnea. SKIN: No rashes, ecchymoses or lesions. Cool and dry. HEAD: Atraumatic. Normocephalic. No temporal or scalp tenderness. EYES: Pupils equal round and reactive. Extraocular motions intact. No scleral icterus. No injection or drainage. ENT: Nose without bleeding or purulent drainage. Throat without erythema, tonsillar hypertrophy or exudate. Uvula midline. Airway patent. NECK: Trachea midline. No lymphadenopathy. Supple, nontender, no meningeal signs. CARDIOVASCULAR: Tachycardic without murmurs, gallops, or rubs. RESPIRATORY: Diminished air entry with diffuse inspiratory and expiratory wheezing noted throughout all lung anthony. (+) Accessory muscle use. GASTROINTESTINAL: Abdomen soft, non-tender, nondistended. No hepato-splenomegaly , or palpable masses. No guarding. MUSCULOSKELETAL: Extremities without clubbing, cyanosis, or edema. No joint tenderness, effusion, or edema noted. No calf tenderness. NEUROLOGICAL: Awake and alert. Able to move all extremities spontaneously. No focal neurologic finding appreciated. Normal speech but noted to be mildly dyspneic with speaking sentences. PSYCH: Mood and affect appropriate. Medications and IVs Current Medications Medications (Trade) Dose Ordered Sig/Nabila Route Start Time Stop Time Status Last Admin (NS Flush) 2 ml UNSCH PRN IVF 06/07/17 07:45 (Duoneb Neb) 1 ampule Q6HR NEB INH 06/07/17 10:00 06/09/17 07:52 (Albuterol Neb) 2.5 mg Q2HR NEB PRN INH 06/07/17 09:15 06/09/17 11:54 (Zithromax) 250 mg Taper DAILY PO 06/07/17 09:15 06/12/17 09:14 06/09/17 09:25 (Heparin Inj) 5,000 units Q8H SQ 06/07/17 09:15 06/09/17 09:23 (Lipitor) 10 mg HS PO 06/07/17 21:00 06/08/17 21:54 (Symbicort 160-4.5 Inh) 2 puff Q12HR INH 06/07/17 21:00 06/09/17 09:35 (Prinivil) 10 mg DAILY PO 06/08/17 09:00 06/09/17 09:24 (Ativan) 0.5 mg BID PO 06/07/17 21:00 06/09/17 09:24 (Lopressor) 50 mg DAILY PO 06/08/17 09:00 06/09/17 09:24 (Zoloft) 50 mg DAILY PO 06/08/17 09:00 06/09/17 09:23 ([place] 5-325 Mg) 1 tab Q8H PRN PO 06/07/17 14:45 06/09/17 09:24 (Romazicon Inj) 0.2 mg Q1M PRN IV PUSH 06/07/17 15:00 (Ativan) 1 mg Q4H PRN PO 06/07/17 15:00 06/07/17 23:30 (Ativan Inj) 1 mg Q4H PRN IV PUSH 06/07/17 15:00 06/07/17 18:53 (Ativan) 2 mg Q2H PRN PO 06/07/17 15:00 (Ativan Inj) 2 mg Q2H PRN IV PUSH 06/07/17 15:00 (Ativan Inj) 2 mg Q1H PRN IV PUSH 06/07/17 15:00 (Ativan Inj) 2 mg Q15M PRN IV PUSH 06/07/17 15:00 (Vitamin B1) 100 mg DAILY PO 06/08/17 09:00 06/09/17 09:24 (Folate) 1 mg DAILY PO 06/08/17 09:00 06/09/17 09:24 (Theragran) 1 tab DAILY PO 06/08/17 09:00 06/09/17 09:25 Pharmacy Profile Note 0 ml @ 0 mls/hr UNSCH OTHER 06/07/17 17:00 (Cardizem Cd) 240 mg DAILY PO 06/08/17 09:00 06/09/17 09:24 (Coumadin) 5 mg DAILY@1600 PO 06/08/17 16:00 06/08/17 16:00 (Robitussin Ac 200-20 Mg/10 ml Liq) 10 ml Q4H PRN PO 06/08/17 12:45 06/09/17 09:21 (SoluMEDROL INJ) 40 mg BID IV PUSH 06/09/17 21:00 UNV A/P Assessment and Plan 66yo male with a PMHX significant for COPD/emphysema with continued tobacco use , HTN, CHF, atrial fibrillation, anxiety, DDD cervical spine with chronic neck pain and opiate dependence and recent pericardial effusion who presents to [facility] ED with complaints of progressive dyspnea. SIRS/ Acute COPD exacerbation/ Acute on chronic respiratory failure The patient was tachypneic and tachycardiac with elevated white count. CXR reviewed, showing emphysema and scarring, no acute cardiopulmonary process identified. - continue on supplemental oxygen to maintain O2 sats above 92%. - Discussed with patient importance of smoking cessation. - Scheduled and as needed nebs. - IV steroids being weaned. - Azithromycin daily. - Consulted COPD educator. - Incentive spirometry. - Robitussin-AC. - on home oxygen. CHF Not decompensated Echocardiogram 03/23/17 EF 45-50%, mild pulmonary HTN. Repeat echo with normal EF. BNP 83. - discussed fluid/salt restriction, dietary changes, etc. - CHF educator. DDD cervical spine/ Chronic neck pain/ Narcotic dependence Chronic issue. - will resume narcotics but at lower dose. - outpt follow-up. Atrial fibrillation, paroxysmal [id number] score 3, patient not on any anticoagulation. Cardiology consult appreciated. - Coumadin started. - Resume home dose of lisinopril 10 mg daily and Lopressor 50 mg daily. Cardizem added by cardiology. Daily EtOH consumption No evidence of withdrawal. - [facility] protocol - cessation instruction. DVT prophylaxis: Heparin sq Discharge Planning Awaiting improvement in respiratory status. Anticipate 1-2 days Zak Dennis DO Jun 09, 2017 12:13
[2017-06-09] MEDS: WARFARIN SOD 5 MG TAB PO SCH (16:29)
[2017-06-09] MEDS: ATORVASTATIN 10 MG TAB PO SCH (20:24)
[2017-06-09] MEDS ORDERED: methylPREDNISolone SOD SUCC 40 MG/1 ML VIAL IV PUSH SCH (21:00)
[2017-06-10] VITALS (10 sets, daily range): BP systolic 112–168; BP diastolic 57–86; PULSE 63–111; RESP 17–24; TEMP 97.1–98.2; O2SAT 92–99
[2017-06-10] MEDS: ACETAMINOPHEN/HYDROcodone 325 MG/5 MG TAB PO PRN ×3 (01:50→20:18)
[2017-06-10] MEDS: HEPARIN SODIUM - SQ 10,000 UNITS/ML VIAL SQ SCH ×2 (01:51→09:04)
[2017-06-10] MEDS: guaiFENesin/CODEINE SYRUP 200 MG/20 MG/10 ML CUP PO PRN ×4 (01:54→16:46)
[2017-06-10] MEDS: RESP: ALBUTEROL 2.5 MG/IPRATROPIUM 0.5 MG NEB (SCH) INH ×4 (03:04→21:56)
[2017-06-10 07:23] LABS: INTERNATIONAL NORMALIZED RATIO 2.1 RATIO; PROTHROMBIN TIME - PATIENT 24.2 SEC (9.8-11.6)
[2017-06-10] MEDS: BUDESONIDE-FORMOTEROL 160/4.5 MCG INHALER INH SCH ×2 (08:58→20:16)
[2017-06-10] MEDS: FOLIC ACID 1 MG TAB PO SCH (09:01)
[2017-06-10] MEDS: DILTIAZEM-CD 240 MG CAP ER PO SCH (09:01)
[2017-06-10] MEDS: AZITHROMYCIN 250 MG TAB PO SCH (09:01)
[2017-06-10] MEDS: MULTIVITAMIN TAB PO SCH (09:02)
[2017-06-10] MEDS: SERTRALINE HCL 50 MG TAB PO SCH (09:02)
[2017-06-10] MEDS: METOPROLOL TARTRATE 50 MG TAB PO SCH (09:02)
[2017-06-10] MEDS: THIAMINE HCL 100 MG TAB PO SCH (09:02)
[2017-06-10] MEDS: LISINOPRIL 20 MG TAB PO SCH (09:02)
[2017-06-10] MEDS: LORazepam 0.5 MG TAB PO SCH ×2 (09:03→21:29)
[2017-06-10] MEDS: predniSONE 20 MG TAB PO SCH ×2 (09:08→20:17)
[2017-06-10] MEDS ORDERED: RIVAROXABAN 20 MG TAB PO SCH ×2 (10:00→17:00)
[2017-06-10] MEDS ORDERED: SODIUM CHLORIDE 0.65% NASAL SPRAY 45 ML BTL EACH NARE ONE (10:00)
--- NOTE | 2017-06-10 10:04 | HHI.PR ---
Subjective Remarks The patient continues to complain of shortness of breath. He says that most of it is from nasal congestion and he would like that cleared up. He is still coughing up a lot of mucus. He says he will be unable to have his INR followed as an outpatient. He would like to switch anticoagulation to Xarelto. Objective Vitals Vital Signs Date Time Temp Pulse Resp B/P (MAP) Pulse Ox O2 Delivery O2 Flow Rate FiO2 06/10/17 08:00 98.2 104 22 168/86 (113) 92 06/10/17 04:00 97.1 86 17 131/69 (89) 96 06/10/17 03:06 98 Nasal Cannula 2.00 06/10/17 00:00 97.5 81 17 112/57 (75) 98 06/09/17 21:58 98 Nasal Cannula 2.00 06/09/17 20:30 Nasal Cannula 2.00 06/09/17 20:05 64 06/09/17 19:30 98.3 73 20 122/65 (84) 96 06/09/17 16:30 97.7 72 18 133/70 (91) 98 06/09/17 12:00 98.4 76 24 141/77 (98) 98 06/09/17 10:24 18 I/O 06/09/17 06/09/17 06/09/17 06/10/17 06/10/17 06/10/17 07:00 15:00 23:00 07:00 15:00 23:00 Intake Total 480 ml 480 ml Output Total 750 ml Balance -270 ml 480 ml Intake Oral 480 ml 480 ml Output Urine Total 750 ml # Voids 3 # Bowel Movements 1 0 Result Diagram: 06/07/1730 06/08/17 0530 Imaging Last Impressions Chest X-Ray 06/07/17 0741 Signed Impressions: Service Date/Time: Wednesday, June 07, 2017 07:47 - CONCLUSION: 1. Emphysema and scarring. 2. No acute cardiopulmonary disease demonstrated. Oli Campbell MD Objective Remarks GENERAL: This is a thin male patient, in mild distress secondary to dyspnea. SKIN: No rashes, ecchymoses or lesions. Cool and dry. HEAD: Atraumatic. Normocephalic. No temporal or scalp tenderness. EYES: Pupils equal round and reactive. Extraocular motions intact. No scleral icterus. No injection or drainage. ENT: Nose without bleeding or purulent drainage. Throat without erythema, tonsillar hypertrophy or exudate. Uvula midline. Airway patent. NECK: Trachea midline. No lymphadenopathy. Supple, nontender, no meningeal signs. CARDIOVASCULAR: Tachycardic without murmurs, gallops, or rubs. RESPIRATORY: Diminished air entry noted throughout all lung anthony. GASTROINTESTINAL: Abdomen soft, non-tender, nondistended. No hepato-splenomegaly , or palpable masses. No guarding. MUSCULOSKELETAL: Extremities without clubbing, cyanosis, or edema. No joint tenderness, effusion, or edema noted. No calf tenderness. NEUROLOGICAL: Awake and alert. Able to move all extremities spontaneously. No focal neurologic finding appreciated. Normal speech but noted to be mildly dyspneic with speaking sentences. PSYCH: Mood and affect appropriate. Medications and IVs Current Medications Medications (Trade) Dose Ordered Sig/Nabila Route Start Time Stop Time Status Last Admin (NS Flush) 2 ml UNSCH PRN IVF 06/07/17 07:45 06/09/17 20:25 (Duoneb Neb) 1 ampule Q6HR NEB INH 06/07/17 10:00 06/10/17 08:02 (Albuterol Neb) 2.5 mg Q2HR NEB PRN INH 06/07/17 09:15 06/09/17 21:56 (Zithromax) 250 mg Taper DAILY PO 06/07/17 09:15 06/12/17 09:14 06/10/17 09:01 (Heparin Inj) 5,000 units Q8H SQ 06/07/17 09:15 06/10/17 09:04 (Lipitor) 10 mg HS PO 06/07/17 21:00 06/09/17 20:24 (Symbicort 160-4.5 Inh) 2 puff Q12HR INH 06/07/17 21:00 06/10/17 08:58 (Prinivil) 10 mg DAILY PO 06/08/17 09:00 06/10/17 09:02 (Ativan) 0.5 mg BID PO 06/07/17 21:00 06/10/17 09:03 (Lopressor) 50 mg DAILY PO 06/08/17 09:00 06/10/17 09:02 (Zoloft) 50 mg DAILY PO 06/08/17 09:00 06/10/17 09:02 ([place] 5-325 Mg) 1 tab Q8H PRN PO 06/07/17 14:45 06/10/17 09:01 (Romazicon Inj) 0.2 mg Q1M PRN IV PUSH 06/07/17 15:00 (Ativan) 1 mg Q4H PRN PO 06/07/17 15:00 06/07/17 23:30 (Ativan Inj) 1 mg Q4H PRN IV PUSH 06/07/17 15:00 06/07/17 18:53 (Ativan) 2 mg Q2H PRN PO 06/07/17 15:00 (Ativan Inj) 2 mg Q2H PRN IV PUSH 06/07/17 15:00 (Ativan Inj) 2 mg Q1H PRN IV PUSH 06/07/17 15:00 (Ativan Inj) 2 mg Q15M PRN IV PUSH 06/07/17 15:00 (Vitamin B1) 100 mg DAILY PO 06/08/17 09:00 06/10/17 09:02 (Folate) 1 mg DAILY PO 06/08/17 09:00 06/10/17 09:01 (Theragran) 1 tab DAILY PO 06/08/17 09:00 06/10/17 09:02 (Cardizem Cd) 240 mg DAILY PO 06/08/17 09:00 06/10/17 09:01 (Robitussin Ac 200-20 Mg/10 ml Liq) 10 ml Q4H PRN PO 06/08/17 12:45 06/10/17 06:43 (Deltasone) 20 mg BID PO 06/10/17 09:00 06/10/17 09:08 (Xarelto) 20 mg DAILY PO 06/10/17 10:00 UNV A/P Assessment and Plan 66yo male with a PMHX significant for COPD/emphysema with continued tobacco use , HTN, CHF, atrial fibrillation, anxiety, DDD cervical spine with chronic neck pain and opiate dependence and recent pericardial effusion who presents to [facility] ED with complaints of progressive dyspnea. SIRS/ Acute COPD exacerbation/ Acute on chronic respiratory failure The patient was tachypneic and tachycardiac with elevated white count. CXR reviewed, showing emphysema and scarring, no acute cardiopulmonary process identified. - continue on supplemental oxygen to maintain O2 sats above 92%. - Discussed with patient importance of smoking cessation. - Scheduled and as needed nebs. - IV steroids changed to PO prednisone BID. - Azithromycin daily. - Consulted COPD educator. - Incentive spirometry. - Stacie. - on home oxygen. - pseudoephedrine and [place] nasal spray for congestion. CHF Not decompensated. Echocardiogram 03/23/17 EF 45-50%, mild pulmonary HTN. Repeat echo with normal EF. BNP 83. - discussed fluid/salt restriction, dietary changes, etc. - CHF educator. DDD cervical spine/ Chronic neck pain/ Narcotic dependence Chronic issue. - will resume narcotics but at lower dose. - outpt follow-up. Atrial fibrillation, paroxysmal [id number] score 3, patient not on any anticoagulation. Cardiology consult appreciated. The pt says he will not be able to have his INR followed regularly and would like to change anticoagulation to Xarelto at this time. - Coumadin changed to Xarelto 06/10. - Resume home dose of lisinopril 10 mg daily and Lopressor 50 mg daily. Cardizem added by cardiology. - follow up with cardiology as an outpt. Daily EtOH consumption No evidence of withdrawal. - [facility] protocol - cessation instruction. DVT prophylaxis: Heparin sq Discharge Planning Awaiting improvement in respiratory status. Anticipate 1-2 days Zak Dennis DO Jun 10, 2017 10:04
[2017-06-10] MEDS ORDERED: PSEUDOEPHEDRINE HCL 30 MG TAB PO ONE (11:00)
[2017-06-10] MEDS ORDERED: SODIUM CHLORIDE 0.65% NASAL SPRAY 45 ML BTL EACH NARE PRN (11:00)
[2017-06-10] MEDS ORDERED: OXYGENDME NAS.CANULA (14:02)
[2017-06-10] MEDS ORDERED: PSEUDOEPHEDRINE HCL 30 MG TAB PO PRN (16:00)
[2017-06-10] MEDS: ATORVASTATIN 10 MG TAB PO SCH (20:17)
[2017-06-11] VITALS: BP 137/83; PULSE 79; RESP 20; TEMP 97.3; O2SAT 98
[2017-06-11] MEDS: RESP: ALBUTEROL 2.5 MG/IPRATROPIUM 0.5 MG NEB (SCH) INH ×2 (03:56→08:45)
[2017-06-11 03:58] VITALS: O2SAT 98
[2017-06-11 04:00] VITALS: BP 146/80; PULSE 83; RESP 22; TEMP 97.8; O2SAT 97
[2017-06-11] MEDS: guaiFENesin/CODEINE SYRUP 200 MG/20 MG/10 ML CUP PO PRN ×3 (04:17→13:11)
[2017-06-11] MEDS: ACETAMINOPHEN/HYDROcodone 325 MG/5 MG TAB PO PRN ×2 (04:18→13:10)
[2017-06-11 07:21] LABS: INTERNATIONAL NORMALIZED RATIO 4.4 RATIO; PROTHROMBIN TIME - PATIENT 52.1 SEC (9.8-11.6)
[2017-06-11 08:00] VITALS: BP 160/81; PULSE 100; PULSE 78; RESP 20; TEMP 98.3; O2SAT 94
[2017-06-11 08:46] VITALS: O2SAT 97
[2017-06-11] MEDS: AZITHROMYCIN 250 MG TAB PO SCH (09:41)
[2017-06-11] MEDS: LISINOPRIL 20 MG TAB PO SCH (09:42)
[2017-06-11] MEDS: FOLIC ACID 1 MG TAB PO SCH (09:42)
[2017-06-11] MEDS: predniSONE 20 MG TAB PO SCH (09:42)
[2017-06-11] MEDS: DILTIAZEM-CD 240 MG CAP ER PO SCH (09:42)
[2017-06-11] MEDS: SERTRALINE HCL 50 MG TAB PO SCH (09:42)
[2017-06-11] MEDS: MULTIVITAMIN TAB PO SCH (09:42)
[2017-06-11] MEDS: METOPROLOL TARTRATE 50 MG TAB PO SCH (09:42)
[2017-06-11] MEDS: LORazepam 0.5 MG TAB PO SCH (09:42)
[2017-06-11] MEDS: THIAMINE HCL 100 MG TAB PO SCH (09:43)
[2017-06-11] MEDS: BUDESONIDE-FORMOTEROL 160/4.5 MCG INHALER INH SCH (09:43)
[2017-06-11] MEDS ORDERED: HYDR-3516 PO (11:50)
[2017-06-11] MEDS ORDERED: PSEU30TA82 PO (11:50)
[2017-06-11] MEDS ORDERED: LORA-392 PO (11:50)
[2017-06-11] MEDS ORDERED: DILT240C44 PO (11:50)
[2017-06-11] MEDS ORDERED: XARE20TA PO (11:50)
[2017-06-11] MEDS ORDERED: PRED20 PO ×2 (11:50)
[2017-06-11] MEDS ORDERED: PRED10 PO (11:50)
--- NOTE | 2017-06-11 11:51 | HHI.DCPOC ---
Discharge Care Plan Diagnosis: (1) COPD (chronic obstructive pulmonary disease) (2) Atrial fibrillation with RVR (3) Hypoxia (4) COPD exacerbation Goals to Promote Your Health * To prevent worsening of your condition and complications * To maintain your health at the optimal level Directions to Meet Your Goals Take your medications as prescribed Follow your dietary instruction Follow activity as directed Keep your appointments as scheduled Take your immunizations and boosters as scheduled If your symptoms worsen call your PCP, if no PCP go to Urgent Care Center or Emergency Room Smoking is Dangerous to Your Health. Avoid second hand smoke Call the 24-hour hour crisis hotline for domestic abuse at Zak Dennis DO Jun 11, 2017 11:51
[2017-06-11 12:00] VITALS: BP 152/89; PULSE 80; RESP 20; TEMP 98.1; O2SAT 97
--- NOTE | 2017-06-11 12:03 | HHI.DS ---
Discharge Summary Admission Date Jun 08, 2017 at 12:47 Discharge Date: Jun 11, 2017 Admitting Diagnosis acute exacerbation COPD (1) COPD exacerbation ICD Code: J44.1 - Chronic obstructive pulmonary disease with (acute) exacerbation Diagnosis: Principal Status: Acute (2) Atrial fibrillation with RVR ICD Code: I48.91 - Unspecified atrial fibrillation Diagnosis: Principal Status: Acute (3) Hypoxia ICD Code: R09.02 - Hypoxemia (4) Anxiety ICD Code: F41.9 - Anxiety Status: Acute Procedures None Brief History - From Admission Written by Maddie Martinez, acting as scribe for Dr. Valdivia on 06/07/17 at 13: 29. This is a 66yo male with a PMHX significant for COPD/emphysema with continued tobacco use, HTN, CHF, atrial fibrillation, anxiety, DDD cervical spine with chronic neck pain and opiate dependence and recent pericardial effusion who presents to [facility] ED with complaints of progressive dyspnea. He endorses cough with yellowish sputum production. He denies any fever or chills. He reports chest pressure. He has oxygen at home but has not used it for the past 2 years. He had quit smoking for a year and a half but resumed due to life stressors. He was previously on Lasix up until one month ago. He denies any lower extremity edema. He denies knowing he has a history of CHF and does not adhere to any heart healthy diet. Patient was brought in via ambulance and treated with Bipap followed by steroids and multiple nebulizer treatments while in the ED. He is now on 2L NC and satting 92-93%. He states he has lost significant weight over the past 2 years dropping from 135 to 103. He states he is breathing better now. CBC/BMP: 06/07/17 0730 06/08/17 0530 Significant Findings Laboratory Tests Test 06/09/17 05:15 06/10/17 06:30 06/11/17 06:30 Prothrombin Time 12.8 SEC (9.8-11.6) 24.2 SEC (9.8-11.6) 52.1 SEC (9.8-11.6) Imaging Last Impressions Chest X-Ray 06/07/17 0741 Signed Impressions: Service Date/Time: Wednesday, June 07, 2017 07:47 - CONCLUSION: 1. Emphysema and scarring. 2. No acute cardiopulmonary disease demonstrated. Oli Campbell MD PE at Discharge GENERAL: This is a thin male patient, in mild distress secondary to dyspnea. SKIN: No rashes, ecchymoses or lesions. Cool and dry. HEAD: Atraumatic. Normocephalic. No temporal or scalp tenderness. EYES: Pupils equal round and reactive. Extraocular motions intact. No scleral icterus. No injection or drainage. ENT: Nose without bleeding or purulent drainage. Throat without erythema, tonsillar hypertrophy or exudate. Uvula midline. Airway patent. NECK: Trachea midline. No lymphadenopathy. Supple, nontender, no meningeal signs. CARDIOVASCULAR: Tachycardic without murmurs, gallops, or rubs. RESPIRATORY: Diminished air entry noted throughout all lung anthony. GASTROINTESTINAL: Abdomen soft, non-tender, nondistended. No hepato-splenomegaly , or palpable masses. No guarding. MUSCULOSKELETAL: Extremities without clubbing, cyanosis, or edema. No joint tenderness, effusion, or edema noted. No calf tenderness. NEUROLOGICAL: Awake and alert. Able to move all extremities spontaneously. No focal neurologic finding appreciated. Normal speech but noted to be mildly dyspneic with speaking sentences. PSYCH: Mood and affect appropriate. Pt update on day of discharge The patient said he still had shortness of breath but he felt good enough to go home. He requested refills of some of his medications. He said he will uses home oxygen 24 hours a day. He will follow-up with his primary care doctor. Hospital Course SIRS/ Acute COPD exacerbation/ Acute on chronic respiratory failure The patient was tachypneic and tachycardiac with elevated white count. CXR reviewed, showing emphysema and scarring, no acute cardiopulmonary process identified. He was continued on supplemental oxygen to maintain O2 sats above 90 %. Discussed with patient the importance of smoking cessation. He received scheduled and as needed nebs. IV steroids were changed to PO prednisone BID. He will complete a prednisone taper. He completed a course of azithromycin daily. We consulted the COPD educator. He received incentive spirometry and Robitussin- AC. Home oxygen was arranged with the assistance of case management. He received pseudoephedrine and [place] nasal spray for congestion. He will follow up with his PCP. CHF Not decompensated. Echocardiogram 03/23/17 EF 45-50%, mild pulmonary HTN. Repeat echo with normal EF. BNP 83. Discussed fluid/salt restriction, dietary changes, etc. CHF educator was consulted. Atrial fibrillation, paroxysmal [id number] score 3, patient not on any anticoagulation. Cardiology was consulted and Coumadin was started. The pt says he will not be able to have his INR followed regularly and would like to change anticoagulation to Xarelto at this time. Coumadin changed to Xarelto 06/10. Cardizem was added by cardiology. He was continued on his home Lopressor. He will follow up with cardiology as an outpt. Pt Condition on Discharge: Stable Discharge Disposition: Discharge Home Discharge Time: > 30 minutes Discharge Instructions DIET: Follow Instructions for: Heart Healthy Diet Activities you can perform: Weight Bearing as Jade Follow up Referrals: Appointment for Follow Up - 2 Weeks with Xander PCP Follow-up - 3-5 Days New Medications: Oxygen (O2) (Oxygen (O2)) Device LITER JA.CANULA CONTINUOUS for Prevent Hypoxemia, #2 Oxygen Concentrator Portable Gaseous 2 L/min via Nasal Canula Continuous For 99 months Prednisone (Prednisone) 20 Mg Tab 20 MG PO DAILY for breathing, #5 TAB 0 Refills Start this when done with twice daily dosing, then move on to 10 mg daily Diltiazem CD 24 HR (Diltiazem CD 24 HR) 240 Mg Caper 240 MG PO DAILY for A fib, #30 CAP Hydrocodone/Acetaminophen (Hydrocodone-Acetamin 5-325 mg) 5 Mg-325 Mg Tablet 1 TAB PO Q8H PRN for PAIN GREATER THAN 6, #14 TAB Prednisone (Prednisone) 20 Mg Tab 20 MG PO BID for breathing, #6 TAB Pseudoephedrine HCl (Sudafed) 30 Mg Tablet 60 MG PO Q6H PRN for congestion, #12 TAB Rivaroxaban (Xarelto) 20 Mg Tab 20 MG PO Q24H for A fib, #30 TAB Changed Medications: Prednisone (Prednisone) 10 Mg Tab 10 MG PO DAILY for copd, #7 TAB 0 Refills (Changed from: 15; Removed Instructions) Continued Medications: Albuterol Neb (Albuterol Neb) 2.5 Mg/3 Ml Neb 2.5 MG NEB Q4HR PRN for SOB/WHEEZING, #1 NEBULE 0 Refills Atorvastatin (Atorvastatin) 10 Mg Tab 10 MG PO HS for Cholesterol Management, #30 TAB 0 Refills Budesonide-Formoterol Inh (Symbicort Inh) 160-4.5 Mcg/Act Aero 2 PUFF INH Q12HR, #1 INHALER 0 Refills Furosemide (Lasix) 40 Mg Tab 40 MG PO DAILY PRN for leg swelling, #30 TAB 0 Refills Ipratropium-Albuterol Inh (Combivent Respimat Inh) 20-100 Penitentiary/Act Aero 1 PUFF INH DIRECTED PRN for SHORTNESS OF BREATH, #1 INHALER 0 Refills Lisinopril (Lisinopril) 20 Mg Tab 10 MG PO DAILY, #30 TAB 0 Refills Lorazepam (Ativan) 0.5 Mg Tab 0.5 MG PO BID for Control Mood Swing, #10 TAB (This prescription has been renewed) Metoprolol Tartrate (Lopressor) 50 Mg Tab 50 MG PO DAILY for hypertension, #30 TAB 0 Refills Potassium Chloride ER (Potassium Chloride ER) 20 Meq Tab 20 MEQ PO DAILY for Electrolyte Replacement, #30 TAB 0 Refills Sertraline (Sertraline) 50 Mg Tab 50 MG PO DAILY, #30 TAB 0 Refills Tiotropium Inh (Spiriva Handihaler) 18 Mcg Cap 18 MCG INH DAILY for COPD, #30 CAP 0 Refills 1 capsule = 18 mcg Discontinued Medications: Hydrocodone-Acetaminophen (Hydrocodone-Acetaminophen) 7.5-325 mg Tab 1 TAB PO Q4H PRN for PAIN LESS THAN 5 ON SCALE, #50 TAB Zak Dennis DO Jun 11, 2017 12:03
== END 2017-06-11 14:59 | disposition home or self-care (01) | DRG 189 ==
LOC: NEPC 07:36 → NEDA 09:09 → N04B 10:26 → OBSVTOIN 06-08 12:47
PROVIDERS: ADMIT Hospitalist; ATTEND Hospitalist
DX: J96.21 Acute and chronic respiratory failure with hypoxia (principal); R65.10 Systemic inflammatory response syndrome (SIRS) of non-infectious origin without acute organ dysfunction; I31.3 Pericardial effusion (noninflammatory); I11.0 Hypertensive heart disease with heart failure; I27.20 Pulmonary hypertension, unspecified; I50.9 Heart failure, unspecified; F11.20 Opioid dependence, uncomplicated; J44.1 Chronic obstructive pulmonary disease with (acute) exacerbation; Z68.1 Body mass index [BMI] 19.9 or less, adult; R00.0 Tachycardia, unspecified; M50.30 Other cervical disc degeneration, unspecified cervical region; D72.829 Elevated white blood cell count, unspecified; I48.0 Paroxysmal atrial fibrillation; E78.5 Hyperlipidemia, unspecified; I25.2 Old myocardial infarction; G47.30 Sleep apnea, unspecified; R63.4 Abnormal weight loss; F17.210 Nicotine dependence, cigarettes, uncomplicated; F32.9 Major depressive disorder, single episode, unspecified; F41.9 Anxiety disorder, unspecified; Z88.0 Allergy status to penicillin; Z90.2 Acquired absence of lung [part of]; Z91.11 Patient's noncompliance with dietary regimen; Z99.81 Dependence on supplemental oxygen
CPT/HCPCS: 71010; 80048; 80053; 83605; 83880; 85007; 85027; 85610; 87040; 87804; 93005; 93308; 94620; 94640; 94664; 96372; 96374; 96375; 96376; G0378; J1644; J2060; J2920; J2930; J7512; J7613

== ENCOUNTER 2017-12-10 09:24 | Observation (INO) | payer OTHER ==
[2017-12-10] VITALS (9 sets, daily range): BP systolic 122–163; BP diastolic 72–97; PULSE 72–101; RESP 16–20; TEMP 97.9–98.4; O2SAT 94–99
[~2017-12-10] VITALS: Ht 165.1 cm; Wt 45.0 kg
[~2017-12-10 09:24] MED LIST changes: +ALBU0.08 NEB; -ALBU6.7H INH; +DILT240C44 PO; +HYDR-3516 PO; -HYDR-3580 PO; +IPRAAER INH; +LISI-515 PO; +OXYGENDME NAS.CANULA; +PRED20 PO; +PSEU30TA82 PO; +SERT-132 PO; +XARE20TA PO
[2017-12-10] MEDS ORDERED: SODIUM CHLORIDE 0.9% FLUSH 10 ML FLUSH IVF PRN (09:45)
[2017-12-10] MEDS: RESP: ALBUTEROL 2.5 MG/IPRATROPIUM 0.5 MG NEB (SCH) INH ×4 (10:02→11:24)
--- NOTE | 2017-12-10 10:02 | PD ---
HPI Chief Complaint: Respiratory Distress Time Seen by Provider: 09:39 Travel History International Travel<30 days: No Contact w/Intl Traveler<30days: No Traveled to known affect area: No History of Present Illness HPI 66-year-old male patient with history of COPD,, pneumonia, multiple medical issues, here because he has had 1 week history of increased shortness of breath , dyspnea on exertion despite being on oxygen at home, increased confusion according to his , has been coughing with yellow phlegm. He has had some subjective fevers but denies any chest pains or other issues. He has been out of his albuterol, states that it is out of dates and has not been using it. He was given Solu-Medrol and nebulizers by EMS. Modifying Factors: None Associated Signs & Symptoms: Coughing, shortness of breath, altered mental status Risk Factors: COPD history on home O2 PFSH Past Medical History Asthma: No Atrial Fibrillation: Yes Autoimmune Disease: No Anxiety: Yes Depression: No Heart Rhythm Problems: Yes (-) Cancer: No Cardiac Catheterization: Yes (2003) Cardiovascular Problems: Yes High Cholesterol: Yes Chemotherapy: No Chest Pain: Yes Congestive Heart Failure: No COPD: Yes Diabetes: No Diminished Hearing: No Endocrine: No Genitourinary: No Heparin Induced Thrombocytopen: No Hypertension: Yes Immune Disorder: No Implanted Vascular Access Dvce: No Musculoskeletal: Yes Neurologic: No Psychiatric: Yes Reproductive: No Respiratory: Yes Myocardial Infarction: Yes Pneumonia: Yes Radiation Therapy: No Sickle Cell Disease: No Sleep Apnea: No Thyroid Disease: No Tetanus Vaccination: > 5 Years Past Surgical History Abdominal Surgery: Yes (double hernia done at [facility]) Body Medical Devices: screws in the right hip Cardiac Surgery: Yes (two heart catheterizations - both negative) Coronary Artery Bypass Graft: No Ear Surgery: No Endocrine Surgery: No Eye Surgery: Yes (cataracts removed from both eyes) Genitourinary Surgery: No Gynecologic Surgery: No Oral Surgery: Yes (partial plate in lower front) Thoracic Surgery: Yes (right double lobectomy 2014) Other Surgery: Yes Social History Alcohol Use: Yes (DAILY 3 BEERS) Tobacco Use: Yes (<1 PPD) Substance Use: No Allergies-Medications (Allergen,Severity, Reaction): Coded Allergies: piperacillin (Unverified Allergy, Severe, Swelling, 12/10/17) RT EYE NOTED BLANCHING tazobactam (Unverified Allergy, Severe, Swelling, 12/10/17) RT EYE NOTED BLANCHING Reported Meds & Prescriptions Reported Meds & Active Scripts Active Hydrocodone-Acetamin 5-325 mg (Hydrocodone/Acetaminophen) 5 Mg-325 Mg Tablet 1 Tab PO Q8H PRN Diltiazem CD 24 HR 240 Mg Caper 240 Mg PO DAILY Prednisone 10 Mg Tab 10 Mg PO DAILY Ativan (Lorazepam) 0.5 Mg Tab 0.5 Mg PO BID Oxygen (O2) Device Liter JA.CANULA CONTINUOUS Oxygen Concentrator Portable Gaseous 2 L/min via Nasal Canula Continuous For 99 months Potassium Chloride ER (Potassium Chloride) 20 Meq Tab 20 Meq PO DAILY Lasix (Furosemide) 40 Mg Tab 40 Mg PO DAILY PRN Lopressor (Metoprolol Tartrate) 50 Mg Tab 50 Mg PO DAILY Reported Albuterol Neb (Albuterol Sulfate) 2.5 Mg/3 Ml Neb 2.5 Mg NEB Q4HR PRN Combivent Respimat Inh (Ipratropium-Albuterol Inh) 20-100 Detention/Act Aero 1 Puff INH DIRECTED PRN Sertraline (Sertraline HCl) 50 Mg Tab 50 Mg PO DAILY Lisinopril 20 Mg Tab 10 Mg PO DAILY Spiriva Handihaler (Tiotropium Inh) 18 Mcg Cap 18 Mcg INH DAILY 1 capsule = 18 mcg Symbicort Inh (Budesonide/Formoterol Fumarate) 160-4.5 Mcg/Act Aero 2 Puff INH Q12HR Review of Systems Except as stated in HPI: all other systems reviewed are Neg Physical Exam Narrative GENERAL: Thin elderly white male patient currently and moderate respiratory distress. Awake and oriented 3 although somewhat lethargic. SKIN: Focused skin assessment warm/dry. HEAD: Atraumatic. Normocephalic. EYES: Pupils equal and round. No scleral icterus. No injection or drainage. ENT: No nasal bleeding or discharge. Mucous membranes pink and moist. NECK: Trachea midline. Notable JVD. CARDIOVASCULAR: Regular rate and rhythm. No murmur appreciated. RESPIRATORY: Moderate accessory muscle use. Wheezing throughout bilaterally. Breath sounds equal bilaterally. GASTROINTESTINAL: Abdomen soft, non-tender, nondistended. Hepatic and splenic margins not palpable. MUSCULOSKELETAL: No obvious deformities. No clubbing. No cyanosis. No edema. NEUROLOGICAL: Awake and alert. No obvious cranial nerve deficits. Motor grossly within normal limits. Normal speech. PSYCHIATRIC: Appropriate mood and affect; insight and judgment normal. Data Data Last Documented VS Vital Signs Date Time Temp Pulse Resp B/P (MAP) Pulse Ox O2 Delivery O2 Flow Rate FiO2 12/10/17 12:18 98 18 163/77 (105) 99 Nasal Cannula 2.00 Orders Orders Complete Blood Count With Diff (12/10/17 09:39) Comprehensive Metabolic Panel (12/10/17 09:39) B-Type Natriuretic Peptide (12/10/17 09:39) Arterial Blood Gas (Abg) (12/10/17 09:39) Blood Culture (12/10/17 09:39) Iv Access Insert/Monitor (12/10/17 09:39) Electrocardiogram (12/10/17 09:39) Ecg Monitoring (12/10/17 09:39) Oximetry (12/10/17 09:39) Oxygen Administration (12/10/17 09:39) Chest, Single Ap (12/10/17 09:39) Sodium Chloride 0.9% Flush (Ns Flush) (12/10/17 09:45) Albuterol-Ipratropium Neb (Duoneb Neb) (12/10/17 09:45) Albuterol-Ipratropium Neb (Duoneb Neb) (12/10/17 11:00) Albuterol Neb (Albuterol Neb) (12/10/17 12:15) Admit Order (Ed Use Only) (12/10/17 13:36) Labs Laboratory Tests Test 12/10/17 09:44 12/10/17 09:50 Blood Gas Puncture Site LT RADIAL Blood Gas Patient Temperature 98.6 Blood Gas HCO3 34 mmol/L Blood Gas Base Excess 8.9 mmol/L Blood Gas Oxygen Saturation 90 % Arterial Blood pH 7.37 Arterial Blood Partial Pressure CO2 60 mmHg Arterial Blood Partial Pressure O2 62 mmHG Arterial Blood Oxygen Content 16.3 Vol % Arterial Blood Carboxyhemoglobin 1.8 % Arterial Blood Methemoglobin 0.7 % Blood Gas Hemoglobin 13.0 G/DL Oxygen Delivery Device NASAL CANNULA Blood Gas Liter Flow 2 L/M White Blood Count 8.4 TH/MM3 Red Blood Count 4.00 MIL/MM3 Hemoglobin 13.5 GM/DL Hematocrit 40.5 % Mean Corpuscular Volume 101.2 FL Mean Corpuscular Hemoglobin 33.7 PG Mean Corpuscular Hemoglobin Concent 33.3 % Red Cell Distribution Width 13.5 % Platelet Count 323 TH/MM3 Mean Platelet Volume 7.2 FL Neutrophils (%) (Auto) 55.3 % Lymphocytes (%) (Auto) 27.2 % Monocytes (%) (Auto) 16.6 % Eosinophils (%) (Auto) 0.0 % Basophils (%) (Auto) 0.9 % Neutrophils # (Auto) 4.6 TH/MM3 Lymphocytes # (Auto) 2.3 TH/MM3 Monocytes # (Auto) 1.4 TH/MM3 Eosinophils # (Auto) 0.0 TH/MM3 Basophils # (Auto) 0.1 TH/MM3 CBC Comment DIFF FINAL Differential Comment Blood Urea Nitrogen 7 MG/DL Creatinine 0.44 MG/DL Random Glucose 90 MG/DL Total Protein 6.8 GM/DL Albumin 3.2 GM/DL Calcium Level 8.9 MG/DL Alkaline Phosphatase 83 U/L Aspartate Amino Transf (AST/SGOT) 25 U/L Alanine Aminotransferase (ALT/SGPT) 21 U/L Total Bilirubin 0.5 MG/DL Sodium Level 135 MEQ/L Potassium Level 3.7 MEQ/L Chloride Level 91 MEQ/L Carbon Dioxide Level 32.7 MEQ/L Anion Gap 11 MEQ/L Estimat Glomerular Filtration Rate 193 ML/MIN B-Type Natriuretic Peptide 158 PG/ML MDM Medical Decision Making Medical Screen Exam Complete: Yes Emergency Medical Condition: Yes Medical Record Reviewed: Yes Interpretation(s) EKG shows normal sinus rhythm at a rate of 70 bpm. No signs of acute ST elevations or depressions. Laboratory Tests Test 12/10/17 09:44 12/10/17 09:50 Blood Gas HCO3 34 mmol/L (22-26) Blood Gas Base Excess 8.9 mmol/L (-2-2) Arterial Blood pH 7.37 (7.380-7.420) Arterial Blood Partial Pressure CO2 60 mmHg (38-42) Red Blood Count 4.00 MIL/MM3 (4.50-5.90) Mean Corpuscular Volume 101.2 FL (80.0-100.0) Monocytes (%) (Auto) 16.6 % (0.0-8.0) Monocytes # (Auto) 1.4 TH/MM3 (0-0.9) Creatinine 0.44 MG/DL (0.60-1.30) Albumin 3.2 GM/DL (3.4-5.0) Sodium Level 135 MEQ/L (136-145) Chloride Level 91 MEQ/L (98-107) Carbon Dioxide Level 32.7 MEQ/L (21.0-32.0) B-Type Natriuretic Peptide 158 PG/ML (0-100) Last 24 hours Impressions Chest X-Ray 12/10/17 0936 Signed Impressions: CONCLUSION: 1. COPD 2. Stable right basilar scarring 3. No evidence of acute process. Differential Diagnosis Shortness of breath: Pneumonia versus COPD exacerbation versus CHF exacerbation Narrative Course Chest x-ray significant for emphysema, no signs of acute pneumonia or other acute pulmonary processes. He was given Solu-Medrol and multiple nebulizers in the ER, after 6 nebs, he is still doing poorly and plan would be to admit him for COPD exacerbation for further treatment. Case is discussed with Dr. Li for admission. Diagnosis Primary Impression: COPD exacerbation Admitting Information Admitting Physician Requests: it iTffanie Moseley MD December 10, 2017 10:02
--- NOTE | 2017-12-10 10:05 | RADRPT ---
EXAM DATE: 12/10/2017 10:01 AM EDT AGE/SEX: 66 years / Male INDICATIONS: Short of breath CLINICAL DATA: This is the patient's initial encounter. Patient reports that signs and symptoms have been present for 2 weeks and indicates a pain score of 0/10. MEDICAL/SURGICAL HISTORY: None. . Right 2 upper lobes removed COMPARISON: [facility] [place], CHEST SINGLE AP, 06/07/2017. . FINDINGS: Lungs are hyperinflated. Pleural parenchymal scarring along the right lung base is stable. There is no evidence of acute airspace disease, mass densities or effusions. Heart and mediastinal structures are stable. CONCLUSION: 1. COPD 2. Stable right basilar scarring 3. No evidence of acute process. Electronically signed by: Timmy Goetz MD 12/10/2017 10:04 AM EDT
[2017-12-10 10:11] LABS: AUTOMATED NEUTROPHIL # 4.6 TH/MM3 (1.8-7.7); BASOPHIL # 0.1 TH/MM3 (0-0.2); BASOPHIL % 0.9 % (0.0-2.0); HEMATOCRIT 40.5 % (39.0-51.0); HEMOGLOBIN 13.5 GM/DL (13.0-17.0); LYMPH % 27.2 % (9.0-44.0); LYMPHOCYTE # 2.3 TH/MM3 (1.0-4.8); MEAN CELL VOLUME 101.2 FL (80.0-100.0); MEAN CORPUSCULAR HEMOGLOBIN 33.7 PG (27.0-34.0); MEAN CORPUSCULAR HGB CONC 33.3 % (32.0-36.0); MEAN PLATELET VOLUME 7.2 FL (7.0-11.0); MONO % 16.6 % (0.0-8.0); MONOCYTE # 1.4 TH/MM3 (0-0.9); NEUT % 55.3 % (16.0-70.0); PLATELET COUNT 323 TH/MM3 (150-450); RED CELL DISTRIBUTION WIDTH 13.5 % (11.6-17.2); WHITE BLOOD COUNT 8.4 TH/MM3 (4.0-11.0)
[2017-12-10 10:29] LABS: ALBUMIN 3.2 GM/DL (3.4-5.0); ALT (GPT) 21 U/L (12-78); AST (GOT) 25 U/L (15-37); BICARBONATE 32.7 MEQ/L (21.0-32.0); BLOOD UREA NITROGEN 7 MG/DL (7-18); CALCIUM 8.9 MG/DL (8.5-10.1); CHLORIDE 91 MEQ/L (98-107); CREATININE 0.44 MG/DL (0.60-1.30); GLOMERULAR FILTRATION RATE 193 ML/MIN (>89); GLUCOSE,RANDOM 90 MG/DL (74-106); SODIUM (NA) 135 MEQ/L (136-145)
[2017-12-10 10:32] LABS: ALKALINE PHOSPHATASE 83 U/L (45-117); TOTAL BILIRUBIN ADULT 0.5 MG/DL (0.2-1.0); TOTAL PROTEIN 6.8 GM/DL (6.4-8.2)
[2017-12-10] MEDS: RESP: ALBUTEROL 2.5 MG/3 ML NEB (SCH) INH (12:44)
[2017-12-10] MEDS ORDERED: LORazepam 0.5 MG TAB PO PRN (14:15)
--- NOTE | 2017-12-10 14:22 | HHI.HP ---
[facility] [place] Unknown Admission Diagnosis COPD exacerbation Diagnoses: Chief Complaint: Shortness of breath Travel History International Travel<30 Days: No Contact w/Intl Traveler <30 Da: No Traveled to Known Affected Are: No History of Present Illness The patient is a 66-year-old male with past medical history of COPD on home oxygen who is presenting to the hospital with shortness of breath. The patient says that about a week ago his symptoms started to get bad. He said that he takes prednisone 10 mg daily and he has been doing that for years. He says he has been coughing a lot and it has been productive with green/yellow mucus noted. He says that he has run out of his home nebulizers. He is able to walk short distances but is unable to ambulate far without getting winded. He says talking makes him short of breath. He says he is on 2 L of home oxygen but sometimes increases it to 3 L when he is anxious. He says he uses his home oxygen on an as-needed basis, but he uses it every night when he is sleeping. He says he continues to smoke up to half a pack a day. He has been using albuterol, Symbicort and Combivent. He denies any recent fevers. He says he has not been sleeping well. 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 He has 3 beers daily. Physical Exam Vital Signs Vital Signs Date Time Temp Pulse Resp B/P (MAP) Pulse Ox O2 Delivery O2 Flow Rate FiO2 12/10/17 12:18 98 18 163/77 (105) 99 Nasal Cannula 2.00 12/10/17 11:30 20 98 Nasal Cannula 2.00 12/10/17 09:49 98 20 122/88 (99) 95 Nasal Cannula 2.00 12/10/17 09:49 94 Nasal Cannula 2.00 12/10/17 09:43 92 Nasal Cannula 2.00 Physical Exam GENERAL: This is a well-nourished, well-developed patient, in no apparent distress. SKIN: Multiple ecchymosis noted on upper and lower extremities. Thin skin. HEAD: Atraumatic. Normocephalic. No temporal or scalp tenderness. EYES: Pupils equal round and reactive. Extraocular motions intact. No scleral icterus. No injection or drainage. ENT: Nose without bleeding, purulent drainage or septal hematoma. Throat without erythema, tonsillar hypertrophy or exudate. Uvula midline. Airway patent. NECK: Trachea midline. No JVD or lymphadenopathy. Supple, nontender, no meningeal signs. CARDIOVASCULAR: Regular rate and rhythm without murmurs, gallops, or rubs. RESPIRATORY: Diminished breath sounds bilaterally. GASTROINTESTINAL: Abdomen soft, non-tender, nondistended. No hepato-splenomegaly , or palpable masses. No guarding. MUSCULOSKELETAL: Extremities without clubbing, cyanosis, or edema. No joint tenderness, effusion, or edema noted. NEUROLOGICAL: Awake and alert. Cranial nerves II through XII intact. Motor and sensory grossly within normal limits. Five out of 5 muscle strength in all muscle groups. Normal speech. Laboratory Laboratory Tests Test 12/10/17 09:44 12/10/17 09:50 Blood Gas Puncture Site LT RADIAL Blood Gas Patient Temperature 98.6 Blood Gas HCO3 34 Blood Gas Base Excess 8.9 Blood Gas Oxygen Saturation 90 Arterial Blood pH 7.37 Arterial Blood Partial Pressure CO2 60 Arterial Blood Partial Pressure O2 62 Arterial Blood Oxygen Content 16.3 Arterial Blood Carboxyhemoglobin 1.8 Arterial Blood Methemoglobin 0.7 Blood Gas Hemoglobin 13.0 Oxygen Delivery Device NASAL CANNULA Blood Gas Liter Flow 2 White Blood Count 8.4 Red Blood Count 4.00 Hemoglobin 13.5 Hematocrit 40.5 Mean Corpuscular Volume 101.2 Mean Corpuscular Hemoglobin 33.7 Mean Corpuscular Hemoglobin Concent 33.3 Red Cell Distribution Width 13.5 Platelet Count 323 Mean Platelet Volume 7.2 Neutrophils (%) (Auto) 55.3 Lymphocytes (%) (Auto) 27.2 Monocytes (%) (Auto) 16.6 Eosinophils (%) (Auto) 0.0 Basophils (%) (Auto) 0.9 Neutrophils # (Auto) 4.6 Lymphocytes # (Auto) 2.3 Monocytes # (Auto) 1.4 Eosinophils # (Auto) 0.0 Basophils # (Auto) 0.1 CBC Comment DIFF FINAL Differential Comment Blood Urea Nitrogen 7 Creatinine 0.44 Random Glucose 90 Total Protein 6.8 Albumin 3.2 Calcium Level 8.9 Alkaline Phosphatase 83 Aspartate Amino Transf (AST/SGOT) 25 Alanine Aminotransferase (ALT/SGPT) 21 Total Bilirubin 0.5 Sodium Level 135 Potassium Level 3.7 Chloride Level 91 Carbon Dioxide Level 32.7 Anion Gap 11 Estimat Glomerular Filtration Rate 193 B-Type Natriuretic Peptide 158 Date/Time Source Procedure Growth Status 12/10/17 09:50 Blood Peripheral Aerobic Blood Culture Pending Received 12/10/17 09:50 Blood Peripheral Anaerobic Blood Culture Pending Received Result Diagram: 12/10/17 0950 12/10/17 0950 Imaging Last Impressions Chest X-Ray 12/10/17 0939 Signed Impressions: CONCLUSION: 1. COPD 2. Stable right basilar scarring 3. No evidence of acute process. Caprini VTE Risk Assessment Caprini VTE Risk Assessment: Mod/High Risk (score >= 2) Caprini Risk Assessment Model Point Value = 1 Point Value = 2 Point Value = 3 Point Value = 5 Age 41-60 Minor surgery BMI > 25 kg/m2 Swollen legs Varicose veins or History of unexplained or recurrent spontaneous Oral contraceptives or hormone replacement Sepsis (< 1 month) Serious lung disease, including pneumonia (< 1 month) Abnormal pulmonary function Acute myocardial infarction Congestive heart failure (< 1 month) History of inflammatory bowel disease Medical patient at bed rest Age 61-74 Arthroscopic surgery Major open surgery (> 45 min) Laparoscopic surgery (> 45 min) Malignancy Confined to bed (> 72 hours) Immobilizing plaster cast Central venous access Age >= 75 History of VTE Family history of VTE Factor V Leiden Prothrombin [id number] Lupus anticoagulant Anticardiolipin antibodies Elevated serum homocysteine Heparin-induced thrombocytopenia Other congenital or acquired thrombophilia Stroke (< 1 month) Elective arthroplasty Hip, pelvis, or leg fracture Acute spinal cord injury (< 1 month) Prophylaxis Regimen Total Risk Factor Score Risk Level Prophylaxis Regimen 0-1 Low Early ambulation 2 Moderate Order ONE of the following: *Sequential Compression Device (SCD) *Heparin 5000 units SQ BID 3-4 Higher Order ONE of the following medications: *Heparin 5000 units SQ TID *Enoxaparin/Lovenox 40 mg SQ daily (WT < 150 kg, CrCl > 30 mL/min) *Enoxaparin/Lovenox 30 mg SQ daily (WT < 150 kg, CrCl > 10-29 mL/min) *Enoxaparin/Lovenox 30 mg SQ BID (WT < 150 kg, CrCl > 30 mL/min) AND/OR *Sequential Compression Device (SCD) 5 or more Highest Order ONE of the following medications: *Heparin 5000 units SQ TID (Preferred with Epidurals) *Enoxaparin/Lovenox 40 mg SQ daily (WT < 150 kg, CrCl > 30 mL/min) *Enoxaparin/Lovenox 30 mg SQ daily (WT < 150 kg, CrCl > 10-29 mL/min) *Enoxaparin/Lovenox 30 mg SQ BID (WT < 150 kg, CrCl > 30 mL/min) AND *Sequential Compression Device (SCD) Assessment and Plan Assessment and Plan Acute COPD exacerbation The pt is on home oxygen. CXR unremarkable. Coughing green/yellow mucous. He still smokes. - continue standing and as needed nebs. - incentive spirometry. - continue oxygen as needed. - encourage ambulation. - prednisone 20 mg BID. - continue Symbicort. - d/c Lopressor as may be contributing to bronchospasm. - smoking cessation instruction. A fib Currently in NSR. Not on anticoagulation s/t easy bruising. - continue ASA 325 mg daily. - telemetry. Alcohol use The pt endorses three beers daily. - cessation instruction. - CIWA protocol. PPx: Lovenox Code Status Full Discussed Condition With Pt, Zak Carmichael DO December 10, 2017 14:22
[2017-12-10] MEDS ORDERED: NALOXONE HCL 0.4 MG/ML AMP IV PUSH PRN (14:30)
[2017-12-10] MEDS ORDERED: ACETAMINOPHEN 325 MG TAB PO PRN ×2 (14:30)
[2017-12-10] MEDS ORDERED: LORazepam 1 MG TAB PO PRN (14:30)
[2017-12-10] MEDS ORDERED: FLUMAZENIL 0.5 MG/5 ML VIAL IV PUSH PRN (14:30)
[2017-12-10] MEDS ORDERED: RESP: ALBUTEROL 2.5 MG/IPRATROPIUM 0.5 MG NEB (PRN) NEB (14:30)
[2017-12-10] MEDS ORDERED: ONDANSETRON HCL 4 MG/2 ML VIAL IVP PRN (14:30)
[2017-12-10] MEDS ORDERED: LORazepam 2 MG/ML VIAL IV PUSH PRN ×2 (14:30)
[2017-12-10] MEDS ORDERED: SODIUM CHLORIDE 0.9% FLUSH 10 ML FLUSH IV FLUSH PRN (14:30)
[2017-12-10] MEDS ORDERED: LORazepam 2 MG TAB PO PRN (14:30)
[2017-12-10] MEDS ORDERED: predniSONE 10 MG TAB PO ONE (14:45)
[2017-12-10] MEDS ORDERED: ENOXAPARIN SODIUM 30 MG/0.3 ML SYRINGE SQ SCH (15:00)
[2017-12-10] MEDS: ACETAMINOPHEN/HYDROcodone 325 MG/5 MG TAB PO PRN ×2 (15:22→21:40)
[2017-12-10] MEDS: RESP: ALBUTEROL 2.5 MG/IPRATROPIUM 0.5 MG NEB (SCH) NEB (19:53)
[2017-12-10] MEDS: DOCUSATE SODIUM 50 MG/SENNA 8.6 MG TAB PO SCH (21:00)
[2017-12-10] MEDS ORDERED: ZOLPIDEM TARTRATE 5 MG TAB PO PRN (21:00)
[2017-12-10] MEDS: predniSONE 20 MG TAB PO SCH (21:36)
[2017-12-10] MEDS: BUDESONIDE-FORMOTEROL 160/4.5 MCG INHALER INH SCH (21:36)
[2017-12-10] MEDS: SODIUM CHLORIDE 0.9% FLUSH 10 ML FLUSH IV FLUSH SCH (21:37)
[2017-12-11 00:31] VITALS: BP 133/78; PULSE 78; RESP 16; TEMP 97.4; O2SAT 100
[2017-12-11 03:36] VITALS: BP 135/80; PULSE 81; RESP 16; TEMP 97.4; O2SAT 100
[2017-12-11 03:39] VITALS: PULSE 70
[2017-12-11] MEDS: ACETAMINOPHEN/HYDROcodone 325 MG/5 MG TAB PO PRN (04:32)
[2017-12-11 06:45] LABS: AUTOMATED NEUTROPHIL # 4.9 TH/MM3 (1.8-7.7); BASOPHIL % 0.1 % (0.0-2.0); HEMATOCRIT 37.3 % (39.0-51.0); HEMOGLOBIN 12.5 GM/DL (13.0-17.0); LYMPH % 10.7 % (9.0-44.0); LYMPHOCYTE # 0.6 TH/MM3 (1.0-4.8); MEAN CELL VOLUME 101.4 FL (80.0-100.0); MEAN CORPUSCULAR HGB CONC 33.6 % (32.0-36.0); MEAN PLATELET VOLUME 7.3 FL (7.0-11.0); MONO % 5.8 % (0.0-8.0); MONOCYTE # 0.3 TH/MM3 (0-0.9); NEUT % 83.4 % (16.0-70.0); PLATELET COUNT 316 TH/MM3 (150-450); RED BLOOD COUNT 3.68 MIL/MM3 (4.50-5.90); RED CELL DISTRIBUTION WIDTH 13.3 % (11.6-17.2); WHITE BLOOD COUNT 5.8 TH/MM3 (4.0-11.0)
[2017-12-11 07:00] VITALS: PULSE 102
[2017-12-11 07:16] LABS: ALBUMIN 2.9 GM/DL (3.4-5.0); AST (GOT) 17 U/L (15-37); BICARBONATE 38.1 MEQ/L (21.0-32.0); BLOOD UREA NITROGEN 15 MG/DL (7-18); CALCIUM 8.8 MG/DL (8.5-10.1); CHLORIDE 91 MEQ/L (98-107); CREATININE 0.48 MG/DL (0.60-1.30); GLOMERULAR FILTRATION RATE 175 ML/MIN (>89); GLUCOSE,RANDOM 128 MG/DL (74-106); SODIUM (NA) 136 MEQ/L (136-145)
--- NOTE | 2017-12-11 07:20 | EKG ---
Date Performed: 12/10/2017 Time Performed: 11:04:15 PTAGE: 66 years EKG: Sinus rhythm WITH SINUS ARRHYTHMIA NORMAL ECG PREVIOUS TRACING : 06/07/2017 07.46 DOCTOR: Kaitlyn Chou Interpretating Date/Time 12/11/2017 07:17:47
[2017-12-11 07:22] LABS: ALKALINE PHOSPHATASE 74 U/L (45-117); ALT (GPT) 21 U/L (12-78); TOTAL BILIRUBIN ADULT 0.3 MG/DL (0.2-1.0); TOTAL PROTEIN 6.4 GM/DL (6.4-8.2)
[2017-12-11 08:00] VITALS: BP 163/77; PULSE 89; RESP 21; TEMP 98.6; O2SAT 100
[2017-12-11] MEDS: RESP: ALBUTEROL 2.5 MG/IPRATROPIUM 0.5 MG NEB (SCH) NEB (08:40)
[2017-12-11 08:41] VITALS: O2SAT 98
[2017-12-11] MEDS: SODIUM CHLORIDE 0.9% FLUSH 10 ML FLUSH IV FLUSH SCH (08:50)
[2017-12-11] MEDS: predniSONE 20 MG TAB PO SCH (08:50)
[2017-12-11] MEDS: DOCUSATE SODIUM 50 MG/SENNA 8.6 MG TAB PO SCH (08:50)
[2017-12-11] MEDS: BUDESONIDE-FORMOTEROL 160/4.5 MCG INHALER INH SCH (08:50)
[2017-12-11] MEDS ORDERED: LISINOPRIL 10 MG TAB PO SCH (09:00)
[2017-12-11] MEDS ORDERED: SERTRALINE HCL 50 MG TAB PO SCH (09:00)
[2017-12-11] MEDS ORDERED: DILTIAZEM-CD 240 MG CAP ER PO SCH (09:00)
[2017-12-11] MEDS ORDERED: ASPIRIN 325 MG TAB PO SCH (09:00)
[2017-12-11] MEDS ORDERED: PRED20 PO (09:52)
--- NOTE | 2017-12-11 09:53 | HHI.DCPOC ---
Discharge Care Plan Diagnosis: (1) Nicotine dependence (2) COPD exacerbation Goals to Promote Your Health * To prevent worsening of your condition and complications * To maintain your health at the optimal level Directions to Meet Your Goals Take your medications as prescribed Follow your dietary instruction Follow activity as directed Keep your appointments as scheduled Take your immunizations and boosters as scheduled If your symptoms worsen call your PCP, if no PCP go to Urgent Care Center or Emergency Room Smoking is Dangerous to Your Health. Avoid second hand smoke Call the 24-hour hour crisis hotline for domestic abuse at Zak Dennis DO December 11, 2017 09:53
[2017-12-11] MEDS ORDERED: ASPI-183 PO (09:58)
--- NOTE | 2017-12-11 09:58 | HHI.PR ---
Subjective Remarks The pt was feeling well. He wanted to go home as it is [birth year] tomorrow. He had no acute complaints. He requested a breathing treatment prior to discharge. Objective Vitals Vital Signs Date Time Temp Pulse Resp B/P (MAP) Pulse Ox O2 Delivery O2 Flow Rate FiO2 12/11/17 08:41 98 Nasal Cannula 3.00 12/11/17 08:00 98.6 89 21 163/77 (105) 100 12/11/17 05:33 20 12/11/17 03:39 70 12/11/17 03:36 97.4 81 16 135/80 (98) 100 12/11/17 00:31 97.4 78 16 133/78 (96) 100 12/10/17 23:59 72 12/10/17 21:26 98.4 101 16 141/74 (96) 97 12/10/17 19:54 98 Nasal Cannula 3.00 12/10/17 18:00 97.9 97 18 139/97 (111) 98 12/10/17 17:26 12/10/17 15:49 94 Nasal Cannula 2.00 12/10/17 15:23 98 20 146/72 (96) 94 Nasal Cannula 2.00 12/10/17 12:18 98 18 163/77 (105) 99 Nasal Cannula 2.00 12/10/17 11:30 20 98 Nasal Cannula 2.00 Result Diagram: 12/11/17 0520 12/11/17 0520 Imaging Last Impressions Chest X-Ray 12/10/17 0939 Signed Impressions: CONCLUSION: 1. COPD 2. Stable right basilar scarring 3. No evidence of acute process. Objective Remarks GENERAL: This is a well-nourished, well-developed patient, in no apparent distress. SKIN: Multiple ecchymosis noted on upper and lower extremities. Thin skin. HEAD: Atraumatic. Normocephalic. No temporal or scalp tenderness. EYES: Pupils equal round and reactive. Extraocular motions intact. No scleral icterus. No injection or drainage. ENT: Nose without bleeding, purulent drainage or septal hematoma. Throat without erythema, tonsillar hypertrophy or exudate. Uvula midline. Airway patent. NECK: Trachea midline. No JVD or lymphadenopathy. Supple, nontender, no meningeal signs. CARDIOVASCULAR: Regular rate and rhythm without murmurs, gallops, or rubs. RESPIRATORY: Diminished breath sounds bilaterally with wheezing. GASTROINTESTINAL: Abdomen soft, non-tender, nondistended. No hepato-splenomegaly , or palpable masses. No guarding. MUSCULOSKELETAL: Extremities without clubbing, cyanosis, or edema. No joint tenderness, effusion, or edema noted. NEUROLOGICAL: Awake and alert. Cranial nerves II through XII intact. Motor and sensory grossly within normal limits. Five out of 5 muscle strength in all muscle groups. Normal speech. A/P Assessment and Plan Acute COPD exacerbation The pt is on home oxygen. CXR unremarkable. Coughing green/yellow mucous. He still smokes. Breathing has improved overnight. Pt has been ambulating. - continue standing and as needed nebs. - incentive spirometry. - continue home oxygen. - encourage ambulation. - prednisone 20 mg BID x 3 days then return to home dosing of 10 mg daily. - continue Symbicort. - d/c Lopressor as may be contributing to bronchospasm. - smoking cessation instruction. A fib Currently in NSR. Not on anticoagulation s/t easy bruising. - continue ASA 325 mg daily. - telemetry. Alcohol use The pt endorses three beers daily. - cessation instruction. - CIWA protocol. HTN Blood pressure well controlled. - d/c Lopressor as may be contributing to bronchospasm. - increase Cardizem or lisinopril if additional blood pressure control is needed. PPx: Lovenox Discharge Planning D/c home Zak Dennis DO December 11, 2017 09:57
== END 2017-12-11 11:53 | disposition home or self-care (01) ==
LOC: NEPE 09:24 → NEDA 13:39 → NEPGCP 16:59
PROVIDERS: ADMIT Hospitalist; ATTEND Hospitalist
DX: J44.1 Chronic obstructive pulmonary disease with (acute) exacerbation (principal); Z99.81 Dependence on supplemental oxygen; F17.210 Nicotine dependence, cigarettes, uncomplicated; I48.91 Unspecified atrial fibrillation; I10 Essential (primary) hypertension; I31.3 Pericardial effusion (noninflammatory); M54.2 Cervicalgia; G89.29 Other chronic pain; F41.9 Anxiety disorder, unspecified; F11.20 Opioid dependence, uncomplicated; Z79.82 Long term (current) use of aspirin; R41.82 Altered mental status, unspecified; Z79.899 Other long term (current) drug therapy; I49.8 Other specified cardiac arrhythmias
CPT/HCPCS: 36600; 71045; 80053; 82805; 83880; 85025; 87040; 93005; 94640; 94664; 99285; G0378; J7512; J7613

== ENCOUNTER 2018-01-20 06:39 | Inpatient (IN) ==
--- NOTE | 2018-01-20 07:21 | ED ---
HPI General Chief Complaint: Respiratory Symptoms Stated Complaint: Respiratory/Evac Time Seen by Provider: 01/20/18 07:07 History of Present Illness HPI Narrative: Patient presents to the emergency department via [facility] secondary to COPD exacerbation. Patient reports dyspnea 1 week. Per [facility] patient was complaining of a cough. He denies cough with me. He is on oxygen 3 L at home. Is given 125 mg of IV Solu-Medrol and neb treatment by EMS. Also reporting some left-sided chest pain, intermittent, minutes in duration, nonradiating, been present today, reports that he has chest pain with his COPD. He denies fever, chills, nausea, vomiting, recent travel. He is reporting lower extremity edema, but no edema upon my assessment. + h/o intubation. Related Data Home Medications Medication Instructions Recorded Confirmed alprazolam [Xanax] 0.5 mg PO BID 01/20/18 01/20/18 aspirin 325 mg PO DAILY 01/20/18 01/20/18 diltiazem HCl 240 mg PO DAILY 01/20/18 01/20/18 hydrocodone-acetaminophen 1 tab PO Q4-6H PRN 01/20/18 01/20/18 ipratropium-albuterol [Combivent 1 puff INHALATION Q6H 01/20/18 01/20/18 Respimat] lisinopril 20 mg PO DAILY 01/20/18 01/20/18 tiotropium bromide [Spiriva 2 puff INHALATION DAILY 01/20/18 01/20/18 Respimat] Allergies Allergy/AdvReac Type Severity Reaction Status Date / Time piperacillin Allergy Severe Swelling Verified 01/20/18 06:50 tazobactam Allergy Severe Swelling Verified 01/20/18 06:50 Review of Systems ROS Unobtainable All other systems reviewed negative except as stated in HPI Exam Narrative Exam Narrative: GENERAL: No acute distress, patient is on BiPAP. SKIN: Focused skin assessment warm/dry. HEAD: Atraumatic. Normocephalic. EYES: Pupils equal and round. No scleral icterus. No injection or drainage. ENT: No nasal bleeding or discharge. Mucous membranes pink and moist. NECK: Trachea midline. No JVD. CARDIOVASCULAR: Regular rate and rhythm. No murmur appreciated. RESPIRATORY: No accessory muscle use. Clear to auscultation. Breath sounds equal bilaterally. GASTROINTESTINAL: Abdomen soft, non-tender, nondistended. Hepatic and splenic margins not palpable. MUSCULOSKELETAL: No obvious deformities. No clubbing. No cyanosis. No edema. NEUROLOGICAL: Awake and alert. No obvious cranial nerve deficits. Motor grossly within normal limits. Normal speech. PSYCHIATRIC: Appropriate mood and affect; insight and judgment normal. Course Initial Documented Vital Signs Pulse Oximetry 92 L 01/20/18 06:45 Last Documented Vital Signs Temperature 97.9 F 01/20/18 09:00 Pulse Rate 98 H 01/20/18 09:00 Respiratory Rate 28 H 01/20/18 09:00 Blood Pressure 146/70 H 01/20/18 09:00 Pulse Oximetry 96 01/20/18 09:17 Medical Decision Making MDM Narrative Medical decision making narrative: Patient presents to the emergency department secondary to COPD exacerbation. Is on BiPAP upon my assessment. Patient placed on cardiac/vascular sonographer, continuous pulse ox, and IV access obtained. Labs/ EKG/chest x-ray/duo nebs/ABG ordered. ECG: Sinus rhythm, rate 78, normal axis, short LA, QTC 402 Labs: Leukocytosis; ABG/acidotic with increased CO2 and PO2 of 65 on FiO2 of 75% , BNP, lactic acid increased 0818: Given 750mg IV levaquin for PNA. 0944: Admitted to ICU, 1L IV NS ordered, repeat abg pending->Repeat ABG on 18/ 75%, PH improved to 7.432, CO2 59.9, pO2-76.4. Written for another duoneb. RT to decrease FiO2. CXR: CONCLUSION: 1. Patchy airspace disease left upper lobe and right perihilar region.2. Right basilar pleural-parenchymal scarring. Differential Diagnosis Differential Diagnosis: COPD exacerbation, viral illness, bronchitis, pneumonia, pneumothorax, CHF, ACS Lab Data Result diagrams: 01/20/18 07:40 01/20/18 07:40 Lab Results 01/20/18 01/20/18 01/20/18 Range/Units 07:39 07:40 07:40 WBC 27.1 H (4.0-11.0) th/mm3 RBC 3.83 L (4.50-5.90) mil/mm3 Hgb 13.0 (13.0-17.0) gm/dL Hct 39.4 (39.0-51.0) % MCV 103.0 H (80.0-100.0) fL MCH 33.9 (27.0-34.0) pg MCHC 32.9 (32.0-36.0) % RDW 13.9 (11.6-17.2) % Plt Count 415 (150-450) th/mm3 MPV 6.8 L (7.0-11.0) fL Neut % (Auto) 93.8 H (16.0-70.0) % Lymph % (Auto) 2.4 L (9.0-44.0) % Falls % (Auto) 3.7 (0.0-8.0) % Eos % (Auto) 0.0 (0.0-4.0) % Baso % (Auto) 0.1 (0.0-2.0) % Neut # (Auto) 25.4 H (1.8-7.7) th/mm3 Lymph # (Auto) 0.7 L (1.0-4.8) th/mm3 Falls # (Auto) 1.0 H (0.0-0.9) th/mm3 Eos # (Auto) 0.0 (0.0-0.4) th/mm3 Baso # (Auto) 0.0 (0.0-0.2) th/mm3 WBC Differential . Differential Comment Auto diff final PT 10.1 (9.8-11.6) sec INR 1.0 Ratio APTT 29.0 (24.3-30.1) sec Puncture Site Right radial Patient Temperature 98.6 O2 Saturation 91 (90-100) % ABG pH 7.33 L (7.380-7.420) ABG pCO2 79 H* (38-42) mmHg ABG pO2 65 (61-120) mmHg ABG HCO3 41 H (22-26) mmol/L ABG O2 Content 16.3 (12.0-20.0) Vol % ABG Base Excess 14.5 H (-2-2) mmol/L ABG Methemoglobin 0.6 (0-2) % John Test Hemoglobin 12.8 (12.0-16.0) G/DL Carboxyhemoglobin 1.9 (0-4) % O2 Delivery Device Bipap 15/5 Vent Setting Inspired O2 75 % Critical Value Yes Sodium (136-145) meq/L Potassium (3.5-5.1) meq/L Chloride (98-107) meq/L Carbon Dioxide (21.0-32.0) meq/L Anion Gap (5-15) meq/L BUN (7-18) mg/dL Creatinine (0.60-1.30) mg/dL Estimated GFR (>89) mL/min Random Glucose (74-106) mg/dL Lactic Acid (0.4-2.0) mmol/L Calcium (8.5-10.1) mg/dL Magnesium (1.5-2.5) mg/dL Total Bilirubin (0.2-1.0) mg/dL AST (15-37) U/L ALT (12-78) U/L Alkaline Phosphatase (45-117) U/L Total Creatine Kinase (39-308) U/L Troponin I (0.02-0.05) ng/mL B-Natriuretic Peptide (0-100) pg/mL Total Protein (6.4-8.2) g/dL Albumin (3.4-5.0) g/dL 01/20/18 01/20/18 01/20/18 Range/Units 07:40 07:40 07:40 WBC (4.0-11.0) th/mm3 RBC (4.50-5.90) mil/mm3 Hgb (13.0-17.0) gm/dL Hct (39.0-51.0) % MCV (80.0-100.0) fL MCH (27.0-34.0) pg MCHC (32.0-36.0) % RDW (11.6-17.2) % Plt Count (150-450) th/mm3 MPV (7.0-11.0) fL Neut % (Auto) (16.0-70.0) % Lymph % (Auto) (9.0-44.0) % Falls % (Auto) (0.0-8.0) % Eos % (Auto) (0.0-4.0) % Baso % (Auto) (0.0-2.0) % Neut # (Auto) (1.8-7.7) th/mm3 Lymph # (Auto) (1.0-4.8) th/mm3 Falls # (Auto) (0.0-0.9) th/mm3 Eos # (Auto) (0.0-0.4) th/mm3 Baso # (Auto) (0.0-0.2) th/mm3 WBC Differential Differential Comment PT (9.8-11.6) sec INR Ratio APTT (24.3-30.1) sec Puncture Site Patient Temperature O2 Saturation (90-100) % ABG pH (7.380-7.420) ABG pCO2 (38-42) mmHg ABG pO2 (61-120) mmHg ABG HCO3 (22-26) mmol/L ABG O2 Content (12.0-20.0) Vol % ABG Base Excess (-2-2) mmol/L ABG Methemoglobin (0-2) % John Test Hemoglobin (12.0-16.0) G/DL Carboxyhemoglobin (0-4) % O2 Delivery Device Vent Setting Inspired O2 % Critical Value Sodium 134 L (136-145) meq/L Potassium 3.9 (3.5-5.1) meq/L Chloride 89 L (98-107) meq/L Carbon Dioxide 35.3 H (21.0-32.0) meq/L Anion Gap 10 (5-15) meq/L BUN 8 (7-18) mg/dL Creatinine 0.43 L (0.60-1.30) mg/dL Estimated GFR Greater than 89 (>89) mL/min Random Glucose 113 H (74-106) mg/dL Lactic Acid (0.4-2.0) mmol/L Calcium 9.5 (8.5-10.1) mg/dL Magnesium 1.8 (1.5-2.5) mg/dL Total Bilirubin 0.5 (0.2-1.0) mg/dL AST 14 L (15-37) U/L ALT 15 (12-78) U/L Alkaline Phosphatase 88 (45-117) U/L Total Creatine Kinase 24 L Cancelled (39-308) U/L Troponin I Less than 0.02 L (0.02-0.05) ng/mL B-Natriuretic Peptide 150 H (0-100) pg/mL Total Protein 7.0 (6.4-8.2) g/dL Albumin 2.9 L (3.4-5.0) g/dL 01/20/18 01/20/18 Range/Units 08:30 09:39 WBC (4.0-11.0) th/mm3 RBC (4.50-5.90) mil/mm3 Hgb (13.0-17.0) gm/dL Hct (39.0-51.0) % MCV (80.0-100.0) fL MCH (27.0-34.0) pg MCHC (32.0-36.0) % RDW (11.6-17.2) % Plt Count (150-450) th/mm3 MPV (7.0-11.0) fL Neut % (Auto) (16.0-70.0) % Lymph % (Auto) (9.0-44.0) % Falls % (Auto) (0.0-8.0) % Eos % (Auto) (0.0-4.0) % Baso % (Auto) (0.0-2.0) % Neut # (Auto) (1.8-7.7) th/mm3 Lymph # (Auto) (1.0-4.8) th/mm3 Falls # (Auto) (0.0-0.9) th/mm3 Eos # (Auto) (0.0-0.4) th/mm3 Baso # (Auto) (0.0-0.2) th/mm3 WBC Differential Differential Comment PT (9.8-11.6) sec INR Ratio APTT (24.3-30.1) sec Puncture Site Left radial Patient Temperature 98.6 O2 Saturation 94 (90-100) % ABG pH 7.43 H (7.380-7.420) ABG pCO2 60 H* (38-42) mmHg ABG pO2 76 (61-120) mmHg ABG HCO3 39 H (22-26) mmol/L ABG O2 Content 16.5 (12.0-20.0) Vol % ABG Base Excess 14.1 H (-2-2) mmol/L ABG Methemoglobin 0.7 (0-2) % John Test Present Hemoglobin 12.4 (12.0-16.0) G/DL Carboxyhemoglobin 1.7 (0-4) % O2 Delivery Device Bipap Vent Setting [id number] Inspired O2 75 % Critical Value Yes Sodium (136-145) meq/L Potassium (3.5-5.1) meq/L Chloride (98-107) meq/L Carbon Dioxide (21.0-32.0) meq/L Anion Gap (5-15) meq/L BUN (7-18) mg/dL Creatinine (0.60-1.30) mg/dL Estimated GFR (>89) mL/min Random Glucose (74-106) mg/dL Lactic Acid 3.0 H (0.4-2.0) mmol/L Calcium (8.5-10.1) mg/dL Magnesium (1.5-2.5) mg/dL Total Bilirubin (0.2-1.0) mg/dL AST (15-37) U/L ALT (12-78) U/L Alkaline Phosphatase (45-117) U/L Total Creatine Kinase (39-308) U/L Troponin I (0.02-0.05) ng/mL B-Natriuretic Peptide (0-100) pg/mL Total Protein (6.4-8.2) g/dL Albumin (3.4-5.0) g/dL Imaging Data Radiologist's impression: ITS Impressions Chest X-Ray 01/20/18 07:16 CONCLUSION: 1. Patchy airspace disease left upper lobe and right perihilar region. 2. Right basilar pleural-parenchymal scarring. Discharge Plan Discharge Disposition Patient Disposition: 30 Still Patient Discharge Condition Condition: Fair Discharge Details Discharge Problem: Acute exacerbation of chronic obstructive pulmonary disease (COPD), Chest pain , Pneumonia Physicians Team ED Provider: Mable Guevara Primary Care Provider: UNKNOWN, Attending Provider: Jhonatan Sanders Status ED Status: Admitted Patient
[2018-01-20 08:07] LABS: Baso % (Auto) 0.1 % (0.0-2.0); Hematocrit 39.4 % (39.0-51.0); Lymph # (Auto) 0.7 th/mm3 (1.0-4.8); Lymph % (Auto) 2.4 % (9.0-44.0); Mean Corpuscular HGB Conc 32.9 % (32.0-36.0); Mean Corpuscular Hemoglobin 33.9 pg (27.0-34.0); Mean Platelet Volume 6.8 fL (7.0-11.0); Mono % (Auto) 3.7 % (0.0-8.0); Neut # (Auto) 25.4 th/mm3 (1.8-7.7); Neut % (Auto) 93.8 % (16.0-70.0); Platelet Count 415 th/mm3 (150-450); Red Blood Count 3.83 mil/mm3 (4.50-5.90); Red Cell Distribution Width 13.9 % (11.6-17.2); White Blood Count 27.1 th/mm3 (4.0-11.0)
[2018-01-20 08:13] LABS: Prothrombin Time 10.1 sec (9.8-11.6)
[2018-01-20 08:25] LABS: ABG Base Excess 14.5 mmol/L (-2-2); ABG PCO2 79 mmHg (38-42); ABG PO2 65 mmHg (61-120)
[2018-01-20 08:30] LABS: Alanine Aminotransferase 15 U/L (12-78); Albumin 2.9 g/dL (3.4-5.0); Anion Gap 10 meq/L (5-15); Aspartate Aminotransferase 14 U/L (15-37); Blood Urea Nitrogen 8 mg/dL (7-18); Calcium 9.5 mg/dL (8.5-10.1); Carbon Dioxide 35.3 meq/L (21.0-32.0); Chloride 89 meq/L (98-107); Glomerular Filtration Rate Greater Than 89 mL/min (>89); Glucose,Random 113 mg/dL (74-106); Magnesium 1.8 mg/dL (1.5-2.5); Potassium 3.9 meq/L (3.5-5.1); Sodium 134 meq/L (136-145)
[2018-01-20 08:34] LABS: Alkaline Phosphatase 88 U/L (45-117)
--- NOTE | 2018-01-20 08:39 | XR ---
EXAM DATE: 01/20/2018 8:35 AM EDT AGE/SEX: 67 years / Male INDICATIONS: Short of Breath CLINICAL DATA: This is the patient's initial encounter. Patient reports that signs and symptoms have been present for 1 day and indicates a pain score of Nonresponsive. MEDICAL/SURGICAL HISTORY: Non-responsive. Non-responsive. COMPARISON: [facility] [place], CHEST SINGLE AP, 12/10/2017. . FINDINGS: A single AP view of the chest demonstrates hyperinflation with right basilar pleural-parenchymal scar ring. Minimal airspace disease left upper lobe and right perihilar region. Heart normal in size The c ardiomediastinal contours are unremarkable. Osseous structures are intact. CONCLUSION: 1. Patchy airspace disease left upper lobe and right perihilar region. 2. Right basilar pleural-parenchymal scarring. Electronically signed by: Luis Ramírez MD 01/20/2018 8:38 AM EDT
[2018-01-20 08:46] LABS: Creatine Kinase 24 U/L (39-308)
[2018-01-20] MEDS ORDERED: Sod Chloride 0.9% Inj 1,000 ML IV.SIG ONE (09:41)
[2018-01-20] MEDS ORDERED: Sodium Phosphate Inj 30 MMOL in Sodium Chlor 0.9% Inj 250 ML IV.SIG PRN (09:42)
[2018-01-20] MEDS ORDERED: Bisacodyl 10 MG Supp RECTAL PRN (09:42)
[2018-01-20] MEDS ORDERED: Magnesium Sulfate Inj 4 GM in Sodium Chlor 0.9% Inj 92 ML IV.SIG PRN (09:42)
[2018-01-20] MEDS ORDERED: Potassium Chlor 20 mEq Premix 20 MEQ/100 ML PIGGYBACK IV.SIG PRN ×2 (09:42)
[2018-01-20] MEDS ORDERED: Potassium Chloride 25 MEQ Effervescent Tablet PO PRN (09:42)
[2018-01-20] MEDS ORDERED: Potassium Chlor 40 mEq Premix 40 MEQ/100 ML PIGGYBACK IV.SIG PRN ×2 (09:42)
[2018-01-20] MEDS ORDERED: Magnesium Sulfate Inj 2 GM in Sodium Chlor 0.9% Inj 96 ML IV.SIG PRN (09:42)
[2018-01-20] MEDS ORDERED: Potassium Phosphate 500 MG Soluble Tablet PO PRN ×2 (09:42)
[2018-01-20] MEDS ORDERED: Potassium Phosphate Inj 30 MMOL in Sodium Chlor 0.9% Inj 250 ML IV.SIG PRN (09:42)
[2018-01-20] MEDS ORDERED: Acetaminophen 325 MG Tablet PO PRN (09:42)
[2018-01-20] MEDS ORDERED: Magnesium Oxide 400 MG Tablet PO PRN (09:42)
[2018-01-20 09:43] LABS: ABG Base Excess 14.1 mmol/L (-2-2); ABG PCO2 60 mmHg (38-42); ABG PO2 76 mmHg (61-120)
[2018-01-20] MEDS ORDERED: Magnesium Sulfate Inj 2 GM in Sodium Chlor 0.9% Inj 96 ML IV.SIG ONE (09:52)
--- NOTE | 2018-01-20 10:03 | P.HPCC ---
History of Present Illness Service: Critical care medicine Primary Care Physician: UNKNOWN Chief Complaint: shortness of breath History of Present Illness: 67yM with history of COPD presents with 1 week history of worsening productive cough, fever and SOB. found to be hypoxic in ER and placed on BiPAP. initial ABG with severe respiratory acidosis and hypercarbia as well as hypoxia. CXR with ? RLL infiltrate. lactate elevated. given solumedrol in the field and serial nebs. on my evaluation patient had taken off BiPAP and was on ventimask with spo2 82% and very dyspneic and tachypneic. due to his respiratory distress , unable to complete a history. ROS unobtainable. discussed at length with patient that if he cannot tolerate biPAP, will have to proceed with intubation: he will try bipap one more time. denied chest pain, palpitations. - Diagnosis (1) Acute exacerbation of chronic obstructive pulmonary disease (COPD) - Inpatient Certification If this patient has been admitted as an Inpatient: I certify that the inpatient services were ordered in accordance with Medicare regulations governing the order. This includes certification that hospital inpatient services are reasonable and necessary and in the case of services not specified as inpatient-only under 42 CFR 419.22(n), that they are appropriately provided as inpatient services in accordance to with the 2-midnight benchmark under 43 CFR 412.3(e) Estimated Total Length of Stay (Days): 7 Plans for Post Hospital Care: Not yet determined Review of Systems All other systems reviewed negative except as stated in HPI, other ( unobtainable secondary to severe respiratory distress) PMFSH - History History Provided By: Patient, Medical Record - Medical / Surgical Hx Neg / Unobtainable Medical Problems Denied: Unable to Obtain Surgical History: Unable to Obtain - Medical History Medical History: Medical History (Last Updated 01/20/18 @ 06:46 by Remi Ascencio) Anemia Aortic atherosclerosis COPD (chronic obstructive pulmonary disease) Cervicalgia Chronic kidney disease Congestive heart failure Emphysema lung Erectile dysfunction Hyperlipidemia Hypertension Hypogonadism Hyponatremia Leukocytosis Lumbar disc disease Onychomycosis Opioid dependence PVD (peripheral vascular disease) Paroxysmal A-fib Polyneuropathy Radiculopathy Thrombocythemia Ulnar neuropathy - Tobacco History Tobacco Use In Past 30 Days: Yes Smoking Status: Current some day smoker Tobacco Type: Cigarettes - Alcohol History How Often Do You Have a Drink Containing Alcohol: 2 to 3 times a week - Substance Use History Substance History: No History of Abuse - Travel History Recent Travel in the [place] Within the Last 8 Weeks: No Recent Travel Out of the Country Within the Last 8 Weeks: No - Immunization History Tetanus Immunization: Unsure Medications and Allergies Active Medications: Active Medications Acetaminophen (Tylenol) 650 mg PO Q6H PRN PRN Reason: PAIN 1-10 AND/OR FEVER >101F Al Hydroxide/Mg Hydroxide (Milk Of Magnrey Liq) 30 ml PO Q12H PRN PRN Reason: Mild Constipation Albuterol (Duoneb Neb (Prn)) 1 ampul NEB Q4HR NEB SALLY Albuterol (Duoneb Neb (Prn)) 1 ampul NEB Q2HR NEB PRN PRN Reason: WHEEZING Alprazolam (Xanax) 0.5 mg PO BID SALLY Aspirin (Aspirin) 325 mg PO DAILY SALLY Bisacodyl (Dulcolax Supp) 10 mg RECTAL DAILY PRN PRN Reason: SEVERE CONSITIPATION Chlorhexidine Gluconate (Chlorhexidine 2% Cloth) 3 pack TOPICAL DAILY@0400 SALLY Stop: 01/26/18 03:59 Chlorhexidine Gluconate (Chlorhexidine 2% Cloth) 3 pack TOPICAL DAILY@0400 PRN PRN Reason: Extra cloth needed Stop: 01/26/18 03:59 Enoxaparin Sodium (Lovenox Inj) 40 mg SQ Q24H SALLY Famotidine (Pepcid) 20 mg PO BID SALLY Magnesium Sulfate Inj 4 gm/ (Sodium Chloride) 100 mls @ 50 mls/hr IV.SIG UNSCH PRN PRN Reason: For Magnesium 0.9 - 1.1 mg/dL Magnesium Sulfate Inj 2 gm/ (Sodium Chloride) 100 mls @ 50 mls/hr IV.SIG UNSCH PRN PRN Reason: For Magnesium 1.2 - 1.6 mg/dL Potassium Chloride (Kcl 40 Meq Premix Inj) 40 meq in 100 mls @ 25 mls/hr IV.SIG Q2H PRN PRN Reason: For Potassium 2.8 - 3.2 mEq/L Potassium Chloride (Kcl 20 Meq Premix Inj) 20 meq in 100 mls @ 50 mls/hr IV.SIG Q2H PRN PRN Reason: For Potassium 3.3 - 3.5 mEq/L Potassium Chloride (Kcl 40 Meq Premix Inj) 40 meq in 100 mls @ 25 mls/hr IV.SIG UNSCH PRN PRN Reason: For Potassium 3.3 - 3.5 mEq/L Potassium Chloride (Kcl 20 Meq Premix Inj) 20 meq in 100 mls @ 50 mls/hr IV.SIG Q2H PRN PRN Reason: For Potassium 2.8 - 3.2 mEq/L Sodium Phosphate 30 mmol/ (Sodium Chloride) 260 mls @ 42 mls/hr IV.SIG UNSCH PRN PRN Reason: For Phosphorus < 2.5 mg/dL Potassium Phosphate 30 mmol/ (Sodium Chloride) 260 mls @ 42 mls/hr IV.SIG UNSCH PRN PRN Reason: SEE LABEL COMMENTS Magnesium Sulfate Inj 2 gm/ (Sodium Chloride) 100 mls @ 50 mls/hr IV.SIG ONCE ONE Stop: 01/20/18 11:51 Levofloxacin/Dextrose (Levaquin 750 Mg Premix Inj) 150 mls @ 100 mls/hr IV.SIG Q24H SALLY Stop: 01/27/18 09:59 Lactulose (Lactulose Liq) 30 ml PO DAILY PRN PRN Reason: SEVERE CONSITIPATION Magnesium Oxide (Mag-Ox) 800 mg PO UNSCH PRN PRN Reason: For Magnesium 1.2 - 1.6 mg/dL Methylprednisolone Sodium Succinate (Solumedrol Inj) 60 mg IV.PUSH Q12HR [facility] Non-Formulary Medication (Tiotropium Magnolia [Spiriva Respimat]) 2 puff INHALATION DAILY SALLY Non-Formulary Medication (Diltiazem Hcl [Diltiazem Hcl]) 240 mg PO DAILY SALLY Potassium Bicarb/Potassium Chloride (K-Lyte Cl Eff) 50 meq PO UNSCH PRN PRN Reason: For Potassium 3.3 - 3.5 mEq/L Potassium Phosphate (K-Phos Original) 2,000 mg PO Q4H PRN PRN Reason: Phosphorus Less Than 2.5 mg/dL Potassium Phosphate (K-Phos Original) 2,000 mg PO UNSCH PRN PRN Reason: SEE LABEL COMMENTS Senna/Docusate Sodium (Jessica-Colace) 1 tab PO BID SALLY Sennosides (Senokot) 17.2 mg PO Q12H PRN PRN Reason: Moderate Constipation Sodium Chloride (Ns Flush) 2 ml IV.FLUSH PRN PRN PRN Reason: FLUSH AFTER USING IV ACCESS Last Admin: 01/20/18 07:45 Dose: 2 ml Sodium Chloride (Ns Flush) 2 ml IV.FLUSH BID SALLY Sodium Chloride (Ns Flush) 2 ml IV.FLUSH PRN PRN PRN Reason: FLUSH AFTER USING IV ACCESS Allergies Allergy/AdvReac Type Severity Reaction Status Date / Time piperacillin Allergy Severe Swelling Verified 01/20/18 06:50 tazobactam Allergy Severe Swelling Verified 01/20/18 06:50 Home Medications Medication Instructions Recorded Confirmed Type alprazolam [Xanax] 0.5 mg PO BID 01/20/18 01/20/18 History aspirin 325 mg PO DAILY 01/20/18 01/20/18 History diltiazem HCl 240 mg PO DAILY 01/20/18 01/20/18 History hydrocodone-acetaminophen 1 tab PO Q4-6H PRN 01/20/18 01/20/18 History ipratropium-albuterol [Combivent 1 puff INHALATION Q6H 01/20/18 01/20/18 History Respimat] lisinopril 20 mg PO DAILY 01/20/18 01/20/18 History tiotropium bromide [Spiriva 2 puff INHALATION DAILY 01/20/18 01/20/18 History Respimat] Results - Labs CBC & Chem 7: 01/20/18 07:40 01/20/18 07:40 Labs: Short CBC 01/20/18 Range/Units 07:40 WBC 27.1 H (4.0-11.0) th/mm3 Hgb 13.0 (13.0-17.0) gm/dL Hct 39.4 (39.0-51.0) % Plt Count 415 (150-450) th/mm3 [facility] 01/20/18 07:40 Sodium 134 L Potassium 3.9 Chloride 89 L Carbon Dioxide 35.3 H BUN 8 Creatinine 0.43 L Calcium 9.5 Cardiac Enzymes 01/20/18 01/20/18 Range/Units 07:40 07:40 Total Creatine Kinase 24 L Cancelled (39-308) U/L Troponin I Less than 0.02 L (0.02-0.05) ng/mL Liver Function 01/20/18 Range/Units 07:40 Total Bilirubin 0.5 (0.2-1.0) mg/dL AST 14 L (15-37) U/L ALT 15 (12-78) U/L Alkaline Phosphatase 88 (45-117) U/L Albumin 2.9 L (3.4-5.0) g/dL - Imaging Impressions Chest X-Ray 01/20/18 07:16 CONCLUSION: 1. Patchy airspace disease left upper lobe and right perihilar region. 2. Right basilar pleural-parenchymal scarring. - ABG ABG results: 01/20/18 01/20/18 07:39 09:39 ABG pH 7.33 L 7.43 H ABG pCO2 79 H* 60 H* ABG pO2 65 76 ABG HCO3 41 H 39 H ABG O2 Content 16.3 16.5 ABG Base Excess 14.5 H 14.1 H ABG Methemoglobin 0.6 0.7 Attestation: I personally reviewed and interpreted this ABG as follows: Interpretation: severe respiratory acidosis, acute hypoxemia on supplemental o2. Exam Vital signs: Vital Signs 01/20/18 06:45 01/20/18 06:47 01/20/18 07:40 Temperature 97.5 F L 97.8 F Pulse Rate 82 83 Respiratory Rate 36 H 28 H Blood Pressure 169/82 H 146/70 H Pulse Oximetry 92 L 91 L 93 L 01/20/18 09:00 01/20/18 09:17 01/20/18 09:50 Temperature 97.9 F Pulse Rate 98 H 103 H Respiratory Rate 28 H 32 H Blood Pressure 146/70 H Pulse Oximetry 94 L 96 Intake & Output 01/19/18 01/20/18 01/20/18 18:59 06:59 18:59 Weight 45 kg Narrative: GENERAL: Middle-age male who appears much older than stated age, quite frail and appears malnourished, sitting in bed in respiratory distress HEENT: Normocephalic. Atraumatic. Pupils equal, round, reactive, conjugate. Mucous membranes are moist NECK: Trachea is midline. There is no JVD. CHEST: BiPAP in place. Tachypneic. Using accessory muscles to breathe. Barrel chested. Hypoxic with SPO2 82%. CARDIOVASCULAR: Normal rate, regular rhythm. Appears sinus by telemetry. ABDOMEN: Soft, nontender, nondistended. No guarding. MUSCULOSKELETAL: Pulses 2+. No peripheral edema. NEUROLOGICAL: RASS +1. Agitated due to tachypnea and respiratory distress. Moves all extremities. Follows commands. No focal deficits. Septic Shock Reassessment Septic shock perfusion: reassessment completed (Lactate decreasing after IV fluid resuscitation) Caprini VTE Risk Assessment Caprini VTE Risk Assessment: Moderate/High Risk (score >= 2) Caprini Risk Assessment Model: Point Value = 1 Point Value = 2 Point Value = 3 Point Value = 5 Age 41-60 Minor surgery BMI > 25 kg/m2 Swollen legs Varicose veins or History of unexplained or recurrent spontaneous Oral contraceptives or hormone replacement Sepsis (< 1 month) Serious lung disease, including pneumonia (< 1 month) Abnormal pulmonary function Acute myocardial infarction Congestive heart failure (< 1 month) History of inflammatory bowel disease Medical patient at bed rest Age 61-74 Arthroscopic surgery Major open surgery (> 45 min) Laparoscopic surgery (> 45 min) Malignancy Confined to bed (> 72 hours) Immobilizing plaster cast Central venous access Age >= 75 History of VTE Family history of VTE Factor V Leiden Prothrombin [id number] Lupus anticoagulant Anticardiolipin antibodies Elevated serum homocysteine Heparin-induced thrombocytopenia Other congenital or acquired thrombophilia Stroke (< 1 month) Elective arthroplasty Hip, pelvis, or leg fracture Acute spinal cord injury (< 1 month) Prophylaxis Regimen: Total Risk Factor Score Risk Level Prophylaxis Regimen 0-1 Low Early ambulation 2 Moderate Order ONE of the following: *Sequential Compression Device (SCD) *Heparin 5000 units SQ BID 3-4 Higher Order ONE of the following medications: *Heparin 5000 units SQ TID *Enoxaparin/Lovenox 40 mg SQ daily (WT < 150 kg, CrCl > 30 mL/min) *Enoxaparin/Lovenox 30 mg SQ daily (WT < 150 kg, CrCl > 10-29 mL/min) *Enoxaparin/Lovenox 30 mg SQ BID (WT < 150 kg, CrCl > 30 mL/min) AND/OR *Sequential Compression Device (SCD) 5 or more Highest Order ONE of the following medications: *Heparin 5000 units SQ TID (Preferred with Epidurals) *Enoxaparin/Lovenox 40 mg SQ daily (WT < 150 kg, CrCl > 30 mL/min) *Enoxaparin/Lovenox 30 mg SQ daily (WT < 150 kg, CrCl > 10-29 mL/min) *Enoxaparin/Lovenox 30 mg SQ BID (WT < 150 kg, CrCl > 30 mL/min) AND *Sequential Compression Device (SCD) Assessment and Plan - Problem List (1) Acute exacerbation of chronic obstructive pulmonary disease (COPD) Code(s): J44.1 - Chronic obstructive pulmonary disease with (acute) exacerbation Status: Acute - Assessment and Plan Plan: Assessment: 67-year-old male with acute COPD exacerbation and associated acute hypoxic and hypercarbic respiratory failure requiring noninvasive positive pressure ventilation. Patient remains critically ill with worsening hypoxemia. Will give another trial of BiPAP to see if this can improve his symptoms otherwise we will be forced to pursue intubation invasive mechanical ventilation. Active problems: Acute hypoxic hypercarbic respiratory failure Acute, severe COPD exacerbation Community acquired pneumonia Hyponatremia Lactic acidosis Acute intravascular volume depletion Severe acute protein calorie malnutrition Plan: IV steroids Nebs BiPAP Wean FiO2 for goal SPO2 greater than 90% ABG in the morning Serial BMP, CBC IV magnesium Levaquin 750 mg IV every 24 hours Sputum culture Blood cultures N.p.o. for now and advance slowly if his respiratory status improves Pulmonary consult: Will need to be followed by pulmonary as an outpatient Serial lactates Maintenance IV fluids SCDs Pepcid Lovenox Disposition: Admit to ICU. This patient remains critically ill with one or more organ systems which are or may become a threat to life. I have spent in excess of 37 minutes discontinuously in the care and management of this patient. This time is exclusive of procedures, and includes, but is not limited to, evaluation of the patient, review of the medical record, discussions with family, consultants, nursing staff, or respiratory therapy, and documentation in the medical record. Code Status: Full code
[2018-01-20] MEDS: Enoxaparin Inj 40 MG/0.4 ML Syringe SQ SCH (10:18)
[2018-01-20 10:51] LABS: Bilirubin,Urine Negative (Negative); Clarity,Urine Clear (Clear); Color,Urine Yellow (Yellw/Straw); Glucose,Urine (UA) Negative (Negative); Leukocyte Esterase,Urine Negative (Negative); Nitrite,Urine Negative (Negative); Specific Gravity,Urine 1.013 (1.002-1.035)
--- NOTE | 2018-01-20 12:08 | MB ---
cc: Ramon Driscoll MD DATE: 01/20/2018 HISTORY: Mr. Hinton is a 67-year-old white male who presents with very severe COPD and a longstanding history of tobacco use and emphysema. He was getting more short of breath. The last admission here was in November and prior to that in May. He has had several admissions within the last year, each for COPD. He also presented in February of last year with the pericardial effusion, atrial fibrillation and had to have a pericardial window. CHIEF COMPLAINT ON PRESENTATION: Shortness of breath, cough and congestion. He continues to smoke daily and lives with a smoker. On presentation, arterial blood gases on BiPAP 15/5, pO2 of 65, pCO2 79, pH 7.3. After several aerosol treatments and IV corticosteroids, pCO2 is down to 60, pH up to 7.4, pO2 is 76. He is now resting comfortably in bed on a Ventimask with O2 saturations in the 90s. Chest x-ray reveals patchy airspace disease in the left upper lobe and the right perihilar region as well as chronic pleural parenchymal scarring. Initial laboratory white count is elevated 27,000, hemoglobin 13. Coag profile normal. BNP 150. Lactic acid 3. Urine pneumococcal and legionella antigens pending. Influenza A and B are negative. Blood cultures are pending. The patient has no complaint of chest pain. He has had cough with some purulent sputum. No hemoptysis. No increased swelling in his legs. PAST MEDICAL HISTORY: 1. Hypertension. 2. Paroxysmal atrial fibrillation. 3. Pericardial effusion last February. 4. Pericardial window. 5. He had surgery with lobectomy for apparently nonmalignant disease several years ago. 6. Cataracts have been removed. 7. Right femoral surgical repair of the fracture. 8. Hernia repairs. 9. Degenerative arthritis and chronic pain with narcotic dependence. CURRENT MEDICATIONS: Reviewed in the EMR. ALLERGIES: PENICILLIN. SOCIAL HISTORY: Lives with his . She smokes. He drinks several beers a day. REVIEW OF SYSTEMS: No headache or syncopal symptoms. No nausea, vomiting, abdominal pain or ulcer disease. No recent change in bowel habits. No swelling in his legs. GENERAL: He is, however, extremely debilitated and has dyspnea with minimal exertion. PHYSICAL EXAMINATION: VITAL SIGNS: 98 degrees, pulse is 90-100 regular, respirations 24, blood pressure 140/70. Current saturation 94%. HEENT: Sclerae pale, anicteric. NECK: Veins are not distended. CHEST: Severely diminished throughout, but remarkably clear. No congestion or wheezing. HEART: Regular rhythm. No harsh murmur. ABDOMEN: Soft. EXTREMITIES: No pitting edema in the legs and no cyanosis of the nail beds. DISCUSSION: Mr. Hinton presents with a known history of severe COPD/emphysema. Probably now a superimposed pneumonia. Very weak and debilitated, obviously very chronically ill. Also, continues to smoke and probably drinks a fair amount of alcohol. We will continue aerosolized bronchodilators, antibiotics, try to collect a sputum for culture and continue IV corticosteroids. Overall prognosis given the advanced nature of his disease is poor. The patient does request a full resuscitative support. Further diagnostic and/or therapeutic intervention will depend on his response and ongoing clinical course. R. Fer Driscoll MD RSBon/DL , 11:45 AM , 12:07 PM
[2018-01-20] MEDS: Famotidine 20 MG Tablet PO SCH (21:00)
[2018-01-20] MEDS: MethylPREDNISolone Sod Succinate Inj 125 MG/2 ML Vial IV.PUSH SCH (21:37)
[2018-01-20] MEDS: Senna/Docusate Sodium 8.6/50 MG Tablet PO SCH (21:37)
[2018-01-20] MEDS: ALPRAZolam 0.5 MG Tablet PO SCH (21:38)
--- NOTE | 2018-01-20 21:40 | ECG ---
Date Performed: 01/20/2018 Time Performed: 07:46:29 PTAGE: 67 years EKG: Sinus rhythm WITH SHORT MN INTERVAL POSSIBLE RIGHT ATRIAL ENLARGEMENT BORDERLINE ECG PREVIOUS TRACING : 12/10/2017 11.04 Since the previous tracing, no significant change noted DOCTOR: Man Ocampo Interpretating Date/Time 01/20/2018 21:38:55
[2018-01-21] MEDS ORDERED: Chlorhexidine Gluconate 2% 1 Pack (2 Cloths) TOPICAL PRN (04:00)
[2018-01-21 05:29] LABS: Hematocrit 36.6 % (39.0-51.0); Hemoglobin 12.2 gm/dL (13.0-17.0); Mean Corpuscular HGB Conc 33.3 % (32.0-36.0); Mean Corpuscular Hemoglobin 33.6 pg (27.0-34.0); Mean Corpuscular Volume 100.9 fL (80.0-100.0); Mean Platelet Volume 7.3 fL (7.0-11.0); Platelet Count 448 th/mm3 (150-450); Red Blood Count 3.63 mil/mm3 (4.50-5.90); Red Cell Distribution Width 13.9 % (11.6-17.2); White Blood Count 22.2 th/mm3 (4.0-11.0)
[2018-01-21 05:30] LABS: ABG Base Excess 8.3 mmol/L (-2-2); ABG PCO2 64 mmHg (38-42); ABG PO2 164 mmHG (61-120)
[2018-01-21 05:39] LABS: Anion Gap 10 meq/L (5-15); Blood Urea Nitrogen 11 mg/dL (7-18); Calcium 9.5 mg/dL (8.5-10.1); Carbon Dioxide 30.8 meq/L (21.0-32.0); Chloride 97 meq/L (98-107); Glomerular Filtration Rate Greater Than 89 mL/min (>89); Glucose,Random 140 mg/dL (74-106); Potassium 3.3 meq/L (3.5-5.1); Sodium 138 meq/L (136-145)
[2018-01-21] MEDS: Chlorhexidine Gluconate 2% 1 Pack (2 Cloths) TOPICAL SCH (05:51)
[2018-01-21] MEDS: Aspirin 325 MG Tablet PO SCH (08:40)
[2018-01-21] MEDS: Senna/Docusate Sodium 8.6/50 MG Tablet PO SCH ×2 (08:42→22:46)
[2018-01-21] MEDS: ALPRAZolam 0.5 MG Tablet PO SCH ×2 (08:42→22:47)
[2018-01-21] MEDS: MethylPREDNISolone Sod Succinate Inj 125 MG/2 ML Vial IV.PUSH SCH ×3 (08:43→22:48)
[2018-01-21] MEDS: Famotidine 20 MG Tablet PO SCH ×2 (08:44→22:47)
[2018-01-21] MEDS ORDERED: Non-Formulary Drug (Diltiazem Hcl [Diltiazem Hcl] 240 MG) PO SCH (09:00)
--- NOTE | 2018-01-21 09:12 | P.PNCC ---
Subjective Subjective Remarks/Hospital Course: Hospital Course: 67yM with history of COPD presents with 1 week history of worsening productive cough, fever and SOB. found to be hypoxic in ER and placed on BiPAP. initial ABG with severe respiratory acidosis and hypercarbia as well as hypoxia. CXR with ? RLL infiltrate. lactate elevated. given solumedrol in the field and serial nebs. on my evaluation patient had taken off BiPAP and was on ventimask with spo2 82% and very dyspneic and tachypneic. due to his respiratory distress , unable to complete a history. ROS unobtainable. discussed at length with patient that if he cannot tolerate biPAP, will have to proceed with intubation: he will try bipap one more time. denied chest pain, palpitations. subjective: 01/21: off bipap. clinically improving. tolerating diet. denies complaints. ROS negative. Objective Vital Signs / I&O: Vital Signs 01/20/18 09:17 01/20/18 09:50 01/20/18 10:00 Temperature 36.6 C Pulse Rate 103 H 98 H Respiratory Rate 32 H 28 H Blood Pressure 150/82 H Pulse Oximetry 96 94 L 01/20/18 11:45 01/20/18 11:53 01/20/18 12:00 Temperature 36.8 C Pulse Rate 81 100 H Respiratory Rate 33 H 25 H Blood Pressure 135/67 129/70 Pulse Oximetry 83 L 93 L 97 01/20/18 13:36 01/20/18 13:56 01/20/18 14:00 Temperature Pulse Rate 88 98 H Respiratory Rate Blood Pressure 138/70 Pulse Oximetry 98 95 96 01/20/18 15:00 01/20/18 15:02 01/20/18 15:54 Temperature Pulse Rate 101 H 101 H Respiratory Rate 25 H 32 H Blood Pressure 130/69 Pulse Oximetry 98 100 01/20/18 16:00 01/20/18 17:00 01/20/18 18:00 Temperature 37.0 C Pulse Rate 100 H 96 H 78 Respiratory Rate 26 H 25 H Blood Pressure 129/72 123/70 134/65 Pulse Oximetry 99 97 94 L 01/20/18 18:44 01/20/18 19:00 01/20/18 19:31 Temperature 36.5 C Pulse Rate 83 89 Respiratory Rate 26 H 25 H Blood Pressure 126/74 Pulse Oximetry 96 99 07/04/18 19:33 01/20/18 19:36 01/20/18 20:00 Temperature Pulse Rate 87 Respiratory Rate 25 H Blood Pressure 132/72 Pulse Oximetry 100 100 99 01/20/18 21:00 01/20/18 22:00 01/20/18 23:00 Temperature Pulse Rate 84 85 77 Respiratory Rate 30 H 29 H 26 H Blood Pressure 128/61 132/66 157/68 H Pulse Oximetry 99 97 01/20/18 23:36 01/20/18 23:41 01/20/18 23:43 Temperature Pulse Rate 75 Respiratory Rate 20 Blood Pressure Pulse Oximetry 98 98 01/21/18 00:00 01/21/18 01:00 01/21/18 02:00 Temperature 36.9 C Pulse Rate 74 77 72 Respiratory Rate 30 H 25 H 25 H Blood Pressure 112/62 137/67 132/65 Pulse Oximetry 98 99 93 L 01/21/18 03:00 01/21/18 03:19 01/21/18 03:24 Temperature Pulse Rate 63 65 Respiratory Rate 25 H 19 Blood Pressure 131/64 Pulse Oximetry 94 L 100 01/21/18 04:00 01/21/18 05:00 01/21/18 06:00 Temperature 36.6 C Pulse Rate 92 H 89 95 H Respiratory Rate 34 H 25 H 25 H Blood Pressure 139/69 138/70 129/73 Pulse Oximetry 100 100 100 01/21/18 07:53 01/21/18 08:01 Temperature Pulse Rate 88 Respiratory Rate 22 Blood Pressure Pulse Oximetry 100 Intake & Output 01/20/18 01/21/18 01/21/18 18:59 06:59 18:59 Intake Total 1250 / 1250 0 / 0 Output Total 500 / 500 500 / 500 Balance 750 / 750 -500 / -500 Weight 47.8 kg 47.8 kg Intake: IV 1250 / 1250 Levaquin 750 mg Premix Inj 150 150 / 150 ML @ 100 mls/hr IV.SIG ONCE ONE Rx#:[id number] Magnesium Sulfate Inj 2 GM In 100 / 100 NS Inj 96 ML @ 50 mls/hr IV.SIG ONCE ONE Rx#:[id number] NS Inj 1,000 ML @ Wide Open IV. 1000 / 1000 SIG BOLUS ONE Rx#:[id number] Oral 0 / 0 Output: Urine 500 / 500 500 / 500 Other: # Voids 2 Date of Last Bowel Movement 01/20/18 01/21/18 # Bowel Movements 1 Weight On Admission 47.8 kg Result Diagrams: 01/21/18 04:58 01/21/18 04:58 Imaging: Chest X-Ray 01/20/18 07:16 CONCLUSION: 1. Patchy airspace disease left upper lobe and right perihilar region. 2. Right basilar pleural-parenchymal scarring. Objective Remarks: GENERAL: Middle-age male who appears much older than stated age, quite frail and appears malnourished, sitting in bed no acute distress. HEENT: Normocephalic. Atraumatic. Pupils equal, round, reactive, conjugate. Mucous membranes are moist NECK: Trachea is midline. There is no JVD. CHEST: nc o2 in place. no distress. equal chest rise. unlabored. CARDIOVASCULAR: Normal rate, regular rhythm. Appears sinus by telemetry. ABDOMEN: Soft, nontender, nondistended. No guarding. MUSCULOSKELETAL: Pulses 2+. No peripheral edema. NEUROLOGICAL: RASS 0. Moves all extremities. Follows commands. No focal deficits. Assessment and Plan - Problem List (1) Acute exacerbation of chronic obstructive pulmonary disease (COPD) Code(s): J44.1 - Chronic obstructive pulmonary disease with (acute) exacerbation Status: Acute - Assessment and Plan Plan: Assessment: 67-year-old male with acute COPD exacerbation and associated acute hypoxic and hypercarbic respiratory failure requiring noninvasive positive pressure ventilation. clinically improving. stable for transfer out of ICU. Active problems: Acute hypoxic hypercarbic respiratory failure- resolving. Acute, severe COPD exacerbation Community acquired pneumonia Hyponatremia- resolved Lactic acidosis- resolved Acute intravascular volume depletion- resolved Severe acute protein calorie malnutrition Plan: IV steroids Nebs Wean nc for goal SPO2 greater than 90% Serial BMP, CBC Levaquin 750 mg IV every 24 hours Sputum culture Blood cultures- NGTD legionella, pneumococcal, influenza Ag negative advance diet as tolerated. Pulmonary consult: Will need to be followed by pulmonary as an outpatient Maintenance IV fluids SCDs Pepcid Lovenox Disposition: transfer out of ICU. consult hospitalist service to assume care.
[2018-01-21] MEDS: Enoxaparin Inj 40 MG/0.4 ML Syringe SQ SCH (10:27)
[2018-01-21] MEDS: dilTIAZem CD 240 MG Capsule PO SCH (10:29)
--- NOTE | 2018-01-21 20:45 | P.PNPOD ---
Subjective Interval history: Discussed with nurse. Outpatient follow up recommended for elongated nails. Physical Exam Vital signs: Vital Signs 01/20/18 21:00 01/20/18 22:00 01/20/18 23:00 Temperature Pulse Rate 84 85 77 Respiratory Rate 30 H 29 H 26 H Blood Pressure 128/61 132/66 157/68 H Pulse Oximetry 99 97 01/20/18 23:36 01/20/18 23:41 01/20/18 23:43 Temperature Pulse Rate 75 Respiratory Rate 20 Blood Pressure Pulse Oximetry 98 98 01/21/18 00:00 01/21/18 01:00 01/21/18 02:00 Temperature 98.5 F Pulse Rate 74 77 72 Respiratory Rate 30 H 25 H 25 H Blood Pressure 112/62 137/67 132/65 Pulse Oximetry 98 99 93 L 01/21/18 03:00 01/21/18 03:19 01/21/18 03:24 Temperature Pulse Rate 63 65 Respiratory Rate 25 H 19 Blood Pressure 131/64 Pulse Oximetry 94 L 100 01/21/18 04:00 01/21/18 05:00 01/21/18 06:00 Temperature 97.8 F Pulse Rate 92 H 89 95 H Respiratory Rate 34 H 25 H 50 H Blood Pressure 139/69 138/70 129/73 Pulse Oximetry 100 100 100 01/21/18 07:00 01/21/18 07:53 01/21/18 08:00 Temperature 97.8 F Pulse Rate 91 H 102 H Respiratory Rate 26 H Blood Pressure 128/75 132/69 Pulse Oximetry 98 100 100 01/21/18 08:01 01/21/18 09:00 01/21/18 10:00 Temperature Pulse Rate 88 96 H 106 H Respiratory Rate 22 Blood Pressure 130/75 Pulse Oximetry 94 L 100 01/21/18 10:01 01/21/18 11:00 01/21/18 11:08 Temperature Pulse Rate 113 H 107 H 112 H Respiratory Rate 16 Blood Pressure 112/55 L 106/57 L Pulse Oximetry 98 100 01/21/18 12:00 01/21/18 13:00 01/21/18 14:00 Temperature 98 F Pulse Rate 102 H 111 H 95 H Respiratory Rate 27 H 23 Blood Pressure 115/67 119/67 114/55 L Pulse Oximetry 97 92 L 100 01/21/18 15:00 01/21/18 15:01 01/21/18 16:00 Temperature Pulse Rate 93 H 97 H 90 Respiratory Rate 25 H 16 27 H Blood Pressure 117/73 108/58 L Pulse Oximetry 100 96 01/21/18 17:00 01/21/18 18:00 01/21/18 19:00 Temperature Pulse Rate 90 94 H 76 Respiratory Rate 19 24 Blood Pressure 96/53 L 102/53 L 102/56 L Pulse Oximetry 99 97 99 Intake & Output 01/21/18 01/21/18 01/22/18 06:59 18:59 06:59 Intake Total 0 / 0 1110 / 1110 Output Total 500 / 500 1000 / 1000 Balance -500 / -500 110 / 110 Weight 47.8 kg Intake: IV 150 / 150 Levaquin 750 mg Premix Inj 150 150 / 150 ML @ 100 mls/hr IV.SIG Q24H NABILA Rx#:[id number] Oral 0 / 0 960 / 960 Output: Urine 500 / 500 1000 / 1000 Other: # Voids 2 Date of Last Bowel Movement 01/21/18 01/21/18 # Bowel Movements 1 Medications and Allergies Active Medications: Active Medications Acetaminophen (Tylenol) 650 mg PO Q6H PRN PRN Reason: FEVER >101F Last Admin: 01/21/18 08:43 Dose: 650 mg Hydrocodone Bitart/Acetaminophen ([place] 5/325) 1 tab PO Q6H PRN PRN Reason: PAIN SCALE 1-5 Last Admin: 01/21/18 10:26 Dose: 1 tab Al Hydroxide/Mg Hydroxide (Milk Of Magnesia Liq) 30 ml PO Q12H PRN PRN Reason: Mild Constipation Albuterol (Duoneb Neb (Nabila)) 1 ampul NEB Q4HR NEB NABILA Last Admin: 01/21/18 19:47 Dose: 1 ampul Albuterol (Duoneb Neb (Prn)) 1 ampul NEB Q2HR NEB PRN PRN Reason: WHEEZING Alprazolam (Xanax) 0.5 mg PO BID [facility] Last Admin: 01/21/18 08:42 Dose: 0.5 mg Aspirin (Aspirin) 325 mg PO DAILY [facility] Last Admin: 01/21/18 08:40 Dose: 325 mg Bisacodyl (Dulcolax Supp) 10 mg RECTAL DAILY PRN PRN Reason: SEVERE CONSITIPATION Chlorhexidine Gluconate (Chlorhexidine 2% Cloth) 3 pack TOPICAL DAILY@0400 [facility] Stop: 01/26/18 03:59 Last Admin: 01/21/18 05:51 Dose: 3 pack Chlorhexidine Gluconate (Chlorhexidine 2% Cloth) 3 pack TOPICAL DAILY@0400 PRN PRN Reason: Extra cloth needed Stop: 01/26/18 03:59 Diltiazem HCl (Cardizem Cd 24hr) 240 mg PO DAILY [facility] Last Admin: 01/21/18 10:29 Dose: 240 mg Enoxaparin Sodium (Lovenox Inj) 40 mg SQ Q24H [facility] Last Admin: 01/21/18 10:27 Dose: 40 mg Famotidine (Pepcid) 20 mg PO BID [facility] Last Admin: 01/21/18 08:44 Dose: 20 mg Magnesium Sulfate Inj 4 gm/ (Sodium Chloride) 100 mls @ 50 mls/hr IV.SIG UNSCH PRN PRN Reason: For Magnesium 0.9 - 1.1 mg/dL Magnesium Sulfate Inj 2 gm/ (Sodium Chloride) 100 mls @ 50 mls/hr IV.SIG UNSCH PRN PRN Reason: For Magnesium 1.2 - 1.6 mg/dL Potassium Chloride (Kcl 40 Meq Premix Inj) 40 meq in 100 mls @ 25 mls/hr IV.SIG Q2H PRN PRN Reason: For Potassium 2.8 - 3.2 mEq/L Potassium Chloride (Kcl 20 Meq Premix Inj) 20 meq in 100 mls @ 50 mls/hr IV.SIG Q2H PRN PRN Reason: For Potassium 3.3 - 3.5 mEq/L Potassium Chloride (Kcl 40 Meq Premix Inj) 40 meq in 100 mls @ 25 mls/hr IV.SIG UNSCH PRN PRN Reason: For Potassium 3.3 - 3.5 mEq/L Potassium Chloride (Kcl 20 Meq Premix Inj) 20 meq in 100 mls @ 50 mls/hr IV.SIG Q2H PRN PRN Reason: For Potassium 2.8 - 3.2 mEq/L Sodium Phosphate 30 mmol/ (Sodium Chloride) 260 mls @ 42 mls/hr IV.SIG UNSCH PRN PRN Reason: For Phosphorus < 2.5 mg/dL Potassium Phosphate 30 mmol/ (Sodium Chloride) 260 mls @ 42 mls/hr IV.SIG UNSCH PRN PRN Reason: SEE LABEL COMMENTS Levofloxacin/Dextrose (Levaquin 750 Mg Premix Inj) 150 mls @ 100 mls/hr IV.SIG Q24H [facility] Stop: 01/27/18 09:59 Last Infusion: 01/21/18 17:29 Dose: Infused Lactulose (Lactulose Liq) 30 ml PO DAILY PRN PRN Reason: SEVERE CONSITIPATION Magnesium Oxide (Mag-Ox) 800 mg PO UNSCH PRN PRN Reason: For Magnesium 1.2 - 1.6 mg/dL Methylprednisolone Sodium Succinate (Solumedrol Inj) 40 mg IV.PUSH Q12HR [facility] Last Admin: 01/21/18 14:48 Dose: 40 mg Non-Formulary Medication (Tiotropium Smithers [Spiriva Respimat]) 2 puff INHALATION DAILY [facility] Last Admin: 01/21/18 10:30 Dose: Not Given Potassium Bicarb/Potassium Chloride (K-Lyte Cl Eff) 50 meq PO UNSCH PRN PRN Reason: For Potassium 3.3 - 3.5 mEq/L Last Admin: 01/21/18 08:42 Dose: 50 meq Potassium Phosphate (K-Phos Original) 2,000 mg PO Q4H PRN PRN Reason: Phosphorus Less Than 2.5 mg/dL Potassium Phosphate (K-Phos Original) 2,000 mg PO UNSCH PRN PRN Reason: SEE LABEL COMMENTS Senna/Docusate Sodium (Jessica-Colace) 1 tab PO BID [facility] Last Admin: 01/21/18 08:42 Dose: 1 tab Sennosides (Senokot) 17.2 mg PO Q12H PRN PRN Reason: Moderate Constipation Sodium Chloride (Ns Flush) 2 ml IV.FLUSH BID [facility] Last Admin: 01/21/18 08:44 Dose: 2 ml Sodium Chloride (Ns Flush) 2 ml IV.FLUSH PRN PRN PRN Reason: FLUSH AFTER USING IV ACCESS Allergies Allergy/AdvReac Type Severity Reaction Status Date / Time piperacillin Allergy Severe Swelling Verified 01/20/18 06:50 tazobactam Allergy Severe Swelling Verified 01/20/18 06:50 Home Medications Medication Instructions Recorded Confirmed Type alprazolam [Xanax] 0.5 mg PO BID 01/20/18 01/20/18 History aspirin 325 mg PO DAILY 01/20/18 01/20/18 History diltiazem HCl 240 mg PO DAILY 01/20/18 01/20/18 History hydrocodone-acetaminophen 1 tab PO Q4-6H PRN 01/20/18 01/20/18 History ipratropium-albuterol [Combivent 1 puff INHALATION Q6H 01/20/18 01/20/18 History Respimat] lisinopril 20 mg PO DAILY 01/20/18 01/20/18 History tiotropium bromide [Spiriva 2 puff INHALATION DAILY 01/20/18 01/20/18 History Respimat] Results - Labs CBC & Chem 7: 01/21/18 04:58 01/21/18 04:58 Laboratory Results - last 24 hr 01/21/18 01/21/18 01/21/18 04:58 04:58 05:15 WBC 22.2 H RBC 3.63 L Hgb 12.2 L Hct 36.6 L MCV 100.9 H MCH 33.6 MCHC 33.3 RDW 13.9 Plt Count 448 MPV 7.3 Puncture Site Right radial Patient Temperature 98.6 O2 Saturation 97 ABG pH 7.34 L ABG pCO2 64 H* ABG pO2 164 H ABG HCO3 34 H ABG O2 Content 16.5 ABG Base Excess 8.3 H ABG Methemoglobin 1.4 John Test Present Hemoglobin 11.9 L Carboxyhemoglobin 0.8 O2 Delivery Device Bipap Vent Setting 10/peep 5/ Inspired O2 45 Critical Value Yes Sodium 138 Potassium 3.3 L Chloride 97 L D Carbon Dioxide 30.8 Anion Gap 10 BUN 11 Creatinine 0.46 L Estimated GFR Greater than 89 Random Glucose 140 H Calcium 9.5 Microbiology 01/20/18 08:35 Blood - Peripheral Aerobic Blood Culture - Preliminary No growth in 1 day 01/20/18 08:35 Blood - Peripheral Anaerobic Blood Culture - Preliminary No growth in 1 day 01/20/18 08:30 Blood - Peripheral Aerobic Blood Culture - Preliminary No growth in 1 day 01/20/18 08:30 Blood - Peripheral Anaerobic Blood Culture - Preliminary No growth in 1 day
[2018-01-22] MEDS: Chlorhexidine Gluconate 2% 1 Pack (2 Cloths) TOPICAL SCH (05:49)
--- NOTE | 2018-01-22 09:02 | P.PNIM ---
Subjective Interval history: Feels a lot better, shortness of breath a lot better, uses home oxygen at home 24 7, cough is better. Afebrile. Refuses home health care. Physical Exam Vital signs: Vital Signs 01/21/18 10:00 01/21/18 10:01 01/21/18 11:00 Temperature Pulse Rate 106 H 113 H 107 H Respiratory Rate Blood Pressure 112/55 L 106/57 L Pulse Oximetry 100 98 100 01/21/18 11:08 01/21/18 12:00 01/21/18 13:00 Temperature 98 F Pulse Rate 112 H 102 H 111 H Respiratory Rate 16 27 H Blood Pressure 115/67 119/67 Pulse Oximetry 97 92 L 01/21/18 14:00 01/21/18 15:00 01/21/18 15:01 Temperature Pulse Rate 95 H 93 H 97 H Respiratory Rate 23 25 H 16 Blood Pressure 114/55 L 117/73 Pulse Oximetry 100 100 01/21/18 16:00 01/21/18 17:00 01/21/18 18:00 Temperature Pulse Rate 90 90 94 H Respiratory Rate 27 H 19 Blood Pressure 108/58 L 96/53 L 102/53 L Pulse Oximetry 96 99 97 01/21/18 19:00 01/21/18 19:27 01/21/18 19:48 Temperature Pulse Rate 76 77 86 Respiratory Rate 24 18 Blood Pressure 102/56 L Pulse Oximetry 99 100 01/21/18 20:00 01/21/18 20:40 01/22/18 02:30 Temperature 98.2 F 97.3 F L Pulse Rate 86 77 Respiratory Rate 18 18 18 Blood Pressure 116/57 L 109/61 Pulse Oximetry 98 96 98 01/22/18 04:00 01/22/18 06:07 01/22/18 08:35 Temperature 97.3 F L 98.2 F Pulse Rate 71 68 Respiratory Rate 19 18 18 Blood Pressure 119/62 105/55 L Pulse Oximetry 97 91 L 01/22/18 08:57 Temperature Pulse Rate Respiratory Rate Blood Pressure Pulse Oximetry 96 Intake & Output 01/21/18 01/22/18 01/22/18 18:59 06:59 18:59 Intake Total 1110 / 1110 120 / 120 Output Total 1000 / 1000 300 / 300 Balance 110 / 110 -180 / -180 Weight 46.7 kg Intake: IV 150 / 150 Levaquin 750 mg Premix Inj 150 150 / 150 ML @ 100 mls/hr IV.SIG Q24H SALLY Rx#:[id number] Oral 960 / 960 120 / 120 Output: Urine 1000 / 1000 300 / 300 Other: Date of Last Bowel Movement 01/21/18 01/21/18 # Bowel Movements 2 Narrative: GENERAL: Middle-age male who appears much older than stated age, quite frail and appears malnourished, sitting in bed no acute distress, eating lunch. CHEST: nc o2 in place. no distress. equal chest rise. unlabored. No wheezing. CARDIOVASCULAR: Normal rate, regular rhythm. Appears sinus by telemetry. ABDOMEN: Soft, nontender, nondistended. No guarding. MUSCULOSKELETAL: Pulses 2+. No peripheral edema. NEUROLOGICAL: Alert awake and oriented, no focal neurologic deficits. Results - Labs CBC & Chem 7: 01/21/18 04:58 01/21/18 04:58 Microbiology 01/20/18 08:35 Blood - Peripheral Aerobic Blood Culture - Preliminary No growth in 1 day 01/20/18 08:35 Blood - Peripheral Anaerobic Blood Culture - Preliminary No growth in 1 day 01/20/18 08:30 Blood - Peripheral Aerobic Blood Culture - Preliminary No growth in 1 day 01/20/18 08:30 Blood - Peripheral Anaerobic Blood Culture - Preliminary No growth in 1 day - Imaging Left upper lobe and right perihilar infiltrates likely pneumonia. Assessment and Plan - Plan 67-year-old male with acute COPD exacerbation and associated acute hypoxic and hypercarbic respiratory failure requiring noninvasive positive pressure ventilation, after couple of days, transferred out of the ICU. Acute hypoxic hypercarbic respiratory failure secondary to COPD exacerbation- resolving, previously on BiPAP, presently on nasal cannula, continue IV steroids , switch to oral, continue oxygen support, nebulization, leukocytosis improving , continue Levaquin, sputum culture pending. Blood cultures negative. Legionella, pneumococcal influenza antigen negative. Community-acquired pneumonia-chest x-ray showed left upper lobe and right perihilar infiltrates likely pneumonia.continue Levaquin, leukocytosis improving Hypokalemia-recheck BMP tomorrow, replace. Hyponatremia resolved Lactic acidosis resolved Acute intravascular volume depletion resolved Severe acute protein calorie malnutrition- Ensure 3 times daily. Lovenox for DVT prophylaxis, may stop Pepcid.
[2018-01-22] MEDS: Enoxaparin Inj 40 MG/0.4 ML Syringe SQ SCH (09:48)
[2018-01-22] MEDS: Senna/Docusate Sodium 8.6/50 MG Tablet PO SCH ×2 (09:49→23:54)
[2018-01-22] MEDS: Famotidine 20 MG Tablet PO SCH ×2 (09:49→23:53)
[2018-01-22] MEDS: ALPRAZolam 0.5 MG Tablet PO SCH ×2 (09:49→23:54)
[2018-01-22] MEDS: dilTIAZem CD 240 MG Capsule PO SCH (09:49)
[2018-01-22] MEDS: Aspirin 325 MG Tablet PO SCH (09:49)
[2018-01-22 13:28] LABS: Hematocrit 38.9 % (39.0-51.0); Hemoglobin 12.9 gm/dL (13.0-17.0); Mean Corpuscular HGB Conc 33.2 % (32.0-36.0); Mean Corpuscular Hemoglobin 33.5 pg (27.0-34.0); Mean Corpuscular Volume 100.9 fL (80.0-100.0); Mean Platelet Volume 7.3 fL (7.0-11.0); Platelet Count 500 th/mm3 (150-450); Red Blood Count 3.85 mil/mm3 (4.50-5.90); Red Cell Distribution Width 13.7 % (11.6-17.2); White Blood Count 18.4 th/mm3 (4.0-11.0)
[2018-01-22 13:51] LABS: Anion Gap 7 meq/L (5-15); Blood Urea Nitrogen 18 mg/dL (7-18); Calcium 9.7 mg/dL (8.5-10.1); Carbon Dioxide 32.1 meq/L (21.0-32.0); Chloride 95 meq/L (98-107); Glomerular Filtration Rate Greater Than 89 mL/min (>89); Glucose,Random 123 mg/dL (74-106); Potassium 3.9 meq/L (3.5-5.1); Sodium 134 meq/L (136-145)
[2018-01-22] MEDS: predniSONE 20 MG Tablet PO SCH (23:53)
[2018-01-23 06:59] LABS: Hematocrit 33.5 % (39.0-51.0); Hemoglobin 11.2 gm/dL (13.0-17.0); Mean Corpuscular HGB Conc 33.4 % (32.0-36.0); Mean Corpuscular Hemoglobin 33.4 pg (27.0-34.0); Mean Corpuscular Volume 99.8 fL (80.0-100.0); Platelet Count 478 th/mm3 (150-450); Red Blood Count 3.35 mil/mm3 (4.50-5.90); Red Cell Distribution Width 13.3 % (11.6-17.2); White Blood Count 13.3 th/mm3 (4.0-11.0)
[2018-01-23 07:26] LABS: Anion Gap 5 meq/L (5-15); Blood Urea Nitrogen 24 mg/dL (7-18); Calcium 9.1 mg/dL (8.5-10.1); Carbon Dioxide 34.2 meq/L (21.0-32.0); Chloride 98 meq/L (98-107); Glomerular Filtration Rate Greater Than 89 mL/min (>89); Glucose,Random 125 mg/dL (74-106); Potassium 4.8 meq/L (3.5-5.1); Sodium 137 meq/L (136-145)
[2018-01-23] MEDS: levoFLOXacin 750 MG Tablet PO SCH ×2 (08:20→08:22)
[2018-01-23] MEDS: predniSONE 20 MG Tablet PO SCH (08:20)
[2018-01-23] MEDS: dilTIAZem CD 240 MG Capsule PO SCH (08:20)
[2018-01-23] MEDS: Senna/Docusate Sodium 8.6/50 MG Tablet PO SCH (08:21)
[2018-01-23] MEDS: Famotidine 20 MG Tablet PO SCH (08:21)
[2018-01-23] MEDS: ALPRAZolam 0.5 MG Tablet PO SCH (08:21)
[2018-01-23] MEDS: Aspirin 325 MG Tablet PO SCH (08:21)
[2018-01-23] MEDS: Chlorhexidine Gluconate 2% 1 Pack (2 Cloths) TOPICAL SCH (08:23)
--- NOTE | 2018-01-23 08:37 | P.DS ---
Date of admission: 01/20/18 09:41 Primary care physician: UNKNOWN Brief History from admission: 67yM with history of COPD presents with 1 week history of worsening productive cough, fever and SOB. found to be hypoxic in ER and placed on BiPAP. initial ABG with severe respiratory acidosis and hypercarbia as well as hypoxia. CXR with ? RLL infiltrate. lactate elevated. given solumedrol in the field and serial nebs. on my evaluation patient had taken off BiPAP and was on ventimask with spo2 82% and very dyspneic and tachypneic. due to his respiratory distress , unable to complete a history. ROS unobtainable. discussed at length with patient that if he cannot tolerate biPAP, will have to proceed with intubation: he will try bipap one more time. denied chest pain, palpitations. DS: Diagnosis - Discharge Diagnosis (1) Acute exacerbation of chronic obstructive pulmonary disease (COPD) Status: Acute (2) Pneumonia Status: Acute DS: Medications - Discharge Medications Prescriptions: fluticasone-salmeterol [Advair Diskus] 1 inh INHALATION Q12H #1 ea levofloxacin 750 mg PO DAILY #5 tab prednisone See Taper PO BID #12 tab DS: Summary Hospital Course: This is a 67-year-old male with acute COPD exacerbation and associated acute hypoxic and hypercarbic respiratory failure requiring noninvasive positive pressure ventilation, initially admitted to ICU under the care of the intensive after couple of days, transferred out of the ICU. Chest x-ray showed a left upper lobe and right rubin-hilar infiltrates suspicious for pneumonia. Patient was initially treated with intravenous steroids, intravenous Levaquin. After a few days, patient was switched to nasal cannula and continued to improve. Steroids were switched to oral including Levaquin. Blood cultures negative. Legionella, pneumococcal influenza antigen negative. Patient will be discharged to finish his Levaquin dose, steroid taper and will be started on Advair. - Time Spent with Patient Total time spent providing and/or coordinating discharge services: Greater than 30 minutes - Quality: AMI Clinical Trial Participant: No - Quality: VTE Deep Vein Thrombosis/Pulmonary Embolism Present on Admission: No Exam Vital signs: Vital Signs 01/22/18 08:35 01/22/18 08:57 01/22/18 10:53 Temperature 98.2 F Pulse Rate 68 74 Respiratory Rate 18 14 Blood Pressure 105/55 L Pulse Oximetry 91 L 96 01/22/18 12:21 01/22/18 15:34 01/22/18 15:36 Temperature 97.4 F L Pulse Rate 70 70 Respiratory Rate 18 18 Blood Pressure 106/58 L Pulse Oximetry 91 L 94 L 01/22/18 16:37 01/22/18 19:34 01/22/18 20:00 Temperature 97.4 F L 97.3 F L Pulse Rate 80 80 89 Respiratory Rate 18 22 19 Blood Pressure 128/63 122/63 Pulse Oximetry 99 94 L 01/23/18 00:00 01/23/18 00:09 01/23/18 00:11 Temperature 97.5 F L Pulse Rate 85 87 Respiratory Rate 17 16 Blood Pressure 126/63 Pulse Oximetry 95 99 01/23/18 04:00 01/23/18 04:28 Temperature 97.8 F Pulse Rate 65 86 Respiratory Rate 17 16 Blood Pressure 136/72 Pulse Oximetry 98 Intake & Output 01/22/18 01/23/18 01/23/18 18:59 06:59 18:59 Weight 46.5 kg Other: Date of Last Bowel Movement 01/21/18 Narrative: On the day of discharge, patient feels well, off oxygen, ambulating, cleared by physical therapy. Denies any chest pain, shortness of breath back to baseline. Afebrile. Leukocytosis is trending down. Blood culture remained negative. Potassium is back to normal. GENERAL: Middle-age male who appears much older than stated age, quite frail and appears malnourished, sitting in bed no acute distress, eating lunch. CHEST: nc o2 in place. no distress. equal chest rise. unlabored. No wheezing. CARDIOVASCULAR: Normal rate, regular rhythm. Appears sinus by telemetry. ABDOMEN: Soft, nontender, nondistended. No guarding. MUSCULOSKELETAL: Pulses 2+. No peripheral edema. NEUROLOGICAL: Alert awake and oriented, no focal neurologic deficits. Results Procedures completed during hospitalization: None Labs on day of discharge: Labs from last 24 hours 01/23/18 01/23/18 01/23/18 08:15 06:31 06:31 WBC 13.3 H RBC 3.35 L Hgb 11.2 L Hct 33.5 L MCV 99.8 MCH 33.4 MCHC 33.4 RDW 13.3 Plt Count 478 H MPV 7.0 Sodium 137 Potassium 4.8 D Chloride 98 Carbon Dioxide 34.2 H Anion Gap 5 BUN 24 H Creatinine 0.58 L Estimated GFR Greater than 89 POC Glucose 134 H Random Glucose 125 H Calcium 9.1 01/22/18 01/22/18 12:46 12:46 WBC 18.4 H RBC 3.85 L Hgb 12.9 L Hct 38.9 L MCV 100.9 H MCH 33.5 MCHC 33.2 RDW 13.7 Plt Count 500 H MPV 7.3 Sodium 134 L Potassium 3.9 Chloride 95 L Carbon Dioxide 32.1 H Anion Gap 7 BUN 18 Creatinine 0.64 Estimated GFR Greater than 89 POC Glucose Random Glucose 123 H Calcium 9.7 Preliminary micro results at discharge 01/20/18 08:35 Aerobic Blood Culture - Preliminary Blood - Peripheral No growth in 2 days Anaerobic Blood Culture - Preliminary No growth in 2 days 01/20/18 08:30 Aerobic Blood Culture - Preliminary Blood - Peripheral No growth in 2 days Anaerobic Blood Culture - Preliminary No growth in 2 days - Impressions ITS Impressions Chest X-Ray 01/20/18 07:16 CONCLUSION: 1. Patchy airspace disease left upper lobe and right perihilar region. 2. Right basilar pleural-parenchymal scarring. Discharge Plan - Discharge Disposition Patient Disposition: Discharge Home - Discharge Condition Condition: Fair - Discharge Order Discharge Orders: Discharge Order (Routine); Ordered 01/23/18 Ordered By: Korina Florez - Discharge Details Anticipated Discharge Date: 01/23/18 - Physicians Team Primary Care Provider: UNKNOWN, Attending Provider: Korina Florez Other Providers: Fer Driscoll MD ; Tarah Irving DPM
== END 2018-01-23 11:54 | disposition home or self-care (01) ==
LOC: NEPC 06:39 → NEDA 09:41 → HIMC 11:14 → N05 01-21 20:46
PROVIDERS: ADMIT Hospitalist; ATTEND Hospitalist